=== PATIENT | male | born 1995 | race Caucasian/White ===

== ENCOUNTER 2017-04-15 21:06 | Outpatient (CLI) | payer MEDICAID | END 2017-04-15 21:07 | disposition critical access hospital (66) | LOC: EMS 21:06 | PROVIDERS: ATTEND Surgery | DX: R41.0 Disorientation, unspecified (principal) | CPT/HCPCS: A0425; A0429 ==

== ENCOUNTER 2017-04-15 21:16 | Emergency (ER) | payer MEDICAID ==
[2017-04-15 21:23] VITALS: BP 109/61
--- NOTE | 2017-04-15 21:55 | ED Physician Documentation ---
PD HPI MHE - Stated complaint Stated Complaint: SI - Chief complaint Chief Complaint: Neuro - History obtained from History obtained from: Patient - History of Present Illness Primary symptom: Aggressive behavior, Off meds Timing - onset: Chronic Similar symptoms before: Diagnosis (schizophrenia) Recently seen: Not recently seen Review of Systems Cardiac: reports: Reviewed and negative Respiratory: reports: Reviewed and negative GI: reports: Reviewed and negative Psychiatric: denies: Suicidal, Homicidal PD PAST MEDICAL HISTORY - Past Medical History Past Medical History: Yes Psych: Bipolar disorder, Schizophrenia - Past Surgical History Past Surgical History: No - Allergies Allergies/Adverse Reactions: Allergies Allergy/AdvReac Type Severity Reaction Status Date / Time No Known Drug Allergies Allergy Verified 04/15/17 21:35 - Social History Does the pt smoke?: Yes Smoking Status: Current every day smoker Does the pt drink ETOH?: Yes Does the pt have substance abuse?: Yes - Immunizations Immunizations are current?: Yes - POLST Patient has POLST: No PD ED PE NORMAL - Vitals Vital signs reviewed: Yes - General General: Alert and oriented X 3, No acute distress, Well developed/nourished - HEENT HEENT: Moist mucous membranes - Cardiac Cardiac: RRR, No murmur - Respiratory Respiratory: No respiratory distress, Clear bilaterally - Neuro Neuro: Alert and oriented X 3 PD ED PE EXPANDED - Psych Psych: Withdrawn, Poor eye contact Results - Vitals Vitals: Oxygen O2 Source Room air PD MEDICAL DECISION MAKING - ED course Complexity details: considered differential, d/w patient, d/w family ED course: patient brought in from [facility] due to odd behavior. He has a history of bipolar disorder and schizophrenia, is off medication. He was evaluated in the field by [facility] and, after her a valuation of this patient, [facility] sent a patient to ER for further valuation. [facility] arrives shortly after patient to continue her evaluation. [facility] was unable to secure a bed for this patient at appropriate psychiatric facility, and thus, after discussion with patients family, plans to discharge patient home with follow up in a few days. The patient and family are comfortable with this plan. Departure - Departure Disposition: 01 Home, Self Care Clinical Impression: Altered mental status Qualifiers: Altered mental status type: unspecified Qualified Code(s): R41.82 - Altered mental status, unspecified Condition: Stable Instructions: ED Psychosis Comments: Follow up as discussed with the mental health professional. Discharge Date/Time: 04/15/17 22:30
== END 2017-04-15 22:30 | disposition home or self-care (01) ==
LOC: ED 21:16
DX: R41.82 Altered mental status, unspecified (principal); F31.9 Bipolar disorder, unspecified; F20.9 Schizophrenia, unspecified; F17.200 Nicotine dependence, unspecified, uncomplicated
CPT/HCPCS: 99283

== ENCOUNTER 2017-04-19 11:00 | Outpatient (CLI) | payer MEDICAID | END 2017-04-19 11:01 | disposition home or self-care (01) | LOC: EMS 11:00 | PROVIDERS: ATTEND Surgery | DX: F99 Mental disorder, not otherwise specified (principal) | CPT/HCPCS: A0425; A0429 ==

== ENCOUNTER 2017-04-19 11:07 | Emergency (ER) | payer MEDICAID ==
--- NOTE | 2017-04-19 12:28 | ED Physician Documentation ---
PD HPI MHE - Stated complaint Stated Complaint: MHE - Chief complaint Chief Complaint: MHE - History obtained from History obtained from: Patient - History of Present Illness Primary symptom: Psychosis (Young man with H/O psychosis/schizophrenia kicked out of [facility]'s house d/t bizarre behavior. Brought in by [facility] for invol tx. Not on meds currently, won't say why.) Review of Systems Ten Systems: 10 systems reviewed and negative Constitutional: reports: Reviewed and negative Ears: reports: Reviewed and negative Throat: reports: Reviewed and negative Cardiac: reports: Chest pain / pressure Respiratory: reports: Reviewed and negative PD PAST MEDICAL HISTORY - Past Medical History Past Medical History: Yes Psych: Bipolar disorder, Schizophrenia - Past Surgical History Past Surgical History: No - Present Medications Home Medications: Ambulatory Orders Medication Instructions Recorded Confirmed No Known Home Medications [No 04/19/17 04/19/17 Known Home Medications] - Allergies Allergies/Adverse Reactions: Allergies Allergy/AdvReac Type Severity Reaction Status Date / Time No Known Drug Allergies Allergy Verified 04/15/17 21:35 - Social History Does the pt smoke?: Yes Smoking Status: Current every day smoker Does the pt drink ETOH?: Yes Does the pt have substance abuse?: Yes - Family History Family history: reports: Non contributory - Immunizations Immunizations are current?: Yes - POLST Patient has POLST: No PD ED PE NORMAL - Vitals Vital signs reviewed: Yes - General General: Alert and oriented X 3, No acute distress - HEENT HEENT: PERRL, EOMI - Neck Neck: Supple, no meningeal sign, No bony TTP - Cardiac Cardiac: RRR, No murmur - Respiratory Respiratory: No respiratory distress, Clear bilaterally - Abdomen Abdomen: Soft, Non tender - Back Back: No CVA TTP, No spinal TTP - Derm Derm: Normal color, Warm and dry - Extremities Extremities: No deformity, No tenderness to palpate - Neuro Neuro: Alert and oriented X 3, Normal speech - Psych Psych: Other (Poor eye contact, blunted inappropriate affect with odd laughter. ) Results - Vitals Vitals: Vital Signs - 24 hr 04/19/17 04/19/17 11:10 13:25 Temperature 36.5 C Heart Rate 80 Respiratory 18 Rate Blood Pressure 140/90 H O2 Saturation 100 Oxygen O2 Source Room air - Labs Labs: Laboratory Tests 0604/19/17 04/19/17 12:25 12:25 12:40 WBC 6.7 RBC 4.42 L Hgb 13.7 L Hct 39.7 L MCV 89.7 MCH 31.0 MCHC 34.6 RDW 12.8 Plt Count 256 MPV 7.0 L Neut # 4.2 Lymph # 1.8 [place] # 0.6 Eos # 0.1 Baso # 0.1 Absolute Nucleated RBC 0.00 Nucleated RBCs 0.0 Sodium 140 Potassium 3.6 Chloride 103 Carbon Dioxide 29 Anion Gap 8.0 BUN 18 Creatinine 1.0 Estimated GFR (MDRD) 94 Glucose 79 Calcium 9.2 Urine Opiates Screen NEGATIVE Ur Oxycodone Screen NEGATIVE Urine Methadone Screen NEGATIVE Ur Propoxyphene Screen NEGATIVE Ur Barbiturates Screen NEGATIVE Ur Tricyclics Screen NEGATIVE Ur Phencyclidine Scrn NEGATIVE Ur Amphetamine Screen NEGATIVE U Methamphetamines Scrn NEGATIVE U Benzodiazepines Scrn NEGATIVE Urine Cocaine Screen NEGATIVE U Cannabinoids Screen POSITIVE H Ethyl Alcohol < 5.0 PD MEDICAL DECISION MAKING - ED course ED course: No contraindication to medical clearance for psychiatric evaluation, [facility] and need involuntary for transfer likely to [facility] Departure - Departure Disposition: 65 Psych Hosp/Unit DC/Xfer Clinical Impression: Psychosis Qualifiers: Psychosis type: schizophrenia Schizophrenia type: disorganized schizophrenia Qualified Code(s): F20.1 - Disorganized schizophrenia Condition: Stable
[2017-04-19 12:37] LABS: BASOPHILS # (AUTO) 0.1 10^3/uL (0.0-0.1); BASOPHILS % (AUTO) 1.1 %; EOSINOPHILS # (AUTO) 0.1 10^3/uL (0.0-0.7); EOSINOPHILS % (AUTO) 1.7 %; HCT - HEMATOCRIT 39.7 % (42.0-52.0); HGB - HEMOGLOBIN 13.7 g/dL (14.0-18.0); LYMPHOCYTES # (AUTO) 1.8 10^3/uL (1.5-3.5); LYMPHOCYTES % (AUTO) 26.8 %; MEAN CORPUSCULAR HGB CONC 34.6 g/dL (32.0-36.0); MEAN CORPUSCULAR VOLUME 89.7 fL (80.0-94.0); MONOCYTES # (AUTO) 0.6 10^3/uL (0.0-1.0); MONOCYTES % (AUTO) 8.2 %; NEUTROPHILS # (AUTO) 4.2 10^3/uL (1.5-6.6); NEUTROPHILS % (AUTO) 62.2 %; RED BLOOD COUNT 4.42 10^6/uL (4.70-6.10); RED CELL DISTRIBUTION WIDTH 12.8 % (12.0-15.0); UNCORRECTED WHITE BLOOD COUNT 6.7 x10^3/uL; WHITE BLOOD COUNT 6.7 x10^3/uL (4.8-10.8)
[2017-04-19 12:48] LABS: BUN - BLOOD UREA NITROGEN 18 mg/dL (6-20); CALCIUM 9.2 mg/dL (8.5-10.3); CARBON DIOXIDE - CO2 29 mmol/L (21-32); CHLORIDE 103 mmol/L (101-111); GFR - MDRD 94 (>89); GLUCOSE 79 mg/dL (70-100); POTASSIUM 3.6 mmol/L (3.5-5.0); SODIUM 140 mmol/L (135-145)
[2017-04-19] MEDS ORDERED: LORazepam 0.5 MG TABLET PO STA (13:18)
[2017-04-19] MEDS ORDERED: LORazepam 0.5 MG TABLET ONE (13:24)
[2017-04-19 15:19] VITALS: BP 119/81
== END 2017-04-19 16:50 ==
LOC: EDUNIT# → ED 11:07
DX: F20.1 Disorganized schizophrenia (principal); F31.9 Bipolar disorder, unspecified; F17.200 Nicotine dependence, unspecified, uncomplicated
CPT/HCPCS: 36415; 80048; 80306; 80320; 85025; 99283; 99284; A9270

== ENCOUNTER 2017-10-10 15:48 | Outpatient (CLI) | payer MEDICAID | END 2017-10-10 15:49 | disposition critical access hospital (66) | LOC: EMS 15:48 | PROVIDERS: ATTEND Surgery | DX: M79.1 Myalgia (principal) | CPT/HCPCS: A0425; A0429 ==

== ENCOUNTER 2017-10-10 16:04 | Emergency (ER) | payer MEDICAID ==
[2017-10-10 16:19] VITALS: BP 134/80
--- NOTE | 2017-10-10 17:35 | ED Physician Documentation ---
History of Present Illness - Stated complaint Stated Complaint: LEFT BICEP PX - Chief complaint Chief Complaint: General - History obtained from History obtained from: Patient, EMS - History of Present Illness Timing: Today Pain level max: 3 Pain level now: 0 Improved by: nothing Worsened by: nothing - Additonal information Additional information: Patient is a 22-year-old male who presents to the emergency department with left arm pain today. States he is concerned that he was going to have a heart attack. Used marijuana, drank alcohol and then took approximately 20 pills of dextromethorphan. Had some hallucinations, now feels like he is "coming down from the high". Currently asymptomatic. No acute findings on EKG with EMS. Review of Systems Ten Systems: 10 systems reviewed and negative Constitutional: denies: Fever, Chills Ears: denies: Ear pain Nose: denies: Rhinorrhea / runny nose, Congestion Throat: denies: Sore throat Cardiac: reports: Chest pain / pressure (No chest pain or pressure, but states "I feel like I was going to have a heart attack".) Respiratory: denies: Cough GI: denies: Abdominal Pain, Nausea, Vomiting, Diarrhea Skin: denies: Rash Musculoskeletal: denies: Neck pain, Back pain Neurologic: denies: Headache PD PAST MEDICAL HISTORY - Past Medical History Past Medical History: Yes Psych: Bipolar disorder, Schizophrenia - Past Surgical History Past Surgical History: No - Present Medications Home Medications: Ambulatory Orders Medication Instructions Recorded Confirmed [place] 10/10/17 - Allergies Allergies/Adverse Reactions: Allergies Allergy/AdvReac Type Severity Reaction Status Date / Time No Known Drug Allergies Allergy Verified 04/15/17 21:35 - Social History Does the pt smoke?: Yes Smoking Status: Current every day smoker Does the pt drink ETOH?: Yes Does the pt have substance abuse?: Yes Substance Use and Type: Marijuana - Immunizations Immunizations are current?: Yes - POLST Patient has POLST: No PD ED PE NORMAL - Vitals Vital signs reviewed: Yes - General General: Alert and oriented X 3, No acute distress, Well developed/nourished - HEENT HEENT: PERRL, Moist mucous membranes - Neck Neck: Supple, no meningeal sign - Cardiac Cardiac: RRR, No murmur, Strong equal pulses - Respiratory Respiratory: No respiratory distress, Clear bilaterally - Abdomen Abdomen: Soft, Non tender, Non distended - Derm Derm: Warm and dry - Extremities Extremities: No deformity, No tenderness to palpate, Normal ROM s pain - Neuro Neuro: Alert and oriented X 3, 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, No motor deficit, No sensory deficit, Normal speech Eye Opening: Spontaneous Motor: Obeys Commands Verbal: Oriented GCS Score: 15 - Psych Psych: Normal mood, Normal affect Results - Vitals Vitals: Vital Signs - 24 hr 10/10/17 16:11 Temperature 37.4 C Heart Rate 94 Respiratory 18 Rate Blood Pressure 134/80 H O2 Saturation 98 Oxygen O2 Source Room air - EKG (time done) 1730 Rate: Rate (enter#) (96) Rhythm: NSR [place]: Normal Intervals: Normal CT QRS: Normal Ischemia: Normal ST segments PD MEDICAL DECISION MAKING - ED course Complexity details: reviewed results, re-evaluated patient, considered differential, d/w patient ED course: Patient is a 22-year-old male who presents to the emergency department with left arm pain while he was intoxicated on multiple substances earlier today. Resolved upon arrival to the emergency department. No chest pain. EKG is normal. No acute emergency medical condition at this time. Patient counseled regarding signs and symptoms for which I believe and urgent re-evaluation would be necessary. Patient with good understanding of and agreement to plan and is comfortable going home at this time This document was made in part using voice recognition software. While efforts are made to proofread this document, sound alike and grammatical errors may occur. Departure - Departure Disposition: 01 Home, Self Care Clinical Impression: Arm pain Qualifiers: Laterality: left Qualified Code(s): M79.602 - Pain in left arm Condition: Good Instructions: ED Drug Abuse General Follow-Up: Mara Montelongo ARNP [Primary Care Provider] - Comments: Your tests are normal today. Stay away from drugs and alcohol. Return if you worsen. Discharge Date/Time: 10/10/17 17:35
== END 2017-10-10 17:35 | disposition home or self-care (01) ==
LOC: EDUNIT# → ED 16:04
DX: M79.602 Pain in left arm (principal); R44.3 Hallucinations, unspecified; R07.9 Chest pain, unspecified; F17.200 Nicotine dependence, unspecified, uncomplicated
CPT/HCPCS: 93005; 99283

== ENCOUNTER 2017-10-10 23:38 | Outpatient (CLI) | payer MEDICAID | END 2017-10-10 23:39 | disposition critical access hospital (66) | LOC: EMS 23:38 | PROVIDERS: ATTEND Surgery | DX: M79.602 Pain in left arm (principal) | CPT/HCPCS: A0425; A0429 ==

== ENCOUNTER 2017-10-10 23:45 | Emergency (ER) | payer MEDICAID ==
--- NOTE | 2017-10-11 00:40 | ED Physician Documentation ---
PD HPI CHEST PAIN - Stated complaint Stated Complaint: LEFT ARM PAIN - Chief complaint Chief Complaint: Ext Problem - History obtained from History obtained from: Patient - History of Present Illness Timing - onset: Today (onset of chest discomfort and general weakness, anxiety, after taking medications recreationally earlier today, including "CCC" ( dextromethorphan), alcohol and marijuana. Seen in ED earlier today with chest discomfort. Had normal ECG and vitals. Has continued with anxiety and feeling of muscle aches and chest pressure. Here for check again. Denies any more drug use since prior ED visit.) Timing - onset during: Light activity Timing - duration: Days (1) Timing - details: Gradual onset, Still present Quality: Aching Location: Left chest Radiation: Left upper extremity Improved by: No: Rest Worsened by: Movement, Palpation. No: Inspiration Associated symptoms: Nausea, General Weakness. No: Shortness of air, Diaphoresis, Feeling faint / dizzy, Palpitations, Cough Similar symptoms before: Has not had sx before Recently seen: Emergency Dept Review of Systems Constitutional: reports: Myalgias (today). denies: Fever, Chills Nose: denies: Rhinorrhea / runny nose, Congestion Throat: denies: Sore throat Cardiac: reports: Chest pain / pressure. denies: Palpitations, Pedal edema, Calf pain Respiratory: reports: Cough. denies: Dyspnea, Wheezing GI: denies: Abdominal Pain, Abdominal Swelling, Nausea, Vomiting, Diarrhea Skin: denies: Rash, Lesions PD PAST MEDICAL HISTORY - Past Medical History Past Medical History: Yes Cardiovascular: None Respiratory: None Neuro: None Psych: Bipolar disorder, Schizophrenia - Past Surgical History Past Surgical History: No - Present Medications Home Medications: Ambulatory Orders Medication Instructions Recorded Confirmed [place] 600 mg PO BID 10/10/17 QUEtiapine [SEROquel] 300 mg PO DAILY 10/10/17 10/10/17 Naproxen 375 mg PO BID #20 tablet 10/11/17 - Allergies Allergies/Adverse Reactions: Allergies Allergy/AdvReac Type Severity Reaction Status Date / Time No Known Drug Allergies Allergy Verified 10/10/17 23:54 - Living Situation Living Arrangement: reports: At home - Social History Does the pt smoke?: Yes Smoking Status: Current every day smoker Does the pt drink ETOH?: Yes Does the pt have substance abuse?: Yes Substance Use and Type: Marijuana, Other (denies IVDU.) - Immunizations Immunizations are current?: Yes - POLST Patient has POLST: No PD ED PE NORMAL - Vitals Vital signs reviewed: Yes - General General: Alert and oriented X 3, No acute distress, Well developed/nourished - HEENT HEENT: Ears normal, Moist mucous membranes, Pharynx benign - Cardiac Cardiac: RRR, No murmur - Respiratory Respiratory: Clear bilaterally, Other (some chestwall tenderness left chest anterior without redness, rash, nor sores. ) - Abdomen Abdomen: Soft, Non tender - Male Male : Deferred - Rectal Rectal: Deferred - Back Back: No CVA TTP, No spinal TTP - Derm Derm: Normal color, Warm and dry, No rash - Extremities Extremities: No deformity, No tenderness to palpate, Normal ROM s pain, No edema , No calf tenderness / cord - Neuro Neuro: Alert and oriented X 3, No motor deficit, Normal speech Eye Opening: Spontaneous Motor: Obeys Commands Verbal: Oriented GCS Score: 15 - Psych Psych: Normal mood Results - Vitals Vitals: Vital Signs - 24 hr 10/10/17 10/11/17 10/11/17 23:52 01:15 02:45 Temperature 36.8 C Heart Rate 93 74 71 Respiratory 20 16 16 Rate Blood Pressure 133/76 H 102/61 102/56 L O2 Saturation 99 95 97 Oxygen O2 Source Room air - Labs Labs: Laboratory Tests 10/11/17 10/11/17 10/11/17 00:57 00:57 00:57 WBC 13.6 H RBC 4.86 Hgb 14.7 Hct 42.8 MCV 88.0 MCH 30.3 MCHC 34.4 RDW 13.4 Plt Count 272 MPV 7.0 L Neut # 10.8 H Lymph # 1.7 [place] # 0.9 Eos # 0.1 Baso # 0.1 Absolute Nucleated RBC 0.00 Nucleated RBC % 0.0 Sodium 138 Potassium 3.6 Chloride 101 Carbon Dioxide 25 Anion Gap 12.0 BUN 18 Creatinine 1.0 Estimated GFR (MDRD) 93 Glucose 102 H Calcium 9.6 Total Bilirubin 0.9 AST 59 H ALT 42 Alkaline Phosphatase 76 Total Creatine Kinase 2161 H* Troponin I < 0.04 Total Protein 7.5 Albumin 4.6 Globulin 2.9 Albumin/Globulin Ratio 1.6 Lipase 18 L Urine Color Urine Clarity Urine pH Ur Specific [place] Urine Protein Urine Glucose (UA) Urine Ketones Urine Occult Blood Urine Nitrite Urine Bilirubin Urine Urobilinogen Ur Leukocyte Esterase Ur Microscopic Review Urine Culture Comments Last Dose Date Last Dose Time [place] 10/11/17 10/11/17 01:45 02:08 WBC RBC Hgb Hct MCV MCH MCHC RDW Plt Count MPV Neut # Lymph # [place] # Eos # Baso # Absolute Nucleated RBC Nucleated RBC % Sodium Potassium Chloride Carbon Dioxide Anion Gap BUN Creatinine Estimated GFR (MDRD) Glucose Calcium Total Bilirubin AST ALT Alkaline Phosphatase Total Creatine Kinase Troponin I Total Protein Albumin Globulin Albumin/Globulin Ratio Lipase Urine Color YELLOW Urine Clarity CLEAR Urine pH 6.0 Ur Specific [place] 1.015 Urine Protein NEGATIVE Urine Glucose (UA) NEGATIVE Urine Ketones NEGATIVE Urine Occult Blood NEGATIVE Urine Nitrite NEGATIVE Urine Bilirubin NEGATIVE Urine Urobilinogen 0.2 (NORMAL) Ur Leukocyte Esterase NEGATIVE Ur Microscopic Review NOT INDICATED Urine Culture Comments NOT INDICATED Last Dose Date Not Reportable Last Dose Time Not Reportable [place] 0.41 - Rads (name of study) chest Radiology: Prelim report reviewed, EMP read contemporaneously (no acute process) PD MEDICAL DECISION MAKING - ED course Complexity details: reviewed results, re-evaluated patient (he is resting well with IV fluids. No meds per se for anxiety. He has elevated CK c/w some psychomotor agitation from meds today. Does not have obvious injury nor skin sites of infection. No fever. Given IV fluids to flush out renal flow. UA does not have myoglobin in it. CK is not elevated enough of concern for admission, after discussion with Hospitalist. ), considered differential, d/w patient ED course: Still doing okay in AM, after IV fluids and rest. HR and BP are okay. Minimal to no chestwall symtpoms. Departure - Departure Disposition: 01 Home, Self Care Clinical Impression: Elevated CK, Substance abuse, Psychomotor agitation Chest pain Qualifiers: Chest pain type: precordial pain Qualified Code(s): R07.2 - Precordial pain Condition: Stable Record reviewed to determine appropriate education?: Yes Instructions: ED Chest Pain NonCardiac Follow-Up: Mara Montelongo ARNP [Primary Care Provider] - Prescriptions: Naproxen 375 mg PO BID #20 tablet Comments: Continue usual medications. No recreational use of drugs/meds. Drink lots of fluids/water/juice today. Naproxen twice daily for a week to help with muscle pains. Add Tylenol as needed. You have some muscle irritation leading to some of your symptoms, and this should clear with good hydration and NSAIDs (and time ).
[2017-10-11] MEDS ORDERED: IBUPROFEN 600 MG TABLET PO STA (00:41)
[2017-10-11] MEDS ORDERED: ACETAMINOPHEN 325 MG TABLET PO STA (00:42)
[2017-10-11] MEDS ORDERED: IBUPROFEN 600 MG TABLET PO ONE (00:50)
[2017-10-11] MEDS ORDERED: ACETAMINOPHEN 325 MG TABLET PO ONE (00:50)
--- NOTE | 2017-10-11 01:05 | XRAY Preliminary Report ---
Exam: XR CHEST 2 VIEW PA/LAT IMPRESSION: 1. No acute abnormality seen in the chest. [facility] SITE ID: [id number]
[2017-10-11 01:07] LABS: BASOPHILS # (AUTO) 0.1 10^3/uL (0.0-0.1); BASOPHILS % (AUTO) 0.8 %; EOSINOPHILS # (AUTO) 0.1 10^3/uL (0.0-0.7); EOSINOPHILS % (AUTO) 0.4 %; HCT - HEMATOCRIT 42.8 % (42.0-52.0); HGB - HEMOGLOBIN 14.7 g/dL (14.0-18.0); LYMPHOCYTES # (AUTO) 1.7 10^3/uL (1.5-3.5); LYMPHOCYTES % (AUTO) 12.6 %; MEAN CORPUSCULAR HEMOGLOBIN 30.3 pg (27.0-31.0); MEAN CORPUSCULAR HGB CONC 34.4 g/dL (32.0-36.0); MONOCYTES # (AUTO) 0.9 10^3/uL (0.0-1.0); MONOCYTES % (AUTO) 6.9 %; NEUTROPHILS # (AUTO) 10.8 10^3/uL (1.5-6.6); NEUTROPHILS % (AUTO) 79.3 %; RED BLOOD COUNT 4.86 10^6/uL (4.70-6.10); RED CELL DISTRIBUTION WIDTH 13.4 % (12.0-15.0); UNCORRECTED WHITE BLOOD COUNT 13.6 x10^3/uL; WHITE BLOOD COUNT 13.6 x10^3/uL (4.8-10.8)
--- NOTE | 2017-10-11 01:08 | XRAY Report ---
EXAM: CHEST RADIOGRAPHY EXAM DATE: 10/11/2017 12:57 AM. CLINICAL HISTORY: Chest pain left. COMPARISON: 10/05/2010. TECHNIQUE: 2 views. FINDINGS: Lungs/Pleura: No alveolar consolidation or pleural effusion seen. No pneumothorax. Mediastinum: Heart and mediastinal contours are unremarkable. Other: None. IMPRESSION: 1. No acute abnormality seen in the chest. [facility] Referring Provider Line: [phone] SITE ID: [id number]
[2017-10-11 01:33] LABS: ALBUMIN/GLOBULIN RATIO 1.6 (1.0-2.2); BILIRUBIN,TOTAL 0.9 mg/dL (0.2-1.0); CALCIUM 9.6 mg/dL (8.5-10.3); POTASSIUM 3.6 mmol/L (3.5-5.0); TOTAL PROTEIN 7.5 g/dL (6.7-8.2)
[2017-10-11] MEDS ORDERED: SODIUM CHLORIDE 0.9% 1,000 ML IV ONE (01:33)
[2017-10-11 01:51] LABS: BILIRUBIN,URINE NEGATIVE (NEGATIVE)
[2017-10-11 01:52] LABS: UA CHARGE (STRIP ONLY) YES; UR CULTURE IF IND NOT INDICATED
[2017-10-11 06:19] VITALS: BP 122/71
== END 2017-10-11 06:05 | disposition home or self-care (01) ==
LOC: EDUNIT# → ED 23:45 → SUPCPDRO 23:45 → ED 10-11 06:05
DX: R07.2 Precordial pain (principal); R45.1 Restlessness and agitation; F19.10 Other psychoactive substance abuse, uncomplicated; R94.4 Abnormal results of kidney function studies; F17.200 Nicotine dependence, unspecified, uncomplicated
CPT/HCPCS: 36415; 71020; 80053; 80178; 81001; 81003; 82550; 83690; 84484; 85025; 87086; 93005; 96360; 99284

== ENCOUNTER 2017-10-11 22:02 | Outpatient (CLI) | payer MEDICAID | END 2017-10-11 22:03 | disposition critical access hospital (66) | LOC: EMS 22:02 | PROVIDERS: ATTEND Surgery | DX: R07.9 Chest pain, unspecified (principal); M79.602 Pain in left arm; R45.89 Other symptoms and signs involving emotional state | CPT/HCPCS: A0425; A0429 ==

== ENCOUNTER 2017-10-15 09:10 | Emergency (ER) | payer MEDICAID ==
--- NOTE | 2017-10-15 09:27 | ED Physician Documentation ---
PD HPI CHEST PAIN - Stated complaint Stated Complaint: CP/ARM PX - Chief complaint Chief Complaint: Cardiac - History obtained from History obtained from: Patient - History of Present Illness Timing - onset: How many days ago (5) Timing - onset during: Rest Timing - duration: Days (5) Timing - details: Gradual onset, Still present, Waxing and waning Quality: Pain Location: Left chest Radiation: Left upper extremity Worsened by: Exertion, Movement, Palpation Associated symptoms: Feeling faint / dizzy. No: Shortness of air, Diaphoresis, Nausea, Vomiting, Palpitations, Cough Similar symptoms before: Diagnosis (chest wall pain) Recently seen: Admitted - Additional information Additional information: 22-year-old schizophrenic male [facility] walked to [place] twice last week. He states that he does walk that far occasionally maybe once per month or less. He walked there which is about 10 miles and got a ride back. This is approximately 20 miles of rapid walking last week. He was seen in the emergency department 3 times in 2 days and was admitted to the hospital for observation with rhabdomyolysis. He was hydrated CPK peaked at 3600 and he left AMA. He reports that he has been kicked out of [facility] for taking dextromethorphan and he is now living with his aunt in [place]. He has aches mostly in his legs and his left arm and his chest. He does not feel well. He denies cough or congestion. Review of Systems Constitutional: denies: Fever, Chills, Myalgias Eyes: denies: Decreased vision Ears: denies: Ear pain Nose: denies: Rhinorrhea / runny nose, Congestion Throat: denies: Sore throat Cardiac: reports: Chest pain / pressure. denies: Palpitations Respiratory: denies: Dyspnea, Cough GI: denies: Abdominal Pain, Nausea, Vomiting : denies: Dysuria, Frequency Skin: denies: Rash, Laceration (s) Musculoskeletal: reports: Extremity pain. denies: Neck pain, Back pain, Extremity swelling Neurologic: denies: Generalized weakness, Focal weakness, Numbness PD PAST MEDICAL HISTORY - Past Medical History Cardiovascular: None Respiratory: None Neuro: None Endocrine/Autoimmune: None GI: None : None Psych: Schizophrenia Musculoskeletal: None - Past Surgical History Past Surgical History: No - Present Medications Home Medications: Ambulatory Orders Medication Instructions Recorded Confirmed [place] 600 mg PO BID 10/10/17 10/15/17 QUEtiapine [SEROquel] 600 mg PO BID 10/10/17 10/15/17 - Allergies Allergies/Adverse Reactions: Allergies Allergy/AdvReac Type Severity Reaction Status Date / Time No Known Drug Allergies Allergy Verified 10/12/17 18:21 - Social History Does the pt smoke?: Yes Smoking Status: Current every day smoker Does the pt drink ETOH?: Yes Does the pt have substance abuse?: Yes - Immunizations Immunizations are current?: Yes - POLST Patient has POLST: No POLST Status: Full Code PD ED PE NORMAL - Vitals Vital signs reviewed: Yes (Tachycardic) - General General: No acute distress, Well developed/nourished, Other (The patient is asleep and arouses to give history and falls back asleep. He seems a bit disinterested, but is clean and kempt. ) - HEENT HEENT: Atraumatic, PERRL, EOMI, Other (both TM's are inflamed the left more than the right. The mucous membranes are parched. ) - Neck Neck: Supple, no meningeal sign, No bony TTP - Cardiac Cardiac: No murmur, Other (tachy to 110) - Respiratory Respiratory: No respiratory distress, Clear bilaterally - Abdomen Abdomen: Soft, Non tender - Back Back: No CVA TTP, No spinal TTP - Derm Derm: Normal color, Warm and dry, No rash - Extremities Extremities: No deformity, No edema - Neuro Neuro: No motor deficit, No sensory deficit Eye Opening: Spontaneous Motor: Obeys Commands Verbal: Oriented GCS Score: 15 - Psych Psych: Normal mood, Normal affect Results - Vitals Vitals: Vital Signs - 24 hr 10/15/17 10/15/17 10/15/17 09:14 10:01 11:41 Temperature 97.9 C H Heart Rate 110 H 93 74 Respiratory 24 22 19 Rate Blood Pressure 112/77 113/51 L 110/64 Blood Pressure 118/70 [Left] Blood Pressure 122/63 [Right] O2 Saturation 95 96 99 10/15/17 10/15/17 12:12 13:21 Temperature Heart Rate 86 73 Respiratory 17 19 Rate Blood Pressure 111/67 119/69 Blood Pressure [Left] Blood Pressure [Right] O2 Saturation 97 96 Oxygen O2 Source Room air - EKG (time done) 0916 Rate: Rate (enter#) (101) Rhythm: Sinus tachycardia, LAE Compare to prior EKG: Unchanged from prior EKG (10-11-17) Computer interpretation: Agree with computer - Labs Labs: Laboratory Tests 10/15/17 10/15/17 10/15/17 10:00 10:00 10:00 WBC 6.1 RBC 5.02 Hgb 15.4 Hct 44.7 MCV 89.1 MCH 30.6 MCHC 34.3 RDW 13.5 Plt Count 246 MPV 7.4 Neut # 4.3 Lymph # 1.2 L [place] # 0.4 Eos # 0.2 Baso # 0.0 Absolute Nucleated RBC 0.00 Nucleated RBC % 0.0 Sodium 138 Potassium 3.6 Chloride 103 Carbon Dioxide 24 Anion Gap 11.0 BUN 16 Creatinine 0.8 Estimated GFR (MDRD) 121 Glucose 120 H Calcium 9.4 Total Bilirubin 0.6 AST 31 ALT 40 Alkaline Phosphatase 76 Total Creatine Kinase 419 H CK-MB (CK-2) 10.5 H Troponin I < 0.04 Total Protein 7.2 Albumin 4.3 Globulin 2.9 Albumin/Globulin Ratio 1.5 Lipase 20 L Urine Color Urine Clarity Urine pH Ur Specific [place] Urine Protein Urine Glucose (UA) Urine Ketones Urine Occult Blood Urine Nitrite Urine Bilirubin Urine Urobilinogen Ur Leukocyte Esterase Ur Microscopic Review Urine Culture Comments Urine Opiates Screen Ur Oxycodone Screen Urine Methadone Screen Ur Propoxyphene Screen Ur Barbiturates Screen Ur Tricyclics Screen Ur Phencyclidine Scrn Ur Amphetamine Screen U Methamphetamines Scrn U Benzodiazepines Scrn Urine Cocaine Screen U Cannabinoids Screen Ethyl Alcohol < 5.0 10/15/17 11:35 WBC RBC Hgb Hct MCV MCH MCHC RDW Plt Count MPV Neut # Lymph # [place] # Eos # Baso # Absolute Nucleated RBC Nucleated RBC % Sodium Potassium Chloride Carbon Dioxide Anion Gap BUN Creatinine Estimated GFR (MDRD) Glucose Calcium Total Bilirubin AST ALT Alkaline Phosphatase Total Creatine Kinase CK-MB (CK-2) Troponin I Total Protein Albumin Globulin Albumin/Globulin Ratio Lipase Urine Color YELLOW Urine Clarity CLEAR Urine pH 6.5 Ur Specific [place] 1.020 Urine Protein NEGATIVE Urine Glucose (UA) NEGATIVE Urine Ketones NEGATIVE Urine Occult Blood NEGATIVE Urine Nitrite NEGATIVE Urine Bilirubin NEGATIVE Urine Urobilinogen 0.2 (NORMAL) Ur Leukocyte Esterase NEGATIVE Ur Microscopic Review NOT INDICATED Urine Culture Comments NOT INDICATED Urine Opiates Screen NEGATIVE Ur Oxycodone Screen NEGATIVE Urine Methadone Screen NEGATIVE Ur Propoxyphene Screen NEGATIVE Ur Barbiturates Screen NEGATIVE Ur Tricyclics Screen POSITIVE H Ur Phencyclidine Scrn NEGATIVE Ur Amphetamine Screen NEGATIVE U Methamphetamines Scrn NEGATIVE U Benzodiazepines Scrn NEGATIVE Urine Cocaine Screen NEGATIVE U Cannabinoids Screen POSITIVE H Ethyl Alcohol Procedures - IVC sono (time) 0940 Bedside IVC sono: IVC measures (cm) (1.01), IVC collapsed c insp (cm) (complete) , Dehydration PD MEDICAL DECISION MAKING - ED course Complexity details: reviewed old records, reviewed results, re-evaluated patient , considered differential, d/w patient ED course: 22-year-old male with a recent admission for rhabdomyolysis is able now to provide details about how this occurred. He did have long walks from [place] to [place] twice last week.He continues to have some aches throughout his body and is expected to recover. He is administered dexamethasone 10 mg and liter of fluid. He is improved with his aches and pains. Departure - Departure Disposition: 01 Home, Self Care Clinical Impression: Acute myofascial strain Condition: Stable Instructions: ED Myofascial Pain Syndrome Follow-Up: Mara Montelongo ARNP [Primary Care Provider] - Discharge Date/Time: 10/15/17 13:22
[2017-10-15] MEDS ORDERED: DEXAMETHASONE 10 MG/ML VIAL IVP STA (09:39)
[2017-10-15] MEDS ORDERED: SODIUM CHLORIDE 0.9% 1,000 ML IV ONE ×2 (09:39→11:28)
[2017-10-15 10:06] LABS: BASOPHILS % (AUTO) 0.8 %; EOSINOPHILS # (AUTO) 0.2 10^3/uL (0.0-0.7); EOSINOPHILS % (AUTO) 3.1 %; HCT - HEMATOCRIT 44.7 % (42.0-52.0); HGB - HEMOGLOBIN 15.4 g/dL (14.0-18.0); LYMPHOCYTES # (AUTO) 1.2 10^3/uL (1.5-3.5); LYMPHOCYTES % (AUTO) 19.6 %; MEAN CORPUSCULAR HEMOGLOBIN 30.6 pg (27.0-31.0); MEAN CORPUSCULAR HGB CONC 34.3 g/dL (32.0-36.0); MEAN CORPUSCULAR VOLUME 89.1 fL (80.0-94.0); MEAN PLATELET VOLUME 7.4 fL (7.4-11.4); MONOCYTES # (AUTO) 0.4 10^3/uL (0.0-1.0); MONOCYTES % (AUTO) 5.9 %; NEUTROPHILS # (AUTO) 4.3 10^3/uL (1.5-6.6); NEUTROPHILS % (AUTO) 70.6 %; RED BLOOD COUNT 5.02 10^6/uL (4.70-6.10); RED CELL DISTRIBUTION WIDTH 13.5 % (12.0-15.0); UNCORRECTED WHITE BLOOD COUNT 6.1 x10^3/uL; WHITE BLOOD COUNT 6.1 x10^3/uL (4.8-10.8)
[2017-10-15 10:19] LABS: ALBUMIN/GLOBULIN RATIO 1.5 (1.0-2.2); BILIRUBIN,TOTAL 0.6 mg/dL (0.2-1.0); BUN - BLOOD UREA NITROGEN 16 mg/dL (6-20); CALCIUM 9.4 mg/dL (8.5-10.3); CARBON DIOXIDE - CO2 24 mmol/L (21-32); CHLORIDE 103 mmol/L (101-111); CREATININE 0.8 mg/dL (0.6-1.2); GFR - MDRD 121 (>89); GLUCOSE 120 mg/dL (70-100); LIPASE 20 U/L (22-51); POTASSIUM 3.6 mmol/L (3.5-5.0); SODIUM 138 mmol/L (135-145); TOTAL PROTEIN 7.2 g/dL (6.7-8.2)
[2017-10-15 10:22] LABS: TROPONIN I < 0.04 ng/mL (<0.49)
[2017-10-15 10:24] LABS: CREATINE KINASE MB 10.5 ng/mL (0.6-6.3)
[2017-10-15 12:21] LABS: BILIRUBIN,URINE NEGATIVE (NEGATIVE); PH,URINE 6.5 PH (5.0-7.5)
[2017-10-15 12:22] LABS: UA CHARGE (STRIP ONLY) YES; UR CULTURE IF IND NOT INDICATED
[2017-10-15 13:22] VITALS: BP 119/69
== END 2017-10-15 13:22 | disposition home or self-care (01) ==
LOC: ED 09:10
DX: M79.1 Myalgia (principal); T14.8XXA Other injury of unspecified body region, initial encounter; X58.XXXA Exposure to other specified factors, initial encounter; Y93.01 Activity, walking, marching and hiking; R07.9 Chest pain, unspecified; E86.0 Dehydration; F17.200 Nicotine dependence, unspecified, uncomplicated; F20.9 Schizophrenia, unspecified
CPT/HCPCS: 36415; 80053; 80306; 80320; 81001; 81003; 82550; 82553; 83690; 84484; 85025; 87086; 93005; 99284

== ENCOUNTER 2017-10-15 22:29 | Outpatient (CLI) | payer MEDICAID | END 2017-10-15 22:30 | disposition critical access hospital (66) | LOC: EMS 22:29 | PROVIDERS: ATTEND Surgery | DX: R10.9 Unspecified abdominal pain (principal) | CPT/HCPCS: A0425; A0429 ==

== ENCOUNTER 2017-10-15 22:43 | Emergency (ER) | payer MEDICAID ==
[2017-10-15 23:25] LABS: BILIRUBIN,URINE NEGATIVE (NEGATIVE)
[2017-10-15 23:30] LABS: UA CHARGE (STRIP ONLY) YES; UR CULTURE IF IND NOT INDICATED
--- NOTE | 2017-10-16 01:00 | ED Physician Documentation ---
History of Present Illness - Stated complaint Stated Complaint: SICK - Chief complaint Chief Complaint: Abd Pain - History obtained from History obtained from: Patient - History of Present Illness Timing: Unknown Improved by: no ameliorating factors Worsened by: no exacerbating factors - Additonal information Additional information: seventh [facility] ED visit in past week, second visit to this ED today. He was recently admitted to [facility] for rhabdomyolysis but eventually left AMA. visit earlier today revealed dramatic improvement in CPK levels, and other blood tests performed today were unremarkable. he returns c/o I just dont feel right . he does not elaborate despite prompting (I ask him what doesnt feel right, and how long have you felt this way, and he answers I just dont feel right. he does answer ROS questions, though). He says he is taking his prescribed medications as prescribed and denies recent drug use Review of Systems Constitutional: reports: Reviewed and negative Eyes: reports: Reviewed and negative Cardiac: reports: Reviewed and negative Respiratory: reports: Reviewed and negative GI: reports: Reviewed and negative : denies: Dysuria, Frequency Musculoskeletal: reports: Reviewed and negative Neurologic: reports: Reviewed and negative Psychiatric: denies: Depressed, Suicidal, Homicidal, Hallucinations, Delusions, Anxiety PD PAST MEDICAL HISTORY - Past Medical History Past Medical History: Yes Cardiovascular: None Respiratory: None Neuro: None Endocrine/Autoimmune: None GI: None : None Psych: Schizophrenia Musculoskeletal: None - Past Surgical History Past Surgical History: No - Present Medications Home Medications: Ambulatory Orders Medication Instructions Recorded Confirmed [place] 500 mg PO BID 10/10/17 10/16/17 QUEtiapine [SEROquel] 500 mg PO BID 10/10/17 10/16/17 Lorazepam [Ativan] 1 mg PO Q6HR PRN #20 tablet 10/16/17 - Allergies Allergies/Adverse Reactions: Allergies Allergy/AdvReac Type Severity Reaction Status Date / Time No Known Drug Allergies Allergy Verified 10/16/17 09:32 - Social History Does the pt smoke?: Yes Smoking Status: Current every day smoker Does the pt drink ETOH?: Yes Does the pt have substance abuse?: Yes - Immunizations Immunizations are current?: Yes - POLST Patient has POLST: No POLST Status: Full Code PD ED PE NORMAL - Vitals Vital signs reviewed: Yes - General General: Alert and oriented X 3, No acute distress, Well developed/nourished - HEENT HEENT: PERRL, EOMI, Moist mucous membranes - Neck Neck: Supple, no meningeal sign - Cardiac Cardiac: RRR, No murmur - Respiratory Respiratory: No respiratory distress, Clear bilaterally - Abdomen Abdomen: Soft, Non tender - Derm Derm: Normal color, Warm and dry - Extremities Extremities: No edema - Neuro Neuro: Alert and oriented X 3, No motor deficit, No sensory deficit Eye Opening: Spontaneous Motor: Obeys Commands Verbal: Oriented GCS Score: 15 - Psych Psych: Normal mood, Other (mildly blunted affect) Results - Vitals Vitals: Vital Signs - 24 hr 10/15/17 10/16/17 10/16/17 22:45 01:54 02:15 Temperature 36.0 C L 36.6 C Heart Rate 97 85 77 Respiratory 16 16 16 Rate Blood Pressure 122/81 H 100/55 L 116/60 O2 Saturation 98 96 100 Oxygen O2 Source Room air - Labs Labs: Laboratory Tests 10/15/17 23:05 Urine Color LT. YELLOW Urine Clarity CLEAR Urine pH 6.0 Ur Specific [place] <=1.005 Urine Protein NEGATIVE Urine Glucose (UA) NEGATIVE Urine Ketones NEGATIVE Urine Occult Blood NEGATIVE Urine Nitrite NEGATIVE Urine Bilirubin NEGATIVE Urine Urobilinogen 0.2 (NORMAL) Ur Leukocyte Esterase NEGATIVE Ur Microscopic Review NOT INDICATED Urine Culture Comments NOT INDICATED Urine Opiates Screen NEGATIVE Ur Oxycodone Screen NEGATIVE Urine Methadone Screen NEGATIVE Ur Propoxyphene Screen NEGATIVE Ur Barbiturates Screen NEGATIVE Ur Tricyclics Screen POSITIVE H Ur Phencyclidine Scrn NEGATIVE Ur Amphetamine Screen NEGATIVE U Methamphetamines Scrn NEGATIVE U Benzodiazepines Scrn NEGATIVE Urine Cocaine Screen NEGATIVE U Cannabinoids Screen NEGATIVE PD MEDICAL DECISION MAKING - ED course Complexity details: reviewed old records, reviewed results, re-evaluated patient , considered differential, d/w patient ED course: patient has vague c/o today with unremarkable exam and extensive blood work recently including earlier today that include dramatically improved cpk level and, recently, normal lithium levels. emergent testing not indicated at this time. patient was comfortable with this plan Departure - Departure Disposition: 01 Home, Self Care Clinical Impression: Malaise Condition: Good Instructions: ED Symptoms No Dx Follow-Up: [facility] [Provider Group] [facility] [Provider Group] Discharge Date/Time: 10/16/17 02:20
[2017-10-16 02:25] VITALS: BP 116/60
== END 2017-10-16 02:20 | disposition home or self-care (01) ==
LOC: EDUNIT# → ED 22:43
DX: R53.81 Other malaise (principal); F17.200 Nicotine dependence, unspecified, uncomplicated; M79.1 Myalgia; T14.8XXA Other injury of unspecified body region, initial encounter; X58.XXXA Exposure to other specified factors, initial encounter; Y93.01 Activity, walking, marching and hiking; R07.9 Chest pain, unspecified; E86.0 Dehydration; F20.9 Schizophrenia, unspecified; F41.9 Anxiety disorder, unspecified
CPT/HCPCS: 36415; 80053; 80306; 80320; 81001; 81003; 82550; 82553; 83690; 84484; 85025; 87086; 93005; 96361; 96374; 99283; 99284

== ENCOUNTER 2017-10-16 09:16 | Emergency (ER) | payer MEDICAID ==
[2017-10-16 09:32] VITALS: BP 123/70
--- NOTE | 2017-10-16 10:24 | ED Physician Documentation ---
History of Present Illness - Stated complaint Stated Complaint: LIGHTHEADED,HANDS/FEET NUMB,CP - Chief complaint Chief Complaint: General - History obtained from History obtained from: Patient, Family - History of Present Illness Timing: Today - Additonal information Additional information: 22-year-old schizophrenic male went off his medications for about 2 weeks and developed enough problems that he was kicked out of his housing at [facility]. In order for him to get back into his house and there he will have to be on his medications and see the psychiatrist. He is started back on his medications at his usual doses and he seems to be having in anxiety attack each time he takes his medications. He was seen in the emergency department yesterday by me with a diagnosis of myofascial strain. This was related to excessive walking and rhabdomyolysis that was developed and he had been admitted into the hospital. He received a dose of dexamethasone yesterday felt much improved and then last night after taking his medications he developed symptoms again of anxiety consisting of numbness to his hands pain down his left arm and pain in his chest. He has been evaluated for this 3 times in the emergency department. It does appear more clear now that he does have anxiety after taking his medications. Review of Systems Constitutional: denies: Fever, Chills, Myalgias Eyes: denies: Decreased vision Ears: denies: Ear pain Nose: denies: Congestion Throat: denies: Sore throat Cardiac: reports: Chest pain / pressure. denies: Palpitations Respiratory: denies: Dyspnea, Cough GI: denies: Abdominal Pain, Abdominal Swelling, Nausea, Vomiting : denies: Dysuria, Frequency Skin: denies: Rash Musculoskeletal: reports: Extremity pain. denies: Neck pain, Back pain Neurologic: reports: Numbness. denies: Generalized weakness, Focal weakness Psychiatric: reports: Anxiety PD PAST MEDICAL HISTORY - Past Medical History Cardiovascular: None Respiratory: None Neuro: None Endocrine/Autoimmune: None GI: None : None Psych: Schizophrenia Musculoskeletal: None - Past Surgical History Past Surgical History: No - Present Medications Home Medications: Ambulatory Orders Medication Instructions Recorded Confirmed [place] 500 mg PO BID 10/10/17 10/16/17 QUEtiapine [SEROquel] 500 mg PO BID 10/10/17 10/16/17 Lorazepam [Ativan] 1 mg PO Q6HR PRN #20 tablet 10/16/17 - Allergies Allergies/Adverse Reactions: Allergies Allergy/AdvReac Type Severity Reaction Status Date / Time No Known Drug Allergies Allergy Verified 10/16/17 09:32 - Social History Does the pt smoke?: Yes Smoking Status: Current every day smoker Does the pt drink ETOH?: Yes Does the pt have substance abuse?: Yes - Immunizations Immunizations are current?: Yes - POLST Patient has POLST: No POLST Status: Full Code PD ED PE NORMAL - Vitals Vital signs reviewed: Yes (normal ) - General General: Alert and oriented X 3, No acute distress, Well developed/nourished - HEENT HEENT: Atraumatic, PERRL, EOMI, Ears normal, Moist mucous membranes, Pharynx benign, Dentition benign - Neck Neck: Supple, no meningeal sign, No bony TTP - Cardiac Cardiac: RRR, No murmur - Respiratory Respiratory: No respiratory distress, Clear bilaterally - Abdomen Abdomen: Soft, Non tender - Back Back: No CVA TTP, No spinal TTP - Derm Derm: Normal color, Warm and dry, No rash - Extremities Extremities: No deformity, No edema - Neuro Neuro: Alert and oriented X 3, switch operator 2-12 intact, No motor deficit, No sensory deficit, Normal speech Eye Opening: Spontaneous Motor: Obeys Commands Verbal: Oriented GCS Score: 15 - Psych Psych: Normal mood, Normal affect Results - Vitals Vitals: Vital Signs - 24 hr 10/16/17 09:28 Temperature 36.4 C L Heart Rate 95 Respiratory 16 Rate Blood Pressure 123/70 O2 Saturation 98 Oxygen O2 Source Room air - EKG (time done) 0945 Rate: Rate (enter#) (87) Rhythm: NSR Ischemia: Normal ST segments Compare to prior EKG: Changed from prior EKG ([id number] rate has decreased. ) Computer interpretation: Agree with computer PD MEDICAL DECISION MAKING - ED course Complexity details: reviewed old records, reviewed results, re-evaluated patient , considered differential, d/w patient, d/w family ED course: 22-year-old schizophrenic male recently off of his medications now back on his medications appears to be having anxiety with each dose of his medications. I discussed the case with his mother and the patient and we will try to use some Ativan with his medications until he can get in to see his psychiatrist this week. Departure - Departure Disposition: 01 Home, Self Care Clinical Impression: Anxiety Condition: Stable Instructions: ED Stress React, ED Panic Attack Follow-Up: [facility] [Provider Group] Prescriptions: Lorazepam [Ativan] 1 mg PO Q6HR PRN #20 tablet PRN Reason: Anxiety Comments: Today it appears you are getting anxiety attacks related to taking her medications. For the near future take the Ativan with your medications to prevent this reaction from occurring.Follow-up with her psychiatrist as planned.
== END 2017-10-16 10:33 | disposition home or self-care (01) ==
LOC: ED 09:16
DX: F41.9 Anxiety disorder, unspecified (principal); R07.9 Chest pain, unspecified; F20.9 Schizophrenia, unspecified; F17.200 Nicotine dependence, unspecified, uncomplicated
CPT/HCPCS: 93005

== ENCOUNTER 2017-10-17 07:51 | Outpatient (CLI) | payer MEDICAID | END 2017-10-17 07:52 | disposition critical access hospital (66) | LOC: EMS 07:51 | PROVIDERS: ATTEND Surgery | DX: M79.602 Pain in left arm (principal); R20.2 Paresthesia of skin | CPT/HCPCS: A0425; A0429 ==

== ENCOUNTER 2017-10-17 08:09 | Emergency (ER) | payer MEDICAID ==
[2017-10-17 08:19] VITALS: BP 132/77
--- NOTE | 2017-10-17 08:19 | ED Physician Documentation ---
History of Present Illness - Stated complaint Stated Complaint: LEFT ARM PX - Additonal information Additional information: hx from pt 22 male to ER with near syncope states this AM he had a sharp pain in his L bicep and felt like he might pass out his pain is gone he still feels faint similar episodes last week with tingling to hands and feet as well - seen in ER and worked up and per pt no cause found states no recent fever cough NVD bloody black BM etc no recent med changes denies drugs Review of Systems Constitutional: denies: Fever, Chills Throat: denies: Sore throat Cardiac: denies: Chest pain / pressure, Palpitations Respiratory: denies: Dyspnea GI: denies: Abdominal Pain, Hematemesis, Bloody / black stool : denies: Dysuria Neurologic: reports: Near syncope. denies: Focal weakness, Numbness Endocrine: denies: Easy bruising / bleeding Immunocompromised: denies: Immunocompromised PD PAST MEDICAL HISTORY - Past Medical History Cardiovascular: None Respiratory: None Neuro: None Endocrine/Autoimmune: None GI: None : None Psych: Schizophrenia Musculoskeletal: None - Past Surgical History Past Surgical History: No - Present Medications Home Medications: Ambulatory Orders Medication Instructions Recorded Confirmed [place] 500 mg PO BID 10/10/17 10/16/17 QUEtiapine [SEROquel] 500 mg PO BID 10/10/17 10/16/17 Lorazepam [Ativan] 1 mg PO Q6HR PRN #20 tablet 10/16/17 - Allergies Allergies/Adverse Reactions: Allergies Allergy/AdvReac Type Severity Reaction Status Date / Time No Known Drug Allergies Allergy Verified 10/17/17 08:19 - Social History Does the pt smoke?: Yes Smoking Status: Current every day smoker Does the pt drink ETOH?: Yes Does the pt have substance abuse?: Yes - Immunizations Immunizations are current?: Yes - POLST Patient has POLST: No POLST Status: Full Code PD ED PE NORMAL - Vitals Vital signs reviewed: Yes - General General: Alert and oriented X 3 - HEENT HEENT: PERRL - Neck Neck: Supple, no meningeal sign - Cardiac Cardiac: RRR - Respiratory Respiratory: No respiratory distress - Abdomen Abdomen: Soft, Non tender - Derm Derm: Normal color - Extremities Extremities: No deformity - Neuro Neuro: Alert and oriented X 3, No motor deficit, No sensory deficit Results - Vitals Vitals: Vital Signs - 24 hr 10/17/17 08:14 Temperature 37.1 C Heart Rate 86 Respiratory 18 Rate Blood Pressure 132/77 H O2 Saturation 98 Oxygen O2 Source Room air - EKG (time done) 0818 Rate: Rate (enter#) Rhythm: NSR Intervals: Normal [place] QRS: Normal Ischemia: Normal ST segments - Labs Labs: Laboratory Tests 10/17/17 10/17/17 10/17/17 08:45 08:45 08:45 WBC 6.5 RBC 5.03 Hgb 15.3 Hct 45.5 MCV 90.4 MCH 30.3 MCHC 33.6 RDW 13.4 Plt Count 274 MPV 7.7 Neut # 4.2 Lymph # 1.6 [place] # 0.4 Eos # 0.2 Baso # 0.1 Absolute Nucleated RBC 0.00 Nucleated RBC % 0.0 Sodium 138 Potassium 3.7 Chloride 104 Carbon Dioxide 26 Anion Gap 8.0 BUN 14 Creatinine 0.8 Estimated GFR (MDRD) 121 Glucose 98 Calcium 9.1 Total Bilirubin 0.4 AST 25 ALT 35 Alkaline Phosphatase 77 Total Creatine Kinase Troponin I < 0.04 Total Protein 6.8 Albumin 4.1 Globulin 2.7 Albumin/Globulin Ratio 1.5 Lipase 16 L TSH Last Dose Date Last Dose Time [place] Ethyl Alcohol < 5.0 10/17/17 10/17/17 10/17/17 08:45 08:45 09:54 WBC RBC Hgb Hct MCV MCH MCHC RDW Plt Count MPV Neut # Lymph # [place] # Eos # Baso # Absolute Nucleated RBC Nucleated RBC % Sodium Potassium Chloride Carbon Dioxide Anion Gap BUN Creatinine Estimated GFR (MDRD) Glucose Calcium Total Bilirubin AST ALT Alkaline Phosphatase Total Creatine Kinase 183 Troponin I Total Protein Albumin Globulin Albumin/Globulin Ratio Lipase TSH 1.47 Last Dose Date 10/12/2017 Last Dose Time 0900 [place] 0.15 Ethyl Alcohol PD MEDICAL DECISION MAKING - ED course ED course: chart review indicates this is pts 8th ER visit this week per chart notes he is schizophrenic, has been off his meds, drinking and using marijuana and overdosing on DM was admitted for rhabdo overnight and signed out AMA is supposed to see a psychiatrist but unclear if that has actually happened yet has been kicked out of [facility] and is now living with his aunt he has a caseworker protective services and has seen SW and is established with [facility] today pt presents with somewhat vague complaints of being afraid he will pass out and tingling ext earlier but not now he did not voice suicidal or homicidal thoughts and did not appear to be psychotic he became impatient while waiting for labs and left AMA - - given stable VS and not apparently suicidal homicidal or gravely disable and able to understand that we were still waiting for lithium level etc, he seems to have the capacity to make the decision to leave he says he is taking his meds but his lithium level is lower than earlier this week and subtherapeutic so I am doubtful did not provide urine for drug screen otherwsie labs fine, nl CK, neg trop and EKG Departure - Departure Disposition: 07 Against Medical Advice Clinical Impression: Paresthesia, Near syncope Condition: Fair Discharge Date/Time: 10/17/17 11:06
[2017-10-17] MEDS ORDERED: PROPOFOL 200 MG/20 ML VIAL IVP STA (08:37)
[2017-10-17 09:00] LABS: BASOPHILS # (AUTO) 0.1 10^3/uL (0.0-0.1); BASOPHILS % (AUTO) 0.9 %; EOSINOPHILS # (AUTO) 0.2 10^3/uL (0.0-0.7); EOSINOPHILS % (AUTO) 3.3 %; HCT - HEMATOCRIT 45.5 % (42.0-52.0); HGB - HEMOGLOBIN 15.3 g/dL (14.0-18.0); LYMPHOCYTES # (AUTO) 1.6 10^3/uL (1.5-3.5); LYMPHOCYTES % (AUTO) 24.9 %; MEAN CORPUSCULAR HEMOGLOBIN 30.3 pg (27.0-31.0); MEAN CORPUSCULAR HGB CONC 33.6 g/dL (32.0-36.0); MEAN CORPUSCULAR VOLUME 90.4 fL (80.0-94.0); MEAN PLATELET VOLUME 7.7 fL (7.4-11.4); MONOCYTES # (AUTO) 0.4 10^3/uL (0.0-1.0); MONOCYTES % (AUTO) 6.2 %; NEUTROPHILS # (AUTO) 4.2 10^3/uL (1.5-6.6); NEUTROPHILS % (AUTO) 64.7 %; RED BLOOD COUNT 5.03 10^6/uL (4.70-6.10); RED CELL DISTRIBUTION WIDTH 13.4 % (12.0-15.0); UNCORRECTED WHITE BLOOD COUNT 6.5 x10^3/uL; WHITE BLOOD COUNT 6.5 x10^3/uL (4.8-10.8)
[2017-10-17 09:17] LABS: ALBUMIN/GLOBULIN RATIO 1.5 (1.0-2.2); BILIRUBIN,TOTAL 0.4 mg/dL (0.2-1.0); BUN - BLOOD UREA NITROGEN 14 mg/dL (6-20); CALCIUM 9.1 mg/dL (8.5-10.3); CARBON DIOXIDE - CO2 26 mmol/L (21-32); CHLORIDE 104 mmol/L (101-111); CREATININE 0.8 mg/dL (0.6-1.2); GFR - MDRD 121 (>89); GLUCOSE 98 mg/dL (70-100); LIPASE 16 U/L (22-51); POTASSIUM 3.7 mmol/L (3.5-5.0); SODIUM 138 mmol/L (135-145); TOTAL PROTEIN 6.8 g/dL (6.7-8.2)
== END 2017-10-17 11:06 | disposition left against medical advice (07) ==
LOC: EDUNIT# → ED 08:09
DX: R20.0 Anesthesia of skin (principal); R55 Syncope and collapse; F17.200 Nicotine dependence, unspecified, uncomplicated
CPT/HCPCS: 36415; 80053; 80178; 80320; 82550; 83690; 84443; 84484; 85025; 93005; 99282; 99283

== ENCOUNTER 2017-10-17 20:09 | Outpatient (CLI) | payer MEDICAID | END 2017-10-17 20:10 | disposition short-term general hospital (02) | LOC: EMS 20:09 | PROVIDERS: ATTEND Surgery | DX: R20.2 Paresthesia of skin (principal) | CPT/HCPCS: A0425; A0429 ==

== ENCOUNTER 2017-10-17 20:24 | Emergency (ER) | payer MEDICAID ==
--- NOTE | 2017-10-17 20:53 | ED Physician Documentation ---
History of Present Illness - Stated complaint Stated Complaint: CP, ARM PAIN - Chief complaint Chief Complaint: Ext Problem - History obtained from History obtained from: Patient, EMS - History of Present Illness Timing: Other (22-year-old gentleman brought in by ambulance because he was in [place] and had a 30 minute episode of bilateral hand and feet paresthesia which is now gone and feels like no workup is needed. He is a schizophrenic According to the chart, however he doubts this diagnosis and says he is not following up with [facility]. He is evasive when asked him if he is taking his psychiatric medications. This is his eighth or so visit this week, prior charts were reviewed, had labs this morning that were basically unremarkable.) Review of Systems Constitutional: denies: Fever, Chills Cardiac: denies: Chest pain / pressure, Palpitations Respiratory: denies: Dyspnea, Cough GI: denies: Abdominal Pain PD PAST MEDICAL HISTORY - Past Medical History Past Medical History: Yes Cardiovascular: None Respiratory: None Neuro: None Endocrine/Autoimmune: None GI: None : None Psych: Schizophrenia Musculoskeletal: None - Past Surgical History Past Surgical History: No - Present Medications Home Medications: Ambulatory Orders Medication Instructions Recorded Confirmed [place] 500 mg PO BID 10/10/17 10/17/17 QUEtiapine [SEROquel] 500 mg PO BID 10/10/17 10/17/17 Lorazepam [Ativan] 1 mg PO Q6HR PRN #20 tablet 10/16/17 10/17/17 - Allergies Allergies/Adverse Reactions: Allergies Allergy/AdvReac Type Severity Reaction Status Date / Time No Known Drug Allergies Allergy Verified 10/17/17 20:38 - Social History Does the pt smoke?: Yes Smoking Status: Current every day smoker Does the pt drink ETOH?: Yes Does the pt have substance abuse?: Yes - Immunizations Immunizations are current?: Yes - POLST Patient has POLST: No POLST Status: Full Code PD ED PE NORMAL - Vitals Vital signs reviewed: Yes - General General: Alert and oriented X 3, No acute distress - HEENT HEENT: PERRL, EOMI - Cardiac Cardiac: RRR, No murmur - Respiratory Respiratory: No respiratory distress, Clear bilaterally - Abdomen Abdomen: Normal bowel sounds, Soft, Non tender - Extremities Extremities: No edema, No calf tenderness / cord - Neuro Neuro: Alert and oriented X 3, Normal speech - Psych Psych: Other (Blunted affect, but not flat. He is cooperative. He doubts the diagnosis of schizophrenia and is evasive.) Results - Vitals Vitals: Vital Signs - 24 hr 10/17/17 20:36 Temperature 36.8 C Heart Rate 95 Respiratory 16 Rate Blood Pressure 125/78 O2 Saturation 99 Oxygen O2 Source Room air PD MEDICAL DECISION MAKING - ED course ED course: 22-year-old gentleman presents for resolved paresthesias. This has gone under extensive workup without specific findings found other than schizophrenia. I do not see in indication for involuntary alf, although he does seem decompensated and encouraged him to follow-up with [facility]. Departure - Departure Disposition: 01 Home, Self Care Clinical Impression: Paresthesia Condition: Good Record reviewed to determine appropriate education?: Yes Comments: I strongly recommend you reconsider your doubt of your diagnosis of schizophrenia and follow-up with [facility] and restart your medications.
[2017-10-17 20:55] VITALS: BP 119/72
== END 2017-10-17 20:54 | disposition home or self-care (01) ==
LOC: EDUNIT# → ED 20:24
DX: R20.0 Anesthesia of skin (principal); R55 Syncope and collapse; F17.200 Nicotine dependence, unspecified, uncomplicated
CPT/HCPCS: 36415; 80053; 80178; 80320; 82550; 83690; 84443; 84484; 85025; 93005; 99282; 99283; 99284

== ENCOUNTER 2017-10-18 02:47 | Emergency (ER) | payer MEDICAID ==
[2017-10-18] MEDS ORDERED: OLANZapine ODT 5 MG TABLET TL ONE (03:05)
--- NOTE | 2017-10-18 03:08 | ED Physician Documentation ---
PD HPI MHE - Stated complaint Stated Complaint: DETOX - Chief complaint Chief Complaint: MHE - History obtained from History obtained from: Patient - History of Present Illness Primary symptom: Psychosis, Off meds Timing - onset: How many months ago (2) Contributing factors: Off meds Similar symptoms before: Diagnosis (schizophrenia) Recently seen: Emergency Dept (This is the 10th ED visit this month.) - Additional information Additional information: 22-year-old schizophrenic male is been off of his medications for several months and has developed symptoms of anxiety. He has feelings that he is going to pass out or he has numbness to his feet and hands after taking his medications. He was prescribed Ativan to take with his medications and he has not taken any of this. He has been into the emergency department a number of times this is the 10th visit this month and it is only the . He was in the emergency department twice yesterday left AGAINST MEDICAL ADVICE and he returns early this morning stating that he feels he is okay during the middle of the day when he wakes up in the morning he feels his symptoms the most acutely. He does say he has been sleeping at night but restlessly. He does admit to stopping taking his medications. I did see this patient twice in the past week and treated him for otitis he was improved at the second visit. Review of Systems Constitutional: reports: Fatigue. denies: Fever, Myalgias Eyes: denies: Loss of vision, Decreased vision Ears: denies: Ear pain Nose: reports: Congestion Throat: denies: Sore throat Cardiac: denies: Chest pain / pressure, Palpitations Respiratory: denies: Dyspnea, Cough GI: denies: Abdominal Pain, Nausea, Vomiting : denies: Dysuria, Frequency Skin: denies: Rash Musculoskeletal: denies: Neck pain, Back pain, Extremity pain Neurologic: denies: Generalized weakness, Focal weakness, Numbness PD PAST MEDICAL HISTORY - Past Medical History Cardiovascular: None Respiratory: None Neuro: None Endocrine/Autoimmune: None GI: None : None Psych: Schizophrenia Musculoskeletal: None - Past Surgical History Past Surgical History: No - Present Medications Home Medications: Ambulatory Orders Medication Instructions Recorded Confirmed [place] 500 mg PO BID 10/10/17 10/18/17 QUEtiapine [SEROquel] 500 mg PO BID 10/10/17 10/18/17 Lorazepam [Ativan] 1 mg PO Q6HR PRN #20 tablet 10/16/17 10/18/17 OLANZapine ODT [Zyprexa Odt] 5 mg TL DAILY PM #20 tablet 10/18/17 - Allergies Allergies/Adverse Reactions: Allergies Allergy/AdvReac Type Severity Reaction Status Date / Time No Known Drug Allergies Allergy Verified 10/18/17 02:53 - Social History Does the pt smoke?: Yes Smoking Status: Current every day smoker Does the pt drink ETOH?: Yes Does the pt have substance abuse?: Yes - Immunizations Immunizations are current?: Yes - POLST Patient has POLST: No POLST Status: Full Code PD ED PE NORMAL - Vitals Vital signs reviewed: Yes (Mild hypertension) - General General: No acute distress, Well developed/nourished - HEENT HEENT: Atraumatic, PERRL, EOMI, Pharynx benign, Other (There is inflammation to the left TM the right is clear) - Neck Neck: Supple, no meningeal sign, No bony TTP, No JVD - Cardiac Cardiac: RRR, No murmur - Respiratory Respiratory: No respiratory distress, Clear bilaterally - Abdomen Abdomen: Soft, Non tender - Back Back: No CVA TTP, No spinal TTP - Derm Derm: Normal color, Warm and dry, No rash - Extremities Extremities: No deformity, No edema - Neuro Neuro: No motor deficit, No sensory deficit Eye Opening: Spontaneous Motor: Obeys Commands Verbal: Oriented GCS Score: 15 - Psych Psych: Normal mood, Normal affect Results - Vitals Vitals: Vital Signs - 24 hr 10/18/17 02:51 Temperature 37.3 C Heart Rate 85 Respiratory 18 Rate Blood Pressure 133/72 H O2 Saturation 99 Oxygen O2 Source Room air - Labs Labs: Laboratory Tests 10/18/17 10/18/17 10/18/17 03:14 03:14 03:14 WBC 15.9 H RBC 4.80 Hgb 14.6 Hct 42.5 MCV 88.6 MCH 30.3 MCHC 34.2 RDW 13.5 Plt Count 304 MPV 7.2 L Neut # 12.5 H Lymph # 2.3 [place] # 0.9 Eos # 0.1 Baso # 0.1 Absolute Nucleated RBC 0.01 Nucleated RBC % 0.0 Sodium 141 Potassium 3.3 L Chloride 105 Carbon Dioxide 26 Anion Gap 10.0 BUN 11 Creatinine 0.7 Estimated GFR (MDRD) 141 Glucose 108 H Calcium 9.3 Total Bilirubin 0.5 AST 34 ALT 37 Alkaline Phosphatase 85 Total Protein 7.5 Albumin 4.8 Globulin 2.7 Albumin/Globulin Ratio 1.8 Lipase 12 L TSH 2.18 Salicylates < 6.0 Acetaminophen < 10 L [place] Ethyl Alcohol 13.8 10/18/17 03:14 WBC RBC Hgb Hct MCV MCH MCHC RDW Plt Count MPV Neut # Lymph # [place] # Eos # Baso # Absolute Nucleated RBC Nucleated RBC % Sodium Potassium Chloride Carbon Dioxide Anion Gap BUN Creatinine Estimated GFR (MDRD) Glucose Calcium Total Bilirubin AST ALT Alkaline Phosphatase Total Protein Albumin Globulin Albumin/Globulin Ratio Lipase TSH Salicylates Acetaminophen [place] 0.06 Ethyl Alcohol PD MEDICAL DECISION MAKING - ED course Complexity details: reviewed old records, reviewed results, re-evaluated patient , considered differential, d/w patient ED course: 22-year-old schizophrenic male off of his medications has come back into the emergency department for the 10th time this month. He has left the emergency department only to return later in the day and he has been non-compliant. Today he is telling me he wants to get help with inpatient psych to get back on his medications. He is given zyprexa 5mg and he sleeps well and tells me his symptoms are resolved and he wants to go home. I did ask him about taking zyprexa and he felt this might be a good idea. When I talked about followup he was less keen. He is voluntary and he is not detained. Departure - Departure Disposition: 01 Home, Self Care Clinical Impression: Schizophrenia Qualifiers: Schizophrenia type: unspecified Qualified Code(s): F20.9 - Schizophrenia, unspecified Condition: Stable Instructions: ED Schizophrenia General Follow-Up: [facility] [Provider Group] Prescriptions: OLANZapine ODT [Zyprexa Odt] 5 mg TL DAILY PM #20 tablet
[2017-10-18 03:20] LABS: BASOPHILS # (AUTO) 0.1 10^3/uL (0.0-0.1); BASOPHILS % (AUTO) 0.6 %; EOSINOPHILS # (AUTO) 0.1 10^3/uL (0.0-0.7); EOSINOPHILS % (AUTO) 0.4 %; HCT - HEMATOCRIT 42.5 % (42.0-52.0); HGB - HEMOGLOBIN 14.6 g/dL (14.0-18.0); LYMPHOCYTES # (AUTO) 2.3 10^3/uL (1.5-3.5); LYMPHOCYTES % (AUTO) 14.5 %; MEAN CORPUSCULAR HEMOGLOBIN 30.3 pg (27.0-31.0); MEAN CORPUSCULAR HGB CONC 34.2 g/dL (32.0-36.0); MEAN CORPUSCULAR VOLUME 88.6 fL (80.0-94.0); MEAN PLATELET VOLUME 7.2 fL (7.4-11.4); MONOCYTES # (AUTO) 0.9 10^3/uL (0.0-1.0); MONOCYTES % (AUTO) 5.8 %; NEUTROPHILS # (AUTO) 12.5 10^3/uL (1.5-6.6); NEUTROPHILS % (AUTO) 78.7 %; RED CELL DISTRIBUTION WIDTH 13.5 % (12.0-15.0); UNCORRECTED WHITE BLOOD COUNT 15.9 x10^3/uL; WHITE BLOOD COUNT 15.9 x10^3/uL (4.8-10.8)
[2017-10-18 03:35] LABS: ALBUMIN/GLOBULIN RATIO 1.8 (1.0-2.2); BILIRUBIN,TOTAL 0.5 mg/dL (0.2-1.0); BUN - BLOOD UREA NITROGEN 11 mg/dL (6-20); CALCIUM 9.3 mg/dL (8.5-10.3); CARBON DIOXIDE - CO2 26 mmol/L (21-32); CHLORIDE 105 mmol/L (101-111); CREATININE 0.7 mg/dL (0.6-1.2); GFR - MDRD 141 (>89); GLUCOSE 108 mg/dL (70-100); LIPASE 12 U/L (22-51); POTASSIUM 3.3 mmol/L (3.5-5.0); SALICYLATE < 6.0 mg/dL; SODIUM 141 mmol/L (135-145); TOTAL PROTEIN 7.5 g/dL (6.7-8.2)
[2017-10-18 03:39] LABS: ACETAMINOPHEN < 10 ug/mL (10-30)
[2017-10-18 08:23] VITALS: BP 136/80
== END 2017-10-18 08:02 | disposition home or self-care (01) ==
LOC: ED 02:47
DX: F20.9 Schizophrenia, unspecified (principal); T43.596A Underdosing of other antipsychotics and neuroleptics, initial encounter; Z91.128 Patient's intentional underdosing of medication regimen for other reason; F17.200 Nicotine dependence, unspecified, uncomplicated
CPT/HCPCS: 36415; 80053; 80178; 80307; 80320; 80329; 83690; 84443; 85025; 99283; A9270

== ENCOUNTER 2017-10-23 09:38 | Outpatient (CLI) | payer MEDICAID | END 2017-10-23 09:39 | disposition critical access hospital (66) | LOC: EMS 09:38 | PROVIDERS: ATTEND Surgery | DX: R42 Dizziness and giddiness (principal); R20.0 Anesthesia of skin | CPT/HCPCS: A0425; A0429 ==

== ENCOUNTER 2017-10-23 09:48 | Emergency (ER) | payer MEDICAID ==
[2017-10-23 10:18] LABS: BASOPHILS # (AUTO) 0.1 10^3/uL (0.0-0.1); EOSINOPHILS # (AUTO) 0.2 10^3/uL (0.0-0.7); EOSINOPHILS % (AUTO) 2.6 %; HCT - HEMATOCRIT 45.5 % (42.0-52.0); HGB - HEMOGLOBIN 15.4 g/dL (14.0-18.0); LYMPHOCYTES # (AUTO) 1.6 10^3/uL (1.5-3.5); LYMPHOCYTES % (AUTO) 24.5 %; MEAN CORPUSCULAR HGB CONC 33.8 g/dL (32.0-36.0); MEAN CORPUSCULAR VOLUME 88.8 fL (80.0-94.0); MEAN PLATELET VOLUME 7.2 fL (7.4-11.4); MONOCYTES # (AUTO) 0.4 10^3/uL (0.0-1.0); MONOCYTES % (AUTO) 6.2 %; NEUTROPHILS # (AUTO) 4.3 10^3/uL (1.5-6.6); NEUTROPHILS % (AUTO) 65.7 %; NUCLEATED RED BLOOD CELLS AUTO 0.1 /100WBC; RED BLOOD COUNT 5.12 10^6/uL (4.70-6.10); RED CELL DISTRIBUTION WIDTH 13.4 % (12.0-15.0); UNCORRECTED WHITE BLOOD COUNT 6.6 x10^3/uL; WHITE BLOOD COUNT 6.6 x10^3/uL (4.8-10.8)
[2017-10-23 10:41] LABS: ALBUMIN/GLOBULIN RATIO 1.7 (1.0-2.2); BILIRUBIN,TOTAL 0.3 mg/dL (0.2-1.0); BUN - BLOOD UREA NITROGEN 13 mg/dL (6-20); CALCIUM 9.7 mg/dL (8.5-10.3); CARBON DIOXIDE - CO2 26 mmol/L (21-32); CHLORIDE 98 mmol/L (101-111); CREATININE 0.7 mg/dL (0.6-1.2); GFR - MDRD 141 (>89); GLUCOSE 107 mg/dL (70-100); LIPASE 21 U/L (22-51); POTASSIUM 3.6 mmol/L (3.5-5.0); SODIUM 135 mmol/L (135-145); TOTAL PROTEIN 7.3 g/dL (6.7-8.2)
[2017-10-23 10:45] LABS: BILIRUBIN,URINE NEGATIVE (NEGATIVE); PH,URINE 7.5 PH (5.0-7.5)
[2017-10-23 10:46] LABS: ACETAMINOPHEN < 10 ug/mL (10-30)
[2017-10-23 10:49] LABS: UA CHARGE (STRIP ONLY) YES; UR CULTURE IF IND NOT INDICATED
[2017-10-23 13:07] VITALS: BP 120/77
[2017-10-23 13:09] LABS: LAST DOSE AMOUNT 500
--- NOTE | 2017-10-23 13:49 | TELEPSYCH PHYS NOTE ---
Telepsych Note - CHIEF COMPLAINT/HX OF PRESENT ILLNESS Cheif Complaint and History of Present Illness: This evaluation was conducted via telepsychiatry with the assistance of onsite staff Chief Complaint: psychotic decompensation History of Present Illness: 21 y/o male with a h/o schizophrenia with poor medication compliance who has presented to the ED 10x in the past week with multiple somatic complaints. Patient reports that he has not been taking psych meds because of the somatic issues. Patient has also been medically admitted for rhabdo secondary to walking many miles with poor hydration. Patient does not believe he has schizophrenia and has no insight into a possible relationship between schizophrenia and ED visits. Patient is currently agreeable to inpatient psych admission, but has reportedly agreed before and changed his mind. Patient understands that if he changes his mind this time that the [facility] will be called. SI/ Self harm: denies HI/Violence: denies Access to weapons: denies Legal: denies Psychiatric History/Treatment History: 3 prior admissions Drug/Alcohol History: denies Medical History: denies Medications & Freq: Evant bid, Seroquel Allergies: NKDA Family Psych History/History of suicide: denies all Social History: [employer] Employment: disability Education: 11th didnt want to go Stressors: severe exacerbation of mental illness; medication noncompliance Strengths/supports: Mikael Villegas, on disability Mental Status Exam: Appearance and attire: ramirez becerra Attitude and behavior: guarded, minimizes issues Speech: rapid, pressure Affect and mood: anxious Association and thought processes: concrete Thought content: denies SI/HI; multiple somatic delusions Perception: denies AH/VH Sensorium, memory, and orientation: awake and alert Intellectual functioning: average Insight and judgment: poor Impression/Risk Assessment: 21 y/o male with a h/o schizophrenia with poor medication compliance who has presented to the ED 10x in the past week with multiple somatic complaints. Patient is delusional with rapid and pressured speech. His impaired judgment is interfering with necessary treatment and is putting patient at medical risk as evidence by the medical admissions. Patient is gravely disabled and has failed multiple attempts at outpatient management. Patient requires inpatient psych admission for safety and stabilization. Diagnosis: schizophrenia Treatment Recommendations: Voluntary inpatient psych. If patient wants to leave then call [facility] for involuntary admission Pharmacological: confirm and continue home meds Therapy: supportive Level of Care: inpatient - PSYCHIATRIC HX/TREATMENT HX Psychiatric: Schizophrenia - MEDICAL HX Does the pt have a hx of MRSA?: No Neurological History: None Cardiovascular: None Respiratory: None Endocrine/Autoimmune: None Gastrointestinal: None Urinary: None Musculoskeletal: None - HOME MEDICATIONS Home Meds (as last confirmed): Patient History Medication Instructions Recorded Confirmed [place] 500 mg PO BID 10/10/17 10/23/17 QUEtiapine [SEROquel] 500 mg PO BID 10/10/17 10/23/17 - ALLERGIES Allergies (as last confirmed): Allergies Allergy/AdvReac Type Severity Reaction Status Date / Time No Known Drug Allergies Allergy Verified 10/23/17 09:53 - TIME SPENT & PROVIDER LOCATION Telepsych consultation conducted via videoconferencing: Yes (1 hour) List names and roles of persons who participated in consult: Remy Larson psychiatrlin Telepsych Provider Location: [facility] Time Telepsych consult began: 01:00 Time Telepsych consult completed: 02:00
--- NOTE | 2017-10-23 17:24 | ED Physician Documentation ---
PD HPI MHE - Stated complaint Stated Complaint: DIZZY - Chief complaint Chief Complaint: General - History obtained from History obtained from: Patient - History of Present Illness Primary symptom: Psychosis, Anxiety, Off meds Timing - onset: How many weeks ago (3) Contributing factors: Off meds Similar symptoms before: Diagnosis (schizophrenia) Recently seen: Emergency Dept - Additional information Additional information: 22-year-old schizophrenic male who is been off of his medications has had 10 visits to the emergency department in the past week. He was admitted on his second visit with rhabdomyolysis. He was found to be dehydrated and had walked 10 miles twice in 1 day. He subsequently come back to the emergency department with anxiety related to taking his medications. He was administered some Ativan without improvement in the symptoms and he left the emergency department a number of times after being seen with the comment that he felt well and wanted to leave. He has not had suicidal ideation or homicidal ideation and he has had a place to stay.This morning he has taken the ambulance to the hospital with the chief complaint of numbness in his feet and legs and weakness. He attributes this to his medications. Shortly after he arrives he admits his symptoms are resolved. His mother and his brother come to the emergency department and he asks them to leave. The mother is concerned that despite the number of visits to the emergency department nothing has happened. Review of Systems Constitutional: denies: Fever Eyes: denies: Decreased vision Ears: denies: Ear pain Nose: denies: Congestion Throat: denies: Sore throat Cardiac: denies: Chest pain / pressure Respiratory: denies: Dyspnea, Cough GI: denies: Abdominal Pain, Nausea, Vomiting : denies: Dysuria, Frequency Skin: denies: Rash Musculoskeletal: denies: Neck pain, Back pain, Extremity pain Neurologic: reports: Focal weakness, Numbness. denies: Generalized weakness, Difficulty speaking, Headache, Head injury, LOC Psychiatric: reports: Hallucinations, Delusions. denies: Depressed, Suicidal, Homicidal PD PAST MEDICAL HISTORY - Past Medical History Cardiovascular: None Respiratory: None Neuro: None Endocrine/Autoimmune: None GI: None : None Psych: Schizophrenia Musculoskeletal: None - Past Surgical History Past Surgical History: No - Present Medications Home Medications: Ambulatory Orders Medication Instructions Recorded Confirmed [place] 500 mg PO BID 10/10/17 10/23/17 QUEtiapine [SEROquel] 500 mg PO BID 10/10/17 10/23/17 Lorazepam [Ativan] 1 mg PO Q6HR PRN #20 tablet 10/16/17 10/23/17 OLANZapine ODT [Zyprexa Odt] 5 mg TL DAILY PM #20 tablet 10/18/17 10/23/17 - Allergies Allergies/Adverse Reactions: Allergies Allergy/AdvReac Type Severity Reaction Status Date / Time No Known Drug Allergies Allergy Verified 10/23/17 09:53 - Social History Does the pt smoke?: Yes Smoking Status: Current every day smoker Does the pt drink ETOH?: Yes Does the pt have substance abuse?: Yes - Immunizations Immunizations are current?: Yes - POLST Patient has POLST: No POLST Status: Full Code PD ED PE NORMAL - Vitals Vital signs reviewed: Yes (tachycardic) - General General: No acute distress, Well developed/nourished - HEENT HEENT: Atraumatic, PERRL, EOMI - Neck Neck: Supple, no meningeal sign, No bony TTP - Cardiac Cardiac: RRR, No murmur - Respiratory Respiratory: No respiratory distress, Clear bilaterally - Abdomen Abdomen: Soft, Non tender - Back Back: No CVA TTP, No spinal TTP - Derm Derm: Normal color, Warm and dry, No rash - Extremities Extremities: No deformity, No edema - Neuro Neuro: Alert and oriented X 3, port surveyor 2-12 intact, No motor deficit, No sensory deficit Eye Opening: Spontaneous Motor: Obeys Commands Verbal: Oriented GCS Score: 15 - Psych Psych: Other (mood is aloof and the affect is blunted.) Results - Vitals Vitals: Vital Signs - 24 hr 10/23/17 10/23/17 09:51 13:07 Temperature 36.6 C Heart Rate 108 H 81 Respiratory 16 Rate Blood Pressure 129/78 120/77 O2 Saturation 99 Oxygen O2 Source Room air - EKG (time done) 0953 Rate: Rate (enter#) (107) Rhythm: Sinus tachycardia, LAE Compare to prior EKG: Changed from prior EKG (SPT 10-17-17 his rate has increased) Computer interpretation: Agree with computer - Labs Labs: Laboratory Tests 10/23/17 10/23/17 10/23/17 10:10 10:10 10:10 WBC 6.6 RBC 5.12 Hgb 15.4 Hct 45.5 MCV 88.8 MCH 30.0 MCHC 33.8 RDW 13.4 Plt Count 274 MPV 7.2 L Neut # 4.3 Lymph # 1.6 [place] # 0.4 Eos # 0.2 Baso # 0.1 Absolute Nucleated RBC 0.01 Nucleated RBC % 0.1 Sodium 135 Potassium 3.6 Chloride 98 L Carbon Dioxide 26 Anion Gap 11.0 BUN 13 Creatinine 0.7 Estimated GFR (MDRD) 141 Glucose 107 H Calcium 9.7 Total Bilirubin 0.3 AST 25 ALT 34 Alkaline Phosphatase 81 Troponin I < 0.04 Total Protein 7.3 Albumin 4.6 Globulin 2.7 Albumin/Globulin Ratio 1.7 Lipase 21 L TSH Urine Color Urine Clarity Urine pH Ur Specific [place] Urine Protein Urine Glucose (UA) Urine Ketones Urine Occult Blood Urine Nitrite Urine Bilirubin Urine Urobilinogen Ur Leukocyte Esterase Ur Microscopic Review Urine Culture Comments Dose Last Dose Date Last Dose Time Urine Opiates Screen Ur Oxycodone Screen Urine Methadone Screen Ur Propoxyphene Screen Acetaminophen < 10 L Ur Barbiturates Screen Ur Tricyclics Screen Ur Phencyclidine Scrn Ur Amphetamine Screen U Methamphetamines Scrn U Benzodiazepines Scrn [place] Urine Cocaine Screen U Cannabinoids Screen Ethyl Alcohol < 5.0 10/23/17 10/23/17 10/23/17 10:10 10:20 12:40 WBC RBC Hgb Hct MCV MCH MCHC RDW Plt Count MPV Neut # Lymph # [place] # Eos # Baso # Absolute Nucleated RBC Nucleated RBC % Sodium Potassium Chloride Carbon Dioxide Anion Gap BUN Creatinine Estimated GFR (MDRD) Glucose Calcium Total Bilirubin AST ALT Alkaline Phosphatase Troponin I Total Protein Albumin Globulin Albumin/Globulin Ratio Lipase TSH 2.04 Urine Color YELLOW Urine Clarity CLEAR Urine pH 7.5 Ur Specific [place] 1.015 Urine Protein NEGATIVE Urine Glucose (UA) NEGATIVE Urine Ketones NEGATIVE Urine Occult Blood NEGATIVE Urine Nitrite NEGATIVE Urine Bilirubin NEGATIVE Urine Urobilinogen 0.2 (NORMAL) Ur Leukocyte Esterase NEGATIVE Ur Microscopic Review NOT INDICATED Urine Culture Comments NOT INDICATED Dose 500 Last Dose Date 10/23/2017 Last Dose Time 0800 Urine Opiates Screen NEGATIVE Ur Oxycodone Screen NEGATIVE Urine Methadone Screen NEGATIVE Ur Propoxyphene Screen NEGATIVE Acetaminophen Ur Barbiturates Screen NEGATIVE Ur Tricyclics Screen POSITIVE H Ur Phencyclidine Scrn NEGATIVE Ur Amphetamine Screen NEGATIVE U Methamphetamines Scrn NEGATIVE U Benzodiazepines Scrn NEGATIVE [place] 0.55 Urine Cocaine Screen NEGATIVE U Cannabinoids Screen NEGATIVE Ethyl Alcohol PD MEDICAL DECISION MAKING - ED course Complexity details: reviewed old records, reviewed results, re-evaluated patient , considered differential, d/w patient, d/w family ED course: 22-year-old male with 10 visits to the emergency department of past week has schizophrenia with poor medical compliance. The patient has come in and out of the department sometimes multiple times during the day and we have made no progress on his care. He has been evaluated by the social services analyst and he has been voluntary and he has left the department prior to completion of evaluation.Today the patient is cooperative and he agrees to tele-psych evaluation. Dr. Remy post evaluates the patient and recommends admission to a psychiatric facility for medical stabilization. The patient is agreeable to this and he recommends that we call the [facility] if the patient elopes. Departure - Departure Disposition: 65 Psych Hosp/Unit DC/Xfer Clinical Impression: Schizophrenia Qualifiers: Schizophrenia type: unspecified Qualified Code(s): F20.9 - Schizophrenia, unspecified Condition: Stable
== END 2017-10-23 17:40 ==
LOC: EDUNIT# → ED 09:48
DX: F20.9 Schizophrenia, unspecified (principal); T43.596A Underdosing of other antipsychotics and neuroleptics, initial encounter; T42.4X6A Underdosing of benzodiazepines, initial encounter; Z91.128 Patient's intentional underdosing of medication regimen for other reason; F17.200 Nicotine dependence, unspecified, uncomplicated
CPT/HCPCS: 36415; 80053; 80178; 80306; 80307; 80320; 81003; 83690; 84443; 84484; 85025; 93005; 99284; 99285; Q3014; 81001; 87086

== ENCOUNTER 2017-10-29 21:04 | Outpatient (CLI) | payer MEDICAID | END 2017-10-29 21:05 | disposition critical access hospital (66) | LOC: EMS 21:04 | PROVIDERS: ATTEND Surgery | DX: T50.992A Poisoning by other drugs, medicaments and biological substances, intentional self-harm, initial encounter (principal) | CPT/HCPCS: A0425; A0429 ==

== ENCOUNTER 2017-10-29 21:11 | Emergency (ER) | payer MEDICAID ==
[2017-10-29] MEDS ORDERED: ONDANSETRON ODT 4 MG TABLET TL STA (21:17)
[2017-10-29 22:43] LABS: BASOPHILS # (AUTO) 0.1 10^3/uL (0.0-0.1); BASOPHILS % (AUTO) 0.9 %; EOSINOPHILS # (AUTO) 0.1 10^3/uL (0.0-0.7); EOSINOPHILS % (AUTO) 0.9 %; HGB - HEMOGLOBIN 14.9 g/dL (14.0-18.0); LYMPHOCYTES % (AUTO) 26.8 %; MEAN CORPUSCULAR HEMOGLOBIN 30.4 pg (27.0-31.0); MEAN CORPUSCULAR HGB CONC 33.8 g/dL (32.0-36.0); MEAN CORPUSCULAR VOLUME 90.1 fL (80.0-94.0); MEAN PLATELET VOLUME 7.2 fL (7.4-11.4); MONOCYTES # (AUTO) 0.5 10^3/uL (0.0-1.0); MONOCYTES % (AUTO) 6.1 %; NEUTROPHILS # (AUTO) 4.9 10^3/uL (1.5-6.6); NEUTROPHILS % (AUTO) 65.3 %; PLT - PLATELET COUNT 287 10^3/uL (130-450); RED CELL DISTRIBUTION WIDTH 13.5 % (12.0-15.0); WHITE BLOOD COUNT 7.4 x10^3/uL (4.8-10.8)
[2017-10-29 22:57] LABS: ACETAMINOPHEN 37 ug/mL (10-30); ALBUMIN 4.6 g/dL (3.2-5.5); ALBUMIN/GLOBULIN RATIO 1.8 (1.0-2.2); ALKALINE PHOSPHATASE 93 IU/L (42-121); ALT ALANINE AMINOTRANSFERASE 39 IU/L (10-60); AST ASPARTATE AMINOTRANSFERASE 28 IU/L (10-42); BILIRUBIN,TOTAL 0.3 mg/dL (0.2-1.0); BUN - BLOOD UREA NITROGEN 13 mg/dL (6-20); CARBON DIOXIDE - CO2 25 mmol/L (21-32); CHLORIDE 110 mmol/L (101-111); CREATININE 0.8 mg/dL (0.6-1.2); GFR - MDRD 121 (>89); GLUCOSE 105 mg/dL (70-100); LIPASE 17 U/L (22-51); SALICYLATE < 6.0 mg/dL; SODIUM 144 mmol/L (135-145); TOTAL PROTEIN 7.2 g/dL (6.7-8.2)
[2017-10-30 01:04] LABS: MUDS CUTOFF CONCENTRATIONS CUTOFF CONC BELOW:
[2017-10-30 01:32] LABS: AMPHETAMINE SCREEN,URINE NEGATIVE (NEGATIVE); BENZODIAZEPINES SCREEN, URINE NEGATIVE (NEGATIVE); COCAINE SCREEN URINE NEGATIVE (NEGATIVE); METHADONE SCREEN, URINE NEGATIVE (NEGATIVE); METHAMPHETAMINES SCREEN, URINE NEGATIVE (NEGATIVE); OPIATE SCREEN, URINE NEGATIVE (NEGATIVE); OXYCODONE SCREEN, URINE NEGATIVE (NEGATIVE); PROPOXYPHENE SCREEN, URINE NEGATIVE (NEGATIVE); TRICYCLIC ANTIDEPRESSANT,URINE POSITIVE (NEGATIVE)
[2017-10-30 03:19] VITALS: BP 104/60
--- NOTE | 2017-10-30 05:31 | ED Physician Documentation ---
PD HPI ALTERED MENTAL STATUS - Stated complaint Stated Complaint: SI/MHE - Chief complaint Chief Complaint: MHE - History obtained from History obtained from: Patient, EMS - History of Present Illness Timing - onset: Today Quality / character: Less responsive Contributing factors: Intoxicated, Substance abuse Basline status: Alert and oriented X 3 Similar symptoms before: Work up / diagnostics, Treatment Recently seen: Emergency Dept - Additional information Additional information: Patient is a 22 year old male with a history of substance abuse and multiple ER visits who is presenting to the emergency department for altered mental status. patient states that he drank some fireball and took 10-20 chlorpheniramine, acetaminophen cold pills. Patient states that he had just taken them and that he was worried that he would get too drunk/high so he called ems. Patient denied any suicidal or homicidal ideation. Review of Systems Unable to obtain: Intoxicated Constitutional: denies: Fever, Chills Eyes: denies: Decreased vision, Photophobia Ears: reports: Reviewed and negative Nose: reports: Reviewed and negative Throat: reports: Reviewed and negative Cardiac: denies: Palpitations Respiratory: denies: Cough, Wheezing GI: denies: Nausea, Vomiting Neurologic: denies: Generalized weakness, LOC Psychiatric: denies: Depressed, Suicidal, Homicidal, Hallucinations, Delusions PD PAST MEDICAL HISTORY - Past Medical History Cardiovascular: None Respiratory: None Neuro: None Endocrine/Autoimmune: None GI: None : None Psych: Schizophrenia Musculoskeletal: None - Past Surgical History Past Surgical History: No - Present Medications Home Medications: Ambulatory Orders Medication Instructions Recorded Confirmed [place] 500 mg PO BID 10/10/17 10/30/17 QUEtiapine [SEROquel] 500 mg PO BID 10/10/17 10/30/17 Lorazepam [Ativan] 1 mg PO Q6HR PRN #20 tablet 10/16/17 10/30/17 OLANZapine ODT [Zyprexa Odt] 5 mg TL DAILY PM #20 tablet 10/18/17 10/30/17 - Allergies Allergies/Adverse Reactions: Allergies Allergy/AdvReac Type Severity Reaction Status Date / Time No Known Drug Allergies Allergy Verified 10/30/17 06:59 - Social History Does the pt smoke?: Yes Smoking Status: Current every day smoker Does the pt drink ETOH?: Yes Does the pt have substance abuse?: Yes - Immunizations Immunizations are current?: Yes - POLST Patient has POLST: No POLST Status: Full Code PD ED PE NORMAL - General General: Alert and oriented X 3, No acute distress, Well developed/nourished - HEENT HEENT: Atraumatic, Moist mucous membranes, Pharynx benign - Neck Neck: Supple, no meningeal sign, No JVD - Cardiac Cardiac: RRR, No murmur - Respiratory Respiratory: No respiratory distress, Clear bilaterally - Abdomen Abdomen: Soft, Non tender, Non distended - Derm Derm: Normal color, Warm and dry, No rash - Extremities Extremities: No deformity, No edema, No calf tenderness / cord - Neuro Neuro: No motor deficit, No sensory deficit, Normal speech Eye Opening: Spontaneous Motor: Obeys Commands Verbal: Oriented GCS Score: 15 Results - Vitals Vitals: Vital Signs - 24 hr 10/29/17 10/30/17 10/30/17 23:11 00:52 02:12 Temperature 37.1 C Heart Rate 83 100 88 Respiratory 15 16 16 Rate Blood Pressure 101/54 L 110/50 L 100/49 L O2 Saturation 93 94 94 10/30/17 03:19 Temperature Heart Rate 90 Respiratory 16 Rate Blood Pressure 104/60 O2 Saturation 95 Oxygen O2 Source Room air - EKG (time done) 2342 Rate: Rate (enter#) (80) Rhythm: NSR [place]: Normal Intervals: Normal NC QRS: Normal Ischemia: Normal ST segments - Labs Labs: Laboratory Tests 10/29/17 10/29/17 10/29/17 22:28 22:35 23:50 WBC 7.4 RBC 4.90 Hgb 14.9 Hct 44.1 MCV 90.1 MCH 30.4 MCHC 33.8 RDW 13.5 Plt Count 287 MPV 7.2 L Neut # 4.9 Lymph # 2.0 [place] # 0.5 Eos # 0.1 Baso # 0.1 Absolute Nucleated RBC 0.00 Nucleated RBC % 0.1 Sodium 144 Potassium 3.2 L Chloride 110 Carbon Dioxide 25 Anion Gap 9.0 BUN 13 Creatinine 0.8 Estimated GFR (MDRD) 121 Glucose 105 H Calcium 9.0 Total Bilirubin 0.3 AST 28 ALT 39 Alkaline Phosphatase 93 Total Protein 7.2 Albumin 4.6 Globulin 2.6 Albumin/Globulin Ratio 1.8 Lipase 17 L Salicylates < 6.0 Urine Opiates Screen NEGATIVE Ur Oxycodone Screen NEGATIVE Urine Methadone Screen NEGATIVE Ur Propoxyphene Screen NEGATIVE Acetaminophen 37 H Ur Barbiturates Screen NEGATIVE Ur Tricyclics Screen POSITIVE H Ur Phencyclidine Scrn NEGATIVE Ur Amphetamine Screen NEGATIVE U Methamphetamines Scrn NEGATIVE U Benzodiazepines Scrn NEGATIVE Urine Cocaine Screen NEGATIVE U Cannabinoids Screen NEGATIVE Ethyl Alcohol 114.3 10/30/17 10/30/17 01:09 03:13 WBC RBC Hgb Hct MCV MCH MCHC RDW Plt Count MPV Neut # Lymph # [place] # Eos # Baso # Absolute Nucleated RBC Nucleated RBC % Sodium Potassium Chloride Carbon Dioxide Anion Gap BUN Creatinine Estimated GFR (MDRD) Glucose Calcium Total Bilirubin AST ALT Alkaline Phosphatase Total Protein Albumin Globulin Albumin/Globulin Ratio Lipase Salicylates Urine Opiates Screen Ur Oxycodone Screen Urine Methadone Screen Ur Propoxyphene Screen Acetaminophen 62 H* 54 H* Ur Barbiturates Screen Ur Tricyclics Screen Ur Phencyclidine Scrn Ur Amphetamine Screen U Methamphetamines Scrn U Benzodiazepines Scrn Urine Cocaine Screen U Cannabinoids Screen Ethyl Alcohol 53.8 PD MEDICAL DECISION MAKING - ED course Complexity details: reviewed old records, reviewed results, re-evaluated patient , considered differential, d/w patient, d/w mortgage consultant ED course: Patient was seen and examined at bedside. labs were drawn and patient was placed on a monitor. poison control was called and recommended tylenol level and repeat 4 hour level as well as ekg. patient was placed on a monitor. patient's original tylenol level was 38. Patient's acetaminophen levels were trended and remained under the treatable level on the nomogram. Patient's ekg showed no acute abnormalities. Patient was awake, alert and oriented at discharge. Patient was able to attend to conversation and ambulate without difficulty. Patient required no further work up and was stable for discharge with outpatient follow up. Departure - Departure Disposition: 01 Home, Self Care Clinical Impression: Accidental overdose Condition: Good Instructions: ED Overdose Accidental Follow-Up: primary,care provider [Other] - Within 3 Days Comments: Your symptoms today were caused by the overdose of alcohol and over the counter medications. You need to be careful because it can lead to fci disability and . You should follow up with your doctor for routine care. You may return to the emergency department at any time for new, worsening or uncontrollable symptoms. Discharge Date/Time: 10/30/17 05:49
== END 2017-10-30 05:49 | disposition home or self-care (01) ==
LOC: EDUNIT# → ED 21:11
DX: T50.991A Poisoning by other drugs, medicaments and biological substances, accidental (unintentional), initial encounter (principal); R41.82 Altered mental status, unspecified; R11.0 Nausea; R42 Dizziness and giddiness; T50.992A Poisoning by other drugs, medicaments and biological substances, intentional self-harm, initial encounter; F19.90 Other psychoactive substance use, unspecified, uncomplicated; F20.9 Schizophrenia, unspecified; F17.200 Nicotine dependence, unspecified, uncomplicated
CPT/HCPCS: 36415; 80053; 80178; 80306; 80307; 80320; 80329; 83690; 85025; 93005; 99283; 99284; Q0162

== ENCOUNTER 2017-10-30 06:15 | Outpatient (CLI) | payer MEDICAID | END 2017-10-30 06:16 | disposition EMS.NT | LOC: EMS 06:15 | PROVIDERS: ATTEND Surgery | DX: F99 Mental disorder, not otherwise specified (principal) ==

== ENCOUNTER 2017-10-30 06:26 | Emergency (ER) | payer MEDICAID ==
--- NOTE | 2017-10-30 08:28 | ED Physician Documentation ---
History of Present Illness - Stated complaint Stated Complaint: NAUSEA,DIZZY - Chief complaint Chief Complaint: General - Additonal information Additional information: hx from pt 22 male with schizophrenia numerous ER visits over last months for mental health and was placed for in mental health 10/23 has apparently subsequently been released and presented last night for intentional OD on coricidin (chlorpheniramine, apap) - states took 30 pills at 10 PM with intent to get high, also drank EtOH and smoked THC had serial non toxic apap levels left the ER then called 911 from the waiting room when nurse went to to bring him back he could not be found now he is back again when I went to the room to see him he was not there now he is back again he says he feels dizzy and unsteady and sleepy denies any falls no pain no recent fever cough NVD denies other meds drugs denies SI denies HI denies hallucinations states taking his meds pt requesting readmit to - korina advised and will meet with pt pt states it is OK to update his family that he is in ER and reason and plan to obs here for a while - MARIA FERNANDA ReddKorina says she will notify them of his being in the ER Review of Systems Constitutional: denies: Fever Ears: denies: Ear pain Throat: denies: Sore throat Cardiac: denies: Chest pain / pressure Respiratory: reports: Cough. denies: Dyspnea GI: denies: Abdominal Pain Neurologic: reports: Other (dizzy). denies: Headache, Head injury PD PAST MEDICAL HISTORY - Past Medical History Cardiovascular: None Respiratory: None Neuro: None Endocrine/Autoimmune: None GI: None : None Psych: Schizophrenia Musculoskeletal: None - Past Surgical History Past Surgical History: No - Present Medications Home Medications: Ambulatory Orders Medication Instructions Recorded Confirmed [place] 500 mg PO BID 10/10/17 10/30/17 QUEtiapine [SEROquel] 500 mg PO BID 10/10/17 10/30/17 Lorazepam [Ativan] 1 mg PO Q6HR PRN #20 tablet 10/16/17 10/30/17 OLANZapine ODT [Zyprexa Odt] 5 mg TL DAILY PM #20 tablet 10/18/17 10/30/17 - Allergies Allergies/Adverse Reactions: Allergies Allergy/AdvReac Type Severity Reaction Status Date / Time No Known Drug Allergies Allergy Verified 10/30/17 06:59 - Social History Does the pt smoke?: Yes Smoking Status: Current every day smoker Does the pt drink ETOH?: Yes Does the pt have substance abuse?: Yes - Immunizations Immunizations are current?: Yes - POLST Patient has POLST: No POLST Status: Full Code PD ED PE NORMAL - Vitals Vital signs reviewed: Yes - General General: Alert and oriented X 3, Other (sleepy) - HEENT HEENT: PERRL, EOMI - Neck Neck: Supple, no meningeal sign - Cardiac Cardiac: RRR - Respiratory Respiratory: No respiratory distress, Clear bilaterally - Abdomen Abdomen: Soft, Non tender - Neuro Neuro: Alert and oriented X 3, apiculturist 2-12 intact, No motor deficit, No sensory deficit, Normal speech, Other (little sleepy) Results - Vitals Vitals: Vital Signs - 24 hr 10/30/17 06:56 Temperature 36.4 C L Heart Rate 82 Respiratory 16 Rate Blood Pressure 127/74 O2 Saturation 99 Oxygen O2 Source Room air - Labs Labs: Laboratory Tests 10/30/17 10/30/17 10/30/17 08:47 08:47 09:47 WBC 6.1 RBC 4.77 Hgb 14.6 Hct 42.7 MCV 89.6 MCH 30.6 MCHC 34.1 RDW 13.6 Plt Count 244 MPV 7.1 L Neut # 3.8 Lymph # 1.5 [place] # 0.6 Eos # 0.1 Baso # 0.1 Absolute Nucleated RBC 0.01 Nucleated RBC % 0.1 Sodium 141 Potassium 3.6 Chloride 105 Carbon Dioxide 26 Anion Gap 10.0 BUN 12 Creatinine 0.8 Estimated GFR (MDRD) 121 Glucose 81 Calcium 9.2 Total Bilirubin 0.3 AST 28 ALT 40 Alkaline Phosphatase 87 Total Protein 7.0 Albumin 4.5 Globulin 2.5 Albumin/Globulin Ratio 1.8 Lipase 22 Salicylates < 6.0 Acetaminophen 20 [place] 0.15 Ethyl Alcohol < 5.0 PD MEDICAL DECISION MAKING - ED course ED course: pt slept and then felt better we tried to contact his mother with his authorization but got no answer MARIA FERNANDA met with pt and tried to place him in detox but he was declined he also did not meet criteria to be readmitted to [facility] MARIA FERNANDA offered him a cab back to [employer] or [employer] but he declined he is up walking ambulatory eating and feeling better Departure - Departure Disposition: Home, Self Care Clinical Impression: Recreational drug use, Intentional overdose of drug in tablet form Condition: Good Comments: Do not misuse medications - could cause serious harm
[2017-10-30 08:57] LABS: BASOPHILS # (AUTO) 0.1 10^3/uL (0.0-0.1); EOSINOPHILS # (AUTO) 0.1 10^3/uL (0.0-0.7); EOSINOPHILS % (AUTO) 1.7 %; HGB - HEMOGLOBIN 14.6 g/dL (14.0-18.0); LYMPHOCYTES # (AUTO) 1.5 10^3/uL (1.5-3.5); LYMPHOCYTES % (AUTO) 25.2 %; MEAN CORPUSCULAR HEMOGLOBIN 30.6 pg (27.0-31.0); MEAN CORPUSCULAR HGB CONC 34.1 g/dL (32.0-36.0); MEAN CORPUSCULAR VOLUME 89.6 fL (80.0-94.0); MEAN PLATELET VOLUME 7.1 fL (7.4-11.4); MONOCYTES # (AUTO) 0.6 10^3/uL (0.0-1.0); MONOCYTES % (AUTO) 9.6 %; NEUTROPHILS # (AUTO) 3.8 10^3/uL (1.5-6.6); NEUTROPHILS % (AUTO) 62.5 %; PLT - PLATELET COUNT 244 10^3/uL (130-450); RED BLOOD COUNT 4.77 10^6/uL (4.70-6.10); RED CELL DISTRIBUTION WIDTH 13.6 % (12.0-15.0); WHITE BLOOD COUNT 6.1 x10^3/uL (4.8-10.8)
[2017-10-30 09:22] LABS: ACETAMINOPHEN 20 ug/mL (10-30); ALBUMIN 4.5 g/dL (3.2-5.5); ALBUMIN/GLOBULIN RATIO 1.8 (1.0-2.2); ALKALINE PHOSPHATASE 87 IU/L (42-121); ALT ALANINE AMINOTRANSFERASE 40 IU/L (10-60); AST ASPARTATE AMINOTRANSFERASE 28 IU/L (10-42); BILIRUBIN,TOTAL 0.3 mg/dL (0.2-1.0); BUN - BLOOD UREA NITROGEN 12 mg/dL (6-20); CALCIUM 9.2 mg/dL (8.5-10.3); CARBON DIOXIDE - CO2 26 mmol/L (21-32); CHLORIDE 105 mmol/L (101-111); CREATININE 0.8 mg/dL (0.6-1.2); GFR - MDRD 121 (>89); GLUCOSE 81 mg/dL (70-100); LIPASE 22 U/L (22-51); SALICYLATE < 6.0 mg/dL; SODIUM 141 mmol/L (135-145)
[2017-10-30 10:57] LABS: LITHIUM 0.15 mmol/L
[2017-10-30 11:27] VITALS: BP 123/87
== END 2017-10-30 11:25 | disposition home or self-care (01) ==
LOC: ED 06:26
DX: T50.992A Poisoning by other drugs, medicaments and biological substances, intentional self-harm, initial encounter (principal); F19.90 Other psychoactive substance use, unspecified, uncomplicated; F20.9 Schizophrenia, unspecified; F17.200 Nicotine dependence, unspecified, uncomplicated
CPT/HCPCS: 36415; 80053; 80178; 80307; 80320; 80329; 83690; 85025; 99283

== ENCOUNTER 2017-11-01 16:15 | Outpatient (CLI) | payer MEDICAID | END 2017-11-01 16:16 | disposition critical access hospital (66) | LOC: EMS 16:15 | PROVIDERS: ATTEND Surgery | DX: R68.89 Other general symptoms and signs (principal) | CPT/HCPCS: A0425; A0429 ==

== ENCOUNTER 2017-11-01 16:46 | Emergency (ER) | payer MEDICAID ==
[2017-11-01 16:57] VITALS: BP 100/72
== END 2017-11-01 17:00 | disposition left against medical advice (07) ==
LOC: EDUNIT# → ED 16:46
DX: Z53.21 Procedure and treatment not carried out due to patient leaving prior to being seen by health care provider (principal)
CPT/HCPCS: 80053; 80307; 80320; 80329; 83690; 85025; 99282

== ENCOUNTER 2017-11-01 21:09 | Outpatient (CLI) | payer MEDICAID | END 2017-11-01 21:10 | disposition critical access hospital (66) | LOC: EMS 21:09 | PROVIDERS: ATTEND Surgery | DX: R68.89 Other general symptoms and signs (principal) | CPT/HCPCS: A0425; A0429 ==

== ENCOUNTER 2017-11-01 21:35 | Emergency (ER) | payer MEDICAID ==
[2017-11-01 22:29] LABS: BASOPHILS # (AUTO) 0.1 10^3/uL (0.0-0.1); BASOPHILS % (AUTO) 1.2 %; EOSINOPHILS # (AUTO) 0.1 10^3/uL (0.0-0.7); EOSINOPHILS % (AUTO) 1.3 %; LYMPHOCYTES # (AUTO) 2.3 10^3/uL (1.5-3.5); LYMPHOCYTES % (AUTO) 25.6 %; MEAN CORPUSCULAR HEMOGLOBIN 30.3 pg (27.0-31.0); MEAN CORPUSCULAR HGB CONC 33.9 g/dL (32.0-36.0); MEAN CORPUSCULAR VOLUME 89.4 fL (80.0-94.0); MEAN PLATELET VOLUME 7.1 fL (7.4-11.4); MONOCYTES # (AUTO) 0.5 10^3/uL (0.0-1.0); MONOCYTES % (AUTO) 6.1 %; NEUTROPHILS # (AUTO) 5.9 10^3/uL (1.5-6.6); NEUTROPHILS % (AUTO) 65.8 %; PLT - PLATELET COUNT 293 10^3/uL (130-450); RED BLOOD COUNT 4.95 10^6/uL (4.70-6.10); RED CELL DISTRIBUTION WIDTH 13.7 % (12.0-15.0)
[2017-11-01 22:43] LABS: ALBUMIN 4.7 g/dL (3.2-5.5); ALBUMIN/GLOBULIN RATIO 1.6 (1.0-2.2); ALKALINE PHOSPHATASE 84 IU/L (42-121); ALT ALANINE AMINOTRANSFERASE 36 IU/L (10-60); AST ASPARTATE AMINOTRANSFERASE 24 IU/L (10-42); BILIRUBIN,TOTAL 0.2 mg/dL (0.2-1.0); BUN - BLOOD UREA NITROGEN 10 mg/dL (6-20); CALCIUM 8.8 mg/dL (8.5-10.3); CARBON DIOXIDE - CO2 28 mmol/L (21-32); CHLORIDE 101 mmol/L (101-111); CREATININE 0.8 mg/dL (0.6-1.2); GFR - MDRD 121 (>89); GLUCOSE 94 mg/dL (70-100); LIPASE 15 U/L (22-51); SALICYLATE < 6.0 mg/dL; SODIUM 139 mmol/L (135-145); TOTAL PROTEIN 7.6 g/dL (6.7-8.2)
[2017-11-01 22:46] LABS: ACETAMINOPHEN < 10 ug/mL (10-30)
[2017-11-01] MEDS ORDERED: POTASSIUM CHLORIDE 20 MEQ TABLET PO STA (23:04)
--- NOTE | 2017-11-01 23:09 | ED Physician Documentation ---
PD HPI MHE - Stated complaint Stated Complaint: MHE - Chief complaint Chief Complaint: MHE - History obtained from History obtained from: Patient, EMS - History of Present Illness Primary symptom: Psychosis, Off meds. No: Suicidal ideation, Suicide attempt Timing - onset: Chronic Contributing factors: Substance abuse - ETOH, Substance abuse - drugs, Off meds Similar symptoms before: Work up / diagnostics, Treatment Recently seen: Emergency Dept - Additional information Additional information: Patient is a 22 year old male with multiple emergency room visits who is presenting to the emergency department for "help" Patient states that he doesn' t know what to do and doesn't know where to get help. patient states that his eyes keep twitching and he doesnt feel right. patient denies any suicidal or homicidal ideation and is alert and oriented. Review of Systems Constitutional: denies: Fever, Chills Eyes: reports: Decreased vision, Irritation Ears: reports: Reviewed and negative Nose: reports: Reviewed and negative Throat: reports: Reviewed and negative Cardiac: denies: Chest pain / pressure, Palpitations Respiratory: denies: Dyspnea, Cough, Wheezing : reports: Reviewed and negative Skin: denies: Rash, Lesions Musculoskeletal: reports: Reviewed and negative Neurologic: denies: Confused, Altered mental status Psychiatric: reports: Delusions. denies: Depressed, Suicidal, Homicidal Endocrine: reports: Reviewed and negative PD PAST MEDICAL HISTORY - Past Medical History Cardiovascular: None Respiratory: None Neuro: None Endocrine/Autoimmune: None GI: None : None Psych: Schizophrenia Musculoskeletal: None - Past Surgical History Past Surgical History: No - Present Medications Home Medications: Ambulatory Orders Medication Instructions Recorded Confirmed No Known Home Medications [No 11/01/17 11/01/17 Known Home Medications] - Allergies Allergies/Adverse Reactions: Allergies Allergy/AdvReac Type Severity Reaction Status Date / Time No Known Drug Allergies Allergy Verified 10/30/17 06:59 - Social History Does the pt smoke?: Yes Smoking Status: Current every day smoker Does the pt drink ETOH?: Yes Does the pt have substance abuse?: Yes - Immunizations Immunizations are current?: Yes - POLST Patient has POLST: No POLST Status: Full Code PD ED PE NORMAL - Vitals Vital signs reviewed: Yes - General General: Alert and oriented X 3, No acute distress, Well developed/nourished - HEENT HEENT: Atraumatic, PERRL, Pharynx benign - Neck Neck: Supple, no meningeal sign, No JVD - Cardiac Cardiac: RRR, No murmur - Respiratory Respiratory: No respiratory distress - Abdomen Abdomen: Soft, Non tender, Non distended - Derm Derm: Normal color, Warm and dry, No rash - Neuro Neuro: Alert and oriented X 3, automated cutting machine operator 2-12 intact, No motor deficit, No sensory deficit, Normal speech Eye Opening: Spontaneous Motor: Obeys Commands Verbal: Oriented GCS Score: 15 PD ED PE EXPANDED - Psych Psych: Delusions. No: Suicidal, Homicidal, Anxious, Agitated, Combative Results - Vitals Vitals: Vital Signs - 24 hr 11/01/17 11/02/17 21:38 01:29 Temperature 37.5 C 37 C Heart Rate 94 84 Respiratory 18 20 Rate Blood Pressure 126/80 126/71 O2 Saturation 99 98 Oxygen O2 Source Room air - Labs Labs: Laboratory Tests 11/01/17 11/01/17 11/01/17 22:22 22:22 22:22 WBC 9.0 RBC 4.95 Hgb 15.0 Hct 44.3 MCV 89.4 MCH 30.3 MCHC 33.9 RDW 13.7 Plt Count 293 MPV 7.1 L Neut # 5.9 Lymph # 2.3 [place] # 0.5 Eos # 0.1 Baso # 0.1 Absolute Nucleated RBC 0.00 Nucleated RBC % 0.0 Sodium 139 Potassium 3.1 L Chloride 101 Carbon Dioxide 28 Anion Gap 10.0 BUN 10 Creatinine 0.8 Estimated GFR (MDRD) 121 Glucose 94 Calcium 8.8 Total Bilirubin 0.2 AST 24 ALT 36 Alkaline Phosphatase 84 Total Protein 7.6 Albumin 4.7 Globulin 2.9 Albumin/Globulin Ratio 1.6 Lipase 15 L TSH 2.63 Salicylates < 6.0 Urine Opiates Screen Ur Oxycodone Screen Urine Methadone Screen Ur Propoxyphene Screen Acetaminophen < 10 L Ur Barbiturates Screen Ur Tricyclics Screen Ur Phencyclidine Scrn Ur Amphetamine Screen U Methamphetamines Scrn U Benzodiazepines Scrn Urine Cocaine Screen U Cannabinoids Screen Ethyl Alcohol 29.5 11/02/17 00:05 WBC RBC Hgb Hct MCV MCH MCHC RDW Plt Count MPV Neut # Lymph # [place] # Eos # Baso # Absolute Nucleated RBC Nucleated RBC % Sodium Potassium Chloride Carbon Dioxide Anion Gap BUN Creatinine Estimated GFR (MDRD) Glucose Calcium Total Bilirubin AST ALT Alkaline Phosphatase Total Protein Albumin Globulin Albumin/Globulin Ratio Lipase TSH Salicylates Urine Opiates Screen NEGATIVE Ur Oxycodone Screen NEGATIVE Urine Methadone Screen NEGATIVE Ur Propoxyphene Screen NEGATIVE Acetaminophen Ur Barbiturates Screen NEGATIVE Ur Tricyclics Screen NEGATIVE Ur Phencyclidine Scrn NEGATIVE Ur Amphetamine Screen NEGATIVE U Methamphetamines Scrn NEGATIVE U Benzodiazepines Scrn NEGATIVE Urine Cocaine Screen NEGATIVE U Cannabinoids Screen POSITIVE H Ethyl Alcohol PD MEDICAL DECISION MAKING - ED course Complexity details: reviewed old records, reviewed results, re-evaluated patient , considered differential, d/w patient ED course: Patient was seen and examined at bedside. labs were drawn and urine was collected. patient's potassium was replaced. While awaiting social work patient stated that he wanted to go and that he would call his doctor. Patient was awake alert and oriented. Patient was able to leave the emergency department against medical advice. Departure - Departure Disposition: Against Medical Advice Clinical Impression: Psychomotor agitation Condition: Stable Discharge Date/Time: 11/02/17 01:30
[2017-11-02 00:07] LABS: MUDS CUTOFF CONCENTRATIONS CUTOFF CONC BELOW:
[2017-11-02 00:24] LABS: AMPHETAMINE SCREEN,URINE NEGATIVE (NEGATIVE); BENZODIAZEPINES SCREEN, URINE NEGATIVE (NEGATIVE); COCAINE SCREEN URINE NEGATIVE (NEGATIVE); METHADONE SCREEN, URINE NEGATIVE (NEGATIVE); METHAMPHETAMINES SCREEN, URINE NEGATIVE (NEGATIVE); OPIATE SCREEN, URINE NEGATIVE (NEGATIVE); OXYCODONE SCREEN, URINE NEGATIVE (NEGATIVE); PROPOXYPHENE SCREEN, URINE NEGATIVE (NEGATIVE); TRICYCLIC ANTIDEPRESSANT,URINE NEGATIVE (NEGATIVE)
[2017-11-02 01:30] VITALS: BP 126/71
== END 2017-11-02 01:30 | disposition left against medical advice (07) ==
LOC: EDUNIT# → ED 21:35
DX: F43.8 Other reactions to severe stress (principal); F17.200 Nicotine dependence, unspecified, uncomplicated; F10.10 Alcohol abuse, uncomplicated; F19.10 Other psychoactive substance abuse, uncomplicated
CPT/HCPCS: 36415; 80053; 80306; 80307; 80320; 80329; 83690; 84443; 85025; 99282; 99283; A9270

== ENCOUNTER 2017-12-06 13:02 | Outpatient (CLI) | payer MEDICAID | END 2017-12-06 13:03 | disposition EMS.NT | LOC: EMS 13:02 | PROVIDERS: ATTEND Surgery | DX: R42 Dizziness and giddiness (principal); Z72.89 Other problems related to lifestyle ==

== ENCOUNTER 2017-12-20 16:46 | Outpatient (CLI) | payer MEDICAID | END 2017-12-20 16:47 | disposition critical access hospital (66) | LOC: EMS 16:46 | PROVIDERS: ATTEND Surgery | DX: R42 Dizziness and giddiness (principal); M79.605 Pain in left leg; M79.604 Pain in right leg | CPT/HCPCS: A0425; A0429 ==

== ENCOUNTER 2017-12-20 17:28 | Emergency (ER) | payer MEDICAID ==
[2017-12-20 18:10] LABS: MUDS CUTOFF CONCENTRATIONS CUTOFF CONC BELOW:
[2017-12-20 18:13] LABS: BILIRUBIN,URINE NEGATIVE (NEGATIVE); GLUCOSE, URINE (UA) NEGATIVE (NEGATIVE); KETONES,URINE (UA) NEGATIVE (NEGATIVE); LEUKOCYTE ESTERASE, URINE NEGATIVE (NEGATIVE); NITRITE,URINE NEGATIVE (NEGATIVE); OCCULT BLOOD,URINE NEGATIVE (NEGATIVE); PROTEIN,URINE NEGATIVE (NEGATIVE); UROBILINOGEN,URINE 0.2 (NORMAL) E.U./dL (NORMAL)
[2017-12-20 18:14] LABS: CLARITY,URINE CLEAR (CLEAR)
[2017-12-20 18:28] LABS: ALBUMIN 4.2 g/dL (3.2-5.5); ALBUMIN/GLOBULIN RATIO 1.4 (1.0-2.2); ALKALINE PHOSPHATASE 74 IU/L (42-121); ALT ALANINE AMINOTRANSFERASE 31 IU/L (10-60); AST ASPARTATE AMINOTRANSFERASE 30 IU/L (10-42); BILIRUBIN,TOTAL 0.5 mg/dL (0.2-1.0); BUN - BLOOD UREA NITROGEN 19 mg/dL (6-20); CALCIUM 9.3 mg/dL (8.5-10.3); CARBON DIOXIDE - CO2 26 mmol/L (21-32); CHLORIDE 100 mmol/L (101-111); CREATININE 0.9 mg/dL (0.6-1.2); GFR - MDRD 106 (>89); GLUCOSE 96 mg/dL (70-100); SALICYLATE < 6.0 mg/dL; SODIUM 138 mmol/L (135-145); TOTAL PROTEIN 7.1 g/dL (6.7-8.2)
[2017-12-20 18:29] LABS: ACETAMINOPHEN < 10 ug/mL (10-30); LIPASE < 10 U/L (22-51)
[2017-12-20 18:33] LABS: AMPHETAMINE SCREEN,URINE NEGATIVE (NEGATIVE); BENZODIAZEPINES SCREEN, URINE NEGATIVE (NEGATIVE); COCAINE SCREEN URINE NEGATIVE (NEGATIVE); METHADONE SCREEN, URINE NEGATIVE (NEGATIVE); METHAMPHETAMINES SCREEN, URINE NEGATIVE (NEGATIVE); OPIATE SCREEN, URINE NEGATIVE (NEGATIVE); OXYCODONE SCREEN, URINE NEGATIVE (NEGATIVE); PROPOXYPHENE SCREEN, URINE NEGATIVE (NEGATIVE); TRICYCLIC ANTIDEPRESSANT,URINE POSITIVE (NEGATIVE)
--- NOTE | 2017-12-20 19:02 | ED Physician Documentation ---
PD HPI OVERDOSE - Stated complaint Stated Complaint: LEG PAIN - Chief complaint Chief Complaint: MHE - History obtained from History obtained from: Patient - History of Present Illness Timing - onset: Today Subtance(s) ingested: Single (took 5 tablets of Seroquel 100 mg to "get high" and soon after got feeling dizzy and had leg pains/muscle cramping feeling. Called EMS.) Associated symptoms: Altered mental status, Other (muslce cramps) Contributing factors: Substance abuse. No: Suicidal Similar symptoms before: Has not had sx before Review of Systems Constitutional: denies: Fever, Chills Nose: denies: Rhinorrhea / runny nose, Congestion Throat: denies: Sore throat Respiratory: denies: Cough GI: denies: Abdominal Pain, Vomiting, Diarrhea Neurologic: reports: Altered mental status. denies: Focal weakness, Numbness, Headache, Head injury Psychiatric: denies: Depressed, Suicidal PD PAST MEDICAL HISTORY - Past Medical History Cardiovascular: None Respiratory: None Neuro: None Endocrine/Autoimmune: None GI: None : None Psych: Schizophrenia Musculoskeletal: None - Past Surgical History Past Surgical History: No - Present Medications Home Medications: Ambulatory Orders Medication Instructions Recorded Confirmed No Known Home Medications [No 11/01/17 11/01/17 Known Home Medications] - Allergies Allergies/Adverse Reactions: Allergies Allergy/AdvReac Type Severity Reaction Status Date / Time No Known Drug Allergies Allergy Verified 12/20/17 17:28 - Social History Does the pt smoke?: Yes Smoking Status: Current every day smoker Does the pt drink ETOH?: Yes Does the pt have substance abuse?: Yes - Immunizations Immunizations are current?: Yes - POLST Patient has POLST: No POLST Status: Full Code PD ED PE NORMAL - Vitals Vital signs reviewed: Yes - General General: Well developed/nourished. No: Alert and oriented X 3 (sleepy but rousable. Seems restless. ) - HEENT HEENT: Pharynx benign - Neck Neck: Supple, no meningeal sign, No adenopathy - Cardiac Cardiac: RRR, No murmur - Respiratory Respiratory: No respiratory distress - Abdomen Abdomen: Soft, Non tender - Derm Derm: Normal color, Warm and dry - Extremities Extremities: No deformity, No tenderness to palpate, Normal ROM s pain - Neuro Neuro: special procedures nurse 2-12 intact, No motor deficit, No sensory deficit, Normal speech Eye Opening: Spontaneous Motor: Obeys Commands Verbal: Oriented GCS Score: 15 - Psych Psych: Normal mood. No: Normal affect (restless and some anxious) Results - Vitals Vitals: Oxygen O2 Source Room air - Labs Labs: Laboratory Tests 12/20/17 12/20/17 12/20/17 17:48 17:48 18:07 Sodium 138 Potassium 3.3 L Chloride 100 L Carbon Dioxide 26 Anion Gap 12.0 BUN 19 Creatinine 0.9 Estimated GFR (MDRD) 106 Glucose 96 Calcium 9.3 Total Bilirubin 0.5 AST 30 ALT 31 Alkaline Phosphatase 74 Total Protein 7.1 Albumin 4.2 Globulin 2.9 Albumin/Globulin Ratio 1.4 Lipase < 10 L Urine Color YELLOW Urine Clarity CLEAR Urine pH 7.0 Ur Specific [place] 1.010 Urine Protein NEGATIVE Urine Glucose (UA) NEGATIVE Urine Ketones NEGATIVE Urine Occult Blood NEGATIVE Urine Nitrite NEGATIVE Urine Bilirubin NEGATIVE Urine Urobilinogen 0.2 (NORMAL) Ur Leukocyte Esterase NEGATIVE Ur Microscopic Review NOT INDICATED Urine Culture Comments NOT INDICATED Salicylates < 6.0 Urine Opiates Screen NEGATIVE Ur Oxycodone Screen NEGATIVE Urine Methadone Screen NEGATIVE Ur Propoxyphene Screen NEGATIVE Acetaminophen < 10 L Ur Barbiturates Screen NEGATIVE Ur Tricyclics Screen POSITIVE H Ur Phencyclidine Scrn NEGATIVE Ur Amphetamine Screen NEGATIVE U Methamphetamines Scrn NEGATIVE U Benzodiazepines Scrn NEGATIVE Urine Cocaine Screen NEGATIVE U Cannabinoids Screen NEGATIVE Ethyl Alcohol < 5.0 PD MEDICAL DECISION MAKING - ED course Complexity details: considered differential (took overdose of Seroquel to get high and I think he got some akithesia from it, with muscle cramps. Seemed improved with Benadryl. Slept awhile and then awake enough to get taxi. He denies suicidal intent. ), d/w patient Departure - Departure Disposition: 01 Home, Self Care Clinical Impression: Altered mental status Qualifiers: Altered mental status type: delirium Qualified Code(s): R41.0 - Disorientation , unspecified Overdose Qualifiers: Encounter type: initial encounter Injury intent: accidental or unintentional Qualified Code(s): T50.901A - Poisoning by unspecified drugs, medicaments and biological substances, accidental (unintentional), initial encounter Condition: Stable Record reviewed to determine appropriate education?: Yes Instructions: ED Overdose Accidental Comments: Drink lots of fluids. Do not take on prescribed medications or drugs. Avoid excess medications. This should wear off over the next day or 2 more completely. He will feel a little bit lightheaded and sleepy still for another day or 2. Recheck if not completely normal feeling over 2-3 days. Discharge Date/Time: 12/20/17 21:49
[2017-12-20] MEDS ORDERED: diphenhydrAMINE INJ 50 MG/ML VIAL IVP STA (19:19)
[2017-12-20] MEDS ORDERED: KETOROLAC 60 MG/2 ML VIAL IVP STA (19:19)
[2017-12-20] MEDS ORDERED: SODIUM CHLORIDE 0.9% 1,000 ML IV ONE (19:19)
[2017-12-20 20:50] VITALS: BP 148/89
== END 2017-12-20 21:49 | disposition home or self-care (01) ==
LOC: ED 17:28
DX: R41.0 Disorientation, unspecified (principal); T43.591A Poisoning by other antipsychotics and neuroleptics, accidental (unintentional), initial encounter; F20.9 Schizophrenia, unspecified; F17.200 Nicotine dependence, unspecified, uncomplicated; F19.10 Other psychoactive substance abuse, uncomplicated
CPT/HCPCS: 36415; 80053; 80306; 80307; 80320; 80329; 81001; 81003; 83690; 87086; 93005; 96374; 96375; 99284

== ENCOUNTER 2018-02-13 19:25 | Emergency (ER) | payer MEDICAID ==
[2018-02-13 19:31] VITALS: BP 123/75
[2018-02-13] MEDS ORDERED: SODIUM CHLORIDE 0.9% 1,000 ML IV ONE (20:53)
[2018-02-13 21:09] LABS: BASOPHILS # (AUTO) 0.1 10^3/uL (0.0-0.1); BASOPHILS % (AUTO) 1.5 %; EOSINOPHILS # (AUTO) 0.1 10^3/uL (0.0-0.7); EOSINOPHILS % (AUTO) 1.5 %; HGB - HEMOGLOBIN 14.6 g/dL (14.0-18.0); LYMPHOCYTES # (AUTO) 2.2 10^3/uL (1.5-3.5); LYMPHOCYTES % (AUTO) 30.4 %; MEAN CORPUSCULAR HEMOGLOBIN 29.2 pg (27.0-31.0); MEAN CORPUSCULAR HGB CONC 33.4 g/dL (32.0-36.0); MEAN CORPUSCULAR VOLUME 87.6 fL (80.0-94.0); MEAN PLATELET VOLUME 7.1 fL (7.4-11.4); MONOCYTES # (AUTO) 0.5 10^3/uL (0.0-1.0); MONOCYTES % (AUTO) 6.6 %; NEUTROPHILS # (AUTO) 4.3 10^3/uL (1.5-6.6); PLT - PLATELET COUNT 294 10^3/uL (130-450); RED BLOOD COUNT 5.01 10^6/uL (4.70-6.10); RED CELL DISTRIBUTION WIDTH 13.2 % (12.0-15.0); WHITE BLOOD COUNT 7.2 x10^3/uL (4.8-10.8)
--- NOTE | 2018-02-13 21:20 | ED Physician Documentation ---
PD HPI ALTERED MENTAL STATUS - Stated complaint Stated Complaint: CONFUSION - Chief complaint Chief Complaint: Neuro - History obtained from History obtained from: Patient - History of Present Illness Timing - onset: Unknown Timing - duration: Other (unknown) Timing - details: Other (unknown) - Additional information Additional information: Patient is a 22-year-old male who presents to the emergency department with apparent altered mental status. He does not want to answer questions. States he just wants to go to sleep. States that he took something but is mumbling and difficult to understand. Review of Systems Unable to obtain: AMS, Confused, Uncooperative PD PAST MEDICAL HISTORY - Past Medical History Cardiovascular: None Respiratory: None Neuro: None Endocrine/Autoimmune: None GI: None : None Psych: Schizophrenia Musculoskeletal: None - Past Surgical History Past Surgical History: No - Present Medications Home Medications: Ambulatory Orders Medication Instructions Recorded Confirmed Peabody Carbonate [Peabody 02/13/18 Carbonate] QUEtiapine [SEROquel] 02/13/18 - Allergies Allergies/Adverse Reactions: Allergies Allergy/AdvReac Type Severity Reaction Status Date / Time No Known Drug Allergies Allergy Verified 12/20/17 17:28 - Social History Does the pt smoke?: Yes Smoking Status: Current every day smoker Does the pt drink ETOH?: Yes Does the pt have substance abuse?: Yes - Immunizations Immunizations are current?: Yes - POLST Patient has POLST: No POLST Status: Full Code PD ED PE NORMAL - Vitals Vital signs reviewed: Yes - General General: No acute distress, Well developed/nourished, Other (alert, but wants to sleep) - HEENT HEENT: PERRL, Moist mucous membranes - Neck Neck: Supple, no meningeal sign - Cardiac Cardiac: RRR - Respiratory Respiratory: No respiratory distress, Clear bilaterally - Abdomen Abdomen: Soft, Non tender, Non distended - Back Back: No spinal TTP - Derm Derm: Warm and dry - Extremities Extremities: No deformity - Neuro Neuro: No motor deficit, No sensory deficit Eye Opening: Spontaneous Motor: Localizes to Pain Verbal: Confused GCS Score: 13 Results - Vitals Vitals: Oxygen O2 Source Room air - Labs Labs: Laboratory Tests 02/13/18 02/13/18 02/13/18 21:04 21:04 21:04 WBC 7.2 RBC 5.01 Hgb 14.6 Hct 43.9 MCV 87.6 MCH 29.2 MCHC 33.4 RDW 13.2 Plt Count 294 MPV 7.1 L Neut # 4.3 Lymph # 2.2 [place] # 0.5 Eos # 0.1 Baso # 0.1 Absolute Nucleated RBC 0.00 Nucleated RBC % 0.1 Sodium 140 Potassium 3.5 Chloride 106 Carbon Dioxide 25 Anion Gap 9.0 BUN 14 Creatinine 0.8 Estimated GFR (MDRD) 121 Glucose 110 H POC Whole Bld Glucose Calcium 9.0 Total Bilirubin 0.2 AST 22 ALT 23 Alkaline Phosphatase 77 Total Protein 7.0 Albumin 4.5 Globulin 2.5 Albumin/Globulin Ratio 1.8 Lipase 129 H TSH 0.27 L Urine Color Urine Clarity Urine pH Ur Specific Moore Urine Protein Urine Glucose (UA) Urine Ketones Urine Occult Blood Urine Nitrite Urine Bilirubin Urine Urobilinogen Ur Leukocyte Esterase Ur Microscopic Review Urine Culture Comments Salicylates < 6.0 Urine Opiates Screen Ur Oxycodone Screen Urine Methadone Screen Ur Propoxyphene Screen Acetaminophen 42 H* Ur Barbiturates Screen Ur Tricyclics Screen Ur Phencyclidine Scrn Ur Amphetamine Screen U Methamphetamines Scrn U Benzodiazepines Scrn Urine Cocaine Screen U Cannabinoids Screen Ethyl Alcohol 181.6 02/13/18 02/13/18 21:15 21:30 WBC RBC Hgb Hct MCV MCH MCHC RDW Plt Count MPV Neut # Lymph # [place] # Eos # Baso # Absolute Nucleated RBC Nucleated RBC % Sodium Potassium Chloride Carbon Dioxide Anion Gap BUN Creatinine Estimated GFR (MDRD) Glucose POC Whole Bld Glucose 101 H Calcium Total Bilirubin AST ALT Alkaline Phosphatase Total Protein Albumin Globulin Albumin/Globulin Ratio Lipase TSH Urine Color YELLOW Urine Clarity CLEAR Urine pH 5.5 Ur Specific Moore 1.025 Urine Protein NEGATIVE Urine Glucose (UA) NEGATIVE Urine Ketones NEGATIVE Urine Occult Blood NEGATIVE Urine Nitrite NEGATIVE Urine Bilirubin NEGATIVE Urine Urobilinogen 0.2 (NORMAL) Ur Leukocyte Esterase NEGATIVE Ur Microscopic Review NOT INDICATED Urine Culture Comments NOT INDICATED Salicylates Urine Opiates Screen NEGATIVE Ur Oxycodone Screen NEGATIVE Urine Methadone Screen NEGATIVE Ur Propoxyphene Screen NEGATIVE Acetaminophen Ur Barbiturates Screen NEGATIVE Ur Tricyclics Screen NEGATIVE Ur Phencyclidine Scrn NEGATIVE Ur Amphetamine Screen NEGATIVE U Methamphetamines Scrn NEGATIVE U Benzodiazepines Scrn NEGATIVE Urine Cocaine Screen NEGATIVE U Cannabinoids Screen POSITIVE H Ethyl Alcohol PD MEDICAL DECISION MAKING - ED course Complexity details: reviewed results, re-evaluated patient, considered differential, d/w patient ED course: Patient is a 22-year-old male who presents to the emergency room with altered mental status. Appears to be a combination of alcohol intoxication and recreational drug use. These substances began to wear off in the emergency department. He was awake, alert and oriented 3 and ambulating with a steady gait. He does not want to stay for any further evaluation in the emergency department. We will have him follow-up with his doctor. Patient counseled regarding signs and symptoms for which I believe and urgent re-evaluation would be necessary. Patient with good understanding of and agreement to plan and is comfortable going home at this time This document was made in part using voice recognition software. While efforts are made to proofread this document, sound alike and grammatical errors may occur. Departure - Departure Disposition: 01 Home, Self Care Clinical Impression: Recreational drug use Alcohol intoxication Qualifiers: Complication of substance-induced condition: uncomplicated Qualified Code(s): F10.920 - Alcohol use, unspecified with intoxication, uncomplicated Condition: Good Instructions: ED Drug Abuse General, ED Alcohol Intoxication Follow-Up: your,doctor in 1 week [Other] Comments: Return if you worsen. Discharge Date/Time: 02/13/18 21:58
[2018-02-13 21:25] LABS: ACETAMINOPHEN 42 ug/mL (10-30); ALBUMIN 4.5 g/dL (3.2-5.5); ALBUMIN/GLOBULIN RATIO 1.8 (1.0-2.2); ALKALINE PHOSPHATASE 77 IU/L (42-121); ALT ALANINE AMINOTRANSFERASE 23 IU/L (10-60); AST ASPARTATE AMINOTRANSFERASE 22 IU/L (10-42); BILIRUBIN,TOTAL 0.2 mg/dL (0.2-1.0); BUN - BLOOD UREA NITROGEN 14 mg/dL (6-20); CARBON DIOXIDE - CO2 25 mmol/L (21-32); CHLORIDE 106 mmol/L (101-111); CREATININE 0.8 mg/dL (0.6-1.2); GFR - MDRD 121 (>89); GLUCOSE 110 mg/dL (70-100); LIPASE 129 U/L (22-51); SALICYLATE < 6.0 mg/dL; SODIUM 140 mmol/L (135-145)
[2018-02-13 21:34] LABS: MUDS CUTOFF CONCENTRATIONS CUTOFF CONC BELOW:
[2018-02-13 21:35] LABS: BILIRUBIN,URINE NEGATIVE (NEGATIVE); GLUCOSE, URINE (UA) NEGATIVE (NEGATIVE); KETONES,URINE (UA) NEGATIVE (NEGATIVE); LEUKOCYTE ESTERASE, URINE NEGATIVE (NEGATIVE); NITRITE,URINE NEGATIVE (NEGATIVE); OCCULT BLOOD,URINE NEGATIVE (NEGATIVE); PH,URINE 5.5 PH (5.0-7.5); PROTEIN,URINE NEGATIVE (NEGATIVE); UROBILINOGEN,URINE 0.2 (NORMAL) E.U./dL (NORMAL)
[2018-02-13 21:39] LABS: CLARITY,URINE CLEAR (CLEAR)
[2018-02-13 21:47] LABS: AMPHETAMINE SCREEN,URINE NEGATIVE (NEGATIVE); BENZODIAZEPINES SCREEN, URINE NEGATIVE (NEGATIVE); COCAINE SCREEN URINE NEGATIVE (NEGATIVE); METHADONE SCREEN, URINE NEGATIVE (NEGATIVE); METHAMPHETAMINES SCREEN, URINE NEGATIVE (NEGATIVE); OPIATE SCREEN, URINE NEGATIVE (NEGATIVE); OXYCODONE SCREEN, URINE NEGATIVE (NEGATIVE); PROPOXYPHENE SCREEN, URINE NEGATIVE (NEGATIVE); TRICYCLIC ANTIDEPRESSANT,URINE NEGATIVE (NEGATIVE)
== END 2018-02-13 21:58 | disposition home or self-care (01) ==
LOC: ED 19:25
DX: F19.90 Other psychoactive substance use, unspecified, uncomplicated (principal); F10.920 Alcohol use, unspecified with intoxication, uncomplicated; F17.200 Nicotine dependence, unspecified, uncomplicated
CPT/HCPCS: 36415; 80053; 80306; 80307; 80320; 80329; 81001; 81003; 83690; 84443; 85025; 87086; 99283

== ENCOUNTER 2018-03-19 09:18 | Emergency (ER) | payer MEDICAID ==
[2018-03-19 09:27] VITALS: BP 111/83
--- NOTE | 2018-03-19 09:41 | ED Physician Documentation ---
History of Present Illness - Stated complaint Stated Complaint: LAC ON CHEST - Chief complaint Chief Complaint: Wound - History obtained from History obtained from: Patient - History of Present Illness Timing: How many days ago (2) Pain level max: 0 Pain level now: 0 Improved by: nothing Worsened by: nothing - Additonal information Additional information: Patient is a 22-year-old male who states he was shaving his chest with a razor that he found in the shower and well cut his left nipple a few days ago. Concerned that now it may be becoming infected and that he may have contracted a disease from the razor. This was a facial shaving razor, not a straight edge razor or razor blade. td UTD Review of Systems Constitutional: denies: Fever, Chills GI: denies: Vomiting Skin: denies: Rash Musculoskeletal: denies: Neck pain, Back pain Neurologic: denies: Headache PD PAST MEDICAL HISTORY - Past Medical History Cardiovascular: None Respiratory: None Endocrine/Autoimmune: None GI: None : None Psych: Schizophrenia Musculoskeletal: None - Past Surgical History Past Surgical History: No - Present Medications Home Medications: Ambulatory Orders Medication Instructions Recorded Confirmed Sulfamethox/Trimeth 800/160 1 each PO BID #14 tablet 03/19/18 [Bactrim Ds 800/160] - Allergies Allergies/Adverse Reactions: Allergies Allergy/AdvReac Type Severity Reaction Status Date / Time No Known Drug Allergies Allergy Verified 12/20/17 17:28 - Social History Does the pt smoke?: Yes Smoking Status: Current every day smoker Does the pt drink ETOH?: Yes Does the pt have substance abuse?: Yes - Immunizations Immunizations are current?: Yes - POLST Patient has POLST: No POLST Status: Full Code PD ED PE NORMAL - Vitals Vital signs reviewed: Yes - General General: Alert and oriented X 3, No acute distress - HEENT HEENT: Moist mucous membranes - Neck Neck: Supple, no meningeal sign - Cardiac Cardiac: RRR, Strong equal pulses - Respiratory Respiratory: No respiratory distress, Clear bilaterally - Derm Derm: Warm and dry, Other (Small 1 x 1 cm indurated area posterior to the left nipple. No induration. Mild erythema.) - Neuro Neuro: Alert and oriented X 3 Results - Vitals Vitals: Vital Signs - 24 hr 03/19/18 09:21 Temperature 36.5 C Heart Rate 91 Respiratory 16 Rate Blood Pressure 111/83 H O2 Saturation 99 Oxygen O2 Source Room air PD MEDICAL DECISION MAKING - ED course Complexity details: considered differential, d/w patient ED course: Patient has what appears to be a small amount of cellulitis to the the left nipple with a possible early abscess. He refuses any intervention at this time. Refuses antibiotics here. We will discharge him on antibiotics. He was informed to follow-up with his doctor for further testing regarding potential infectious disease exposure such as HIV, hepatitis panel. Patient counseled regarding signs and symptoms for which I believe and urgent re-evaluation would be necessary. Patient with good understanding of and agreement to plan and is comfortable going home at this time This document was made in part using voice recognition software. While efforts are made to proofread this document, sound alike and grammatical errors may occur. Departure - Departure Disposition: 01 Home, Self Care Clinical Impression: Cellulitis Qualifiers: Site of cellulitis: trunk Site of cellulitis of trunk: chest wall Qualified Code(s): L03.313 - Cellulitis of chest wall Condition: Good Instructions: ED Infec Skin Cellulitis Follow-Up: your,doctor in 3 days for wound check [Other] Prescriptions: Sulfamethox/Trimeth 800/160 [Bactrim Ds 800/160] 1 each PO BID #14 tablet Comments: Take all antibiotics until gone. You need to follow-up with your doctor in 3 days for a wound check. Return here sooner if you worsen Discharge Date/Time: 03/19/18 09:44
== END 2018-03-19 09:44 | disposition home or self-care (01) ==
LOC: ED 09:18
DX: L03.313 Cellulitis of chest wall (principal); F17.200 Nicotine dependence, unspecified, uncomplicated
CPT/HCPCS: 99283

== ENCOUNTER 2018-04-22 16:53 | Outpatient (CLI) | payer MEDICAID | END 2018-04-22 16:54 | disposition critical access hospital (66) | LOC: EMS 16:53 | PROVIDERS: ATTEND Surgery | DX: M25.511 Pain in right shoulder (principal); S01.112A Laceration without foreign body of left eyelid and periocular area, initial encounter; S01.111A Laceration without foreign body of right eyelid and periocular area, initial encounter; M54.2 Cervicalgia; Y04.2XXA Assault by strike against or bumped into by another person, initial encounter; Y92.832 Beach as the place of occurrence of the external cause | CPT/HCPCS: A0425; A0427 ==

== ENCOUNTER 2018-04-22 17:26 | Emergency (ER) | END 2018-04-22 19:53 | disposition home or self-care (01) ==

== ENCOUNTER 2018-07-01 19:31 | Outpatient (CLI) | payer MEDICAID | END 2018-07-01 19:32 | disposition critical access hospital (66) | LOC: EMS 19:31 | PROVIDERS: ATTEND Surgery | DX: R69 Illness, unspecified (principal) | CPT/HCPCS: A0425; A0429; A0999 ==

== ENCOUNTER 2018-07-01 19:49 | Emergency (ER) | payer MEDICAID ==
[2018-07-01 19:55] VITALS: BP 116/71
--- NOTE | 2018-07-01 20:08 | ED Physician Documentation ---
PD HPI MHE - Stated complaint Stated Complaint: LETHARGIC - Chief complaint Chief Complaint: MHE - History obtained from History obtained from: Patient, EMS - History of Present Illness Primary symptom: Other (He was feeling dizzy/lightheaded at [facility]. Now feels better. Declines any current complaints or wanting any evaluation or workup. When I ask him if he's used drugs/alcohol today, "I don't think so?") Review of Systems Cardiac: denies: Chest pain / pressure, Palpitations Respiratory: denies: Dyspnea, Cough GI: denies: Abdominal Pain, Vomiting, Diarrhea PD PAST MEDICAL HISTORY - Past Medical History Cardiovascular: None Respiratory: None Endocrine/Autoimmune: None GI: None : None Psych: Schizophrenia Musculoskeletal: None - Past Surgical History Past Surgical History: No - Present Medications Home Medications: Ambulatory Orders Medication Instructions Recorded Confirmed No Known Home Medications [No 07/01/18 07/01/18 Known Home Medications] - Allergies Allergies/Adverse Reactions: Allergies Allergy/AdvReac Type Severity Reaction Status Date / Time No Known Drug Allergies Allergy Verified 07/01/18 19:53 - Social History Does the pt smoke?: Yes Smoking Status: Current every day smoker Does the pt drink ETOH?: Yes Does the pt have substance abuse?: Yes - Family History Family history: reports: Non contributory - Immunizations Immunizations are current?: Yes - POLST Patient has POLST: No POLST Status: Full Code PD ED PE NORMAL - Vitals Vital signs reviewed: Yes - General General: Alert and oriented X 3, No acute distress, Other (poor eye contact) - HEENT HEENT: PERRL, EOMI - Neck Neck: Supple, no meningeal sign, No bony TTP - Cardiac Cardiac: RRR, No murmur - Respiratory Respiratory: No respiratory distress, Clear bilaterally - Abdomen Abdomen: Non tender - Neuro Neuro: Alert and oriented X 3, Normal speech Results - Vitals Vitals: Vital Signs - 24 hr 07/01/18 19:50 Temperature 37.0 C Heart Rate 73 Respiratory 16 Rate Blood Pressure 116/71 O2 Saturation 98 Oxygen O2 Source Room air PD MEDICAL DECISION MAKING - ED course ED course: He has no specific complaints at this point and does not want any evaluation. He is cogent to make this decision and is encouraged to return anytime if he is feeling worse. - Sepsis Event Vital Signs: Vital Signs - 24 hr 07/01/18 19:50 Temperature 37.0 C Heart Rate 73 Respiratory 16 Rate Blood Pressure 116/71 O2 Saturation 98 Oxygen O2 Source Room air Departure - Departure Disposition: 01 Home, Self Care Clinical Impression: No complaints, Dizziness Condition: Stable Record reviewed to determine appropriate education?: Yes Instructions: ED Dizziness UK[facility] Comments: Return anytime as needed. Followup with your primary doctor as soon as possible.
== END 2018-07-01 20:10 | disposition home or self-care (01) ==
LOC: EDUNIT# → ED 19:49
DX: R42 Dizziness and giddiness (principal); F17.200 Nicotine dependence, unspecified, uncomplicated
CPT/HCPCS: 80053; 80306; 80307; 80320; 80329; 83690; 99282; 99283

== ENCOUNTER 2018-07-03 22:56 | Emergency (ER) | payer MEDICAID ==
[2018-07-03 23:22] VITALS: BP 124/77
--- NOTE | 2018-07-03 23:39 | ED Physician Documentation ---
History of Present Illness - Stated complaint Stated Complaint: LEGS HURT - Chief complaint Chief Complaint: General - History obtained from History obtained from: Patient - History of Present Illness Timing: Today - Additonal information Additional information: odd behavior on H+P; hyperkinetic, poor eye contact, answers some questions normally and, at other times, answers with high-pitched cartoonish voice ( although his answers remain intelligible). Frequently talking to himself. He cannot provide an explanation as to why he came to the emergency department except that his right arm hurts. He can provide no time of onset, exacerbating factors, or ameliorating factors. He also says "I feel sick", but cannot elaborate on this even when prompted. He tells me he drank a bottle of robitussin this evening with the intention being "to get high" (per patient; asked for further clarification, he says he did not take the robutissin because of feeling "sick"). PD PAST MEDICAL HISTORY - Past Medical History Cardiovascular: None Respiratory: None Endocrine/Autoimmune: None GI: None : None Psych: Schizophrenia Musculoskeletal: None - Past Surgical History Past Surgical History: No - Present Medications Home Medications: Ambulatory Orders Medication Instructions Recorded Confirmed No Known Home Medications [No 07/01/18 07/01/18 Known Home Medications] - Allergies Allergies/Adverse Reactions: Allergies Allergy/AdvReac Type Severity Reaction Status Date / Time No Known Drug Allergies Allergy Verified 07/04/18 00:30 - Social History Does the pt smoke?: Yes Smoking Status: Current every day smoker Does the pt drink ETOH?: Yes Does the pt have substance abuse?: Yes - Immunizations Immunizations are current?: Yes - POLST Patient has POLST: No POLST Status: Full Code Results - Vitals Vitals: Oxygen O2 Source Room air PD MEDICAL DECISION MAKING - ED course Complexity details: reviewed old records, considered differential, d/w patient ED course: Despite his odd behavior and hyperkinetic activity, he is cooperative, follows commands (sometimes needs repeat prompting, such as staying seated on the stretcher, but will quickly comply when reminded to do so), and answers questions (also sometimes needs to be asked for clarification due to vague answers). When alone in the room, he frequently talks to himself, laughs inappropriately, walks around room and into hallway. This is likely due to the robitussin overdose he admits to, although there could also be an underlying mental illness as well. He does not describe nor evidence imminent threat/ danger to self or others and he declines offer for SW evaluation. Given 1mg ativan PO to help with the psychomotor agitation. - Sepsis Event Vital Signs: Oxygen O2 Source Room air Departure - Departure Disposition: 01 Home, Self Care Clinical Impression: Psychomotor agitation Dextromethorphan overdose Qualifiers: Encounter type: subsequent encounter Injury intent: accidental or unintentional Qualified Code(s): T48.3X1D - Poisoning by antitussives, accidental (unintentional), subsequent encounter Condition: Good Instructions: ED Overdose Intentional Follow-Up: [facility] [Provider Group] [facility] [Provider Group] Discharge Date/Time: 07/04/18 00:02
[2018-07-03] MEDS ORDERED: LORazepam 0.5 MG TABLET PO STA (23:54)
== END 2018-07-04 00:02 | disposition home or self-care (01) ==
LOC: ED 22:56
DX: R45.1 Restlessness and agitation (principal); T48.3X1A Poisoning by antitussives, accidental (unintentional), initial encounter
CPT/HCPCS: 99282; 99283; A9270

== ENCOUNTER 2018-07-04 00:17 | Emergency (ER) | payer MEDICAID ==
--- NOTE | 2018-07-04 01:29 | ED Physician Documentation ---
History of Present Illness - Stated complaint Stated Complaint: NOT FEELING WELL - Chief complaint Chief Complaint: Ext Problem - History obtained from History obtained from: Patient - History of Present Illness Timing: Last night Pain level now: 0 - Additonal information Additional information: patient was T+R from this ED less than 20 minutes ago, went to waiting room and checked back in at the front end software developer for ED evaluation. Please see note from the previous visit. Patient admits to intentional overdose of robitussin "to get high" (per patient) , took one bottle a few hours ago. Denies SI. As he has done on my previous encounters with him, he cannot provide a reason for this visit. Also presented to ED 07/01/18; ED note indicates he had no c/o by the time of ED MD evaluation and was discharged per patient's request. Review of Systems Eyes: denies: Decreased vision Cardiac: reports: Reviewed and negative Respiratory: reports: Reviewed and negative GI: reports: Reviewed and negative Musculoskeletal: denies: Extremity pain (c/o RUE pain previous visit but now denies any extremity pain) Neurologic: denies: Generalized weakness, Focal weakness, Numbness, Headache PD PAST MEDICAL HISTORY - Past Medical History Cardiovascular: None Respiratory: None Endocrine/Autoimmune: None GI: None : None Psych: Schizophrenia Musculoskeletal: None - Past Surgical History Past Surgical History: No - Present Medications Home Medications: Ambulatory Orders Medication Instructions Recorded Confirmed No Known Home Medications [No 07/01/18 07/01/18 Known Home Medications] - Allergies Allergies/Adverse Reactions: Allergies Allergy/AdvReac Type Severity Reaction Status Date / Time No Known Drug Allergies Allergy Verified 07/04/18 00:30 - Social History Does the pt smoke?: Yes Smoking Status: Current every day smoker Does the pt drink ETOH?: Yes Does the pt have substance abuse?: Yes - Immunizations Immunizations are current?: Yes - POLST Patient has POLST: No POLST Status: Full Code PD ED PE NORMAL - Vitals Vital signs reviewed: Yes - General General: Alert and oriented X 3, Well developed/nourished, Other (odd behavior; hyperkinetic, poor eye contact, laughs/smile inappropriately at times. sometimes answers questions with high-pitched cartoonish voice. 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 I offered another dose of ativan which he declines. He requests d/c. - Sepsis Event Vital Signs: Vital Signs - 24 hr 07/04/18 03:25 Temperature 37 C Heart Rate 71 Respiratory 12 Rate Blood Pressure 132/73 H O2 Saturation 96 Oxygen O2 Source Room air Departure - Departure Disposition: 01 Home, Self Care Clinical Impression: Dextromethorphan overdose Qualifiers: Encounter type: subsequent encounter Injury intent: accidental or unintentional Qualified Code(s): T48.3X1D - Poisoning by antitussives, accidental (unintentional), subsequent encounter Condition: Good Instructions: ED Overdose Intentional Follow-Up: [facility] [Provider Group] [facility] [Provider Group] Comments: The effects of the robitussin will gradually wear off over the next several hours. Please DO NOT TAKE ANY MORE ROBITUSSIN. Discharge Date/Time: 07/04/18 03:33
[2018-07-04 03:25] VITALS: BP 132/73
== END 2018-07-04 03:33 | disposition home or self-care (01) ==
LOC: ED 00:17
DX: T48.3X Poisoning by, adverse effect of and underdosing of antitussives (principal)
CPT/HCPCS: 99283

== ENCOUNTER 2018-10-27 13:24 | Outpatient (CLI) | payer MEDICAID | END 2018-10-27 13:25 | disposition critical access hospital (66) | LOC: EMS 13:24 | PROVIDERS: ATTEND Surgery | DX: R40.0 Somnolence (principal) | CPT/HCPCS: A0425; A0429 ==

== ENCOUNTER 2018-10-27 13:30 | Emergency (ER) | payer MEDICAID ==
[2018-10-27 13:42] VITALS: BP 106/58
--- NOTE | 2018-10-27 14:03 | ED Physician Documentation ---
PD HPI MHE - Stated complaint Stated Complaint: MHE - Chief complaint Chief Complaint: MHE - History obtained from History obtained from: Patient, EMS - History of Present Illness Primary symptom: Other (hallucinations) Timing - onset: Chronic Pain level max: 0 Pain level now: 0 Contributing factors: Substance abuse - ETOH Recently seen: Emergency Dept (several times for same) - Additional information Additional information: 23-year-old male has been drinking alcohol today, ambulance was called because he said he had hallucinations. This is a chronic ongoing issue for him. He denies any suicidal or homicidal ideation. States he is not supposed to be on any medications at this time at home. Has not followed up with his counselor and psychiatrist recently. Review of Systems Constitutional: denies: Fever, Chills Cardiac: denies: Chest pain / pressure Respiratory: denies: Cough GI: denies: Vomiting, Constipation Skin: denies: Rash Musculoskeletal: denies: Neck pain, Back pain Neurologic: denies: Headache PD PAST MEDICAL HISTORY - Past Medical History Cardiovascular: None Respiratory: None Endocrine/Autoimmune: None GI: None : None Psych: Schizophrenia Musculoskeletal: None - Past Surgical History Past Surgical History: No - Present Medications Home Medications: Ambulatory Orders Medication Instructions Recorded Confirmed No Known Home Medications 07/01/18 07/01/18 - Allergies Allergies/Adverse Reactions: Allergies Allergy/AdvReac Type Severity Reaction Status Date / Time No Known Drug Allergies Allergy Verified 10/27/18 13:38 - Social History Does the pt smoke?: Yes Smoking Status: Current every day smoker Does the pt drink ETOH?: Yes Does the pt have substance abuse?: No - Immunizations Immunizations are current?: Yes - POLST Patient has POLST: No POLST Status: Full Code PD ED PE NORMAL - Vitals Vital signs reviewed: Yes - General General: Alert and oriented X 3, No acute distress, Well developed/nourished - HEENT HEENT: PERRL, Moist mucous membranes - Neck Neck: Supple, no meningeal sign - Cardiac Cardiac: RRR, Strong equal pulses - Respiratory Respiratory: No respiratory distress, Clear bilaterally - Abdomen Abdomen: Soft, Non tender, Non distended - Derm Derm: Warm and dry - Extremities Extremities: No edema, No calf tenderness / cord - Neuro Neuro: Alert and oriented X 3 - Psych Psych: Normal mood, Normal affect Results - Vitals Vitals: Vital Signs - 24 hr 10/27/18 13:40 Temperature 36.2 C L Heart Rate 99 Respiratory 14 Rate Blood Pressure 106/58 L O2 Saturation 99 Oxygen O2 Source Room air - Labs Labs: Laboratory Tests 10/27/18 10/27/18 13:57 13:57 WBC 6.6 RBC 4.62 L Hgb 14.3 Hct 41.0 L MCV 88.6 MCH 31.0 MCHC 34.9 RDW 13.5 Plt Count 296 MPV 7.2 L Neut # (Auto) 3.8 Lymph # (Auto) 1.9 [place] # (Auto) 0.5 Eos # (Auto) 0.2 Baso # (Auto) 0.1 Absolute Nucleated RBC 0.00 Nucleated RBC % 0.0 Sodium 140 Potassium 3.4 L Chloride 106 Carbon Dioxide 24 Anion Gap 10.0 BUN 17 Creatinine 0.9 Estimated GFR (MDRD) 105 Glucose 100 Calcium 8.5 Total Bilirubin 0.3 AST 54 H ALT 30 Alkaline Phosphatase 71 Total Protein 7.4 Albumin 4.3 Globulin 3.1 Albumin/Globulin Ratio 1.4 Lipase 26 Salicylates < 6.0 Acetaminophen < 10 L Ethyl Alcohol 106.2 PD MEDICAL DECISION MAKING - ED course Complexity details: reviewed results, re-evaluated patient, considered differential, d/w patient ED course: 23-year-old male, clear and coherent with me in the emergency department. He states that he is no longer hearing the voices as the alcohol is worn off. He states he wants to go home at this time. He has not suicidal or homicidal. No criteria for involuntary detainment at this time. Patient counseled regarding signs and symptoms for which I believe and urgent re-evaluation would be nii ruggiero. Patient with good understanding of and agreement to plan and is comfortable going home at this time This document was made in part using voice recognition software. While efforts are made to proofread this document, sound alike and grammatical errors may occur. Departure - Departure Disposition: 01 Home, Self Care Clinical Impression: Alcohol intoxication Qualifiers: Complication of substance-induced condition: uncomplicated Qualified Code(s): F10.920 - Alcohol use, unspecified with intoxication, uncomplicated Condition: Good Instructions: ED Alcohol Intoxication Follow-Up: your,doctor in 1 week [Other] Comments: You need to stop using alcohol. Return if you worsen
[2018-10-27 14:04] LABS: BASOPHILS # (AUTO) 0.1 10^3/uL (0.0-0.1); BASOPHILS % (AUTO) 1.4 %; EOSINOPHILS # (AUTO) 0.2 10^3/uL (0.0-0.7); HGB - HEMOGLOBIN 14.3 g/dL (14.0-18.0); LYMPHOCYTES # (AUTO) 1.9 10^3/uL (1.5-3.5); LYMPHOCYTES % (AUTO) 29.7 %; MEAN CORPUSCULAR HGB CONC 34.9 g/dL (32.0-36.0); MEAN CORPUSCULAR VOLUME 88.6 fL (80.0-94.0); MEAN PLATELET VOLUME 7.2 fL (7.4-11.4); MONOCYTES # (AUTO) 0.5 10^3/uL (0.0-1.0); MONOCYTES % (AUTO) 7.6 %; NEUTROPHILS # (AUTO) 3.8 10^3/uL (1.5-6.6); NEUTROPHILS % (AUTO) 58.3 %; PLT - PLATELET COUNT 296 10^3/uL (130-450); RED BLOOD COUNT 4.62 10^6/uL (4.70-6.10); RED CELL DISTRIBUTION WIDTH 13.5 % (12.0-15.0); WHITE BLOOD COUNT 6.6 x10^3/uL (4.8-10.8)
[2018-10-27 14:17] LABS: ACETAMINOPHEN < 10 ug/mL (10-30); ALBUMIN 4.3 g/dL (3.2-5.5); ALBUMIN/GLOBULIN RATIO 1.4 (1.0-2.2); ALKALINE PHOSPHATASE 71 IU/L (42-121); ALT ALANINE AMINOTRANSFERASE 30 IU/L (10-60); AST ASPARTATE AMINOTRANSFERASE 54 IU/L (10-42); BILIRUBIN,TOTAL 0.3 mg/dL (0.2-1.0); BUN - BLOOD UREA NITROGEN 17 mg/dL (6-20); CALCIUM 8.5 mg/dL (8.5-10.3); CARBON DIOXIDE - CO2 24 mmol/L (21-32); CHLORIDE 106 mmol/L (101-111); CREATININE 0.9 mg/dL (0.6-1.2); GFR - MDRD 105 (>89); GLUCOSE 100 mg/dL (70-100); LIPASE 26 U/L (22-51); SALICYLATE < 6.0 mg/dL; SODIUM 140 mmol/L (135-145); TOTAL PROTEIN 7.4 g/dL (6.7-8.2)
== END 2018-10-27 14:29 | disposition home or self-care (01) ==
LOC: ED 13:30
DX: F10.129 Alcohol abuse with intoxication, unspecified (principal); F20.9 Schizophrenia, unspecified; F17.200 Nicotine dependence, unspecified, uncomplicated
CPT/HCPCS: 36415; 80053; 80307; 80320; 80329; 83690; 85025; 99283

== ENCOUNTER 2019-09-29 19:19 | Outpatient (CLI) | payer SELFPAY | END 2019-09-29 19:20 | disposition critical access hospital (66) | LOC: EMS 19:19 | PROVIDERS: ATTEND Surgery | DX: R07.9 Chest pain, unspecified (principal) | CPT/HCPCS: A0425; A0428 ==

== ENCOUNTER 2019-09-29 19:33 | Emergency (ER) | payer MEDICAID ==
--- NOTE | 2019-09-29 19:52 | ED Physician Documentation ---
History of Present Illness - Stated complaint Stated Complaint: LEFT ARM PAIN/CP - Chief complaint Chief Complaint: Cardiac - Additonal information Additional information: This is a 24-year-old male with a history of schizoaffective disorder, who reportedly is not on medications currently who is brought in home with chest pain. He states that around 30 minutes ago he was lying on the couch in his room when he began having pain which was "right in my heart" and rating towards his left shoulder. He was worried he can have a heart attack or seizure, so EMS was called and brought him here. Patient denies any shortness of breath, states that his chest pain resolved completely after around 20 minutes. He denies ever having any heart problems in the past. No leg swelling, no hemoptysis, no cough. Review of Systems Constitutional: denies: Fever Cardiac: reports: Chest pain / pressure Respiratory: denies: Dyspnea PD PAST MEDICAL HISTORY - Past Medical History Cardiovascular: None Respiratory: None Endocrine/Autoimmune: None GI: None : None Psych: Schizophrenia Musculoskeletal: None - Past Surgical History Past Surgical History: No - Present Medications Home Medications: Ambulatory Orders Medication Instructions Recorded Confirmed No Known Home Medications 07/01/18 07/01/18 - Allergies Allergies/Adverse Reactions: Allergies Allergy/AdvReac Type Severity Reaction Status Date / Time No Known Drug Allergies Allergy Verified 10/27/18 13:38 - Social History Does the pt smoke?: Yes Smoking Status: Current every day smoker Does the pt drink ETOH?: Yes Does the pt have substance abuse?: No - Immunizations Immunizations are current?: Yes - POLST Patient has POLST: No POLST Status: Full Code PD ED PE NORMAL - Vitals Vital signs reviewed: Yes - General General: Alert and oriented X 3, No acute distress - HEENT HEENT: PERRL - Neck Neck: Supple, no meningeal sign - Cardiac Cardiac: RRR, No murmur - Respiratory Respiratory: Clear bilaterally - Abdomen Abdomen: Soft, Non tender, Non distended - Derm Derm: Warm and dry - Extremities Extremities: No deformity - Neuro Neuro: Alert and oriented X 3 - Psych Psych: Other (Somewhat flat affect, Generally cooperative with questioning, but interrupts me early on in the interview task "you guys going to help me and because I am concerned that this place may not be really professional. When I ask him what his concern is, he shrugs and says "never mind." His eyes flit around the room at times, though he denies auditory or visual hallucinations.) Results - Vitals Vitals: Vital Signs - 24 hr 09/29/19 09/29/19 19:35 21:09 Temperature 36.1 C L Heart Rate 89 87 Respiratory 16 18 Rate Blood Pressure 127/80 118/79 O2 Saturation 98 100 Oxygen O2 Source Room air - EKG (time done) 19:44 Other comments: Other comments (Rate 87, rhythm sinus, there is less than [address] elevation in V2 and V3, within normal limits for age. There are no ST depressions or abnormal T wave inversions, intervals within normal limits.) - Rads (name of study) CXR Radiology: Other (No acute cardiopulmonary process) PD MEDICAL DECISION MAKING - ED course Complexity details: considered differential (ACS, dysrhythmia, pneumonia, thorax, anxiety.) ED course: On arrival patient is well-appearing, vital signs within normal limits, physical exam is unremarkable. His symptoms of chest pain have completely resolved at this time. He is low risk for ACS, and his EKG shows no signs of ischemia or dysrhythmia. The fact that his symptoms really resolved makes pulmonary embolism highly unlikely, and additionally his oxygen saturations normal as is his heart rate and he has no signs of DVT. Chest x-ray shows no acute cardiopulmonary process. On repeat evaluation he continues to be symptom-free. I reviewed the results of our studies with him and he would like to go home. He does have a slightly Flat/odd affect, but this is baseline on chart review, and he does not appear gravely disabled or a danger to himself or others at this time. He was discharged home with return precautions and recommendation for primary care follow-up. Departure - Departure Disposition: 01 Home, Self Care Clinical Impression: Chest pain Qualifiers: Chest pain type: unspecified Qualified Code(s): R07.9 - Chest pain, unspecified Condition: Good Instructions: ED Chest Pain Atypical Unkn Cause Comments: You were seen today for chest pain. I am glad your chest pain is now better. We do not see signs of obvious problem with your heart or lungs on your or EKG your chest x-ray. If you develop new or worsening symptoms you may return to the emergency department, otherwise please follow-up with your primary care provider.
--- NOTE | 2019-09-29 20:34 | XRAY Report ---
Reason: chest pain Procedure Date: 09/29/2019 Accession Number: [id number] / [id number] Procedure: XR - Chest 1 View X-Ray CPT Code: 60290 Final Report FULL RESULT: EXAM: CHEST RADIOGRAPHY EXAM DATE: 09/29/2019 08:11 PM. CLINICAL HISTORY: Chest pain. COMPARISON: [facility] RT 04/22/2018 5:58 PM CHEST 2 VIEW PA/LAT 10/11/2017 12:45 AM. TECHNIQUE: 1 view. FINDINGS: Lungs/Pleura: Midl left basilar atelcatsis.no focal opacities evident. No pleural effusion. No pneumothorax. Mediastinum: Within exam limitations, the cardiomediastinal contour is normal. Other: None. IMPRESSION: No acute cardiopulmonary process. RADIA
[2019-09-29 21:11] VITALS: BP 118/79
== END 2019-09-29 21:33 | disposition home or self-care (01) ==
LOC: EDUNIT# → EDBD → ED 19:33
DX: R07.9 Chest pain, unspecified (principal); F25.9 Schizoaffective disorder, unspecified; F17.200 Nicotine dependence, unspecified, uncomplicated
CPT/HCPCS: 71045; 93005; 99284

== ENCOUNTER 2019-11-12 12:53 | Outpatient (CLI) | payer MEDICAID | END 2019-11-12 12:54 | disposition critical access hospital (66) | LOC: EMS 12:53 | PROVIDERS: ATTEND Surgery | DX: F41.9 Anxiety disorder, unspecified (principal) | CPT/HCPCS: A0425; A0429 ==

== ENCOUNTER 2019-11-12 13:18 | Emergency (ER) | payer MEDICAID ==
[2019-11-12 13:34] VITALS: BP 125/77
--- NOTE | 2019-11-12 14:07 | ED Physician Documentation ---
History of Present Illness - Stated complaint Stated Complaint: LIGHTHEADED - Chief complaint Chief Complaint: MHE - Additonal information Additional information: This is a 24-year-old male with a history of schizoaffective disorder presents with concerns of increasing auditory hallunications He states that this is been worse last week, he states that he has been taking his medications but is unable to say which medications he has been taking. Talking to him more it sounds like he is not regularly on medications and has not followed up with an outpatient mental health provider. He denies drug or alcohol use. He in triage complained of some lightheadedness, on my exam denies this. No chest pain or shortness of breath. He states that at times he may be seeing some mild visual hallucinations, but his biggest issue is that he is hearing voices. He does not given me details on what the voices are saying but denies thoughts of self-harm or homicidal ideation. No fever. No palpitations. Review of Systems Constitutional: denies: Fever Cardiac: denies: Chest pain / pressure Respiratory: denies: Dyspnea GI: denies: Abdominal Pain : denies: Dysuria PD PAST MEDICAL HISTORY - Past Medical History Past Medical History: Yes Cardiovascular: None Respiratory: None Neuro: None Endocrine/Autoimmune: None GI: None : None HEENT: None Psych: Schizophrenia Musculoskeletal: None Derm: None - Past Surgical History Past Surgical History: No - Present Medications Home Medications: Ambulatory Orders Medication Instructions Recorded Confirmed No Known Home Medications 07/01/18 07/01/18 - Allergies Allergies/Adverse Reactions: Allergies Allergy/AdvReac Type Severity Reaction Status Date / Time No Known Drug Allergies Allergy Verified 11/12/19 13:30 - Social History Does the pt smoke?: Yes Smoking Status: Current every day smoker Does the pt drink ETOH?: Yes Does the pt have substance abuse?: No - Immunizations Immunizations are current?: Yes - POLST Patient has POLST: No POLST Status: Full Code PD ED PE NORMAL - General General: Alert and oriented X 3 - HEENT HEENT: Atraumatic - Cardiac Cardiac: RRR - Respiratory Respiratory: No respiratory distress, Clear bilaterally - Abdomen Abdomen: Soft, Non tender, Non distended - Neuro Neuro: Alert and oriented X 3, Other (Moving all extremities, no focal deficit) - Psych Psych: Other (Alert, interactive, flat affect. No SI or HI. Endorses auditory hallucinations. Linear thought process, though guarded with some questions.) Results - Vitals Vitals: Oxygen O2 Source Room air - Labs Labs: Laboratory Tests 11/12/19 11/12/19 11/12/19 13:48 14:30 14:30 WBC 8.0 RBC 4.74 Hgb 14.8 Hct 43.0 MCV 90.7 MCH 31.2 H MCHC 34.4 RDW 11.3 L Plt Count 280 MPV 9.6 Neut # (Auto) 5.3 Lymph # (Auto) 2.0 [place] # (Auto) 0.4 Eos # (Auto) 0.1 Baso # (Auto) 0.1 Absolute Nucleated RBC 0.00 Nucleated RBC % 0.0 Sodium 141 Potassium 3.6 Chloride 102 Carbon Dioxide 29 Anion Gap 10.0 BUN 9 Creatinine 0.9 Estimated GFR (MDRD) 104 Glucose 90 Calcium 9.0 Total Bilirubin 0.4 AST 16 ALT 19 Alkaline Phosphatase 70 Total Protein 6.9 Albumin 4.4 Globulin 2.5 Albumin/Globulin Ratio 1.8 Lipase 24 TSH Urine Color YELLOW Urine Clarity CLEAR Urine pH 6.5 Ur Specific [place] 1.020 Urine Protein NEGATIVE Urine Glucose (UA) NEGATIVE Urine Ketones NEGATIVE Urine Occult Blood NEGATIVE Urine Nitrite NEGATIVE Urine Bilirubin NEGATIVE Urine Urobilinogen 0.2 (NORMAL) Ur Leukocyte Esterase NEGATIVE Ur Microscopic Review NOT INDICATED Urine Culture Comments NOT INDICATED Salicylates < 6.0 Urine Opiates Screen NEGATIVE Ur Oxycodone Screen NEGATIVE Urine Methadone Screen NEGATIVE Ur Propoxyphene Screen NEGATIVE Acetaminophen < 10 L Ur Barbiturates Screen NEGATIVE Ur Tricyclics Screen NEGATIVE Ur Phencyclidine Scrn NEGATIVE Ur Amphetamine Screen NEGATIVE U Methamphetamines Scrn NEGATIVE U Benzodiazepines Scrn NEGATIVE Urine Cocaine Screen NEGATIVE U Cannabinoids Screen POSITIVE H Ethyl Alcohol < 5.0 11/12/19 14:30 WBC RBC Hgb Hct MCV MCH MCHC RDW Plt Count MPV Neut # (Auto) Lymph # (Auto) [place] # (Auto) Eos # (Auto) Baso # (Auto) Absolute Nucleated RBC Nucleated RBC % Sodium Potassium Chloride Carbon Dioxide Anion Gap BUN Creatinine Estimated GFR (MDRD) Glucose Calcium Total Bilirubin AST ALT Alkaline Phosphatase Total Protein Albumin Globulin Albumin/Globulin Ratio Lipase TSH < 0.08 L Urine Color Urine Clarity Urine pH Ur Specific [place] Urine Protein Urine Glucose (UA) Urine Ketones Urine Occult Blood Urine Nitrite Urine Bilirubin Urine Urobilinogen Ur Leukocyte Esterase Ur Microscopic Review Urine Culture Comments Salicylates Urine Opiates Screen Ur Oxycodone Screen Urine Methadone Screen Ur Propoxyphene Screen Acetaminophen Ur Barbiturates Screen Ur Tricyclics Screen Ur Phencyclidine Scrn Ur Amphetamine Screen U Methamphetamines Scrn U Benzodiazepines Scrn Urine Cocaine Screen U Cannabinoids Screen Ethyl Alcohol PD MEDICAL DECISION MAKING - ED course ED course: Pt presents with increasing auditory hallucinations, but no SI, HI, or severe disorganization. He asks about inpatient treatment, but I do not really see indications for this at this time, and more than anything he would probably benefit from regular outpatient psychiatric care. SW was consulted and they do no feel inpatient treatment is indicated. After speaking with the patient again he is eager to go home. He continues to have no SI or HI. I have met him previously and he appears to be at his baseline. His exam and vital signs are reassuring. I reviewed return precautions, and patient was discharged home. His TSH returned low, and I called and spoke with pt's grandfather on 11/14. Ander has been at his baseline, no obvious changes in behavior, no fever, no new complaints, he has been well-appearing. I discussed the abnormal thyroid test, and his grandfather states he has no history of thyroid problems, refuses to take medications. I discussed that he needs a T4 level, and may need further follow up and work up if this is abnormal. Pt's grandfather states pt generally refuses to see a doctor except when he decides he needs to go in. He does not have a PCP who could arrange for outpatient labs. It sounds like he would be more likely to come to the ED, so they will try to bring him in for a TSH and T4 in the next day or so, and I discussed that if he is having behavior change, fever, racing heart, or appears unwell, they should call EMS to bring him in. Departure - Departure Disposition: 01 Home, Self Care Clinical Impression: Schizoaffective disorder Qualifiers: Schizoaffective disorder type: unspecified Qualified Code(s): F25.9 - Schizo affective disorder, unspecified Condition: Good Instructions: ED Schizo Affective Disorder Comments: Please follow-up with your primary care provider and establish with a mental health provider. Take your medications as prescribed. Return to the emergency department if you are having worsening symptoms especially any thoughts of hurting yourself or others. Discharge Date/Time: 11/12/19 16:03
[2019-11-12 14:37] LABS: MUDS CUTOFF CONCENTRATIONS CUTOFF CONC BELOW:
[2019-11-12 14:39] LABS: BASOPHILS # (AUTO) 0.1 10^3/uL (0.0-0.1); BASOPHILS % (AUTO) 1.3 %; EOSINOPHILS # (AUTO) 0.1 10^3/uL (0.0-0.7); EOSINOPHILS % (AUTO) 1.5 %; HGB - HEMOGLOBIN 14.8 g/dL (14.0-18.0); LYMPHOCYTES % (AUTO) 24.9 %; MEAN CORPUSCULAR HEMOGLOBIN 31.2 pg (27.0-31.0); MEAN CORPUSCULAR HGB CONC 34.4 g/dL (32.0-36.0); MEAN CORPUSCULAR VOLUME 90.7 fL (80.0-94.0); MEAN PLATELET VOLUME 9.6 fL (7.4-11.4); MONOCYTES # (AUTO) 0.4 10^3/uL (0.0-1.0); MONOCYTES % (AUTO) 5.3 %; NEUTROPHILS # (AUTO) 5.3 10^3/uL (1.5-6.6); NEUTROPHILS % (AUTO) 66.7 %; PLT - PLATELET COUNT 280 10^3/uL (130-450); RED BLOOD COUNT 4.74 10^6/uL (4.70-6.10); RED CELL DISTRIBUTION WIDTH 11.3 % (12.0-15.0)
[2019-11-12 14:41] LABS: BILIRUBIN,URINE NEGATIVE (NEGATIVE); GLUCOSE, URINE (UA) NEGATIVE (NEGATIVE); KETONES,URINE (UA) NEGATIVE (NEGATIVE); LEUKOCYTE ESTERASE, URINE NEGATIVE (NEGATIVE); NITRITE,URINE NEGATIVE (NEGATIVE); OCCULT BLOOD,URINE NEGATIVE (NEGATIVE); PH,URINE 6.5 PH (5.0-7.5); PROTEIN,URINE NEGATIVE (NEGATIVE); UROBILINOGEN,URINE 0.2 (NORMAL) E.U./dL (NORMAL)
[2019-11-12 14:44] LABS: CLARITY,URINE CLEAR (CLEAR)
[2019-11-12 14:52] LABS: AMPHETAMINE SCREEN,URINE NEGATIVE (NEGATIVE); BENZODIAZEPINES SCREEN, URINE NEGATIVE (NEGATIVE); COCAINE SCREEN URINE NEGATIVE (NEGATIVE); METHADONE SCREEN, URINE NEGATIVE (NEGATIVE); METHAMPHETAMINES SCREEN, URINE NEGATIVE (NEGATIVE); OPIATE SCREEN, URINE NEGATIVE (NEGATIVE); OXYCODONE SCREEN, URINE NEGATIVE (NEGATIVE); PROPOXYPHENE SCREEN, URINE NEGATIVE (NEGATIVE); TRICYCLIC ANTIDEPRESSANT,URINE NEGATIVE (NEGATIVE)
[2019-11-12 14:55] LABS: ACETAMINOPHEN < 10 ug/mL (10-30); ALBUMIN 4.4 g/dL (3.2-5.5); ALBUMIN/GLOBULIN RATIO 1.8 (1.0-2.2); ALKALINE PHOSPHATASE 70 IU/L (42-121); ALT ALANINE AMINOTRANSFERASE 19 IU/L (10-60); AST ASPARTATE AMINOTRANSFERASE 16 IU/L (10-42); BILIRUBIN,TOTAL 0.4 mg/dL (0.2-1.0); BUN - BLOOD UREA NITROGEN 9 mg/dL (6-20); CARBON DIOXIDE - CO2 29 mmol/L (21-32); CHLORIDE 102 mmol/L (101-111); CREATININE 0.9 mg/dL (0.6-1.2); GFR - MDRD 104 (>89); GLUCOSE 90 mg/dL (70-100); LIPASE 24 U/L (22-51); SALICYLATE < 6.0 mg/dL; SODIUM 141 mmol/L (135-145); TOTAL PROTEIN 6.9 g/dL (6.7-8.2)
== END 2019-11-12 16:03 | disposition home or self-care (01) ==
LOC: EDUNIT# → ED 13:18
DX: F25.9 Schizoaffective disorder, unspecified (principal); R42 Dizziness and giddiness; F17.200 Nicotine dependence, unspecified, uncomplicated
CPT/HCPCS: 36415; 80053; 80306; 80307; 80320; 80329; 81001; 81003; 83690; 84443; 85025; 87086; 93005; 99284

== ENCOUNTER 2019-11-15 09:46 | Emergency (ER) | payer MEDICAID ==
[2019-11-15 10:01] VITALS: BP 125/72
--- NOTE | 2019-11-15 12:22 | ED Physician Documentation ---
History of Present Illness - Stated complaint Stated Complaint: NECK PX - Chief complaint Chief Complaint: Heent - History obtained from History obtained from: Patient (This is a young man with underlying psychiatric illness who was called back by Dr. Clemens because of a low TSH obtained the other day. He does not seem to have good insight into why he is here, thinks something is wrong with his lymph nodes. He is never had thyroid problems. He denies diarrhea or weight loss. Does have a mild tremor. Denies skin changes but does have some hair thinning. He has no acute complaints.) Review of Systems Constitutional: denies: Fever, Chills, Myalgias, Weight Loss Respiratory: denies: Dyspnea, Cough GI: denies: Abdominal Pain, Nausea, Vomiting, Diarrhea PD PAST MEDICAL HISTORY - Past Medical History Cardiovascular: None Respiratory: None Neuro: None Endocrine/Autoimmune: None GI: None : None HEENT: None Psych: Schizophrenia Musculoskeletal: None Derm: None - Past Surgical History Past Surgical History: No - Present Medications Home Medications: Ambulatory Orders Medication Instructions Recorded Confirmed No Known Home Medications 07/01/18 07/01/18 - Allergies Allergies/Adverse Reactions: Allergies Allergy/AdvReac Type Severity Reaction Status Date / Time No Known Drug Allergies Allergy Verified 11/15/19 09:58 - Social History Does the pt smoke?: Yes Smoking Status: Current every day smoker Does the pt drink ETOH?: Yes Does the pt have substance abuse?: No - Immunizations Immunizations are current?: Yes - POLST Patient has POLST: No POLST Status: Full Code PD ED PE NORMAL - Vitals Vital signs reviewed: Yes - General General: Alert and oriented X 3, No acute distress - HEENT HEENT: Pharynx benign, Other (No exophthalmos) - Neck Neck: Thyroid normal - Derm Derm: Normal color, Warm and dry, No rash - Neuro Neuro: Alert and oriented X 3, Normal speech Results - Vitals Vitals: Vital Signs - 24 hr 11/15/19 09:58 Temperature 36.8 C Heart Rate 90 Respiratory 14 Rate Blood Pressure 125/72 O2 Saturation 97 Oxygen O2 Source Room air - Labs Labs: Laboratory Tests 11/15/19 11/15/19 12:25 12:25 Thyroxine (T4) 6.93 Free T3 pg/mL 3.27 PD MEDICAL DECISION MAKING - ED course ED course: Low TSH was followed up with T4 and T3 levels which were within the normal range. Departure - Departure Disposition: 01 Home, Self Care Clinical Impression: Low TSH level Condition: Good Record reviewed to determine appropriate education?: Yes Comments: The low TSH when followed up with other thyroid labs was inconsequential and not suggestive of active thyroid disease. However this may progress to hyper thyroidism, and you need routine labs checked every few months with your primary care physician.
== END 2019-11-15 13:27 | disposition home or self-care (01) ==
LOC: ED 09:46
DX: R89.1 Abnormal level of hormones in specimens from other organs, systems and tissues (principal); F20.9 Schizophrenia, unspecified; F17.200 Nicotine dependence, unspecified, uncomplicated
CPT/HCPCS: 36415; 84436; 84481

== ENCOUNTER 2019-11-24 10:59 | Emergency (ER) | payer MEDICAID ==
[2019-11-24 11:58] LABS: MUDS CUTOFF CONCENTRATIONS CUTOFF CONC BELOW:
[2019-11-24 12:01] LABS: BILIRUBIN,URINE NEGATIVE (NEGATIVE); GLUCOSE, URINE (UA) NEGATIVE (NEGATIVE); KETONES,URINE (UA) NEGATIVE (NEGATIVE); LEUKOCYTE ESTERASE, URINE NEGATIVE (NEGATIVE); NITRITE,URINE NEGATIVE (NEGATIVE); OCCULT BLOOD,URINE NEGATIVE (NEGATIVE); PROTEIN,URINE NEGATIVE (NEGATIVE); UROBILINOGEN,URINE 0.2 (NORMAL) E.U./dL (NORMAL)
[2019-11-24 12:04] LABS: CLARITY,URINE CLEAR (CLEAR)
[2019-11-24 12:11] LABS: AMPHETAMINE SCREEN,URINE NEGATIVE (NEGATIVE); BENZODIAZEPINES SCREEN, URINE NEGATIVE (NEGATIVE); COCAINE SCREEN URINE NEGATIVE (NEGATIVE); METHADONE SCREEN, URINE NEGATIVE (NEGATIVE); METHAMPHETAMINES SCREEN, URINE NEGATIVE (NEGATIVE); OPIATE SCREEN, URINE NEGATIVE (NEGATIVE); OXYCODONE SCREEN, URINE NEGATIVE (NEGATIVE); PROPOXYPHENE SCREEN, URINE NEGATIVE (NEGATIVE); TRICYCLIC ANTIDEPRESSANT,URINE NEGATIVE (NEGATIVE)
[2019-11-24 12:12] LABS: BASOPHILS # (AUTO) 0.1 10^3/uL (0.0-0.1); BASOPHILS % (AUTO) 1.2 %; EOSINOPHILS # (AUTO) 0.1 10^3/uL (0.0-0.7); EOSINOPHILS % (AUTO) 0.7 %; HGB - HEMOGLOBIN 14.6 g/dL (14.0-18.0); LYMPHOCYTES # (AUTO) 1.4 10^3/uL (1.5-3.5); LYMPHOCYTES % (AUTO) 20.6 %; MEAN CORPUSCULAR VOLUME 91.1 fL (80.0-94.0); MONOCYTES # (AUTO) 0.4 10^3/uL (0.0-1.0); MONOCYTES % (AUTO) 5.6 %; NEUTROPHILS # (AUTO) 4.9 10^3/uL (1.5-6.6); NEUTROPHILS % (AUTO) 71.6 %; PLT - PLATELET COUNT 290 10^3/uL (130-450); RED BLOOD COUNT 4.71 10^6/uL (4.70-6.10); RED CELL DISTRIBUTION WIDTH 11.5 % (12.0-15.0); WHITE BLOOD COUNT 6.8 x10^3/uL (4.8-10.8)
[2019-11-24 12:28] LABS: ACETAMINOPHEN < 10 ug/mL (10-30); ALBUMIN 4.4 g/dL (3.2-5.5); ALBUMIN/GLOBULIN RATIO 1.6 (1.0-2.2); ALKALINE PHOSPHATASE 58 IU/L (42-121); ALT ALANINE AMINOTRANSFERASE 22 IU/L (10-60); AST ASPARTATE AMINOTRANSFERASE 19 IU/L (10-42); BILIRUBIN,TOTAL 0.6 mg/dL (0.2-1.0); BUN - BLOOD UREA NITROGEN 8 mg/dL (6-20); CALCIUM 9.2 mg/dL (8.5-10.3); CARBON DIOXIDE - CO2 28 mmol/L (21-32); CHLORIDE 101 mmol/L (101-111); CREATININE 0.9 mg/dL (0.6-1.2); GFR - MDRD 104 (>89); GLUCOSE 94 mg/dL (70-100); LIPASE 25 U/L (22-51); SALICYLATE < 6.0 mg/dL; SODIUM 138 mmol/L (135-145); TOTAL PROTEIN 7.1 g/dL (6.7-8.2)
--- NOTE | 2019-11-24 12:28 | ED Physician Documentation ---
PD HPI MHE - Stated complaint Stated Complaint: MHE - Chief complaint Chief Complaint: MHE - History obtained from History obtained from: Patient - History of Present Illness Primary symptom: Psychosis, Off meds Timing - onset: How many months ago (3) Contributing factors: Off meds Similar symptoms before: Diagnosis (Schizophrenia) Recently seen: Emergency Dept - Additional information Additional information: 24-year-old male with a history of schizoaffective disorder has been off of his medications he believes they were Depakote and lithium and he states that he believes he has been off of them for more than 3 months. He does not routinely follow-up with his doctors. He pretty much goes in when he feels like it. He feels today that treatment at an inpatient facility would be helpful. He denies any suicidal ideation or homicidal ideation. He denies any current illness with the exception of a mild cough. Review of Systems Constitutional: reports: Fatigue. denies: Fever, Chills, Myalgias Eyes: denies: Decreased vision Ears: denies: Ear pain Nose: reports: Rhinorrhea / runny nose, Congestion Throat: denies: Sore throat Cardiac: denies: Chest pain / pressure, Palpitations Respiratory: reports: Cough. denies: Dyspnea GI: denies: Vomiting PD PAST MEDICAL HISTORY - Past Medical History Cardiovascular: None Respiratory: None Neuro: None Endocrine/Autoimmune: None GI: None : None HEENT: None Psych: Schizophrenia Musculoskeletal: None Derm: None - Past Surgical History Past Surgical History: No - Present Medications Home Medications: Ambulatory Orders Medication Instructions Recorded Confirmed No Known Home Medications 07/01/18 07/01/18 - Allergies Allergies/Adverse Reactions: Allergies Allergy/AdvReac Type Severity Reaction Status Date / Time No Known Drug Allergies Allergy Verified 11/15/19 09:58 - Social History Does the pt smoke?: Yes Smoking Status: Current every day smoker Does the pt drink ETOH?: Yes Does the pt have substance abuse?: No - Immunizations Immunizations are current?: Yes - POLST Patient has POLST: No POLST Status: Full Code PD ED PE NORMAL - Vitals Vital signs reviewed: Yes (normal ) - General General: No acute distress, Well developed/nourished, Other (Aloof 24-year-old male who is able to give a fair history with some disorganization.) - HEENT HEENT: Atraumatic, PERRL, EOMI, Ears normal, Moist mucous membranes, Pharynx benign, Other (There is a cerumen impaction in the left which is removed to reveal a normal-appearing TM.) - Neck Neck: Supple, no meningeal sign, No bony TTP - Cardiac Cardiac: RRR, No murmur - Respiratory Respiratory: No respiratory distress, Clear bilaterally - Abdomen Abdomen: Soft, Non tender - Back Back: No CVA TTP, No spinal TTP - Derm Derm: Normal color, Warm and dry, No rash - Extremities Extremities: No deformity, No edema, No calf tenderness / cord - Neuro Neuro: integrative medicine physician 2-12 intact, No motor deficit, No sensory deficit, Other (There is no pressured speech or flight of ideas there is disorganization of the thought.) Eye Opening: Spontaneous Motor: Obeys Commands Verbal: Oriented GCS Score: 15 - Psych Psych: Normal mood, Normal affect Results - Vitals Vitals: Vital Signs - 24 hr 11/24/19 11/24/19 11:05 15:23 Temperature 36.9 C Heart Rate 85 72 Respiratory 18 18 Rate Blood Pressure 104/66 109/81 H O2 Saturation 97 98 Oxygen O2 Source Room air - Labs Labs: Laboratory Tests 11/24/19 11/24/19 11/24/19 11:50 12:08 12:08 WBC 6.8 RBC 4.71 Hgb 14.6 Hct 42.9 MCV 91.1 MCH 31.0 MCHC 34.0 RDW 11.5 L Plt Count 290 MPV 9.0 Neut # (Auto) 4.9 Lymph # (Auto) 1.4 L [place] # (Auto) 0.4 Eos # (Auto) 0.1 Baso # (Auto) 0.1 Absolute Nucleated RBC 0.00 Nucleated RBC % 0.0 Sodium 138 Potassium 3.8 Chloride 101 Carbon Dioxide 28 Anion Gap 9.0 BUN 8 Creatinine 0.9 Estimated GFR (MDRD) 104 Glucose 94 Calcium 9.2 Total Bilirubin 0.6 AST 19 ALT 22 Alkaline Phosphatase 58 Total Protein 7.1 Albumin 4.4 Globulin 2.7 Albumin/Globulin Ratio 1.6 Lipase 25 TSH Urine Color YELLOW Urine Clarity CLEAR Urine pH 8.0 H Ur Specific [place] 1.020 Urine Protein NEGATIVE Urine Glucose (UA) NEGATIVE Urine Ketones NEGATIVE Urine Occult Blood NEGATIVE Urine Nitrite NEGATIVE Urine Bilirubin NEGATIVE Urine Urobilinogen 0.2 (NORMAL) Ur Leukocyte Esterase NEGATIVE Ur Microscopic Review NOT INDICATED Urine Culture Comments NOT INDICATED Salicylates < 6.0 Urine Opiates Screen NEGATIVE Ur Oxycodone Screen NEGATIVE Urine Methadone Screen NEGATIVE Ur Propoxyphene Screen NEGATIVE Acetaminophen < 10 L Ur Barbiturates Screen NEGATIVE Ur Tricyclics Screen NEGATIVE Ur Phencyclidine Scrn NEGATIVE Ur Amphetamine Screen NEGATIVE U Methamphetamines Scrn NEGATIVE U Benzodiazepines Scrn NEGATIVE Urine Cocaine Screen NEGATIVE U Cannabinoids Screen NEGATIVE Ethyl Alcohol < 5.0 11/24/19 12:08 WBC RBC Hgb Hct MCV MCH MCHC RDW Plt Count MPV Neut # (Auto) Lymph # (Auto) [place] # (Auto) Eos # (Auto) Baso # (Auto) Absolute Nucleated RBC Nucleated RBC % Sodium Potassium Chloride Carbon Dioxide Anion Gap BUN Creatinine Estimated GFR (MDRD) Glucose Calcium Total Bilirubin AST ALT Alkaline Phosphatase Total Protein Albumin Globulin Albumin/Globulin Ratio Lipase TSH 0.31 L Urine Color Urine Clarity Urine pH Ur Specific [place] Urine Protein Urine Glucose (UA) Urine Ketones Urine Occult Blood Urine Nitrite Urine Bilirubin Urine Urobilinogen Ur Leukocyte Esterase Ur Microscopic Review Urine Culture Comments Salicylates Urine Opiates Screen Ur Oxycodone Screen Urine Methadone Screen Ur Propoxyphene Screen Acetaminophen Ur Barbiturates Screen Ur Tricyclics Screen Ur Phencyclidine Scrn Ur Amphetamine Screen U Methamphetamines Scrn U Benzodiazepines Scrn Urine Cocaine Screen U Cannabinoids Screen Ethyl Alcohol PD MEDICAL DECISION MAKING - ED course Complexity details: reviewed results, re-evaluated patient, considered differential, d/w patient ED course: 24-year-old male with schizophrenia has been off of his medications and he is decompensating. He is hearing voices and he is not having command hallucinations and denies any homicidal or suicidal ideation. The social worker palliative care is consulted and the DCR is called and comes to the ED and makes arrangements to transfer to [facility] in [place]. Departure - Departure Disposition: 65 Psych Hosp/Unit DC/Xfer Clinical Impression: Schizoaffective disorder Qualifiers: Schizoaffective disorder type: bipolar Qualified Code(s): F25.0 - Schizoaffective disorder, bipolar type Condition: Stable
[2019-11-24 18:27] VITALS: BP 127/77
== END 2019-11-24 18:39 ==
LOC: ED 10:59
DX: F25.0 Schizoaffective disorder, bipolar type (principal); T50.906A Underdosing of unspecified drugs, medicaments and biological substances, initial encounter; Z91.128 Patient's intentional underdosing of medication regimen for other reason; H61.22 Impacted cerumen, left ear; F17.200 Nicotine dependence, unspecified, uncomplicated
CPT/HCPCS: 36415; 80053; 80306; 80307; 80320; 80329; 81001; 81003; 83690; 84443; 85025; 87086; 99283; 99285

== ENCOUNTER 2020-01-26 16:42 | Outpatient (CLI) | payer MEDICAID | END 2020-01-26 16:43 | disposition critical access hospital (66) | LOC: EMS 16:42 | PROVIDERS: ATTEND Surgery | DX: M25.579 Pain in unspecified ankle and joints of unspecified foot (principal); W10.1XXA Fall (on)(from) sidewalk curb, initial encounter; Y92.511 Restaurant or cafe as the place of occurrence of the external cause | CPT/HCPCS: A0425; A0429; A0999 ==

== ENCOUNTER 2020-01-26 17:00 | Emergency (ER) | payer MEDICAID ==
[2020-01-26] MEDS ORDERED: IBUPROFEN 600 MG TABLET PO STA (17:08)
[2020-01-26] MEDS ORDERED: ACETAMINOPHEN 325 MG TABLET PO STA (17:08)
[2020-01-26 17:12] VITALS: BP 129/71
--- NOTE | 2020-01-26 17:42 | ED Physician Documentation ---
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 No: Weakness, Numbness Similar symptoms before: Has not had sx before Review of Systems Skin: denies: Rash, Laceration (s) Neurologic: denies: Focal weakness, Numbness PD PAST MEDICAL HISTORY - Past Medical History Cardiovascular: None Respiratory: None Neuro: None Endocrine/Autoimmune: None GI: None : None HEENT: None Psych: Bipolar disorder, Schizophrenia Musculoskeletal: None Derm: None - Past Surgical History Past Surgical History: No - Present Medications Home Medications: Ambulatory Orders Medication Instructions Recorded Confirmed No Known Home Medications 07/01/18 01/26/20 - Allergies Allergies/Adverse Reactions: Allergies Allergy/AdvReac Type Severity Reaction Status Date / Time No Known Drug Allergies Allergy Verified 01/26/20 17:05 - Social History Does the pt smoke?: Yes Smoking Status: Current every day smoker Does the pt drink ETOH?: Yes Does the pt have substance abuse?: No - Immunizations Immunizations are current?: No - POLST Patient has POLST: No POLST Status: Full Code PD ED PE NORMAL - Vitals Vital signs reviewed: Yes - General General: Alert and oriented X 3 (He does seem a little fidgety but otherwise is interactive conversant and appropriate.), No acute distress, Well developed/nourished - HEENT HEENT: Atraumatic - Neck Neck: Supple, no meningeal sign, No bony TTP - Derm Derm: Normal color, Warm and dry - Extremities Extremities: Other (The right ankle she has some tenderness over the anterior lateral portion of the ankle. Achilles and medial aspect is nontender. The midfoot and toes are not tender. There is some redness of the skin and slight hyperemia consistent with rewarming from being cold. He has no signs of frostbite. The skin temperature is a little bit cool.The other foot also does not have any signs of localized frostbite.) - Neuro Neuro: Alert and oriented X 3, No motor deficit, No sensory deficit Results - Vitals Vitals: Vital Signs - 24 hr 01/26/20 17:03 Temperature 36.9 C Heart Rate 100 Respiratory 18 Rate Blood Pressure 129/71 O2 Saturation 100 Oxygen O2 Source Room air - Rads (name of study) ankle xray Radiology: Prelim report reviewed, See rad report (no fractures) PD MEDICAL DECISION MAKING - ED course Complexity details: reviewed results, considered differential (Seems clinically like ankle sprain. We can get an x-ray to ensure it.), d/w patient Departure - Departure Disposition: 01 Home, Self Care Clinical Impression: Ankle sprain Qualifiers: Encounter type: initial encounter Involved ligament of ankle: anterior talofibular ligament Laterality: right Qualified Code(s): S93.491A - Sprain of other ligament of right ankle, initial encounter Condition: Stable Record reviewed to determine appropriate education?: Yes Instructions: ED Sprain Ankle Comments: Use ankle brace when up and around to help support the ligaments for the next week or so. Discontinue when feeling better enough. Tylenol ibuprofen if needed for pains. No fracture seen on x-ray. This seems like a sprain and likely will be improving over several days and resolved over a 1-2 weeks. Discharge Date/Time: 01/26/20 18:03
--- NOTE | 2020-01-26 18:11 | XRAY Report ---
Reason: ankle twist with pain today Procedure Date: 01/26/2020 Accession Number: [id number] / [id number] Procedure: XR - Ankle 3 View RT CPT Code: Final Report FULL RESULT: EXAM: RIGHT ANKLE RADIOGRAPHY EXAM DATE: 01/26/2020 05:21 PM. CLINICAL HISTORY: Ankle twist with pain today. COMPARISON: None. TECHNIQUE: 3 views. FINDINGS: Bones: Normal. No fractures or bone lesions. Joints: Normal. No effusion. No subluxations. The ankle mortise is normally aligned. Soft Tissues: Normal. No soft tissue swelling. IMPRESSION: Negative right ankle RADIA
== END 2020-01-26 18:03 | disposition home or self-care (01) ==
LOC: EDUNIT# → ED 17:00
DX: S93.491A Sprain of other ligament of right ankle, initial encounter (principal); X50.1XXA Overexertion from prolonged static or awkward postures, initial encounter; Y93.01 Activity, walking, marching and hiking; Y92.410 Unspecified street and highway as the place of occurrence of the external cause; F20.9 Schizophrenia, unspecified; F31.9 Bipolar disorder, unspecified; F17.200 Nicotine dependence, unspecified, uncomplicated
CPT/HCPCS: 73610; 99283; 99284; A9270

== ENCOUNTER 2020-03-18 15:13 | Outpatient (CLI) | payer MEDICAID ==
--- NOTE | 2020-03-19 11:47 | XRAY Report ---
Reason: SWOLLEN RT HAND Procedure Date: 03/18/2020 Accession Number: [id number] / [id number] Procedure: XR - Hand 2 View RT CPT Code: Final Report FULL RESULT: EXAM: RIGHT HAND RADIOGRAPHY 2 VIEWS EXAM DATE: 03/18/2020. CLINICAL HISTORY: Swollen right hand. COMPARISON: Right wrist done 08/14/2008. TECHNIQUE: PA and lateral views. FINDINGS: Bones: Normal. No fractures or bone lesions. Joints: Normal. No subluxations. Soft Tissues: Mild diffuse swelling. IMPRESSION: Mild diffuse soft tissue swelling. No soft tissue gas or radiopaque foreign body evident. Otherwise normal examination. RADIA
== END 2020-03-18 15:14 | disposition home or self-care (01) ==
LOC: DI 15:13
PROVIDERS: ATTEND Registered Nurse
DX: M79.89 Other specified soft tissue disorders (principal)

== ENCOUNTER 2020-05-05 13:52 | Outpatient (CLI) | payer MEDICAID, OTHER ==
[2020-05-05 14:57] LABS: BASOPHILS # (AUTO) 0.1 10^3/uL (0.0-0.1); BASOPHILS % (AUTO) 1.2 %; EOSINOPHILS # (AUTO) 0.1 10^3/uL (0.0-0.7); EOSINOPHILS % (AUTO) 1.7 %; HGB - HEMOGLOBIN 14.3 g/dL (14.0-18.0); LYMPHOCYTES # (AUTO) 1.6 10^3/uL (1.5-3.5); LYMPHOCYTES % (AUTO) 26.6 %; MEAN CORPUSCULAR HEMOGLOBIN 30.6 pg (27.0-31.0); MEAN CORPUSCULAR HGB CONC 34.4 g/dL (32.0-36.0); MEAN CORPUSCULAR VOLUME 88.9 fL (80.0-94.0); MEAN PLATELET VOLUME 9.5 fL (7.4-11.4); MONOCYTES # (AUTO) 0.5 10^3/uL (0.0-1.0); MONOCYTES % (AUTO) 8.5 %; NEUTROPHILS # (AUTO) 3.7 10^3/uL (1.5-6.6); NEUTROPHILS % (AUTO) 61.8 %; PLT - PLATELET COUNT 293 10^3/uL (130-450); RED BLOOD COUNT 4.68 10^6/uL (4.70-6.10); RED CELL DISTRIBUTION WIDTH 12.4 % (12.0-15.0)
[2020-05-05 15:08] LABS: ALBUMIN 4.7 g/dL (3.2-5.5); ALBUMIN/GLOBULIN RATIO 1.7 (1.0-2.2); BILIRUBIN,TOTAL 0.7 mg/dL (0.2-1.0); CALCIUM 9.1 mg/dL (8.5-10.3); CREATININE 0.7 mg/dL (0.6-1.2); TOTAL PROTEIN 7.5 g/dL (6.7-8.2)
== END 2020-05-05 23:59 | disposition home or self-care (01) ==
LOC: LAB.R 13:52
PROVIDERS: ATTEND Registered Nurse
DX: F20.9 Schizophrenia, unspecified (principal)
CPT/HCPCS: 80053; 85025

== ENCOUNTER 2020-05-21 21:55 | Emergency (ER) | payer MEDICAID, OTHER ==
--- NOTE | 2020-05-21 22:41 | ED Physician Documentation ---
PD HPI CHEST PAIN - Stated complaint Stated Complaint: CP - Chief complaint Chief Complaint: Cardiac - History obtained from History obtained from: Patient, Police - History of Present Illness Timing - onset: Today Timing - details: Abrupt onset Pain level max: 2 Pain level now: 0 Quality: Pain Location: Other (points to entire chest) Associated symptoms: No: Shortness of air, Vomiting, Feeling faint / dizzy Recently seen: Not recently seen - Additional information Additional information: sent from local longterm for chest discomfort and tachycardia. he reportedly had taken coffee grounds and crushed them into a paste and ate them this evening, subsequently c/o chest pain. was noted to be tachycardic 130s prior to being sent to this ED. he says his symptoms have mostly resolved by the time of this HPI and his vital signs are stable Review of Systems Cardiac: reports: Chest pain / pressure, Palpitations. denies: Pedal edema Respiratory: denies: Dyspnea GI: reports: Reviewed and negative PD PAST MEDICAL HISTORY - Past Medical History Past Medical History: Yes Cardiovascular: None Respiratory: None Neuro: None Endocrine/Autoimmune: None GI: None : None HEENT: None Psych: Bipolar disorder, Schizophrenia, Other Musculoskeletal: None Derm: None Other Past Medical History: Psychosis - Past Surgical History Past Surgical History: No - Present Medications Home Medications: Ambulatory Orders Medication Instructions Recorded Confirmed Acetaminophen with Codeine 1 each PO Q6HR PRN 05/21/20 05/21/20 [Acetaminophen-Cod #3 Tablet] Cholecalciferol [Vitamin D3] 5,000 unit PO DAILY 05/21/20 05/21/20 LORazepam [Lorazepam] 1 mg PO BID 05/21/20 05/21/20 OLANZapine [Olanzapine] 10 mg PO DAILY 05/21/20 05/21/20 Sennosides/Docusate Sodium [Colace 1 tab PO BID 05/21/20 05/21/20 2-in-1 Tablet] - Allergies Allergies/Adverse Reactions: Allergies Allergy/AdvReac Type Severity Reaction Status Date / Time No Known Drug Allergies Allergy Verified 05/21/20 22:04 - Social History Does the pt smoke?: Yes Smoking Status: Current every day smoker Does the pt drink ETOH?: Yes Does the pt have substance abuse?: No - Immunizations Immunizations are current?: No - POLST Patient has POLST: No POLST Status: Full Code PD ED PE NORMAL - Vitals Vital signs reviewed: Yes - General General: Alert and oriented X 3, No acute distress, Well developed/nourished, Other (answers quietly, briefly, some answers are vague) - HEENT HEENT: PERRL, EOMI - Cardiac Cardiac: RRR, No murmur, No gallop, No rub - Respiratory Respiratory: No respiratory distress, Clear bilaterally Results - Vitals Vitals: Vital Signs - 24 hr 05/21/20 05/21/20 05/21/20 22:00 22:22 23:08 Temperature 37.5 C Heart Rate 86 80 79 Respiratory 24 22 18 Rate Blood Pressure 126/82 H 128/81 H 123/78 Blood Pressure 126/82 H [Left] Blood Pressure 128/81 H [Right] O2 Saturation 99 100 97 05/21/20 23:58 Temperature 36.5 C Heart Rate 73 Respiratory 18 Rate Blood Pressure 136/84 H Blood Pressure [Left] Blood Pressure [Right] O2 Saturation 98 Oxygen O2 Source Room air - EKG (time done) No standard instances Rate: Rate (enter#) (83) Rhythm: NSR [place]: Normal Intervals: Normal SC QRS: Normal Ischemia: Normal ST segments - Labs Labs: Laboratory Tests 05/21/20 05/21/20 23:30 23:30 WBC 9.1 RBC 4.59 L Hgb 13.8 L Hct 40.6 L MCV 88.5 MCH 30.1 MCHC 34.0 RDW 12.5 Plt Count 280 MPV 8.9 Neut # (Auto) 6.2 Lymph # (Auto) 1.8 [place] # (Auto) 0.9 Eos # (Auto) 0.1 Baso # (Auto) 0.1 Absolute Nucleated RBC 0.00 Nucleated RBC % 0.0 Sodium 137 Potassium 4.0 Chloride 102 Carbon Dioxide 25 Anion Gap 10.0 BUN 19 Creatinine 1.0 Estimated GFR (MDRD) 91 Glucose 101 H Calcium 9.5 PD MEDICAL DECISION MAKING - ED course Complexity details: reviewed results, re-evaluated patient, considered differential, d/w patient Departure - Departure Disposition: 01 Home, Self Care Clinical Impression: Chest pain Condition: Good Instructions: ED Chest Pain Atypical Unkn Cause Discharge Date/Time: 05/22/20 00:02
[2020-05-21 23:35] LABS: BASOPHILS # (AUTO) 0.1 10^3/uL (0.0-0.1); BASOPHILS % (AUTO) 0.9 %; EOSINOPHILS # (AUTO) 0.1 10^3/uL (0.0-0.7); EOSINOPHILS % (AUTO) 0.6 %; HGB - HEMOGLOBIN 13.8 g/dL (14.0-18.0); LYMPHOCYTES # (AUTO) 1.8 10^3/uL (1.5-3.5); LYMPHOCYTES % (AUTO) 20.3 %; MEAN CORPUSCULAR HEMOGLOBIN 30.1 pg (27.0-31.0); MEAN CORPUSCULAR VOLUME 88.5 fL (80.0-94.0); MEAN PLATELET VOLUME 8.9 fL (7.4-11.4); MONOCYTES # (AUTO) 0.9 10^3/uL (0.0-1.0); MONOCYTES % (AUTO) 9.4 %; NEUTROPHILS # (AUTO) 6.2 10^3/uL (1.5-6.6); NEUTROPHILS % (AUTO) 68.4 %; PLT - PLATELET COUNT 280 10^3/uL (130-450); RED BLOOD COUNT 4.59 10^6/uL (4.70-6.10); RED CELL DISTRIBUTION WIDTH 12.5 % (12.0-15.0); WHITE BLOOD COUNT 9.1 x10^3/uL (4.8-10.8)
[2020-05-21 23:43] LABS: CALCIUM 9.5 mg/dL (8.5-10.3)
[2020-05-22 00:01] VITALS: BP 136/84
== END 2020-05-22 00:02 | disposition home or self-care (01) ==
LOC: EDUNIT# → ED 21:55
DX: R07.9 Chest pain, unspecified (principal); F17.200 Nicotine dependence, unspecified, uncomplicated
CPT/HCPCS: 36415; 80048; 85025; 93005; 99284

== ENCOUNTER 2020-10-18 07:39 | Emergency (ER) | payer MEDICAID, OTHER ==
[2020-10-18 07:44] VITALS: BP 119/75
--- NOTE | 2020-10-18 07:48 | ED Physician Documentation ---
PD HPI HEENT - Stated complaint Stated Complaint: FACE SWELLING - Chief complaint Chief Complaint: Heent - History obtained from History obtained from: Patient - History of Present Illness Timing - onset: How many months ago (has had dental pain and swelling with some facial swelling intermittently for couple of months. Treated with abx and improved but not resolved. Having recurrent swelling the past week, with now focal area of swelling on face that is almost pointed but not draining.) Timing - details: Gradual onset, Waxing and waning Location: Tooth (right lower tooth and gum and now extended to right mandible area.) Worsens: Other (palpation and chewing) Associated symptoms: Facial swelling. No: Fever, Congestion Similar symptoms before: Diagnosis (dental infection extending to face.) Recently seen: Other (was treated when in group home. has not been on meds since released.) Review of Systems Constitutional: denies: Fever, Chills Nose: denies: Rhinorrhea / runny nose, Congestion Throat: reports: Dental pain / toothache (right lower). denies: Sore throat Respiratory: denies: Cough Neurologic: denies: Focal weakness, Numbness PD PAST MEDICAL HISTORY - Past Medical History Cardiovascular: None Respiratory: None Neuro: None Endocrine/Autoimmune: None GI: None : None HEENT: None Psych: Bipolar disorder, Schizophrenia, Other Musculoskeletal: None Derm: None - Past Surgical History Past Surgical History: No - Present Medications Home Medications: Ambulatory Orders Medication Instructions Recorded Confirmed Clindamycin [Cleocin] 300 mg PO TID 7 Days #20 capsule 10/18/20 Ibuprofen [Motrin] 600 mg PO TID PRN #25 tab 10/18/20 Mupirocin Calcium [Mupirocin] 1 applic TP TID #15 cream..g. 10/18/20 - Allergies Allergies/Adverse Reactions: Allergies Allergy/AdvReac Type Severity Reaction Status Date / Time No Known Drug Allergies Allergy Verified 10/18/20 07:41 - Social History Does the pt smoke?: Yes Smoking Status: Current every day smoker Does the pt drink ETOH?: Yes Does the pt have substance abuse?: No - Immunizations Immunizations are current?: No - POLST Patient has POLST: No POLST Status: Full Code PD ED PE NORMAL - Vitals Vital signs reviewed: Yes - General General: Alert and oriented X 3, Well developed/nourished, Other (facial swelling and appears in pain) - HEENT HEENT: Pharynx benign, Other (right mandible area with local swelling and some redness in 2 cm diameter. No fluctuance. bedside U/S showing some fluid tracking through tissue but no localized abscess per se. ). No: Dentition benign (dental caries. Has gum swelling right lower around tooth 27.) - Neck Neck: Supple, no meningeal sign, No adenopathy - Cardiac Cardiac: RRR, No murmur - Respiratory Respiratory: Clear bilaterally - Derm Derm: Normal color, Warm and dry Results - Vitals Vitals: Vital Signs - 24 hr 10/18/20 07:41 Temperature 36.1 C L Heart Rate 90 Respiratory 18 Rate Blood Pressure 119/75 O2 Saturation 98 Oxygen O2 Source Room air PD MEDICAL DECISION MAKING - ED course Complexity details: considered differential, d/w patient Departure - Departure Disposition: 01 Home, Self Care Clinical Impression: Facial infection, Dental abscess Condition: Stable Record reviewed to determine appropriate education?: Yes Instructions: ED Dental Abscess Facial Cellulitis Follow-Up: [facility] [Provider Group] Miguel Dinero DDS [Provider Admit Priv/Credential] - Prescriptions: Clindamycin [Cleocin] 300 mg PO TID 7 Days #20 capsule Ibuprofen [Motrin] 600 mg PO TID PRN #25 tab PRN Reason: Pain Mupirocin Calcium [Mupirocin] 1 applic TP TID #15 cream..g. Comments: Use warm moist towels to the area a few times a day to improve blood flow and help fight off infection. This may open and start draining on its own. I did not see a just localized area of abscess that would be amenable to drainage at this time. Clindamycin antibiotic 3 times a day as directed. Ibuprofen 3 times a day as well for inflammation and pain. To that add Tylenol as needed. Apply mupirocin antibiotic ointment to the outside wound 2 or 3 times a day as well. Follow-up with the dental clinic or oral surgeon for more definitive care of the tooth to further help clear this completely. Discharge Date/Time: 10/18/20 08:22
[2020-10-18] MEDS ORDERED: CLINDAMYCIN 150 MG CAPSULE PO STA (08:06)
[2020-10-18] MEDS ORDERED: IBUPROFEN 600 MG TABLET PO STA (08:06)
[2020-10-18] MEDS ORDERED: ACETAMINOPHEN 325 MG TABLET PO STA (08:06)
== END 2020-10-18 08:22 | disposition home or self-care (01) ==
LOC: ED 07:39
DX: K04.7 Periapical abscess without sinus (principal); F17.200 Nicotine dependence, unspecified, uncomplicated
CPT/HCPCS: 99283; 99284; A9270

== ENCOUNTER 2020-11-10 11:14 | Emergency (ER) | payer MEDICAID ==
[2020-11-10 11:44] LABS: BASOPHILS # (AUTO) 0.1 10^3/uL (0.0-0.1); BASOPHILS % (AUTO) 1.4 %; EOSINOPHILS # (AUTO) 0.1 10^3/uL (0.0-0.7); EOSINOPHILS % (AUTO) 1.7 %; HGB - HEMOGLOBIN 15.1 g/dL (14.0-18.0); LYMPHOCYTES # (AUTO) 1.7 10^3/uL (1.5-3.5); LYMPHOCYTES % (AUTO) 28.6 %; MEAN CORPUSCULAR HGB CONC 33.2 g/dL (32.0-36.0); MEAN CORPUSCULAR VOLUME 90.5 fL (80.0-94.0); MEAN PLATELET VOLUME 9.1 fL (7.4-11.4); MONOCYTES # (AUTO) 0.5 10^3/uL (0.0-1.0); MONOCYTES % (AUTO) 8.1 %; NEUTROPHILS # (AUTO) 3.5 10^3/uL (1.5-6.6); NEUTROPHILS % (AUTO) 59.9 %; PLT - PLATELET COUNT 349 10^3/uL (130-450); RED BLOOD COUNT 5.03 10^6/uL (4.70-6.10); RED CELL DISTRIBUTION WIDTH 13.2 % (12.0-15.0); WHITE BLOOD COUNT 5.8 x10^3/uL (4.8-10.8)
[2020-11-10 11:57] LABS: MUDS CUTOFF CONCENTRATIONS CUTOFF CONC BELOW:
[2020-11-10 12:01] LABS: ACETAMINOPHEN < 10 ug/mL (10-30); ALBUMIN 4.6 g/dL (3.2-5.5); ALBUMIN/GLOBULIN RATIO 1.5 (1.0-2.2); ALKALINE PHOSPHATASE 72 IU/L (42-121); ALT ALANINE AMINOTRANSFERASE 31 IU/L (10-60); AST ASPARTATE AMINOTRANSFERASE 25 IU/L (10-42); BILIRUBIN,TOTAL 0.6 mg/dL (0.2-1.0); BUN - BLOOD UREA NITROGEN 14 mg/dL (6-20); CALCIUM 9.5 mg/dL (8.5-10.3); CARBON DIOXIDE - CO2 23 mmol/L (21-32); CHLORIDE 104 mmol/L (101-111); CREATININE 0.9 mg/dL (0.6-1.2); GLUCOSE 112 mg/dL (70-100); LIPASE 34 U/L (22-51); SALICYLATE < 6.0 mg/dL; SODIUM 138 mmol/L (135-145); TOTAL PROTEIN 7.7 g/dL (6.7-8.2)
[2020-11-10 12:08] LABS: BILIRUBIN,URINE NEGATIVE (NEGATIVE); GLUCOSE, URINE (UA) NEGATIVE (NEGATIVE); KETONES,URINE (UA) NEGATIVE (NEGATIVE); LEUKOCYTE ESTERASE, URINE NEGATIVE (NEGATIVE); NITRITE,URINE NEGATIVE (NEGATIVE); OCCULT BLOOD,URINE NEGATIVE (NEGATIVE); PH,URINE 6.5 PH (5.0-7.5); PROTEIN,URINE NEGATIVE (NEGATIVE); UROBILINOGEN,URINE 0.2 (NORMAL) E.U./dL (NORMAL)
[2020-11-10 12:13] LABS: CLARITY,URINE CLEAR (CLEAR)
[2020-11-10 12:16] LABS: AMPHETAMINE SCREEN,URINE NEGATIVE (NEGATIVE); BENZODIAZEPINES SCREEN, URINE NEGATIVE (NEGATIVE); COCAINE SCREEN URINE NEGATIVE (NEGATIVE); METHADONE SCREEN, URINE NEGATIVE (NEGATIVE); METHAMPHETAMINES SCREEN, URINE NEGATIVE (NEGATIVE); OPIATE SCREEN, URINE NEGATIVE (NEGATIVE); OXYCODONE SCREEN, URINE NEGATIVE (NEGATIVE); PROPOXYPHENE SCREEN, URINE NEGATIVE (NEGATIVE); TRICYCLIC ANTIDEPRESSANT,URINE NEGATIVE (NEGATIVE)
--- NOTE | 2020-11-10 12:27 | ED Physician Documentation ---
PD HPI MHE - Stated complaint Stated Complaint: MHE - Chief complaint Chief Complaint: MHE - History obtained from History obtained from: Patient - History of Present Illness Primary symptom: Psychosis, Medical clearance Timing - onset: How many weeks ago (2-3) Contributing factors: Off meds Similar symptoms before: Diagnosis (schizophrenia) Recently seen: Not recently seen - Additional information Additional information: 25-year-old male with a history of schizophrenia has been off of his meds for more than 6 months and over the past 2 to 3 weeks he has had an increase in his visual and auditory hallucinations and he is now talking to animals on the side of the road. He has decided to come to the emergency department today for treatment and feels that he would benefit from hospitalization. He is voluntary. He denies any suicidal ideation denies any homicidal ideation he is cooperative. Review of Systems Constitutional: denies: Fever Eyes: denies: Decreased vision Ears: denies: Ear pain Nose: denies: Congestion Throat: denies: Sore throat Cardiac: denies: Chest pain / pressure, Palpitations Respiratory: denies: Dyspnea, Cough GI: denies: Abdominal Pain, Nausea, Vomiting, Constipation, Diarrhea : denies: Dysuria, Frequency Skin: denies: Rash Musculoskeletal: denies: Neck pain, Back pain, Extremity pain Neurologic: denies: Generalized weakness, Focal weakness, Numbness Psychiatric: reports: Hallucinations, Delusions PD PAST MEDICAL HISTORY - Past Medical History Past Medical History: Yes Cardiovascular: None Respiratory: None Neuro: None Endocrine/Autoimmune: None GI: None : None HEENT: None Psych: Bipolar disorder, Schizophrenia, Other Musculoskeletal: None Derm: None - Past Surgical History Past Surgical History: No - Present Medications Home Medications: Ambulatory Orders Medication Instructions Recorded Confirmed No Known Home Medications 11/10/20 11/10/20 - Allergies Allergies/Adverse Reactions: Allergies Allergy/AdvReac Type Severity Reaction Status Date / Time No Known Drug Allergies Allergy Verified 11/10/20 11:21 - Social History Does the pt smoke?: Yes Smoking Status: Current every day smoker Does the pt drink ETOH?: Yes Does the pt have substance abuse?: No - Immunizations Immunizations are current?: No - POLST Patient has POLST: No POLST Status: Full Code PD ED PE NORMAL - Vitals Vital signs reviewed: Yes (Hypertensive mild) - General General: Alert and oriented X 3, No acute distress, Well developed/nourished - HEENT HEENT: Atraumatic, PERRL, EOMI - Neck Neck: Supple, no meningeal sign, No bony TTP - Cardiac Cardiac: RRR, No murmur - Respiratory Respiratory: No respiratory distress, Clear bilaterally - Abdomen Abdomen: Normal bowel sounds, Soft, Non tender, Non distended, No organomegaly - Back Back: No CVA TTP, No spinal TTP - Derm Derm: Normal color, Warm and dry, No rash - Extremities Extremities: No deformity, No edema - Neuro Neuro: Alert and oriented X 3, court crier 2-12 intact, No motor deficit, No sensory deficit, Normal speech Eye Opening: Spontaneous Motor: Obeys Commands Verbal: Oriented GCS Score: 15 - Psych Psych: Normal mood, Normal affect Results - Vitals Vitals: Vital Signs - 24 hr 11/10/20 11/10/20 11:17 11:21 Temperature 35.8 C L 36.9 C Heart Rate 94 82 Respiratory 17 18 Rate Blood Pressure 136/80 H 131/71 H O2 Saturation 100 100 Oxygen O2 Source Room air - Labs Labs: Laboratory Tests 11/10/20 11/10/20 11/10/20 11:37 11:37 11:37 WBC 5.8 RBC 5.03 Hgb 15.1 Hct 45.5 MCV 90.5 MCH 30.0 MCHC 33.2 RDW 13.2 Plt Count 349 MPV 9.1 Neut # (Auto) 3.5 Lymph # (Auto) 1.7 [place] # (Auto) 0.5 Eos # (Auto) 0.1 Baso # (Auto) 0.1 Absolute Nucleated RBC 0.00 Nucleated RBC % 0.0 Sodium 138 Potassium 4.0 Chloride 104 Carbon Dioxide 23 Anion Gap 11.0 BUN 14 Creatinine 0.9 Estimated GFR (MDRD) 103 Glucose 112 H Calcium 9.5 Total Bilirubin 0.6 AST 25 ALT 31 Alkaline Phosphatase 72 Total Protein 7.7 Albumin 4.6 Globulin 3.1 Albumin/Globulin Ratio 1.5 Lipase 34 TSH 0.67 Urine Color Urine Clarity Urine pH Ur Specific [place] Urine Protein Urine Glucose (UA) Urine Ketones Urine Occult Blood Urine Nitrite Urine Bilirubin Urine Urobilinogen Ur Leukocyte Esterase Ur Microscopic Review Urine Culture Comments Nasal Adenovirus (PCR) Nasal B. parapertussis DNA (PCR) Nasal Coronavir 229E PCR Nasal Coronavir HKU1 PCR Nasal Coronavir NL63 PCR Nasal Coronavir OC43 PCR Nasal Enterovir/Rhinovir PCR Nasal Influenza B PCR Nasal Influenza A PCR Nasal Parainfluen 1 PCR Nasal Parainfluen 2 PCR Nasal Parainfluen 3 PCR Nasal Parainfluen 4 PCR Nasal RSV (PCR) Nasal B.pertussis DNA PCR Nasal C.pneumoniae (PCR) [place] Human Metapneumo PCR Nasal M.pneumoniae (PCR) Nasal SARS-CoV-2 (PCR) Salicylates < 6.0 Urine Opiates Screen Ur Oxycodone Screen Urine Methadone Screen Ur Propoxyphene Screen Acetaminophen < 10 L Ur Barbiturates Screen Ur Tricyclics Screen Ur Phencyclidine Scrn Ur Amphetamine Screen U Methamphetamines Scrn U Benzodiazepines Scrn Urine Cocaine Screen U Cannabinoids Screen Ethyl Alcohol < 5.0 11/10/20 11/10/20 11:50 15:58 WBC RBC Hgb Hct MCV MCH MCHC RDW Plt Count MPV Neut # (Auto) Lymph # (Auto) [place] # (Auto) Eos # (Auto) Baso # (Auto) Absolute Nucleated RBC Nucleated RBC % Sodium Potassium Chloride Carbon Dioxide Anion Gap BUN Creatinine Estimated GFR (MDRD) Glucose Calcium Total Bilirubin AST ALT Alkaline Phosphatase Total Protein Albumin Globulin Albumin/Globulin Ratio Lipase TSH Urine Color YELLOW Urine Clarity CLEAR Urine pH 6.5 Ur Specific [place] 1.020 Urine Protein NEGATIVE Urine Glucose (UA) NEGATIVE Urine Ketones NEGATIVE Urine Occult Blood NEGATIVE Urine Nitrite NEGATIVE Urine Bilirubin NEGATIVE Urine Urobilinogen 0.2 (NORMAL) Ur Leukocyte Esterase NEGATIVE Ur Microscopic Review NOT INDICATED Urine Culture Comments NOT INDICATED Nasal Adenovirus (PCR) NOT DETECTED Nasal B. parapertussis DNA (PCR) NOT DETECTED Nasal Coronavir 229E PCR NOT DETECTED Nasal Coronavir HKU1 PCR NOT DETECTED Nasal Coronavir NL63 PCR NOT DETECTED Nasal Coronavir OC43 PCR NOT DETECTED Nasal Enterovir/Rhinovir PCR NOT DETECTED Nasal Influenza B PCR NOT DETECTED Nasal Influenza A PCR NOT DETECTED Nasal Parainfluen 1 PCR NOT DETECTED Nasal Parainfluen 2 PCR NOT DETECTED Nasal Parainfluen 3 PCR NOT DETECTED Nasal Parainfluen 4 PCR NOT DETECTED Nasal RSV (PCR) NOT DETECTED Nasal B.pertussis DNA PCR NOT DETECTED Nasal C.pneumoniae (PCR) NOT DETECTED [place] Human Metapneumo PCR NOT DETECTED Nasal M.pneumoniae (PCR) NOT DETECTED Nasal SARS-CoV-2 (PCR) NOT DETECTED Salicylates Urine Opiates Screen NEGATIVE Ur Oxycodone Screen NEGATIVE Urine Methadone Screen NEGATIVE Ur Propoxyphene Screen NEGATIVE Acetaminophen Ur Barbiturates Screen NEGATIVE Ur Tricyclics Screen NEGATIVE Ur Phencyclidine Scrn NEGATIVE Ur Amphetamine Screen NEGATIVE U Methamphetamines Scrn NEGATIVE U Benzodiazepines Scrn NEGATIVE Urine Cocaine Screen NEGATIVE U Cannabinoids Screen NEGATIVE Ethyl Alcohol PD MEDICAL DECISION MAKING - ED course Complexity details: reviewed old records, reviewed results, re-evaluated patient, considered differential, d/w patient ED course: 25-year-old schizophrenic male noncompliant with medications has increased in auditory and visual hallucinations and is requesting treatment. Social work is consulted after he is medically cleared. Social work has found a crisis respite bed with a psychiatrist that will accept the patient in transfer after a negat evangelista COVID swab. Departure - Departure Disposition: 01 Home, Self Care Clinical Impression: Schizophrenia Qualifiers: Schizophrenia type: unspecified Qualified Code(s): F20.9 - Schizophrenia, unspecified Condition: Stable Instructions: ED Schizophrenia General Follow-Up: Esther Bradley ARNP, [facility] [Credentialed Staff Provider] -
[2020-11-10 16:59] LABS: C. PNEUMONIAE- RESP PCR PANEL NOT DETECTED
[2020-11-10 17:41] VITALS: BP 123/71
== END 2020-11-10 17:52 | disposition home or self-care (01) ==
LOC: ED 11:14
DX: F20.9 Schizophrenia, unspecified (principal); Z91.14 Patient's other noncompliance with medication regimen; Z20.828 Contact with and (suspected) exposure to other viral communicable diseases; F17.200 Nicotine dependence, unspecified, uncomplicated
CPT/HCPCS: 0202U; 36415; 80053; 80306; 80307; 80320; 80329; 81003; 83690; 84443; 85025; 99283; 81001; 87086

== ENCOUNTER 2020-11-12 18:29 | Emergency (ER) | payer MEDICAID | END 2020-11-12 18:31 | disposition left against medical advice (07) | LOC: ED 18:29 | DX: Z53.21 Procedure and treatment not carried out due to patient leaving prior to being seen by health care provider (principal) ==

== ENCOUNTER 2020-11-30 12:40 | Emergency (ER) | payer MEDICAID ==
--- NOTE | 2020-11-30 12:57 | ED Physician Documentation ---
PD HPI MHE - Stated complaint Stated Complaint: MHE - Chief complaint Chief Complaint: MHE - History obtained from History obtained from: Patient - Additional information Additional information: 25-year-old gentleman with schizophrenia requests inpatient stabilization for symptoms out of control including auditory and visual hallucinations. Of note he was here a couple weeks ago and was arranged to go voluntarily to a psychiatric facility but he never made it in the door because he changed his mind. Also of note there is quite a bit of local social media talk about this gentleman as he frequently walks on the shoulder of the road and has had innumerable close calls with cars. Review of Systems Ten Systems: 10 systems reviewed and negative Constitutional: reports: Reviewed and negative Cardiac: reports: Reviewed and negative Respiratory: reports: Reviewed and negative PD PAST MEDICAL HISTORY - Past Medical History Cardiovascular: None Respiratory: None Neuro: None Endocrine/Autoimmune: None GI: None : None HEENT: None Psych: Bipolar disorder, Schizophrenia, Other Musculoskeletal: None Derm: None - Past Surgical History Past Surgical History: No - Present Medications Home Medications: Ambulatory Orders Medication Instructions Recorded Confirmed No Known Home Medications 11/10/20 11/30/20 - Allergies Allergies/Adverse Reactions: Allergies Allergy/AdvReac Type Severity Reaction Status Date / Time No Known Drug Allergies Allergy Verified 11/30/20 12:43 - Social History Does the pt smoke?: Yes Smoking Status: Current every day smoker Does the pt drink ETOH?: Yes Does the pt have substance abuse?: No - Family History Family history: reports: Non contributory - Immunizations Immunizations are current?: No - POLST Patient has POLST: No POLST Status: Full Code PD ED PE NORMAL - Vitals Vital signs reviewed: Yes - General General: Alert and oriented X 3, No acute distress - HEENT HEENT: PERRL, EOMI - Neck Neck: Supple, no meningeal sign, No bony TTP - Cardiac Cardiac: RRR, No murmur - Respiratory Respiratory: No respiratory distress, Clear bilaterally - Abdomen Abdomen: Non tender - Derm Derm: Normal color, Warm and dry - Extremities Extremities: No edema, No calf tenderness / cord - Neuro Neuro: Alert and oriented X 3, Normal speech - Psych Psych: Other (Blunted affect) Results - Vitals Vitals: Vital Signs - 24 hr 11/30/20 12:43 Temperature 36.4 C L Heart Rate 90 Respiratory 18 Rate Blood Pressure 122/77 O2 Saturation 97 Oxygen O2 Source Room air - EKG (time done) 1531 Rate: Rate (enter#) (79) Rhythm: NSR [place]: Normal Intervals: Normal [place] QRS: Normal Ischemia: Normal ST segments - Labs Labs: Laboratory Tests 11/30/20 11/30/20 11/30/20 13:04 13:04 13:04 WBC 7.7 RBC 4.72 Hgb 14.3 Hct 44.2 MCV 93.6 MCH 30.3 MCHC 32.4 RDW 12.8 Plt Count 354 MPV 9.1 Neut # (Auto) 5.0 Lymph # (Auto) 1.9 [place] # (Auto) 0.5 Eos # (Auto) 0.2 Baso # (Auto) 0.1 Absolute Nucleated RBC 0.00 Nucleated RBC % 0.0 Sodium 139 Potassium 3.7 Chloride 101 Carbon Dioxide 28 Anion Gap 10.0 BUN 12 Creatinine 0.8 Estimated GFR (MDRD) 118 Glucose 91 Calcium 9.1 Total Bilirubin 0.3 AST 17 ALT 22 Alkaline Phosphatase 73 Total Protein 7.2 Albumin 4.0 Globulin 3.2 Albumin/Globulin Ratio 1.3 Lipase 25 TSH 0.20 L Urine Color Urine Clarity Urine pH Ur Specific [place] Urine Protein Urine Glucose (UA) Urine Ketones Urine Occult Blood Urine Nitrite Urine Bilirubin Urine Urobilinogen Ur Leukocyte Esterase Ur Microscopic Review Urine Culture Comments Nasal Adenovirus (PCR) Nasal B. parapertussis DNA (PCR) Nasal Coronavir 229E PCR Nasal Coronavir HKU1 PCR Nasal Coronavir NL63 PCR Nasal Coronavir OC43 PCR Nasal Enterovir/Rhinovir PCR Nasal Influenza B PCR Nasal Influenza A PCR Nasal Parainfluen 1 PCR Nasal Parainfluen 2 PCR Nasal Parainfluen 3 PCR Nasal Parainfluen 4 PCR Nasal RSV (PCR) Nasal B.pertussis DNA PCR Nasal C.pneumoniae (PCR) [place] Human Metapneumo PCR Nasal M.pneumoniae (PCR) Nasal SARS-CoV-2 (PCR) Salicylates < 6.0 Urine Opiates Screen Ur Oxycodone Screen Urine Methadone Screen Ur Propoxyphene Screen Acetaminophen < 10 L Ur Barbiturates Screen Ur Tricyclics Screen Ur Phencyclidine Scrn Ur Amphetamine Screen U Methamphetamines Scrn U Benzodiazepines Scrn Urine Cocaine Screen U Cannabinoids Screen Ethyl Alcohol < 5.0 11/30/20 11/30/20 13:33 13:40 WBC RBC Hgb Hct MCV MCH MCHC RDW Plt Count MPV Neut # (Auto) Lymph # (Auto) [place] # (Auto) Eos # (Auto) Baso # (Auto) Absolute Nucleated RBC Nucleated RBC % Sodium Potassium Chloride Carbon Dioxide Anion Gap BUN Creatinine Estimated GFR (MDRD) Glucose Calcium Total Bilirubin AST ALT Alkaline Phosphatase Total Protein Albumin Globulin Albumin/Globulin Ratio Lipase TSH Urine Color YELLOW Urine Clarity CLEAR Urine pH 5.5 Ur Specific [place] 1.015 Urine Protein NEGATIVE Urine Glucose (UA) NEGATIVE Urine Ketones NEGATIVE Urine Occult Blood NEGATIVE Urine Nitrite NEGATIVE Urine Bilirubin NEGATIVE Urine Urobilinogen 0.2 (NORMAL) Ur Leukocyte Esterase NEGATIVE Ur Microscopic Review NOT INDICATED Urine Culture Comments NOT INDICATED Nasal Adenovirus (PCR) NOT DETECTED Nasal B. parapertussis DNA (PCR) NOT DETECTED Nasal Coronavir 229E PCR NOT DETECTED Nasal Coronavir HKU1 PCR NOT DETECTED Nasal Coronavir NL63 PCR NOT DETECTED Nasal Coronavir OC43 PCR NOT DETECTED Nasal Enterovir/Rhinovir PCR NOT DETECTED Nasal Influenza B PCR NOT DETECTED Nasal Influenza A PCR NOT DETECTED Nasal Parainfluen 1 PCR NOT DETECTED Nasal Parainfluen 2 PCR NOT DETECTED Nasal Parainfluen 3 PCR NOT DETECTED Nasal Parainfluen 4 PCR NOT DETECTED Nasal RSV (PCR) NOT DETECTED Nasal B.pertussis DNA PCR NOT DETECTED Nasal C.pneumoniae (PCR) NOT DETECTED [place] Human Metapneumo PCR NOT DETECTED Nasal M.pneumoniae (PCR) NOT DETECTED Nasal SARS-CoV-2 (PCR) NOT DETECTED Salicylates Urine Opiates Screen NEGATIVE Ur Oxycodone Screen NEGATIVE Urine Methadone Screen NEGATIVE Ur Propoxyphene Screen NEGATIVE Acetaminophen Ur Barbiturates Screen NEGATIVE Ur Tricyclics Screen NEGATIVE Ur Phencyclidine Scrn NEGATIVE Ur Amphetamine Screen POSITIVE H U Methamphetamines Scrn POSITIVE H U Benzodiazepines Scrn NEGATIVE Urine Cocaine Screen NEGATIVE U Cannabinoids Screen NEGATIVE Ethyl Alcohol PD MEDICAL DECISION MAKING - ED course ED course: 25-year-old gentleman with uncontrolled psychosis, he has methamphetamine on board today which is the first time we have seen this from him. On his last visit he was referred for voluntary treatment but never made it in the door at the receiving facility. As such I think he is gravely disabled and also not a good timmy voluntary given the recent events and the DCR was consulted and detained him to telecare in [place]. He is stable for transport there for further evaluation and psychiatric treatment and cobras were completed. Departure - Departure Disposition: 65 Psych Hosp/Unit DC/Xfer Clinical Impression: Schizoaffective disorder Qualifiers: Schizoaffective disorder type: unspecified Qualified Code(s): F25.9 - Schizoaffective disorder, unspecified Condition: Stable
[2020-11-30 13:08] LABS: BASOPHILS # (AUTO) 0.1 10^3/uL (0.0-0.1); BASOPHILS % (AUTO) 1.2 %; EOSINOPHILS # (AUTO) 0.2 10^3/uL (0.0-0.7); HGB - HEMOGLOBIN 14.3 g/dL (14.0-18.0); LYMPHOCYTES # (AUTO) 1.9 10^3/uL (1.5-3.5); LYMPHOCYTES % (AUTO) 25.2 %; MEAN CORPUSCULAR HEMOGLOBIN 30.3 pg (27.0-31.0); MEAN CORPUSCULAR HGB CONC 32.4 g/dL (32.0-36.0); MEAN CORPUSCULAR VOLUME 93.6 fL (80.0-94.0); MEAN PLATELET VOLUME 9.1 fL (7.4-11.4); MONOCYTES # (AUTO) 0.5 10^3/uL (0.0-1.0); MONOCYTES % (AUTO) 6.5 %; NEUTROPHILS % (AUTO) 64.8 %; PLT - PLATELET COUNT 354 10^3/uL (130-450); RED BLOOD COUNT 4.72 10^6/uL (4.70-6.10); RED CELL DISTRIBUTION WIDTH 12.8 % (12.0-15.0); WHITE BLOOD COUNT 7.7 x10^3/uL (4.8-10.8)
[2020-11-30 13:28] LABS: ACETAMINOPHEN < 10 ug/mL (10-30); ALBUMIN/GLOBULIN RATIO 1.3 (1.0-2.2); ALKALINE PHOSPHATASE 73 IU/L (42-121); ALT ALANINE AMINOTRANSFERASE 22 IU/L (10-60); AST ASPARTATE AMINOTRANSFERASE 17 IU/L (10-42); BILIRUBIN,TOTAL 0.3 mg/dL (0.2-1.0); BUN - BLOOD UREA NITROGEN 12 mg/dL (6-20); CALCIUM 9.1 mg/dL (8.5-10.3); CARBON DIOXIDE - CO2 28 mmol/L (21-32); CHLORIDE 101 mmol/L (101-111); CREATININE 0.8 mg/dL (0.6-1.2); GLUCOSE 91 mg/dL (70-100); LIPASE 25 U/L (22-51); SALICYLATE < 6.0 mg/dL; TOTAL PROTEIN 7.2 g/dL (6.7-8.2)
[2020-11-30 13:34] LABS: MUDS CUTOFF CONCENTRATIONS CUTOFF CONC BELOW:
[2020-11-30 13:42] LABS: BILIRUBIN,URINE NEGATIVE (NEGATIVE); GLUCOSE, URINE (UA) NEGATIVE (NEGATIVE); KETONES,URINE (UA) NEGATIVE (NEGATIVE); LEUKOCYTE ESTERASE, URINE NEGATIVE (NEGATIVE); NITRITE,URINE NEGATIVE (NEGATIVE); OCCULT BLOOD,URINE NEGATIVE (NEGATIVE); PH,URINE 5.5 PH (5.0-7.5); PROTEIN,URINE NEGATIVE (NEGATIVE); UROBILINOGEN,URINE 0.2 (NORMAL) E.U./dL (NORMAL)
[2020-11-30 13:43] LABS: CLARITY,URINE CLEAR (CLEAR)
[2020-11-30 13:53] LABS: AMPHETAMINE SCREEN,URINE POSITIVE (NEGATIVE); COCAINE SCREEN URINE NEGATIVE (NEGATIVE); METHAMPHETAMINES SCREEN, URINE POSITIVE (NEGATIVE); OPIATE SCREEN, URINE NEGATIVE (NEGATIVE)
[2020-11-30 13:54] LABS: BENZODIAZEPINES SCREEN, URINE NEGATIVE (NEGATIVE); METHADONE SCREEN, URINE NEGATIVE (NEGATIVE); OXYCODONE SCREEN, URINE NEGATIVE (NEGATIVE); PROPOXYPHENE SCREEN, URINE NEGATIVE (NEGATIVE); TRICYCLIC ANTIDEPRESSANT,URINE NEGATIVE (NEGATIVE)
[2020-11-30 14:56] LABS: C. PNEUMONIAE- RESP PCR PANEL NOT DETECTED
[2020-11-30 19:22] VITALS: BP 124/70
== END 2020-11-30 20:17 ==
LOC: ED 12:40
DX: F25.9 Schizoaffective disorder, unspecified (principal); Z20.822 Contact with and (suspected) exposure to COVID-19; F17.200 Nicotine dependence, unspecified, uncomplicated
CPT/HCPCS: 0202U; 36415; 80053; 80306; 80307; 80320; 80329; 81003; 83690; 84443; 85025; 93005; 99283; 99285; 81001; 87086

== ENCOUNTER 2021-01-18 07:45 | Outpatient (CLI) | payer MEDICAID | END 2021-01-18 07:46 | disposition critical access hospital (66) | LOC: EMS 07:45 | PROVIDERS: ATTEND Emergency Medicine | DX: T49.0X1A Poisoning by local antifungal, anti-infective and anti-inflammatory drugs, accidental (unintentional), initial encounter (principal); Y92.810 Car as the place of occurrence of the external cause | CPT/HCPCS: A0425; A0429; A0999 ==

== ENCOUNTER 2021-01-18 07:48 | Emergency (ER) | payer MEDICAID ==
[2021-01-18 08:21] LABS: BASOPHILS # (AUTO) 0.1 10^3/uL (0.0-0.1); BASOPHILS % (AUTO) 0.8 %; EOSINOPHILS % (AUTO) 0.1 %; HCT - HEMATOCRIT 42.2 % (42.0-52.0); HGB - HEMOGLOBIN 14.3 g/dL (14.0-18.0); LYMPHOCYTES # (AUTO) 1.2 10^3/uL (1.5-3.5); LYMPHOCYTES % (AUTO) 14.3 %; MEAN CORPUSCULAR HGB CONC 33.9 g/dL (32.0-36.0); MEAN CORPUSCULAR VOLUME 88.5 fL (80.0-94.0); MEAN PLATELET VOLUME 8.5 fL (7.4-11.4); MONOCYTES # (AUTO) 0.6 10^3/uL (0.0-1.0); MONOCYTES % (AUTO) 7.5 %; NEUTROPHILS # (AUTO) 6.4 10^3/uL (1.5-6.6); NEUTROPHILS % (AUTO) 77.2 %; PLT - PLATELET COUNT 335 10^3/uL (130-450); RED BLOOD COUNT 4.77 10^6/uL (4.70-6.10); RED CELL DISTRIBUTION WIDTH 12.2 % (12.0-15.0); WHITE BLOOD COUNT 8.3 x10^3/uL (4.8-10.8)
[2021-01-18] MEDS ORDERED: OLANZapine ODT 5 MG TABLET TL ONE (08:29)
--- NOTE | 2021-01-18 08:29 | ED Physician Documentation ---
PD HPI MHE - Stated complaint Stated Complaint: MHE - Chief complaint Chief Complaint: Neuro - History obtained from History obtained from: Patient, Police - History of Present Illness Primary symptom: Aggressive behavior, Off meds Timing - onset: Today Contributing factors: Off meds Similar symptoms before: Diagnosis (schizophrenia) Recently seen: Admitted - Additional information Additional information: 25y/o schizophrenic male with a history of recent hospitalization has returned home to a trailer on his aunts property. He has been home for 2 days and this morning he was found in [place] with aggressive behavior banging against a business window and breaking in to someone's car and drinking their hand warpman. He indicates he was "just wanting to have some fun" He is a poor historian with tangential disorganized thought. Review of Systems Constitutional: denies: Fever Eyes: denies: Decreased vision Ears: denies: Ear pain Nose: denies: Congestion Throat: denies: Dental pain / toothache, Sore throat Cardiac: denies: Chest pain / pressure, Palpitations Respiratory: denies: Dyspnea, Cough GI: denies: Abdominal Pain, Nausea, Vomiting, Constipation, Diarrhea : denies: Dysuria, Frequency PD PAST MEDICAL HISTORY - Past Medical History Cardiovascular: None Respiratory: None Neuro: None Endocrine/Autoimmune: None GI: None : None HEENT: None Psych: Bipolar disorder, Schizophrenia, Other Musculoskeletal: None Derm: None - Past Surgical History Past Surgical History: No - Present Medications Home Medications: Ambulatory Orders Medication Instructions Recorded Confirmed No Known Home Medications 11/10/20 01/18/21 - Allergies Allergies/Adverse Reactions: Allergies Allergy/AdvReac Type Severity Reaction Status Date / Time No Known Drug Allergies Allergy Verified 01/18/21 07:59 - Social History Does the pt smoke?: Yes Smoking Status: Current every day smoker Does the pt drink ETOH?: Yes Does the pt have substance abuse?: No - Immunizations Immunizations are current?: No - POLST Patient has POLST: No POLST Status: Full Code PD ED PE NORMAL - Vitals Vital signs reviewed: Yes (tachy) - General General: Well developed/nourished, Other (25 y/o male with vigilance and scanning appears unkempt and "vacant") - HEENT HEENT: Atraumatic, PERRL, EOMI - Neck Neck: Supple, no meningeal sign, No bony TTP - Cardiac Cardiac: RRR, No murmur - Respiratory Respiratory: No respiratory distress, Clear bilaterally - Abdomen Abdomen: Soft, Non tender - Back Back: No CVA TTP, No spinal TTP - Derm Derm: Normal color, Warm and dry, No rash - Extremities Extremities: No deformity, No edema - Neuro Neuro: Alert and oriented X 3, front end developer javascript html css 2-12 intact, No motor deficit, No sensory deficit, Normal speech Eye Opening: Spontaneous Motor: Obeys Commands Verbal: Oriented GCS Score: 15 - Psych Psych: Other (mood and affect are both labile) Results - Vitals Vitals: Vital Signs - 24 hr 01/18/21 01/18/21 01/18/21 07:53 08:05 16:00 Temperature 36.3 C L Heart Rate 118 H 99 Respiratory 16 16 17 Rate Blood Pressure 124/78 120/90 H O2 Saturation 99 98 Oxygen O2 Source Room air - EKG (time done) 1159 Rate: Rate (enter#) (102) Rhythm: Sinus tachycardia, LAE Compare to prior EKG: Unchanged from prior EKG (SPT 11-30-2020 rate has increased) Computer interpretation: Agree with computer - Labs Labs: Laboratory Tests 01/18/21 01/18/21 01/18/21 08:13 08:13 08:13 WBC 8.3 RBC 4.77 Hgb 14.3 Hct 42.2 MCV 88.5 MCH 30.0 MCHC 33.9 RDW 12.2 Plt Count 335 MPV 8.5 Neut # (Auto) 6.4 Lymph # (Auto) 1.2 L [place] # (Auto) 0.6 Eos # (Auto) 0.0 Baso # (Auto) 0.1 Absolute Nucleated RBC 0.00 Nucleated RBC % 0.0 Sodium 138 Potassium 3.4 L Chloride 98 L Carbon Dioxide 26 Anion Gap 14.0 H BUN 11 Creatinine 0.9 Estimated GFR (MDRD) 103 Glucose 104 H Calcium 9.6 Total Bilirubin 0.5 AST 21 ALT 24 Alkaline Phosphatase 68 Total Protein 7.6 Albumin 4.5 Globulin 3.1 Albumin/Globulin Ratio 1.5 Lipase 21 L TSH 1.05 Urine Color Urine Clarity Urine pH Ur Specific [place] Urine Protein Urine Glucose (UA) Urine Ketones Urine Occult Blood Urine Nitrite Urine Bilirubin Urine Urobilinogen Ur Leukocyte Esterase Ur Microscopic Review Urine Culture Comments Nasal Adenovirus (PCR) Nasal B. parapertussis DNA (PCR) Nasal Coronavir 229E PCR Nasal Coronavir HKU1 PCR Nasal Coronavir NL63 PCR Nasal Coronavir OC43 PCR Nasal Enterovir/Rhinovir PCR Nasal Influenza B PCR Nasal Influenza A PCR Nasal Parainfluen 1 PCR Nasal Parainfluen 2 PCR Nasal Parainfluen 3 PCR Nasal Parainfluen 4 PCR Nasal RSV (PCR) Nasal B.pertussis DNA PCR Nasal C.pneumoniae (PCR) [place] Human Metapneumo PCR Nasal M.pneumoniae (PCR) Nasal SARS-CoV-2 (PCR) Salicylates < 6.0 Urine Opiates Screen Ur Oxycodone Screen Urine Methadone Screen Ur Propoxyphene Screen Acetaminophen < 10 L Ur Barbiturates Screen Ur Tricyclics Screen Ur Phencyclidine Scrn Ur Amphetamine Screen U Methamphetamines Scrn U Benzodiazepines Scrn Urine Cocaine Screen U Cannabinoids Screen Ethyl Alcohol 29.5 01/18/21 01/18/21 10:04 12:12 WBC RBC Hgb Hct MCV MCH MCHC RDW Plt Count MPV Neut # (Auto) Lymph # (Auto) [place] # (Auto) Eos # (Auto) Baso # (Auto) Absolute Nucleated RBC Nucleated RBC % Sodium Potassium Chloride Carbon Dioxide Anion Gap BUN Creatinine Estimated GFR (MDRD) Glucose Calcium Total Bilirubin AST ALT Alkaline Phosphatase Total Protein Albumin Globulin Albumin/Globulin Ratio Lipase TSH Urine Color YELLOW Urine Clarity CLEAR Urine pH 7.0 Ur Specific [place] 1.015 Urine Protein NEGATIVE Urine Glucose (UA) NEGATIVE Urine Ketones NEGATIVE Urine Occult Blood NEGATIVE Urine Nitrite NEGATIVE Urine Bilirubin NEGATIVE Urine Urobilinogen 0.2 (NORMAL) Ur Leukocyte Esterase NEGATIVE Ur Microscopic Review NOT INDICATED Urine Culture Comments NOT INDICATED Nasal Adenovirus (PCR) NOT DETECTED Nasal B. parapertussis DNA (PCR) NOT DETECTED Nasal Coronavir 229E PCR NOT DETECTED Nasal Coronavir HKU1 PCR NOT DETECTED Nasal Coronavir NL63 PCR NOT DETECTED Nasal Coronavir OC43 PCR NOT DETECTED Nasal Enterovir/Rhinovir PCR NOT DETECTED Nasal Influenza B PCR NOT DETECTED Nasal Influenza A PCR NOT DETECTED Nasal Parainfluen 1 PCR NOT DETECTED Nasal Parainfluen 2 PCR NOT DETECTED Nasal Parainfluen 3 PCR NOT DETECTED Nasal Parainfluen 4 PCR NOT DETECTED Nasal RSV (PCR) NOT DETECTED Nasal B.pertussis DNA PCR NOT DETECTED Nasal C.pneumoniae (PCR) NOT DETECTED [place] Human Metapneumo PCR NOT DETECTED Nasal M.pneumoniae (PCR) NOT DETECTED Nasal SARS-CoV-2 (PCR) NOT DETECTED Salicylates Urine Opiates Screen NEGATIVE Ur Oxycodone Screen NEGATIVE Urine Methadone Screen NEGATIVE Ur Propoxyphene Screen NEGATIVE Acetaminophen Ur Barbiturates Screen NEGATIVE Ur Tricyclics Screen NEGATIVE Ur Phencyclidine Scrn NEGATIVE Ur Amphetamine Screen NEGATIVE U Methamphetamines Scrn NEGATIVE U Benzodiazepines Scrn NEGATIVE Urine Cocaine Screen NEGATIVE U Cannabinoids Screen POSITIVE H Ethyl Alcohol PD MEDICAL DECISION MAKING - ED course Complexity details: reviewed old records, reviewed results, re-evaluated patient, considered differential, d/w patient ED course: 25-year-old schizophrenic male claims that he is on his medications and is acting like he is not on his medications. He has had a recent hospitalization and within 2 days he is picked up by the police in [facility] with aggressive behavior and breaking into somebody's car drinking there hand warpman and is brought to the emergency department with an affidavit. He is medically cleared here and evaluated by the DCR he is on a less restrictive and he has violated his less restrictive. He appears disorganized and decompensated. 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
[2021-01-18 08:35] LABS: ACETAMINOPHEN < 10 ug/mL (10-30); ALBUMIN 4.5 g/dL (3.2-5.5); ALBUMIN/GLOBULIN RATIO 1.5 (1.0-2.2); ALKALINE PHOSPHATASE 68 IU/L (42-121); ALT ALANINE AMINOTRANSFERASE 24 IU/L (10-60); AST ASPARTATE AMINOTRANSFERASE 21 IU/L (10-42); BILIRUBIN,TOTAL 0.5 mg/dL (0.2-1.0); BUN - BLOOD UREA NITROGEN 11 mg/dL (6-20); CALCIUM 9.6 mg/dL (8.5-10.3); CARBON DIOXIDE - CO2 26 mmol/L (21-32); CHLORIDE 98 mmol/L (101-111); CREATININE 0.9 mg/dL (0.6-1.2); ETOH - ETHANOL 29.5 mg/dL; GFR - MDRD 103 (>89); GLUCOSE 104 mg/dL (70-100); LIPASE 21 U/L (22-51); POTASSIUM 3.4 mmol/L (3.5-5.0); SALICYLATE < 6.0 mg/dL; SODIUM 138 mmol/L (135-145); TOTAL PROTEIN 7.6 g/dL (6.7-8.2)
[2021-01-18 10:06] LABS: MUDS CUTOFF CONCENTRATIONS CUTOFF CONC BELOW:
[2021-01-18 10:08] LABS: BILIRUBIN,URINE NEGATIVE (NEGATIVE); GLUCOSE, URINE (UA) NEGATIVE (NEGATIVE); KETONES,URINE (UA) NEGATIVE (NEGATIVE); LEUKOCYTE ESTERASE, URINE NEGATIVE (NEGATIVE); NITRITE,URINE NEGATIVE (NEGATIVE); OCCULT BLOOD,URINE NEGATIVE (NEGATIVE); PROTEIN,URINE NEGATIVE (NEGATIVE); UROBILINOGEN,URINE 0.2 (NORMAL) E.U./dL (NORMAL)
[2021-01-18 10:09] LABS: CLARITY,URINE CLEAR (CLEAR)
[2021-01-18 10:19] LABS: AMPHETAMINE SCREEN,URINE NEGATIVE (NEGATIVE); BARBITURATE SCREEN,UR NEGATIVE (NEGATIVE); BENZODIAZEPINES SCREEN, URINE NEGATIVE (NEGATIVE); COCAINE SCREEN URINE NEGATIVE (NEGATIVE); METHADONE SCREEN, URINE NEGATIVE (NEGATIVE); METHAMPHETAMINES SCREEN, URINE NEGATIVE (NEGATIVE); OPIATE SCREEN, URINE NEGATIVE (NEGATIVE); OXYCODONE SCREEN, URINE NEGATIVE (NEGATIVE); PROPOXYPHENE SCREEN, URINE NEGATIVE (NEGATIVE); THC CANNABINOID SCREEN, URINE POSITIVE (NEGATIVE); TRICYCLIC ANTIDEPRESSANT,URINE NEGATIVE (NEGATIVE)
[2021-01-18] MEDS ORDERED: LORazepam 1 MG TABLET PO STA (12:12)
[2021-01-18 13:08] LABS: B. PARAPERTUSSIS- RESP PCR PAN NOT DETECTED; B. PERTUSSIS- RESP PCR PANEL NOT DETECTED; C. PNEUMONIAE- RESP PCR PANEL NOT DETECTED; CORONAVIRUS 229E-RESP PCR NOT DETECTED; CORONAVIRUS HKU1-RESP PCR NOT DETECTED; CORONAVIRUS NL63-RESP PCR NOT DETECTED; CORONAVIRUS OC43-RESP PCR NOT DETECTED; HUMAN METAPNEUMOVIRUS NOT DETECTED; INFLUENZA A- RESP PCR PANEL NOT DETECTED; INFLUENZA B - RESP PCR PANEL NOT DETECTED; M. PNEUMONIAE- RESP PCR PANEL NOT DETECTED; PARAINFLUENZA VIRUS 1 NOT DETECTED; PARAINFLUENZA VIRUS 2 NOT DETECTED; PARAINFLUENZA VIRUS 3 NOT DETECTED; PARAINFLUENZA VIRUS 4 NOT DETECTED; RHINOVIRUS/ENTEROVIRUS NOT DETECTED; RSV- RESP PCR PANEL NOT DETECTED; SARS-CoV-2 -RESP PCR PANEL NOT DETECTED
[2021-01-18] MEDS ORDERED: OLANZapine ODT 5 MG TABLET TL STA (20:03)
[2021-01-18 20:12] VITALS: BP 109/59
== END 2021-01-18 20:15 ==
LOC: EDUNIT# → ED 07:48
DX: F20.1 Disorganized schizophrenia (principal); R00.0 Tachycardia, unspecified; Z20.822 Contact with and (suspected) exposure to COVID-19; F17.200 Nicotine dependence, unspecified, uncomplicated
CPT/HCPCS: 0202U; 36415; 80053; 80306; 80307; 80320; 80329; 81003; 83690; 84443; 85025; 93005; 99283; 99285; A9270; J8499; 81001; 87086

== ENCOUNTER 2021-01-28 12:04 | Outpatient (CLI) | payer MEDICAID ==
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
== END 2021-01-28 12:05 | disposition critical access hospital (66) ==
LOC: EMS 12:04
DX: M25.522 Pain in left elbow (principal)
CPT/HCPCS: A0425; A0429; A0999

== ENCOUNTER 2021-01-28 12:14 | Emergency (ER) | payer MEDICAID ==
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
[2021-01-28 12:59] VITALS: BP 115/70
--- OUTSIDE RECORDS SUMMARY | 2021-02-03 23:50 | EXTERNAL MEDICAL SUMMARY RPT | Continuity of Care Document ---
:1995 Demographics Phone Unavailable Preferred Language Unknown Marital Status Unknown Quaker Affiliation Unknown Race Unknown Ethnic Group Unknown Author Organization [place] Address [address] [place] [address] Phone Problems date description facility [id number] F[facility] Social History date description facility [id number]
== END 2021-01-28 13:00 | disposition home or self-care (01) ==
LOC: EDUNIT# → ED 12:14
DX: S50.02XA Contusion of left elbow, initial encounter (principal); V09.20XA Pedestrian injured in traffic accident involving unspecified motor vehicles, initial encounter; F17.200 Nicotine dependence, unspecified, uncomplicated
CPT/HCPCS: 99282; 99283

== ENCOUNTER 2021-03-11 23:59 | Outpatient (CLI) | payer MEDICAID | END 2021-03-12 | disposition critical access hospital (66) | LOC: EMS 23:59 | DX: R60.0 Localized edema (principal) | CPT/HCPCS: A0425; A0429; A0999 ==

== ENCOUNTER 2021-03-12 00:23 | Emergency (ER) | payer MEDICAID ==
[2021-03-12] MEDS ORDERED: DEXAMETHASONE 10 MG/ML VIAL IV STA (00:32)
[2021-03-12] MEDS ORDERED: diphenhydrAMINE INJ 50 MG/ML VIAL IVP STA (00:32)
[2021-03-12] MEDS ORDERED: FAMOTIDINE 20 MG/2 ML VIAL IVP STA (00:32)
--- OUTSIDE RECORDS SUMMARY | 2021-03-12 00:36 | EXTERNAL MEDICAL SUMMARY RPT | Continuity of Care Document ---
:1995 Demographics Phone Unavailable Preferred Language Unknown Marital Status Unknown Uatsdin Affiliation Unknown Race Unknown Ethnic Group Unknown Author Organization [place] Address [address] [place] [address] Phone Problems date description facility [id number] FACE [facility]
--- NOTE | 2021-03-12 00:40 | ED Physician Documentation ---
History of Present Illness - Stated complaint Stated Complaint: LEG INFECTION - Chief complaint Chief Complaint: Ext Problem - History obtained from History obtained from: Patient - Additonal information Additional information: Patient comes emergency department chief complaint of lower extremity pain and redness for about 1-2 hours. States he was just sitting on the curb at the convenient store when he began to notice that his left lower extremity was hurting. He pulled up his pant leg and noticed that his leg was red with "bumps". He found that the appearance was the same on the right. Patient denies fevers or chills. He has not been exposed to any new lotions, soaps, or detergents. He denies waiting in any water. Patient states that he has no history of any allergic reaction to anything. No current or new medications. Patient denies alcohol or drugs. He has not been ill with anything recently. No other complaints at this time. Review of Systems Ten Systems: 10 systems reviewed and negative Constitutional: reports: Reviewed and negative Eyes: reports: Reviewed and negative Ears: reports: Reviewed and negative Nose: reports: Reviewed and negative Throat: reports: Reviewed and negative Cardiac: reports: Reviewed and negative Respiratory: reports: Reviewed and negative GI: reports: Reviewed and negative : reports: Reviewed and negative Skin: reports: Rash Musculoskeletal: reports: Extremity pain, Extremity swelling, Reviewed and negative Neurologic: reports: Reviewed and negative Psychiatric: reports: Reviewed and negative Endocrine: reports: Reviewed and negative Immunocompromised: reports: Reviewed and negative PD PAST MEDICAL HISTORY - Past Medical History Cardiovascular: None Respiratory: None Neuro: None Endocrine/Autoimmune: None GI: None : None HEENT: None Psych: Bipolar disorder, Schizophrenia, Other Musculoskeletal: None Derm: None - Past Surgical History Past Surgical History: No - Present Medications Home Medications: Ambulatory Orders Medication Instructions Recorded Confirmed predniSONE [Deltasone] 60 mg PO DAILY 5 Days #15 tablet 03/12/21 - Allergies Allergies/Adverse Reactions: Allergies Allergy/AdvReac Type Severity Reaction Status Date / Time No Known Drug Allergies Allergy Verified 03/12/21 00:36 - Social History Does the pt smoke?: Yes Smoking Status: Current every day smoker Does the pt drink ETOH?: Yes Does the pt have substance abuse?: No - Immunizations Immunizations are current?: No - POLST Patient has POLST: No POLST Status: Full Code PD ED PE NORMAL - Vitals Vital signs reviewed: Yes - General General: Alert and oriented X 3, No acute distress, Well developed/nourished - HEENT HEENT: Atraumatic, PERRL, EOMI, Moist mucous membranes - Neck Neck: Supple, no meningeal sign - Cardiac Cardiac: RRR, No murmur - Respiratory Respiratory: No respiratory distress, Clear bilaterally - Derm Derm: Warm and dry, Other (Urticarial appearing rash, most intense just above the patient shoe line/ankles. Symmetrical bilaterally. Coalesced urticaria giving way to sharply demarcated patches with superior progression, stopping at knees.Mild involvement of feet. 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 - Psych Psych: Normal mood, Normal affect Results - Vitals Vitals: Vital Signs - 24 hr 03/12/21 03/12/21 03/12/21 00:25 01:30 01:32 Temperature 37.8 C 36.9 C 36.8 C Heart Rate 98 93 86 Respiratory 18 18 18 Rate Blood Pressure 132/82 H 133/74 H 128/72 O2 Saturation 98 99 100 Oxygen O2 Source Room air - Labs Labs: Laboratory Tests 03/12/21 00:45 WBC 13.7 H RBC 4.33 L Hgb 13.5 L Hct 40.2 L MCV 92.8 MCH 31.2 H MCHC 33.6 RDW 12.8 Plt Count 259 MPV 8.9 Neut # (Auto) 12.0 H Lymph # (Auto) 0.9 L [place] # (Auto) 0.7 Eos # (Auto) 0.1 Baso # (Auto) 0.1 Absolute Nucleated RBC 0.00 Nucleated RBC % 0.0 PD MEDICAL DECISION MAKING - ED course Complexity details: reviewed results, re-evaluated patient, considered differential, d/w patient ED course: I discussed with the patient that I do not find evidence on exam of infection, and that this appears to be more of a reaction to something, though it is unclear what. Patient did seem to have more of a pain than itching component, however, which was unusual. He was treated with IV Toradol, Decadron, Benadryl, and Pepcid in the emergency department, and worked up with CBC, which showed a WBC count of 13.7. He was found to have a temperature 100.1 upon arrival. It is possible that the patient has a viral illness that has triggered an urticarial outbreak, though the distribution of the patient's findings is still more consistent with a contact dermatitis. We have discussed management of the symptoms with prednisone and Benadryl, and we have discussed the usual indications for return. Patient stable for discharge home. Departure - Departure Disposition: Home, Self Care Clinical Impression: Contact dermatitis Qualifiers: Contact dermatitis type: allergic Contact dermatitis trigger: unspecified trigger Qualified Code(s): L23.9 - Allergic contact dermatitis, unspecified cause Condition: Stable Instructions: ED Dermatitis Contact Prescriptions: predniSONE [Deltasone] 60 mg PO DAILY 5 Days #15 tablet Comments: Your rash looks more like a reaction to something than an actual infection. It is exceedingly unusual to get the exact same pattern of rash and infection on each leg separately. However, what exactly you are reacting to is not clear. Please take the steroids on a daily basis, as directed. Please take your other medications at home as you are supposed to do. You should follow-up with your primary care physician if your rash is not resolved in the next week. Discharge Date/Time: 03/12/21 01:51
[2021-03-12] MEDS ORDERED: KETOROLAC 30 MG/ML VIAL IVP STA (00:45)
[2021-03-12 00:56] LABS: BASOPHILS # (AUTO) 0.1 10^3/uL (0.0-0.1); BASOPHILS % (AUTO) 0.4 %; EOSINOPHILS # (AUTO) 0.1 10^3/uL (0.0-0.7); EOSINOPHILS % (AUTO) 0.4 %; HCT - HEMATOCRIT 40.2 % (42.0-52.0); HGB - HEMOGLOBIN 13.5 g/dL (14.0-18.0); LYMPHOCYTES # (AUTO) 0.9 10^3/uL (1.5-3.5); LYMPHOCYTES % (AUTO) 6.3 %; MEAN CORPUSCULAR HEMOGLOBIN 31.2 pg (27.0-31.0); MEAN CORPUSCULAR HGB CONC 33.6 g/dL (32.0-36.0); MEAN CORPUSCULAR VOLUME 92.8 fL (80.0-94.0); MEAN PLATELET VOLUME 8.9 fL (7.4-11.4); MONOCYTES # (AUTO) 0.7 10^3/uL (0.0-1.0); MONOCYTES % (AUTO) 5.2 %; NEUTROPHILS % (AUTO) 87.4 %; PLT - PLATELET COUNT 259 10^3/uL (130-450); RED BLOOD COUNT 4.33 10^6/uL (4.70-6.10); RED CELL DISTRIBUTION WIDTH 12.8 % (12.0-15.0); WHITE BLOOD COUNT 13.7 x10^3/uL (4.8-10.8)
[2021-03-12 01:37] VITALS: BP 128/72
== END 2021-03-12 01:51 | disposition home or self-care (01) ==
LOC: EDUNIT# → EEVIPCON 00:23 → ED 00:23
DX: L23.9 Allergic contact dermatitis, unspecified cause (principal); F17.200 Nicotine dependence, unspecified, uncomplicated
CPT/HCPCS: 36415; 85025; 96374; 96375; 99283; 99284; J1200

== ENCOUNTER 2021-03-31 18:15 | Outpatient (CLI) | payer MEDICAID | END 2021-03-31 18:16 | disposition critical access hospital (66) | LOC: EMS 18:15 | DX: S89.92XA Unspecified injury of left lower leg, initial encounter (principal); W19.XXXA Unspecified fall, initial encounter; Y93.39 Activity, other involving climbing, rappelling and jumping off | CPT/HCPCS: A0425; A0429; A0999 ==

== ENCOUNTER 2021-03-31 18:59 | Emergency (ER) | payer MEDICAID ==
[2021-03-31 19:03] VITALS: BP 118/71
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
--- OUTSIDE RECORDS SUMMARY | 2021-03-31 19:12 | EXTERNAL MEDICAL SUMMARY RPT | Continuity of Care Document ---
:1995 Demographics Phone Unavailable Preferred Language Unknown Marital Status Unknown Religion Affiliation Unknown Race Unknown Ethnic Group Unknown Author Organization [facility] [address] [place] [address] Phone Allergies Encounters Medications Problems date description facility [id number] FACE PAIN [facility] [employer] Results
== END 2021-03-31 19:04 | disposition left against medical advice (07) ==
LOC: ED 18:59
DX: Z53.21 Procedure and treatment not carried out due to patient leaving prior to being seen by health care provider (principal)

== ENCOUNTER 2021-04-09 01:10 | Emergency (ER) | payer MEDICAID ==
--- OUTSIDE RECORDS SUMMARY | 2021-04-09 01:13 | EXTERNAL MEDICAL SUMMARY RPT | Continuity of Care Document ---
:1995 Demographics Phone Unavailable Preferred Language Unknown Marital Status Unknown Sikh Affiliation Unknown Race Unknown Ethnic Group Unknown Author Organization [place] Address [address] [place] [phone] Phone Allergies Encounters Medications Problems Results
--- OUTSIDE RECORDS SUMMARY | 2021-04-09 01:20 | EXTERNAL MEDICAL SUMMARY RPT | Continuity of Care Document ---
:1995 Demographics Phone Unavailable Preferred Language Unknown Marital Status Unknown Amish Affiliation Unknown Race Unknown Ethnic Group Unknown Author Organization [place] Address [address] [place] [phone] Phone Allergies Encounters Medications Problems Results
--- NOTE | 2021-04-09 01:26 | ED Physician Documentation ---
PD HPI NVD - Stated complaint Stated Complaint: NAUSEA - Chief complaint Chief Complaint: Abd Pain - History obtained from History obtained from: Patient - History of Present Illness Timing - onset: Unknown Timing - duration: Days Timing - details: Gradual onset Similar symptoms before: Has not had sx before Recently seen: Not recently seen - Additonal information Additional information: patient says I just dont feel good, Im head sick and belly sick. he is a vague historian, and cannot provide details no explanation as to what he means by head head sick or belly sick. He provides a different HPI to me than he did the triage nurse. He cannot provide me any sort of timeframe regarding his symptoms, either. Many of his answers are I dont know. on my HPI, he denies nausea and vomiting. Review of Systems Unable to obtain: Other (limited ROS and questionable reliability due to odd affect and many answers of I dont know to straightforward questions) Constitutional: denies: Fever Cardiac: denies: Chest pain / pressure Respiratory: denies: Dyspnea GI: denies: Abdominal Pain, Nausea, Vomiting PD PAST MEDICAL HISTORY - Past Medical History Cardiovascular: None Respiratory: None Neuro: None Endocrine/Autoimmune: None GI: None : None HEENT: None Psych: Bipolar disorder, Schizophrenia, Other Musculoskeletal: None Derm: None - Past Surgical History Past Surgical History: No - Present Medications Home Medications: Ambulatory Orders Medication Instructions Recorded Confirmed Aripiprazole [Abilify Maintena] 300 mg IM ONCE 04/09/21 04/09/21 - Allergies Allergies/Adverse Reactions: Allergies Allergy/AdvReac Type Severity Reaction Status Date / Time No Known Drug Allergies Allergy Verified 04/09/21 01:20 - Social History Does the pt smoke?: Yes Smoking Status: Current every day smoker Does the pt drink ETOH?: Yes Does the pt have substance abuse?: No - Immunizations Immunizations are current?: No - POLST Patient has POLST: No POLST Status: Full Code PD ED PE NORMAL - Vitals Vital signs reviewed: Yes - General General: Alert and oriented X 3, No acute distress, Well developed/nourished - HEENT HEENT: Moist mucous membranes - Neck Neck: Supple, no meningeal sign - Cardiac Cardiac: RRR, No murmur, No gallop, No rub - Respiratory Respiratory: No respiratory distress, Clear bilaterally - Abdomen Abdomen: Soft, Non distended, Other (mild, diffuse TTP without rebound or guarding) - Derm Derm: Normal color, Warm and dry, No rash - Neuro Neuro: Alert and oriented X 3 PD ED PE EXPANDED - Psych Psych: Withdrawn, Other (odd, withdrawn affect. appears anxious at times) Results - Vitals Vitals: Vital Signs - 24 hr 04/09/21 04/09/21 04/09/21 01:17 01:22 02:53 Temperature 36.4 C L 36.4 C L Heart Rate 96 103 H 94 Respiratory 16 16 18 Rate Blood Pressure 129/79 132/87 H 132/70 H O2 Saturation 98 100 100 04/09/21 03:40 Temperature 36.2 C L Heart Rate 72 Respiratory 16 Rate Blood Pressure 132/83 H O2 Saturation 100 Oxygen O2 Source Room air - Labs Labs: Laboratory Tests 04/09/21 04/09/21 04/09/21 02:00 02:00 02:00 WBC 8.8 RBC 4.97 Hgb 15.2 Hct 45.4 MCV 91.3 MCH 30.6 MCHC 33.5 RDW 12.4 Plt Count 340 MPV 9.0 Neut # (Auto) 4.5 Lymph # (Auto) 3.1 [place] # (Auto) 0.8 Eos # (Auto) 0.3 Baso # (Auto) 0.1 Absolute Nucleated RBC 0.00 Nucleated RBC % 0.0 Sodium 139 Potassium 3.6 Chloride 102 Carbon Dioxide 28 Anion Gap 9.0 BUN 7 Creatinine 1.0 Estimated GFR (MDRD) 91 Glucose 89 Calcium 8.8 Total Bilirubin 0.5 AST 14 ALT 23 Alkaline Phosphatase 72 Total Protein 7.0 Albumin 4.1 Globulin 2.9 Albumin/Globulin Ratio 1.4 Lipase 21 L Urine Color YELLOW Urine Clarity CLEAR Urine pH 6.0 Ur Specific [place] 1.025 Urine Protein NEGATIVE Urine Glucose (UA) NEGATIVE Urine Ketones NEGATIVE Urine Occult Blood NEGATIVE Urine Nitrite NEGATIVE Urine Bilirubin NEGATIVE Urine Urobilinogen 0.2 (NORMAL) Ur Leukocyte Esterase NEGATIVE Ur Microscopic Review NOT INDICATED Urine Culture Comments NOT INDICATED - Rads (name of study) CT A/P with IV contrast Radiology: Prelim report reviewed, See rad report PD MEDICAL DECISION MAKING - ED course Complexity details: reviewed results, re-evaluated patient, considered differential, d/w patient ED course: patient has an odd and withdrawn affect. His HPI is inconsistent from the triage nurses HPI to mine. Many of his answers to me are I dont know. On exam, he has mild diffuse tenderness to palpation of his abdomen. Given his our affect an unreliable HPI, in light of obvious although mild abdominal tenderness, a work up was undertaken to include blood test and a CT scan of his abdomen and pelvis with IV contrast. The blood tests are unremarkable. The CT is suggestive of ileitis with potential component of early partial small bowel obstruction. I reviewed these results with him, but he appeared very much disinterested in discussing these results and politely but emphatically and repeatedly insisted on being discharged right away. I encouraged him to return if he worsens in anyway, or if new signs or symptoms develop such as fever. I also instructed him to follow up with his primary care physician, next available appointment, for reevaluation, even if he is feeling well. Again, he seemed disinterested in this and was essentially focused on being immediately discharged. As I printed out his discharge instructions, he was already in the hallway again asking to be discharged immediately. The nurse discontinue the IV and he was discharged in no apparent distress. Departure - Departure Disposition: 01 Home, Self Care Clinical Impression: Abdominal pain, Ileitis Condition: Good Instructions: ED Inflam Bowel Disease Crohn Follow-Up: Juliane Dennis PA-C [Provider Admit Priv/Credential] - Within 1 week Comments: Your CT scan shows mild inflammation of your small intestine; this might be due to inflammatory bowel disease such as Crohn's disease, but this diagnosis can only be made with further testing. As your blood tests are normal and you are feeling well, you can follow up with your doctor for further testing but please return to the emergency department if your symptoms worsen in any way. Discharge Date/Time: 04/09/21 03:40
[2021-04-09] MEDS ORDERED: SODIUM CHLORIDE 0.9% 1,000 ML IV STA (01:40)
[2021-04-09] MEDS ORDERED: IOVERSOL 320 100 ML VIAL IVP ONE ×2 (01:42→02:26)
[2021-04-09 02:08] LABS: BASOPHILS # (AUTO) 0.1 10^3/uL (0.0-0.1); BASOPHILS % (AUTO) 1.3 %; EOSINOPHILS # (AUTO) 0.3 10^3/uL (0.0-0.7); EOSINOPHILS % (AUTO) 3.1 %; HCT - HEMATOCRIT 45.4 % (42.0-52.0); HGB - HEMOGLOBIN 15.2 g/dL (14.0-18.0); LYMPHOCYTES # (AUTO) 3.1 10^3/uL (1.5-3.5); LYMPHOCYTES % (AUTO) 34.9 %; MEAN CORPUSCULAR HEMOGLOBIN 30.6 pg (27.0-31.0); MEAN CORPUSCULAR HGB CONC 33.5 g/dL (32.0-36.0); MEAN CORPUSCULAR VOLUME 91.3 fL (80.0-94.0); MONOCYTES # (AUTO) 0.8 10^3/uL (0.0-1.0); MONOCYTES % (AUTO) 8.8 %; NEUTROPHILS # (AUTO) 4.5 10^3/uL (1.5-6.6); NEUTROPHILS % (AUTO) 51.6 %; PLT - PLATELET COUNT 340 10^3/uL (130-450); RED BLOOD COUNT 4.97 10^6/uL (4.70-6.10); RED CELL DISTRIBUTION WIDTH 12.4 % (12.0-15.0); WHITE BLOOD COUNT 8.8 x10^3/uL (4.8-10.8)
[2021-04-09 02:11] LABS: BILIRUBIN,URINE NEGATIVE (NEGATIVE); GLUCOSE, URINE (UA) NEGATIVE (NEGATIVE); KETONES,URINE (UA) NEGATIVE (NEGATIVE); LEUKOCYTE ESTERASE, URINE NEGATIVE (NEGATIVE); NITRITE,URINE NEGATIVE (NEGATIVE); OCCULT BLOOD,URINE NEGATIVE (NEGATIVE); PROTEIN,URINE NEGATIVE (NEGATIVE); UROBILINOGEN,URINE 0.2 (NORMAL) E.U./dL (NORMAL)
[2021-04-09 02:12] LABS: CLARITY,URINE CLEAR (CLEAR)
[2021-04-09 02:21] LABS: ALBUMIN 4.1 g/dL (3.2-5.5); ALBUMIN/GLOBULIN RATIO 1.4 (1.0-2.2); BILIRUBIN,TOTAL 0.5 mg/dL (0.2-1.0); CALCIUM 8.8 mg/dL (8.5-10.3); POTASSIUM 3.6 mmol/L (3.5-5.0)
[2021-04-09 03:54] VITALS: BP 132/83
--- NOTE | 2021-04-09 08:17 | CT Report ---
PROCEDURE: Abdomen/Pelvis W INDICATIONS: abd. pain, tenderness CONTRAST: IV CONTRAST: Optiray 320 ml: 100 PO CONTRAST: *NO PO CONTRAST TECHNIQUE: After the administration of intravenous contrast, 5 mm thick sections acquired from the diaphragms to the symphysis. 5 mm thick coronal and sagittal reformats were acquired. For radiation dose reducti on, the following was used: automated exposure control, adjustment of mA and/or kV according to nikita ent size. COMPARISON: None. FINDINGS: Image quality: There are respiratory motion artifacts. ABDOMEN: Lung bases: Lung bases are clear. Heart size is normal. Solid organs: Liver and spleen are normal in size and enhancement. Gallbladder is normal. Biliary system is non dilated. Pancreas enhances normally. No adrenal nodules. Kidneys demonstrate normal size and enhancement, without hydronephrosis. Peritoneum and bowel: Fluid-filled small intestine is normal in caliber. There is inspissated fecal material within the terminal ileum. No bowel wall thickening. Appendix is normal. Moderate amount sto ol in colon. No free fluid or air. Nodes and vessels: No retroperitoneal or mesenteric adenopathy by size criteria. Aorta and inferior vena cava are normal in size. Miscellaneous: No ventral hernias. PELVIS: Genitourinary: Bladder wall thickness is normal. Miscellaneous: No inguinal hernias or adenopathy. Bones: No suspicious bony lesions. No vertebral body compression fractures. IMPRESSION: 1.Fluid-filled small intestine is normal in caliber. There is fecal material within the distal ileum. No bowel wall thickening. Small amount of inspissated fecal material within the terminal ileum sugge sts mild degree of partial small bowel obstruction. The CT findings are nonspecific. Differential bob gnoses include infectious enteritis and inflammatory bowel disease. Recommend clinical correlation. 2. Appendix is normal. No significant discrepancy with the preliminary interpretation. Reviewed by: Nathan French MD on 04/09/2021 8:16 AM PDT Approved by: Nathan French MD on 04/09/2021 8:16 AM PDT Station ID: [id number]
== END 2021-04-09 03:40 | disposition home or self-care (01) ==
LOC: ED 01:10
DX: K52.9 Noninfective gastroenteritis and colitis, unspecified (principal); F17.200 Nicotine dependence, unspecified, uncomplicated
CPT/HCPCS: 36415; 74177; 80053; 81003; 83690; 85025; 96360; 99283; 99284; Q9967; 81001; 87086

== ENCOUNTER 2021-04-11 11:38 | Outpatient (CLI) | payer MEDICAID | END 2021-04-11 11:39 | disposition critical access hospital (66) | LOC: EMS 11:38 | DX: R42 Dizziness and giddiness (principal) | CPT/HCPCS: A0425; A0429; A0999 ==

== ENCOUNTER 2021-04-11 11:48 | Emergency (ER) | payer MEDICAID ==
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
[2021-04-11 12:38] VITALS: BP 115/74
--- OUTSIDE RECORDS SUMMARY | 2021-04-11 12:42 | EXTERNAL MEDICAL SUMMARY RPT | Continuity of Care Document ---
:1995 Demographics Phone Unavailable Preferred Language Unknown Marital Status Unknown Mormon Affiliation Unknown Race Unknown Ethnic Group Unknown Author Organization [place] Address [address] [place] [phone] Phone Allergies Encounters Medications Problems Results
== END 2021-04-11 12:36 | disposition home or self-care (01) ==
LOC: EDUNIT# → ED 11:48
DX: E86.0 Dehydration (principal); Z59.0 Homelessness; F17.200 Nicotine dependence, unspecified, uncomplicated
CPT/HCPCS: 99283; 99284

== ENCOUNTER 2021-04-11 14:54 | Outpatient (CLI) | payer MEDICAID | END 2021-04-11 14:55 | disposition critical access hospital (66) | LOC: EMS 14:54 | DX: R07.9 Chest pain, unspecified (principal) | CPT/HCPCS: A0425; A0429; A0999 ==

== ENCOUNTER 2021-04-11 15:13 | Emergency (ER) | payer MEDICAID ==
--- OUTSIDE RECORDS SUMMARY | 2021-04-11 15:22 | EXTERNAL MEDICAL SUMMARY RPT | Continuity of Care Document ---
:1995 Demographics Phone Unavailable Preferred Language Unknown Marital Status Unknown Worship Affiliation Unknown Race Unknown Ethnic Group Unknown Author Organization [place] Address [address] [phone] Phone Allergies Encounters Medications Problems Results
[2021-04-11 15:26] VITALS: BP 122/77
--- NOTE | 2021-04-11 16:16 | ED Physician Documentation ---
History of Present Illness - Stated complaint Stated Complaint: CHEST PAIN - Chief complaint Chief Complaint: General - Additonal information Additional information: 25-year-old male returns to the emergency department after being seen recently this morning requesting a sandwich as well as a ride to his home in [place]. He was seen by my colleague Dr. Gama earlier. He denies any has chest pain shortness of air abdominal pain. He initially told the ER nurse that he simply wanted to sleep. When I speak with him he is asking for a sandwich and a ride to his home. He denies any other acute medical needs at this time. Review of Systems Constitutional: denies: Fever, Chills Ears: reports: Reviewed and negative Nose: reports: Reviewed and negative Throat: reports: Reviewed and negative Cardiac: reports: Reviewed and negative Respiratory: reports: Dyspnea GI: reports: Reviewed and negative : reports: Reviewed and negative PD PAST MEDICAL HISTORY - Past Medical History Cardiovascular: None Respiratory: None Neuro: None Endocrine/Autoimmune: None GI: None : None HEENT: None Psych: Bipolar disorder, Schizophrenia, Other Musculoskeletal: None Derm: None - Past Surgical History Past Surgical History: No - Present Medications Home Medications: Ambulatory Orders Medication Instructions Recorded Confirmed Aripiprazole [Abilify Maintena] 300 mg IM ONCE 04/09/21 04/09/21 - Allergies Allergies/Adverse Reactions: Allergies Allergy/AdvReac Type Severity Reaction Status Date / Time No Known Drug Allergies Allergy Verified 04/11/21 15:26 - Social History Does the pt smoke?: Yes Smoking Status: Current every day smoker Does the pt drink ETOH?: Yes Does the pt have substance abuse?: No - Immunizations Immunizations are current?: No - POLST Patient has POLST: No POLST Status: Full Code PD ED PE NORMAL - General General: Alert and oriented X 3, No acute distress, Other (Ritesh appearance dirty clothing) - HEENT HEENT: PERRL - Neck Neck: Supple, no meningeal sign, No adenopathy - Cardiac Cardiac: RRR, No murmur - Respiratory Respiratory: No respiratory distress, Clear bilaterally - Abdomen Abdomen: Non tender - Derm Derm: Normal color, Warm and dry, No rash - Extremities Extremities: No deformity, No tenderness to palpate, Normal ROM s pain - Neuro Neuro: Alert and oriented X 3, site engineer 2-12 intact Eye Opening: Spontaneous Motor: Obeys Commands - Psych Psych: Normal mood Results - Vitals Vitals: Vital Signs - 24 hr 04/11/21 15:14 Temperature 36.2 C L Heart Rate 116 H Respiratory 16 Rate Blood Pressure 122/77 O2 Saturation 99 Oxygen O2 Source Room air PD MEDICAL DECISION MAKING - ED course Complexity details: reviewed results, re-evaluated patient, d/w patient ED course: This is a well-appearing though marginally homed 25-year-old male that does have a mental health disorder who is requesting a sandwich a place to sleep and transportation back to his home. At this time there does not appear to be acute medical need. He will be discharged from the emergency department. Emergent return precautions were discussed verbally. Departure - Departure Disposition: 01 Home, Self Care Clinical Impression: Homeless single person Condition: Stable Record reviewed to determine appropriate education?: Yes Comments: Jesus I wish you well in your journey. The emergency department is unable to provide you a ride back to your house. You can take the public transportation and buses which are free of charge.
== END 2021-04-11 16:21 | disposition home or self-care (01) ==
LOC: EDUNIT# → ED 15:13
DX: E86.0 Dehydration (principal); Z59.0 Homelessness; F17.200 Nicotine dependence, unspecified, uncomplicated

== ENCOUNTER 2021-04-13 18:49 | Emergency (ER) | payer MEDICAID ==
--- OUTSIDE RECORDS SUMMARY | 2021-04-13 18:53 | EXTERNAL MEDICAL SUMMARY RPT | Continuity of Care Document ---
:1995 Demographics Phone Unavailable Preferred Language Unknown Marital Status Unknown Congregation Affiliation Unknown Race Unknown Ethnic Group Unknown Author Organization [place] Address [address] [phone] Phone Allergies Encounters Medications Problems Results
[2021-04-13 18:59] VITALS: BP 124/80
--- OUTSIDE RECORDS SUMMARY | 2021-04-13 19:12 | EXTERNAL MEDICAL SUMMARY RPT | Continuity of Care Document ---
:1995 Demographics Phone Unavailable Preferred Language Unknown Marital Status Unknown Adventism Affiliation Unknown Race Unknown Ethnic Group Unknown Author Organization [place] Address [address] [phone] Phone Allergies Encounters Medications Problems Results
[2021-04-13 19:47] LABS: BILIRUBIN,URINE NEGATIVE (NEGATIVE); GLUCOSE, URINE (UA) NEGATIVE (NEGATIVE); KETONES,URINE (UA) NEGATIVE (NEGATIVE); LEUKOCYTE ESTERASE, URINE NEGATIVE (NEGATIVE); MUDS CUTOFF CONCENTRATIONS CUTOFF CONC BELOW:; NITRITE,URINE NEGATIVE (NEGATIVE); OCCULT BLOOD,URINE NEGATIVE (NEGATIVE); PH,URINE 5.5 PH (5.0-7.5); PROTEIN,URINE NEGATIVE (NEGATIVE); UROBILINOGEN,URINE 0.2 (NORMAL) E.U./dL (NORMAL)
[2021-04-13 19:48] LABS: CLARITY,URINE CLEAR (CLEAR)
[2021-04-13 19:58] LABS: AMPHETAMINE SCREEN,URINE POSITIVE (NEGATIVE); BARBITURATE SCREEN,UR NEGATIVE (NEGATIVE); BENZODIAZEPINES SCREEN, URINE NEGATIVE (NEGATIVE); COCAINE SCREEN URINE NEGATIVE (NEGATIVE); METHADONE SCREEN, URINE NEGATIVE (NEGATIVE); METHAMPHETAMINES SCREEN, URINE POSITIVE (NEGATIVE); OPIATE SCREEN, URINE NEGATIVE (NEGATIVE); OXYCODONE SCREEN, URINE NEGATIVE (NEGATIVE); PROPOXYPHENE SCREEN, URINE NEGATIVE (NEGATIVE); THC CANNABINOID SCREEN, URINE NEGATIVE (NEGATIVE); TRICYCLIC ANTIDEPRESSANT,URINE NEGATIVE (NEGATIVE)
--- NOTE | 2021-04-13 20:03 | ED Physician Documentation ---
History of Present Illness - Stated complaint Stated Complaint: MHE - Chief complaint Chief Complaint: MHE - Additonal information Additional information: 25-year-old male who is well-known to this emergency department comes to the ER requesting to be checked into a psychiatric hospital because he has schizophrenia. However he is also indicated to the nursing staff that he would like a sandwich juice and some place to sleep. The time of my exam he is alert and very well-appearing. He reports that he has schizophrenia but does not have thoughts of self-harm or harm to others. He states that he has an appointment tomorrow in the morning with the [facility] counselor and wonders if he should keep that appointment. I asked if he felt safe for discharge home and he said that he did and that he knows that he needs to see the counselor in the morning and he was thankful that we were able to give him juice and a sandwich. Review of Systems Constitutional: denies: Fever, Chills Eyes: reports: Reviewed and negative Ears: reports: Reviewed and negative Nose: reports: Reviewed and negative Cardiac: reports: Reviewed and negative Respiratory: reports: Reviewed and negative GI: reports: Reviewed and negative : reports: Reviewed and negative Skin: reports: Reviewed and negative Musculoskeletal: reports: Reviewed and negative Neurologic: reports: Reviewed and negative Psychiatric: reports: Hallucinations, Delusions. denies: Depressed, Suicidal, Homicidal Endocrine: reports: Reviewed and negative PD PAST MEDICAL HISTORY - Past Medical History Past Medical History: Yes Cardiovascular: None Respiratory: None Neuro: None Endocrine/Autoimmune: None GI: None : None HEENT: None Psych: Bipolar disorder, Schizophrenia, Other Musculoskeletal: None Derm: None - Past Surgical History Past Surgical History: No - Present Medications Home Medications: Ambulatory Orders Medication Instructions Recorded Confirmed Aripiprazole [Abilify Maintena] 300 mg IM ONCE 04/09/21 04/09/21 - Allergies Allergies/Adverse Reactions: Allergies Allergy/AdvReac Type Severity Reaction Status Date / Time No Known Drug Allergies Allergy Verified 04/13/21 19:00 - Social History Does the pt smoke?: Yes Smoking Status: Current every day smoker Does the pt drink ETOH?: Yes Does the pt have substance abuse?: No - Immunizations Immunizations are current?: No - POLST Patient has POLST: No POLST Status: Full Code PD ED PE EXPANDED - General General: Alert, No acute distress, Well developed/nourished - Cardiac Cardiac: Regular Rate, Radial strong equal, Pedal strong equal, Cap refill < 2 sec - Respiratory Respiratory: Clear to ausultation panda. No: Distress, Labored - Abdomen Abdomen: Normal Bowel sounds. No: Tender to palpation - Psych Psych: Normal, Other (Well-appearing, answers Questions fluidly. Denies thoughts of self-harm or harm to others. States that he sometimes sees visions but does not feel that they are threatening to him). No: Poor eye contact Results - Vitals Vitals: Vital Signs - 24 hr 04/13/21 04/13/21 18:54 18:59 Temperature 36.4 C L 36.5 C Heart Rate 88 88 Respiratory 20 20 Rate Blood Pressure 124/80 124/80 O2 Saturation 97 97 Oxygen O2 Source Room air - Labs Labs: Laboratory Tests 04/13/21 19:40 Urine Color YELLOW Urine Clarity CLEAR Urine pH 5.5 Ur Specific [place] >=1.030 H Urine Protein NEGATIVE Urine Glucose (UA) NEGATIVE Urine Ketones NEGATIVE Urine Occult Blood NEGATIVE Urine Nitrite NEGATIVE Urine Bilirubin NEGATIVE Urine Urobilinogen 0.2 (NORMAL) Ur Leukocyte Esterase NEGATIVE Ur Microscopic Review NOT INDICATED Urine Culture Comments NOT INDICATED Urine Opiates Screen NEGATIVE Ur Oxycodone Screen NEGATIVE Urine Methadone Screen NEGATIVE Ur Propoxyphene Screen NEGATIVE Ur Barbiturates Screen NEGATIVE Ur Tricyclics Screen NEGATIVE Ur Phencyclidine Scrn NEGATIVE Ur Amphetamine Screen POSITIVE H U Methamphetamines Scrn POSITIVE H U Benzodiazepines Scrn NEGATIVE Urine Cocaine Screen NEGATIVE U Cannabinoids Screen NEGATIVE PD MEDICAL DECISION MAKING - ED course Complexity details: d/w patient ED course: 25-year-old male who has a history of schizophrenia comes to the ER initially requesting to be placed in a psychiatric facility. He denies thoughts of harm to himself or to others. He then requested a sandwich and something to drink. At the time that I spoke with him he said that he was feeling well and that he has an appointment with [facility] tomorrow and he wonders if he should just keep that appointment. I asked if he felt safe for discharge home and he said yes. At this time no emergent medical condition appears to be present And he does not represent a danger to himself or others, therefore he will be discharged Departure - Departure Disposition: 01 Home, Self Care Clinical Impression: Schizophrenia Qualifiers: Schizophrenia type: other Qualified Code(s): F20.89 - Other schizophrenia; F20.8 - Other schizophrenia Comments: Jesus you are safe for discharge home. Do not miss the appointment with [facility] tomorrow. If at any point you have thoughts of self-harm, or harm to others or if you are feel that your hallucinations are threatening you may return to the emergency department.
[2021-04-13 20:39] LABS: CORONAVIRUS 229E-RESP PCR NOT DETECTED; CORONAVIRUS HKU1-RESP PCR NOT DETECTED; CORONAVIRUS NL63-RESP PCR NOT DETECTED; CORONAVIRUS OC43-RESP PCR NOT DETECTED; HUMAN METAPNEUMOVIRUS NOT DETECTED; INFLUENZA A- RESP PCR PANEL NOT DETECTED; INFLUENZA B - RESP PCR PANEL NOT DETECTED; PARAINFLUENZA VIRUS 1 NOT DETECTED; RHINOVIRUS/ENTEROVIRUS NOT DETECTED; SARS-CoV-2 -RESP PCR PANEL NOT DETECTED
[2021-04-13 20:40] LABS: B. PARAPERTUSSIS- RESP PCR PAN NOT DETECTED; B. PERTUSSIS- RESP PCR PANEL NOT DETECTED; C. PNEUMONIAE- RESP PCR PANEL NOT DETECTED; M. PNEUMONIAE- RESP PCR PANEL NOT DETECTED; PARAINFLUENZA VIRUS 2 NOT DETECTED; PARAINFLUENZA VIRUS 3 NOT DETECTED; PARAINFLUENZA VIRUS 4 NOT DETECTED; RSV- RESP PCR PANEL NOT DETECTED
== END 2021-04-13 20:10 | disposition home or self-care (01) ==
LOC: ED 18:49
DX: F20.89 Other schizophrenia (principal); Z20.822 Contact with and (suspected) exposure to COVID-19; F17.200 Nicotine dependence, unspecified, uncomplicated
CPT/HCPCS: 0202U; 80306; 81003; 99281; 99283; 80053; 80307; 80320; 80329; 81001; 83690; 84443; 85025; 87086

== ENCOUNTER 2021-04-18 15:33 | Outpatient (CLI) | payer MEDICAID | END 2021-04-18 15:34 | disposition critical access hospital (66) | LOC: EMS 15:33 | DX: R42 Dizziness and giddiness (principal); R44.1 Visual hallucinations | CPT/HCPCS: A0425; A0429; A0999 ==

== ENCOUNTER 2021-04-18 15:58 | Emergency (ER) | payer MEDICAID ==
--- NOTE | 2021-04-18 16:10 | ED Physician Documentation ---
PD HPI MHE - Stated complaint Stated Complaint: DIZZY/MHE - History obtained from History obtained from: Patient, EMS - History of Present Illness Pain level max: 0 Pain level now: 0 - Additional information Additional information: Patient is a 25-year-old male who presents to the emergency department stating that he would like to be "checked into a mental institution". He states that he has schizophrenia and has been hearing voices and having hallucinations. He states that the voices do not say anything directly to him. They are not command hallucinations. He states that the visual hallucinations are animals on the side of the road. He is on once a month Abilify currently. Last injection was March 23. He has not suicidal or homicidal. Nothing makes it better or worse. Review of Systems Constitutional: denies: Fever, Chills Respiratory: denies: Cough GI: denies: Vomiting, Diarrhea : denies: Dysuria Skin: denies: Rash Musculoskeletal: denies: Neck pain, Back pain Neurologic: denies: Headache PD PAST MEDICAL HISTORY - Past Medical History Cardiovascular: None Respiratory: None Neuro: None Endocrine/Autoimmune: None GI: None : None HEENT: None Psych: Bipolar disorder, Schizophrenia, Other Musculoskeletal: None Derm: None - Past Surgical History Past Surgical History: No - Present Medications Home Medications: Ambulatory Orders Medication Instructions Recorded Confirmed Aripiprazole [Abilify Maintena] 300 mg IM ONCE 04/09/21 04/09/21 - Allergies Allergies/Adverse Reactions: Allergies Allergy/AdvReac Type Severity Reaction Status Date / Time No Known Drug Allergies Allergy Verified 04/18/21 16:08 - Social History Does the pt smoke?: Yes Smoking Status: Current every day smoker Does the pt drink ETOH?: Yes Does the pt have substance abuse?: No - Immunizations Immunizations are current?: No - POLST Patient has POLST: No POLST Status: Full Code PD ED PE NORMAL - Vitals Vital signs reviewed: Yes - General General: Alert and oriented X 3, No acute distress, Well developed/nourished - HEENT HEENT: PERRL, Moist mucous membranes - Neck Neck: Supple, no meningeal sign - Cardiac Cardiac: RRR, Strong equal pulses - Respiratory Respiratory: No respiratory distress, Clear bilaterally - Abdomen Abdomen: Soft, Non tender, Non distended - Derm Derm: Warm and dry - Extremities Extremities: No edema, No calf tenderness / cord - Neuro Neuro: Alert and oriented X 3 - Psych Psych: Normal mood, Normal affect Results - Vitals Vitals: Vital Signs - 24 hr 04/18/21 16:08 Temperature 37.2 C Heart Rate 84 Respiratory 20 Rate Blood Pressure 114/78 O2 Saturation 99 Oxygen O2 Source Room air - Labs Labs: Laboratory Tests 04/18/21 04/18/21 04/18/21 16:15 16:15 16:15 WBC 8.8 RBC 4.91 Hgb 15.2 Hct 45.1 MCV 91.9 MCH 31.0 MCHC 33.7 RDW 12.3 Plt Count 313 MPV 9.1 Neut # (Auto) 6.4 Lymph # (Auto) 1.5 [place] # (Auto) 0.7 Eos # (Auto) 0.1 Baso # (Auto) 0.1 Absolute Nucleated RBC 0.00 Nucleated RBC % 0.0 Sodium 141 Potassium 3.8 Chloride 103 Carbon Dioxide 31 Anion Gap 7.0 BUN 11 Creatinine 1.0 Estimated GFR (MDRD) 91 Glucose 84 Calcium 9.2 Total Bilirubin 0.5 AST 18 ALT 24 Alkaline Phosphatase 64 Total Protein 7.6 Albumin 4.6 Globulin 3.0 Albumin/Globulin Ratio 1.5 Lipase 23 TSH 0.30 L Urine Color Urine Clarity Urine pH Ur Specific [place] Urine Protein Urine Glucose (UA) Urine Ketones Urine Occult Blood Urine Nitrite Urine Bilirubin Urine Urobilinogen Ur Leukocyte Esterase Urine RBC Urine WBC Ur Squamous Epith Cells Urine Bacteria Urine Mucus Urine Sperm Ur Microscopic Review Urine Culture Comments Salicylates < 6.0 Urine Opiates Screen Ur Oxycodone Screen Urine Methadone Screen Ur Propoxyphene Screen Acetaminophen < 10 L Ur Barbiturates Screen Ur Tricyclics Screen Ur Phencyclidine Scrn Ur Amphetamine Screen U Methamphetamines Scrn U Benzodiazepines Scrn Urine Cocaine Screen U Cannabinoids Screen Ethyl Alcohol < 5.0 04/18/21 16:21 WBC RBC Hgb Hct MCV MCH MCHC RDW Plt Count MPV Neut # (Auto) Lymph # (Auto) [place] # (Auto) Eos # (Auto) Baso # (Auto) Absolute Nucleated RBC Nucleated RBC % Sodium Potassium Chloride Carbon Dioxide Anion Gap BUN Creatinine Estimated GFR (MDRD) Glucose Calcium Total Bilirubin AST ALT Alkaline Phosphatase Total Protein Albumin Globulin Albumin/Globulin Ratio Lipase TSH Urine Color YELLOW Urine Clarity CLEAR Urine pH 6.0 Ur Specific [place] >=1.030 H Urine Protein 30 H Urine Glucose (UA) NEGATIVE Urine Ketones TRACE Urine Occult Blood NEGATIVE Urine Nitrite NEGATIVE Urine Bilirubin NEGATIVE Urine Urobilinogen 1 (NORMAL) Ur Leukocyte Esterase NEGATIVE Urine RBC 0-5 Urine WBC 0-3 Ur Squamous Epith Cells NONE SEEN Urine Bacteria None Seen Urine Mucus Marked Strands Urine Sperm PRESENT Ur Microscopic Review INDICATED Urine Culture Comments NOT INDICATED Salicylates Urine Opiates Screen NEGATIVE Ur Oxycodone Screen NEGATIVE Urine Methadone Screen NEGATIVE Ur Propoxyphene Screen NEGATIVE Acetaminophen Ur Barbiturates Screen NEGATIVE Ur Tricyclics Screen NEGATIVE Ur Phencyclidine Scrn NEGATIVE Ur Amphetamine Screen POSITIVE H U Methamphetamines Scrn POSITIVE H U Benzodiazepines Scrn NEGATIVE Urine Cocaine Screen NEGATIVE U Cannabinoids Screen POSITIVE H Ethyl Alcohol PD MEDICAL DECISION MAKING - ED course Complexity details: reviewed results, re-evaluated patient, considered differential, d/w patient ED course: Patient is at his normal mental baseline. Social work was consulted. No indication for admission at this time. Patient states that he feels comfortable going home and following up with his mental health counselor. Patient states he would like to be discharged at this time. Patient counseled regarding signs and symptoms for which I believe and urgent re-evaluation would be necessary. Patient with good understanding of and agreement to plan and is comfortable goi ng home at this time This document was made in part using voice recognition software. While efforts are made to proofread this document, sound alike and grammatical errors may occur. Departure - Departure Disposition: 01 Home, Self Care Clinical Impression: Schizophrenia Qualifiers: Schizophrenia type: unspecified Qualified Code(s): F20.9 - Schizophrenia, unspecified Condition: Good Instructions: ED Schizophrenia General Follow-Up: your,doctor on Tuesday [Other] Comments: Follow-up with your doctor for further care. Return if you worsen. Discharge Date/Time: 04/18/21 16:42
[2021-04-18 16:11] VITALS: BP 114/78
[2021-04-18 16:23] LABS: BASOPHILS # (AUTO) 0.1 10^3/uL (0.0-0.1); BASOPHILS % (AUTO) 0.9 %; EOSINOPHILS # (AUTO) 0.1 10^3/uL (0.0-0.7); HCT - HEMATOCRIT 45.1 % (42.0-52.0); HGB - HEMOGLOBIN 15.2 g/dL (14.0-18.0); LYMPHOCYTES # (AUTO) 1.5 10^3/uL (1.5-3.5); LYMPHOCYTES % (AUTO) 16.7 %; MEAN CORPUSCULAR HGB CONC 33.7 g/dL (32.0-36.0); MEAN CORPUSCULAR VOLUME 91.9 fL (80.0-94.0); MEAN PLATELET VOLUME 9.1 fL (7.4-11.4); MONOCYTES # (AUTO) 0.7 10^3/uL (0.0-1.0); MONOCYTES % (AUTO) 7.9 %; NEUTROPHILS # (AUTO) 6.4 10^3/uL (1.5-6.6); NEUTROPHILS % (AUTO) 73.3 %; PLT - PLATELET COUNT 313 10^3/uL (130-450); RED BLOOD COUNT 4.91 10^6/uL (4.70-6.10); RED CELL DISTRIBUTION WIDTH 12.3 % (12.0-15.0); WHITE BLOOD COUNT 8.8 x10^3/uL (4.8-10.8)
[2021-04-18 16:30] LABS: MUDS CUTOFF CONCENTRATIONS CUTOFF CONC BELOW:
[2021-04-18 16:33] LABS: BILIRUBIN,URINE NEGATIVE (NEGATIVE); GLUCOSE, URINE (UA) NEGATIVE (NEGATIVE); KETONES,URINE (UA) TRACE mg/dL (NEGATIVE); LEUKOCYTE ESTERASE, URINE NEGATIVE (NEGATIVE); NITRITE,URINE NEGATIVE (NEGATIVE); OCCULT BLOOD,URINE NEGATIVE (NEGATIVE); PROTEIN,URINE 30 mg/dL (NEGATIVE); UROBILINOGEN,URINE 1 (NORMAL) E.U./dL (NORMAL)
[2021-04-18 16:36] LABS: ACETAMINOPHEN < 10 ug/mL (10-30); ALBUMIN 4.6 g/dL (3.2-5.5); ALBUMIN/GLOBULIN RATIO 1.5 (1.0-2.2); ALKALINE PHOSPHATASE 64 IU/L (42-121); ALT ALANINE AMINOTRANSFERASE 24 IU/L (10-60); AST ASPARTATE AMINOTRANSFERASE 18 IU/L (10-42); BILIRUBIN,TOTAL 0.5 mg/dL (0.2-1.0); BUN - BLOOD UREA NITROGEN 11 mg/dL (6-20); CALCIUM 9.2 mg/dL (8.5-10.3); CARBON DIOXIDE - CO2 31 mmol/L (21-32); CHLORIDE 103 mmol/L (101-111); ETOH - ETHANOL < 5.0 mg/dL; GFR - MDRD 91 (>89); GLUCOSE 84 mg/dL (70-100); LIPASE 23 U/L (22-51); POTASSIUM 3.8 mmol/L (3.5-5.0); SALICYLATE < 6.0 mg/dL; SODIUM 141 mmol/L (135-145); TOTAL PROTEIN 7.6 g/dL (6.7-8.2)
[2021-04-18 16:47] LABS: CLARITY,URINE CLEAR (CLEAR)
[2021-04-18 16:48] LABS: BACTERIA,URINE None Seen /HPF (None Seen); MUCUS,URINE Marked Strands; RBC,URINE 0-5 /HPF (0-5); SPERM,URINE PRESENT; SQUAMOUS EPITHELIAL CELL,UR NONE SEEN (<= Few); WBC,URINE 0-3 /HPF (0-3)
[2021-04-18 16:49] LABS: AMPHETAMINE SCREEN,URINE POSITIVE (NEGATIVE); BARBITURATE SCREEN,UR NEGATIVE (NEGATIVE); BENZODIAZEPINES SCREEN, URINE NEGATIVE (NEGATIVE); COCAINE SCREEN URINE NEGATIVE (NEGATIVE); METHADONE SCREEN, URINE NEGATIVE (NEGATIVE); METHAMPHETAMINES SCREEN, URINE POSITIVE (NEGATIVE); OPIATE SCREEN, URINE NEGATIVE (NEGATIVE); THC CANNABINOID SCREEN, URINE POSITIVE (NEGATIVE); TRICYCLIC ANTIDEPRESSANT,URINE NEGATIVE (NEGATIVE)
[2021-04-18 16:50] LABS: OXYCODONE SCREEN, URINE NEGATIVE (NEGATIVE); PROPOXYPHENE SCREEN, URINE NEGATIVE (NEGATIVE)
== END 2021-04-18 16:42 | disposition home or self-care (01) ==
LOC: EDUNIT# → ED 15:58
DX: F20.9 Schizophrenia, unspecified (principal); F17.200 Nicotine dependence, unspecified, uncomplicated
CPT/HCPCS: 36415; 80053; 80306; 80307; 80320; 80329; 81001; 81003; 83690; 84443; 85025; 87086; 93005; 99283

== ENCOUNTER 2021-05-02 13:05 | Outpatient (CLI) | payer MEDICAID | END 2021-05-02 13:06 | disposition critical access hospital (66) | LOC: EMS 13:05 | DX: R10.10 Upper abdominal pain, unspecified (principal) | CPT/HCPCS: A0425; A0429 ==

== ENCOUNTER 2021-05-02 13:16 | Emergency (ER) | payer MEDICAID ==
[2021-05-02 13:22] VITALS: BP 124/77
[2021-05-02 13:50] LABS: BASOPHILS # (AUTO) 0.1 10^3/uL (0.0-0.1); EOSINOPHILS % (AUTO) 0.3 %; HCT - HEMATOCRIT 43.9 % (42.0-52.0); HGB - HEMOGLOBIN 14.9 g/dL (14.0-18.0); LYMPHOCYTES # (AUTO) 1.1 10^3/uL (1.5-3.5); LYMPHOCYTES % (AUTO) 11.1 %; MEAN CORPUSCULAR HEMOGLOBIN 30.5 pg (27.0-31.0); MEAN CORPUSCULAR HGB CONC 33.9 g/dL (32.0-36.0); MEAN PLATELET VOLUME 9.1 fL (7.4-11.4); MONOCYTES # (AUTO) 0.5 10^3/uL (0.0-1.0); MONOCYTES % (AUTO) 4.5 %; NEUTROPHILS # (AUTO) 8.3 10^3/uL (1.5-6.6); NEUTROPHILS % (AUTO) 82.8 %; PLT - PLATELET COUNT 381 10^3/uL (130-450); RED BLOOD COUNT 4.88 10^6/uL (4.70-6.10); RED CELL DISTRIBUTION WIDTH 11.9 % (12.0-15.0)
[2021-05-02 13:55] LABS: BILIRUBIN,URINE NEGATIVE (NEGATIVE); GLUCOSE, URINE (UA) NEGATIVE (NEGATIVE); KETONES,URINE (UA) NEGATIVE (NEGATIVE); LEUKOCYTE ESTERASE, URINE NEGATIVE (NEGATIVE); NITRITE,URINE NEGATIVE (NEGATIVE); OCCULT BLOOD,URINE NEGATIVE (NEGATIVE); PROTEIN,URINE NEGATIVE (NEGATIVE); UROBILINOGEN,URINE 0.2 (NORMAL) E.U./dL (NORMAL)
[2021-05-02 14:03] LABS: CLARITY,URINE CLEAR (CLEAR)
[2021-05-02 14:27] LABS: ALBUMIN 4.5 g/dL (3.2-5.5); ALBUMIN/GLOBULIN RATIO 1.5 (1.0-2.2); BILIRUBIN,TOTAL 0.5 mg/dL (0.2-1.0); CALCIUM 9.5 mg/dL (8.5-10.3); CREATININE 0.8 mg/dL (0.6-1.2); POTASSIUM 3.5 mmol/L (3.5-5.0); TOTAL PROTEIN 7.6 g/dL (6.7-8.2)
== END 2021-05-02 14:09 | disposition left against medical advice (07) ==
LOC: EDUNIT# → ED 13:16
DX: Z53.21 Procedure and treatment not carried out due to patient leaving prior to being seen by health care provider (principal)
CPT/HCPCS: 36415; 80053; 81001; 81003; 83690; 85025; 87086

== ENCOUNTER 2021-05-02 20:22 | Emergency (ER) | payer MEDICAID ==
[2021-05-02 20:37] VITALS: BP 125/84
--- NOTE | 2021-05-02 21:07 | ED Physician Documentation ---
PD HPI MHE - Stated complaint Stated Complaint: MHE - Chief complaint Chief Complaint: MHE - History obtained from History obtained from: Patient - History of Present Illness Primary symptom: Psychosis (he states he feels anxious and hearing voices and feels he may need hospitalization. States he is not on current medications.) Timing - onset: Today Contributing factors: Substance abuse - drugs, Out of meds. No: Substance abuse - ETOH Similar symptoms before: Diagnosis (schizophrenia and substance abuse) Review of Systems Constitutional: denies: Fever, Chills Nose: denies: Rhinorrhea / runny nose, Congestion Throat: denies: Sore throat Respiratory: denies: Cough GI: denies: Vomiting, Diarrhea Neurologic: denies: Generalized weakness, Headache Psychiatric: reports: Hallucinations (hearing voices; not having any command voices. No direction of hurting himself nor others.), Anxiety. denies: Depressed, Suicidal PD PAST MEDICAL HISTORY - Past Medical History Cardiovascular: None Respiratory: None Neuro: None Endocrine/Autoimmune: None GI: None : None HEENT: None Psych: Bipolar disorder, Schizophrenia, Other Musculoskeletal: None Derm: None - Past Surgical History Past Surgical History: No - Present Medications Home Medications: Ambulatory Orders Medication Instructions Recorded Confirmed Aripiprazole [Abilify Maintena] 300 mg IM ONCE 04/09/21 04/09/21 - Allergies Allergies/Adverse Reactions: Allergies Allergy/AdvReac Type Severity Reaction Status Date / Time No Known Drug Allergies Allergy Verified 05/02/21 20:38 - Social History Does the pt smoke?: Yes Smoking Status: Current every day smoker Does the pt drink ETOH?: Yes Does the pt have substance abuse?: No - Immunizations Immunizations are current?: No - POLST Patient has POLST: No POLST Status: Full Code PD ED PE NORMAL - Vitals Vital signs reviewed: Yes - General General: Alert and oriented X 3, No acute distress, Well developed/nourished - Neck Neck: Supple, no meningeal sign - Cardiac Cardiac: RRR, No murmur - Respiratory Respiratory: Clear bilaterally - Derm Derm: Normal color, Warm and dry - Neuro Neuro: Alert and oriented X 3, No motor deficit, Normal speech, Other (normal gait) Results - Vitals Vitals: Oxygen O2 Source Room air PD MEDICAL DECISION MAKING - ED course Complexity details: reviewed old records, considered differential (discussed with patient that we would want to get some labs and may need to wait for SW in the morning. He says he is feeling okay enough and would rather to go home and come back. if needed. He denies suicidal ideation. Has good plan of going home and resting. I offered PO med here, but he declined), d/w patient Departure - Departure Disposition: Home, Self Care Clinical Impression: Schizoaffective disorder Condition: Stable Record reviewed to determine appropriate education?: Yes Instructions: ED Schizo Affective Disorder Comments: Stay well-hydrated tonight. Continue usual medications. Return if you are feeling more symptoms. Otherwise follow-up with your counselor this coming week and have your monthly shot Tuesday as planned. Discharge Date/Time: 05/02/21 21:38
== END 2021-05-02 21:38 | disposition home or self-care (01) ==
LOC: ED 20:22
DX: F25.9 Schizoaffective disorder, unspecified (principal); F17.200 Nicotine dependence, unspecified, uncomplicated
CPT/HCPCS: 36415; 80053; 81001; 81003; 83690; 85025; 87086; 99281; 99283

== ENCOUNTER 2021-05-08 11:07 | Outpatient (CLI) | payer MEDICAID | END 2021-05-08 23:59 | disposition critical access hospital (66) | LOC: EMS 11:07 | DX: R52 Pain, unspecified (principal) | CPT/HCPCS: A0425; A0429 ==

== ENCOUNTER 2021-05-08 11:38 | Emergency (ER) | payer MEDICAID ==
[2021-05-08 11:49] VITALS: BP 111/57
--- NOTE | 2021-05-08 12:26 | ED Physician Documentation ---
History of Present Illness - Stated complaint Stated Complaint: FEELING ILL - Chief complaint Chief Complaint: General - History obtained from History obtained from: Patient - Additonal information Additional information: 26-year-old gentleman with schizophrenia, episodic methamphetamine and alcohol use presents with generalized feeling ill. States that he has been having the visual hallucinations which are not scary to him, they have been going on for a couple of weeks. He says he has been taking his medications. He denies SI or HI. Admits to drinking today. States that he would like to "check himself in." States that he has been "trying to check himself in for several weeks." Review of Systems Ten Systems: 10 systems reviewed and negative Throat: reports: Reviewed and negative Cardiac: reports: Reviewed and negative PD PAST MEDICAL HISTORY - Past Medical History Past Medical History: Yes Cardiovascular: None Respiratory: None Neuro: None Endocrine/Autoimmune: None GI: None : None HEENT: None Psych: Bipolar disorder, Schizophrenia, Other Musculoskeletal: None Derm: None - Past Surgical History Past Surgical History: No - Present Medications Home Medications: Ambulatory Orders Medication Instructions Recorded Confirmed Aripiprazole [Abilify Maintena] 300 mg IM ONCE 04/09/21 04/09/21 - Allergies Allergies/Adverse Reactions: Allergies Allergy/AdvReac Type Severity Reaction Status Date / Time No Known Drug Allergies Allergy Verified 05/02/21 20:38 - Social History Does the pt smoke?: Yes Smoking Status: Current every day smoker Does the pt drink ETOH?: Yes Does the pt have substance abuse?: No - Family History Family history: reports: Non contributory - Immunizations Immunizations are current?: No - POLST Patient has POLST: No POLST Status: Full Code PD ED PE NORMAL - Vitals Vital signs reviewed: Yes - General General: Alert and oriented X 3, No acute distress - HEENT HEENT: PERRL, EOMI - Neck Neck: Supple, no meningeal sign, No bony TTP - Cardiac Cardiac: RRR, No murmur - Respiratory Respiratory: No respiratory distress, Clear bilaterally - Abdomen Abdomen: Normal bowel sounds, Soft, Non tender - Back Back: No CVA TTP, No spinal TTP - Derm Derm: Normal color, Warm and dry - Extremities Extremities: No edema, No calf tenderness / cord - Neuro Neuro: Alert and oriented X 3, Normal speech Results - Vitals Vitals: Vital Signs - 24 hr 05/08/21 11:46 Temperature 36.6 C Heart Rate 113 H Respiratory 16 Rate Blood Pressure 111/57 L O2 Saturation 99 Oxygen O2 Source Room air PD MEDICAL DECISION MAKING - ED course ED course: Patient asked to see the director social and she was at the bedside to explore hospitalization Given his complaints there is no emergency medical condition present However patient changed his mind and left without discharge instructions. Departure - Departure Disposition: 01 Home, Self Care Clinical Impression: Schizophrenia Condition: Stable
[2021-05-08 12:58] LABS: BASOPHILS # (AUTO) 0.1 10^3/uL (0.0-0.1); BASOPHILS % (AUTO) 0.8 %; EOSINOPHILS % (AUTO) 0.1 %; HCT - HEMATOCRIT 42.7 % (42.0-52.0); HGB - HEMOGLOBIN 14.7 g/dL (14.0-18.0); LYMPHOCYTES % (AUTO) 13.4 %; MEAN CORPUSCULAR HEMOGLOBIN 30.6 pg (27.0-31.0); MEAN CORPUSCULAR HGB CONC 34.4 g/dL (32.0-36.0); MONOCYTES # (AUTO) 0.5 10^3/uL (0.0-1.0); MONOCYTES % (AUTO) 6.3 %; NEUTROPHILS # (AUTO) 5.8 10^3/uL (1.5-6.6); NEUTROPHILS % (AUTO) 79.1 %; PLT - PLATELET COUNT 327 10^3/uL (130-450); WHITE BLOOD COUNT 7.3 x10^3/uL (4.8-10.8)
[2021-05-08 13:15] LABS: ACETAMINOPHEN < 10 ug/mL (10-30); ALBUMIN 4.4 g/dL (3.2-5.5); ALBUMIN/GLOBULIN RATIO 1.5 (1.0-2.2); ALKALINE PHOSPHATASE 55 IU/L (42-121); ALT ALANINE AMINOTRANSFERASE 20 IU/L (10-60); AST ASPARTATE AMINOTRANSFERASE 16 IU/L (10-42); BILIRUBIN,TOTAL 0.5 mg/dL (0.2-1.0); BUN - BLOOD UREA NITROGEN 9 mg/dL (6-20); CALCIUM 9.2 mg/dL (8.5-10.3); CARBON DIOXIDE - CO2 23 mmol/L (21-32); CHLORIDE 104 mmol/L (101-111); CREATININE 0.8 mg/dL (0.6-1.2); ETOH - ETHANOL 53.9 mg/dL; GFR - MDRD 117 (>89); GLUCOSE 94 mg/dL (70-100); LIPASE 24 U/L (22-51); POTASSIUM 3.3 mmol/L (3.5-5.0); SALICYLATE < 6.0 mg/dL; SODIUM 137 mmol/L (135-145); TOTAL PROTEIN 7.3 g/dL (6.7-8.2)
== END 2021-05-08 12:54 | disposition home or self-care (01) ==
LOC: EDUNIT# → ED 11:38
DX: F20.9 Schizophrenia, unspecified (principal); F17.200 Nicotine dependence, unspecified, uncomplicated
CPT/HCPCS: 36415; 80053; 80307; 80320; 80329; 83690; 84443; 85025; 99283; 99284

== ENCOUNTER 2021-07-05 10:32 | Outpatient (CLI) | payer MEDICAID | END 2021-07-05 10:33 | disposition critical access hospital (66) | LOC: EMS 10:32 | DX: R42 Dizziness and giddiness (principal) | CPT/HCPCS: A0425; A0429 ==

== ENCOUNTER 2021-07-05 10:38 | Emergency (ER) | payer MEDICAID ==
[2021-07-05 10:42] VITALS: BP 127/79
== END 2021-07-05 10:40 | disposition left against medical advice (07) ==
LOC: EDUNIT# → ED 10:38
DX: Z53.21 Procedure and treatment not carried out due to patient leaving prior to being seen by health care provider (principal)

== ENCOUNTER 2021-08-26 19:23 | Outpatient (CLI) | payer MEDICAID | END 2021-08-26 19:24 | disposition critical access hospital (66) | LOC: EMS 19:23 | DX: R52 Pain, unspecified (principal) | CPT/HCPCS: A0425; A0429 ==

== ENCOUNTER 2021-08-26 19:44 | Emergency (ER) | payer MEDICAID ==
--- NOTE | 2021-08-26 19:51 | ED Physician Documentation ---
History of Present Illness - Stated complaint Stated Complaint: ABD PX - Chief complaint Chief Complaint: Abd Pain - History obtained from History obtained from: Patient, EMS - Additonal information Additional information: Patient comes emergency department chief complaint of nausea and abdominal cramps after using meth. No vomiting or diarrhea. No fevers or chills. No cough, shortness of breath, or chest pain. No dysuria or back pain. No other complaints at this time. Review of Systems Ten Systems: 10 systems reviewed and negative Constitutional: reports: Reviewed and negative Eyes: reports: Reviewed and negative Ears: reports: Reviewed and negative Nose: reports: Reviewed and negative Throat: reports: Reviewed and negative Cardiac: reports: Reviewed and negative Respiratory: reports: Reviewed and negative GI: reports: Abdominal Pain, Nausea : reports: Reviewed and negative Skin: reports: Reviewed and negative Musculoskeletal: reports: Reviewed and negative Neurologic: reports: Reviewed and negative Psychiatric: reports: Reviewed and negative Endocrine: reports: Reviewed and negative Immunocompromised: reports: Reviewed and negative PD PAST MEDICAL HISTORY - Past Medical History Cardiovascular: None Respiratory: None Neuro: None Endocrine/Autoimmune: None GI: None : None HEENT: None Psych: Bipolar disorder, Schizophrenia, Other Musculoskeletal: None Derm: None - Past Surgical History Past Surgical History: No - Present Medications Home Medications: Ambulatory Orders Medication Instructions Recorded Confirmed Aripiprazole [Abilifjewel Maintena] 300 mg IM ONCE 04/09/21 04/09/21 - Allergies Allergies/Adverse Reactions: Allergies Allergy/AdvReac Type Severity Reaction Status Date / Time No Known Drug Allergies Allergy Verified 08/26/21 19:52 - Social History Does the pt smoke?: Yes Smoking Status: Current every day smoker Does the pt drink ETOH?: Yes Does the pt have substance abuse?: No - Immunizations Immunizations are current?: No - POLST Patient has POLST: No POLST Status: Full Code PD ED PE NORMAL - Vitals Vital signs reviewed: Yes - General General: Alert and oriented X 3, No acute distress, Other (Disheveled male no apparent distress) - HEENT HEENT: Atraumatic, PERRL, EOMI, Moist mucous membranes - Neck Neck: Supple, no meningeal sign - Cardiac Cardiac: RRR, No murmur - Respiratory Respiratory: No respiratory distress, Clear bilaterally - Abdomen Abdomen: Soft, Non tender, Non distended - Derm Derm: Warm and dry - Extremities Extremities: No deformity - Neuro Neuro: Alert and oriented X 3 - Psych Psych: Normal mood, Normal affect Results - Vitals Vitals: Oxygen O2 Source Room air PD MEDICAL DECISION MAKING - ED course Complexity details: considered differential, d/w patient ED course: Patient was treated with ODT Zofran. He also requested some juice and was given this. [place] he was stable for discharge home. We have discussed the usual indications for return. Departure - Departure Disposition: 01 Home, Self Care Clinical Impression: Methamphetamine abuse, Nausea Condition: Stable Instructions: Abuse Meth Abuse and Addiction, ED Nausea Vomiting Discharge Date/Time: 08/26/21 20:56
[2021-08-26 19:52] VITALS: BP 124/82
[2021-08-26] MEDS: ONDANSETRON ODT 4 MG TABLET TL STA (19:53)
== END 2021-08-26 20:56 | disposition home or self-care (01) ==
LOC: EDUNIT# → ED 19:44
DX: F15.10 Other stimulant abuse, uncomplicated (principal); R11.0 Nausea; F17.200 Nicotine dependence, unspecified, uncomplicated
CPT/HCPCS: 99283; Q0162

== ENCOUNTER 2021-10-01 19:04 | Outpatient (CLI) | payer MEDICAID | END 2021-10-01 19:05 | disposition critical access hospital (66) | LOC: EMS 19:04 | DX: R68.84 Jaw pain (principal); R46.89 Other symptoms and signs involving appearance and behavior | CPT/HCPCS: A0425; A0429 ==

== ENCOUNTER 2022-04-13 17:05 | Emergency (ER) | payer OTHER, MEDICAID ==
[2022-04-13] MEDS ORDERED: OLANZapine ODT 5 MG TABLET TL ONE (17:11)
--- NOTE | 2022-04-13 17:12 | ED Physician Documentation ---
History of Present Illness - Stated complaint Stated Complaint: FIT FOR CONFINEMENT - Additonal information Additional information: 26-year-old male was brought into the emergency department under confinement by [facility]. They are requesting fit for confinement. This patient was arrested today. He reports that he is seeing thing/"heads." He denies auditory hallucinations. He denies command hallucinations and does not wish to harm himself or anybody else. He reports to this provider that his schizophrenia is acting up and he needs help. Patient has been seen multiple times in the ER for methamphetamine abuse. He denies any recent use. Last seen in this ER on 05 April after using meth Review of Systems Constitutional: denies: Fever, Chills Ears: reports: Loss of hearing Nose: reports: Reviewed and negative Throat: reports: Reviewed and negative Cardiac: reports: Reviewed and negative Respiratory: reports: Reviewed and negative GI: reports: Reviewed and negative PD PAST MEDICAL HISTORY - Past Medical History Cardiovascular: None Respiratory: None Neuro: None Endocrine/Autoimmune: None GI: None : None HEENT: None Psych: Bipolar disorder, Schizophrenia, Other Musculoskeletal: None Derm: None - Past Surgical History Past Surgical History: No - Present Medications Home Medications: Ambulatory Orders Medication Instructions Recorded Confirmed Aripiprazole [Abilify Maintena] 300 mg IM ONCE 04/09/21 04/13/22 - Allergies Allergies/Adverse Reactions: Allergies Allergy/AdvReac Type Severity Reaction Status Date / Time No Known Drug Allergies Allergy Verified 04/05/22 03:12 - Social History Does the pt smoke?: Yes Smoking Status: Current every day smoker Does the pt drink ETOH?: Yes Does the pt have substance abuse?: Yes - Immunizations Immunizations are current?: No - POLST Patient has POLST: No POLST Status: Full Code PD ED PE NORMAL - General General: Alert and oriented X 3, No acute distress, Well developed/nourished, Other (Appears well. Well-groomed. Good hygiene) - HEENT HEENT: Atraumatic, Moist mucous membranes - Neck Neck: Supple, no meningeal sign, No adenopathy - Cardiac Cardiac: RRR, No murmur - Respiratory Respiratory: No respiratory distress, Clear bilaterally - Abdomen Abdomen: Normal bowel sounds, Soft, Non tender - Back Back: No CVA TTP, No spinal TTP - Derm Derm: Normal color, No rash - Extremities Extremities: No deformity, No tenderness to palpate - Neuro Neuro: Alert and oriented X 3, store receiver 2-12 intact Eye Opening: Spontaneous Motor: Obeys Commands Verbal: Oriented GCS Score: 15 Results - Vitals Vitals: Oxygen O2 Source Room air PD MEDICAL DECISION MAKING - ED course Complexity details: reviewed old records, d/w patient ED course: 26-year-old male was brought to the emergency department via [facility] officers and corrections for a fit for confinement. He was arrested today. He does have a longstanding history of methamphetamine use as well as schizophrenia. He reports that he missed his injection of Abilify today. He endorses visual hallucinations that include heads. He is however not having any command hallucinations thoughts of harm to self or others. His vital signs here were unremarkable. He appears well with normal vital signs. He was given a one-time dose of Zyprexa and is medically cleared to return to shelter. A phone message was left with the shelter medical review specialist Toya Perkins. Departure - Departure Clinical Impression: Visual hallucinations, History of methamphetamine use, Personal history of schizophrenia Condition: Stable Record reviewed to determine appropriate education?: Yes Comments: Ander you are medically cleared to return to confinement. You were seen for visual hallucinations which is common in people to have schizophrenia as well as a history of methamphetamine use your vital signs here are normal. You were given a one-time dose of Zyprexa which is an antipsychotic. The shelter may continue to give you your usual medications.
[2022-04-13 17:18] VITALS: BP 108/73
== END 2022-04-13 17:24 | disposition home or self-care (01) ==
LOC: EDUNIT# → ED 17:05
DX: F20.9 Schizophrenia, unspecified (principal); F31.9 Bipolar disorder, unspecified; F17.200 Nicotine dependence, unspecified, uncomplicated
CPT/HCPCS: 99283; A9270

== ENCOUNTER 2022-04-20 14:58 | Emergency (ER) | payer MEDICAID ==
[2022-04-20 15:03] VITALS: BP 130/76
--- NOTE | 2022-04-20 15:32 | ED Physician Documentation ---
PD HPI ALTERED MENTAL STATUS - Stated complaint Stated Complaint: DIZZY - Chief complaint Chief Complaint: General - History obtained from History obtained from: Patient - History of Present Illness Timing - onset: Today Timing - duration: Hours (used meth this morning and is feeling anxious, racing thoughts, increased heart rate.) Timing - details: Gradual onset, Still present Quality / character: Agitated Associated symptoms: No: Fever, Headache, Dyspnea, Cough, NVD Contributing factors: Substance abuse (meth) Basline status: Alert and oriented X 3, Ambulatory Review of Systems Constitutional: denies: Fever Nose: denies: Rhinorrhea / runny nose, Congestion Throat: denies: Sore throat Respiratory: denies: Cough GI: denies: Vomiting, Diarrhea Skin: denies: Abrasion (s), Laceration (s) Neurologic: denies: Focal weakness, Near syncope, Headache, Head injury Psychiatric: reports: Anxiety. denies: Suicidal Immunocompromised: denies: Immunocompromised PD PAST MEDICAL HISTORY - Past Medical History Cardiovascular: None Respiratory: None Neuro: None Endocrine/Autoimmune: None GI: None : None HEENT: None Psych: Bipolar disorder, Schizophrenia, Other Musculoskeletal: None Derm: None - Past Surgical History Past Surgical History: No - Present Medications Home Medications: Ambulatory Orders Medication Instructions Recorded Confirmed Aripiprazole [Abilify Maintena] 300 mg IM ONCE 04/09/21 04/13/22 QUEtiapine [SEROquel] 50 mg PO QPM #10 tablet 04/20/22 - Allergies Allergies/Adverse Reactions: Allergies Allergy/AdvReac Type Severity Reaction Status Date / Time No Known Drug Allergies Allergy Verified 04/20/22 15:03 - Living Situation Living Situation: reports: Alone Living Arrangement: reports: correction - Social History Does the pt smoke?: Yes Smoking Status: Current every day smoker Does the pt drink ETOH?: Yes Does the pt have substance abuse?: Yes Substance Use and Type: Marijuana, Meth - Immunizations Immunizations are current?: No - POLST Patient has POLST: No POLST Status: Full Code PD ED PE NORMAL - Vitals Vital signs reviewed: Yes - General General: Alert and oriented X 3, No acute distress, Well developed/nourished - Cardiac Cardiac: No murmur. No: RRR (regular but tachycardic mild) - Respiratory Respiratory: Clear bilaterally - Abdomen Abdomen: Soft, Non tender - Derm Derm: Normal color, Warm and dry - Neuro Neuro: Alert and oriented X 3, No motor deficit, No sensory deficit Eye Opening: Spontaneous Motor: Obeys Commands Verbal: Oriented GCS Score: 15 - Psych Psych: No: Normal affect (somewhat anxious but polite and conversant in normal tone. ) Results - Vitals Vitals: Vital Signs - 24 hr 04/20/22 15:00 Temperature 36.8 C Heart Rate 101 H Respiratory 14 Rate Blood Pressure 130/76 O2 Saturation 99 Oxygen O2 Source Room air PD MEDICAL DECISION MAKING - ED course Complexity details: considered differential (meth use and asking for meds to help with jittery, unfocused mind racing side effects. Gave PO here. I was offering Rx to take daily as baseline psychosis anyway, but he left prior to getting discharge script. ), d/w patient Departure - Departure Disposition: 01 Home, Self Care Clinical Impression: Methamphetamine use Psychosis Qualifiers: Psychosis type: unspecified psychosis type Qualified Code(s): F29 - Unspecified psychosis not due to a substance or known physiological condition Condition: Stable Record reviewed to determine appropriate education?: Yes Instructions: ED Drug Abuse General Prescriptions: QUEtiapine [SEROquel] 50 mg PO QPM #10 tablet Comments: Stop using methamphetamine. I can prescribe medication to use nightly or twice daily over the next several days to week to help with your symptoms. Seroquel 50 mg q. p.m. Return as needed. Discharge Date/Time: 04/20/22 15:56
[2022-04-20] MEDS ORDERED: OLANZapine ODT 5 MG TABLET TL ONE (15:38)
[2022-04-20] MEDS ORDERED: LORazepam 1 MG TABLET PO STA (15:38)
== END 2022-04-20 15:56 | disposition home or self-care (01) ==
LOC: ED 14:58
DX: F15.988 Other stimulant use, unspecified with other stimulant-induced disorder (principal); F29 Unspecified psychosis not due to a substance or known physiological condition; F17.200 Nicotine dependence, unspecified, uncomplicated
CPT/HCPCS: 99282; A9270; J8499

== ENCOUNTER 2022-05-10 12:08 | Outpatient (CLI) | payer MEDICAID | END 2022-05-10 12:09 | disposition critical access hospital (66) | LOC: EMS 12:08 | DX: R44.3 Hallucinations, unspecified (principal) | CPT/HCPCS: A0425; A0429; A0999 ==

== ENCOUNTER 2022-05-23 08:08 | Emergency (ER) | payer MEDICAID ==
[2022-05-23 08:18] VITALS: BP 132/82
--- NOTE | 2022-05-23 08:22 | ED Physician Documentation ---
PD HPI MHE - Stated complaint Stated Complaint: MHE - Chief complaint Chief Complaint: MHE - History obtained from History obtained from: Patient - History of Present Illness Primary symptom: Psychosis (he feels his psychosis is increased.). No: Off meds Similar symptoms before: Diagnosis (schizophrenia and substance use.) PD PAST MEDICAL HISTORY - Past Medical History Cardiovascular: None Respiratory: None Neuro: None Endocrine/Autoimmune: None GI: None : None HEENT: None Psych: Bipolar disorder, Schizophrenia, Other Musculoskeletal: None Derm: None - Past Surgical History Past Surgical History: No - Present Medications Home Medications: Ambulatory Orders Medication Instructions Recorded Confirmed Aripiprazole [Abilify Maintena] 300 mg IM ONCE 04/09/21 05/23/22 QUEtiapine [SEROquel] 50 mg PO QPM #10 tablet 04/20/22 05/23/22 - Allergies Allergies/Adverse Reactions: Allergies Allergy/AdvReac Type Severity Reaction Status Date / Time No Known Drug Allergies Allergy Verified 05/10/22 12:30 - Social History Does the pt smoke?: Yes Smoking Status: Current every day smoker Does the pt drink ETOH?: Yes Does the pt have substance abuse?: Yes - Immunizations Immunizations are current?: No - POLST Patient has POLST: No POLST Status: Full Code PD ED PE NORMAL - Vitals Vital signs reviewed: Yes - General General: Alert and oriented X 3, No acute distress, Well developed/nourished - Derm Derm: Normal color, Warm and dry - Neuro Neuro: Alert and oriented X 3, No motor deficit, Normal speech Eye Opening: Spontaneous - Psych Psych: Other ( ) Results - Vitals Vitals: Vital Signs - 24 hr 05/23/22 08:15 Temperature 36.8 C Heart Rate 104 H Respiratory 17 Rate Blood Pressure 132/82 H O2 Saturation 100 Oxygen O2 Source Room air PD MEDICAL DECISION MAKING - ED course Complexity details: considered differential (Patient with history of schizophrenia and frequent ER visits for symptoms. I had a very brief interac tion as I just started to talk with him and he stated he changed his mind and was feeling okay and wanted to leave.), d/w patient Departure - Departure Disposition: ED Elope Clinical Impression: Affective psychosis Condition: Stable Record reviewed to determine appropriate education?: Yes Discharge Date/Time: 05/23/22 08:21
== END 2022-05-23 08:21 | disposition left against medical advice (07) ==
LOC: ED 08:08
DX: F39 Unspecified mood [affective] disorder (principal); F17.200 Nicotine dependence, unspecified, uncomplicated
CPT/HCPCS: 99281

== ENCOUNTER 2022-08-08 15:34 | Outpatient (CLI) | payer MEDICAID | END 2022-08-08 15:35 | disposition critical access hospital (66) | LOC: EMS 15:34 | DX: R42 Dizziness and giddiness (principal); R45.1 Restlessness and agitation | CPT/HCPCS: A0425; A0429; A0999 ==

== ENCOUNTER 2022-08-10 14:27 | Outpatient (CLI) | payer MEDICAID | END 2022-08-10 14:28 | disposition critical access hospital (66) | LOC: EMS 14:27 | DX: R42 Dizziness and giddiness (principal) | CPT/HCPCS: A0425; A0429 ==

== ENCOUNTER 2022-08-10 14:46 | Emergency (ER) | payer MEDICAID | END 2022-08-10 15:07 | disposition left against medical advice (07) | LOC: EDUNIT# → ED 14:46 | DX: Z53.21 Procedure and treatment not carried out due to patient leaving prior to being seen by health care provider (principal) ==

== ENCOUNTER 2022-08-14 07:57 | Outpatient (CLI) | payer MEDICAID | END 2022-08-14 07:58 | disposition critical access hospital (66) | LOC: EMS 07:57 | DX: R41.82 Altered mental status, unspecified (principal) | CPT/HCPCS: A0425; A0429; A0999 ==

== ENCOUNTER 2022-09-25 07:28 | Emergency (ER) | payer MEDICAID ==
--- NOTE | 2022-09-25 07:29 | ED Physician Documentation ---
PD HPI HEENT - Stated complaint Stated Complaint: DIZZY - History obtained from History obtained from: Patient, EMS - History of Present Illness Timing - onset: Today (The patient states he was feeling lightheaded and some nausea and called the ambulance for help. He states this is resolved now on arrival to the ER and feels he does not need help anymore.) Timing - details: Now resolved Associated symptoms: No: Fever, Headache, Cough Recently seen: Emergency Dept (similar visits to ER episodically with quick resolution of symptoms.) Review of Systems Unable to obtain: Other (he was not here long enough for history giving ROS.) PD PAST MEDICAL HISTORY - Past Medical History Cardiovascular: None Respiratory: None Neuro: None Endocrine/Autoimmune: None GI: None : None HEENT: None Psych: Bipolar disorder, Schizophrenia, Other Musculoskeletal: None Derm: None - Past Surgical History Past Surgical History: No - Present Medications Home Medications: Ambulatory Orders Medication Instructions Recorded Confirmed Aripiprazole [Abilify Maintena] 300 mg IM ONCE 04/09/21 05/23/22 QUEtiapine [SEROquel] 50 mg PO QPM #10 tablet 04/20/22 05/23/22 - Allergies Allergies/Adverse Reactions: Allergies Allergy/AdvReac Type Severity Reaction Status Date / Time No Known Drug Allergies Allergy Verified 09/25/22 07:34 - Living Situation Living Situation: reports: Alone Living Arrangement: reports: [facility] - Social History Does the pt smoke?: Yes Smoking Status: Current every day smoker Does the pt drink ETOH?: Yes Does the pt have substance abuse?: Yes Substance Use and Type: Marijuana, Meth - Immunizations Immunizations are current?: No - POLST Patient has POLST: No POLST Status: Full Code PD ED PE NORMAL - Vitals Vital signs reviewed: Yes - General General: Alert and oriented X 3, No acute distress, Well developed/nourished - HEENT HEENT: PERRL - Derm Derm: Normal color, Warm and dry - Neuro Neuro: Alert and oriented X 3, No motor deficit, Normal speech, Other (ambulatory without ataxia. ) Results - Vitals Vitals: Vital Signs - 24 hr 09/25/22 07:32 Temperature 36.5 C Heart Rate 97 Respiratory 14 Rate Blood Pressure 118/74 O2 Saturation 100 Oxygen O2 Source Room air PD MEDICAL DECISION MAKING - ED course Complexity details: considered differential (Patient known to the department with history of substance abuse, particularly meth, and episodic visits to the ER for dizziness or nausea. He states he is feeling better now just at arrival and would like to be discharged.), d/w patient Departure - Departure Disposition: 01 Home, Self Care Clinical Impression: Dizziness of unknown etiology Condition: Stable Record reviewed to determine appropriate education?: Yes Instructions: ED Dizziness UKO Comments: Return to the ER if you feel that you need to any particular treatments for your symptoms. Discharge Date/Time: 09/25/22 07:36
[2022-09-25 07:36] VITALS: BP 118/74
== END 2022-09-25 07:36 | disposition home or self-care (01) ==
LOC: EDUNIT# → ED 07:28
DX: R42 Dizziness and giddiness (principal); F17.200 Nicotine dependence, unspecified, uncomplicated
CPT/HCPCS: 99281; 99283

== ENCOUNTER 2022-10-15 03:52 | Outpatient (CLI) | payer MEDICAID | END 2022-10-15 03:53 | disposition critical access hospital (66) | LOC: EMS 03:52 | DX: R45.1 Restlessness and agitation (principal); R46.89 Other symptoms and signs involving appearance and behavior | CPT/HCPCS: A0425; A0429; A0999 ==

== ENCOUNTER 2022-10-15 04:13 | Emergency (ER) | payer MEDICAID ==
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
[2022-10-15 04:19] VITALS: BP 110/78
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
== END 2022-10-15 08:11 | disposition home or self-care (01) ==
LOC: EDUNIT# → ED 04:13
DX: F19.129 Other psychoactive substance abuse with intoxication, unspecified (principal)
CPT/HCPCS: 80053; 80320; 82550; 83690; 84443; 85025; 99281; 99284

== ENCOUNTER 2022-12-28 14:40 | Outpatient (CLI) | payer MEDICAID | END 2022-12-28 14:41 | disposition left against medical advice (07) | LOC: EMS 14:40 | DX: R46.89 Other symptoms and signs involving appearance and behavior (principal) ==

== ENCOUNTER 2023-01-19 19:11 | Outpatient (CLI) | payer MEDICAID | END 2023-01-19 19:12 | disposition critical access hospital (66) | LOC: EMS 19:11 | DX: Z04.6 Encounter for general psychiatric examination, requested by authority (principal); R46.2 Strange and inexplicable behavior; Z78.1 Physical restraint status | CPT/HCPCS: A0425; A0429; A0999 ==

== ENCOUNTER 2023-01-19 19:27 | Emergency (ER) | payer MEDICAID ==
[2023-01-19 19:42] VITALS: BP 144/67
--- NOTE | 2023-01-19 23:12 | ED Physician Documentation ---
ED Addendum - Addendum Addendum: [place] [facility]. They state that they are going to bring the patient back to the emergency department.
== END 2023-01-19 20:24 | disposition left against medical advice (07) ==
LOC: EDUNIT# → EDBD → ED 19:27
DX: Z53.21 Procedure and treatment not carried out due to patient leaving prior to being seen by health care provider (principal)

== ENCOUNTER 2023-03-25 08:08 | Outpatient (CLI) | payer MEDICAID | END 2023-03-25 08:09 | disposition critical access hospital (66) | LOC: EMS 08:08 | DX: M79.672 Pain in left foot (principal); M79.671 Pain in right foot; R20.2 Paresthesia of skin | CPT/HCPCS: A0425; A0429; A0999 ==

== ENCOUNTER 2023-03-25 08:28 | Emergency (ER) | payer MEDICAID, OTHER ==
[2023-03-25 08:37] VITALS: BP 119/78
--- NOTE | 2023-03-25 08:40 | ED Physician Documentation ---
PD HPI LOWER EXT INJURY - Stated complaint Stated Complaint: BILAT FEET PX - Chief complaint Chief Complaint: Ext Problem - History obtained from History obtained from: EMS - Additional information Additional information: The patient came to the ED via EMS ostensibly for bilateral foot pain. However, as soon as he got here, prior to my being able to see him, he stated he wanted a pair of socks and then wanted to leave. The patient was given a pair of socks and immediately eloped from the emergency department. There was no physician evaluation done in any capacity, secondary to the patient leaving immediately upon arrival. PD PAST MEDICAL HISTORY - Past Medical History Cardiovascular: None Respiratory: None Neuro: None Endocrine/Autoimmune: None GI: None : None HEENT: None Psych: Bipolar disorder, Schizophrenia, Other Musculoskeletal: None Derm: None - Past Surgical History Past Surgical History: No - Present Medications Home Medications: Ambulatory Orders Medication Instructions Recorded Confirmed Aripiprazole [Abilify Maintena] 300 mg IM ONCE 04/09/21 05/23/22 QUEtiapine [SEROquel] 50 mg PO QPM #10 tablet 04/20/22 05/23/22 - Allergies Allergies/Adverse Reactions: Allergies Allergy/AdvReac Type Severity Reaction Status Date / Time No Known Drug Allergies Allergy Verified 03/25/23 08:34 - Social History Does the pt smoke?: Yes Smoking Status: Current every day smoker Does the pt drink ETOH?: Yes Does the pt have substance abuse?: Yes - Immunizations Immunizations are current?: No - POLST Patient has POLST: No POLST Status: Full Code Results - Vitals Vitals: Vital Signs - 24 hr 03/25/23 08:31 Temperature 36.5 C Heart Rate 92 Respiratory 20 Rate Blood Pressure 119/78 O2 Saturation 100 Oxygen O2 Source Room air Departure - Departure Disposition: ED Left Without Being Seen
== END 2023-03-25 08:35 | disposition left against medical advice (07) ==
LOC: EDUNIT# → ED 08:28
DX: M79.672 Pain in left foot (principal); M79.671 Pain in right foot; Z53.21 Procedure and treatment not carried out due to patient leaving prior to being seen by health care provider

== ENCOUNTER 2023-03-29 13:55 | Outpatient (CLI) | payer MEDICAID | END 2023-03-29 23:59 | disposition critical access hospital (66) | LOC: EMS 13:55 | DX: R40.4 Transient alteration of awareness (principal); R09.02 Hypoxemia; R00.0 Tachycardia, unspecified; T40.411A Poisoning by fentanyl or fentanyl analogs, accidental (unintentional), initial encounter | CPT/HCPCS: A0425; A0427; A0999 ==

== ENCOUNTER 2023-03-29 14:17 | Emergency (ER) | payer MEDICAID ==
--- NOTE | 2023-03-29 14:20 | ED Physician Documentation ---
PD HPI ALTERED MENTAL STATUS - Stated complaint Stated Complaint: POSS OD - History obtained from History obtained from: Patient, EMS (Patient they did give on route several doses with Some slight improvement. he is awake and alert on arrival here.) - History of Present Illness Contributing factors: Substance abuse PD PAST MEDICAL HISTORY - Past Medical History Cardiovascular: None Respiratory: None Neuro: None Endocrine/Autoimmune: None GI: None : None HEENT: None Psych: Bipolar disorder, Schizophrenia, Other Musculoskeletal: None Derm: None - Past Surgical History Past Surgical History: No - Present Medications Home Medications: Ambulatory Orders Medication Instructions Recorded Confirmed Aripiprazole [Abilify Maintena] 300 mg IM ONCE 04/09/21 05/23/22 QUEtiapine [SEROquel] 50 mg PO QPM #10 tablet 04/20/22 05/23/22 - Allergies Allergies/Adverse Reactions: Allergies Allergy/AdvReac Type Severity Reaction Status Date / Time No Known Drug Allergies Allergy Verified 03/25/23 08:34 - Social History Does the pt smoke?: Yes Smoking Status: Current every day smoker Does the pt drink ETOH?: Yes Does the pt have substance abuse?: Yes - Immunizations Immunizations are current?: No - POLST Patient has POLST: No POLST Status: Full Code PD ED PE NORMAL - General General: No acute distress, Other (awake, conversant and ambulatory without ataxia. ) - Derm Derm: Normal color, Warm and dry Results - Vitals Vitals: Oxygen O2 Source Room air PD Medical Decision Making - ED course Complexity details: d/w patient ED course: The patient was brought by EMS with report of altered level of consciousness found in public. He was given Narcan on route with some slight improvement. On arrival here the patient is awake and conversant. He requests to be leaving the ER. He was pleasant and conversant. He generally does look a little bedraggled. He allowed the nurse to take out his IV. He then politely got up and left through the main exit without any problems. He declined any further evaluation assessment or medications. His typical drug abuse is using methamphetamines. It is possible he may have had some opiates. He did not want to wait long enough for a Narcan prepack. Departure - Departure Disposition: ED Elope Clinical Impression: Altered mental status Qualifiers: Altered mental status type: transient alteration of awareness Qualified Code(s): R40.4 - Transient alteration of awareness Condition: Stable Record reviewed to determine appropriate education?: Yes
== END 2023-03-29 14:24 | disposition left against medical advice (07) ==
LOC: EDUNIT# → ED 14:17
DX: R41.82 Altered mental status, unspecified (principal); F17.200 Nicotine dependence, unspecified, uncomplicated
CPT/HCPCS: 99283

== ENCOUNTER 2023-04-01 16:16 | Emergency (ER) | payer MEDICAID ==
[2023-04-01 16:26] LABS: MUDS CUTOFF CONCENTRATIONS CUTOFF CONC BELOW:
[2023-04-01 16:32] LABS: BILIRUBIN,URINE NEGATIVE (NEGATIVE); CLARITY,URINE CLEAR (CLEAR); GLUCOSE, URINE (UA) NEGATIVE (NEGATIVE); KETONES,URINE (UA) NEGATIVE (NEGATIVE); LEUKOCYTE ESTERASE, URINE NEGATIVE (NEGATIVE); NITRITE,URINE NEGATIVE (NEGATIVE); OCCULT BLOOD,URINE NEGATIVE (NEGATIVE); PH,URINE 5.5 PH (5.0-7.5); PROTEIN,URINE NEGATIVE (NEGATIVE); UROBILINOGEN,URINE 0.2 (NORMAL) E.U./dL (NORMAL)
--- NOTE | 2023-04-01 16:33 | ED Physician Documentation ---
History of Present Illness - Stated complaint Stated Complaint: MHE - Additonal information Additional information: 27-year-old male was brought to the emergency department by [place] [employer] after his least restrictive order had been rescinded by the state. He was in violation for drug use and failure to follow-up with his psychiatry/mental health. Patient is well-known to the emergency department. Often seen here for mental health evaluations as well as known methamphetamine use. He did come to this emergency department on 29 March after overdosing on suspected opioids. This improved after receiving Narcan he left the emergency department shortly thereaf ter. I am in possession of the court order rescinding his LRO. The patient appears to be in his usual baseline health. He is hypermotor and hyperverbal. He denies drug use. He has poor hygiene. He does want to be discharged from the emergency department and does not desire to be here Patient's [facility] hospice social worker and therapist Nedra Lynn Has come to the emergency department. She is the individual that had his LR0 rescinded. She is quite adamant that the patient remain in the custody of the emergency department pending formal DCR detainment Pt will be signed out to my night time colleague Dr. lopez to f/u on any acute overniht events and hopeful DCR placement Review of Systems Constitutional: denies: Fever, Chills Respiratory: reports: Reviewed and negative GI: reports: Reviewed and negative Skin: reports: Reviewed and negative Musculoskeletal: reports: Reviewed and negative Psychiatric: reports: Other (Methamphetamine use) PD PAST MEDICAL HISTORY - Past Medical History Cardiovascular: None Respiratory: None Neuro: None Endocrine/Autoimmune: None GI: None : None HEENT: None Psych: Bipolar disorder, Schizophrenia, Other Musculoskeletal: None Derm: None - Past Surgical History Past Surgical History: No - Present Medications Home Medications: Ambulatory Orders Medication Instructions Recorded Confirmed Aripiprazole [Abilify Maintena] 300 mg IM ONCE 04/09/21 05/23/22 QUEtiapine [SEROquel] 50 mg PO QPM #10 tablet 04/20/22 05/23/22 - Allergies Allergies/Adverse Reactions: Allergies Allergy/AdvReac Type Severity Reaction Status Date / Time No Known Drug Allergies Allergy Verified 04/01/23 16:24 - Social History Does the pt smoke?: Yes Smoking Status: Current every day smoker Does the pt drink ETOH?: Yes Does the pt have substance abuse?: Yes - Immunizations Immunizations are current?: No - POLST Patient has POLST: No POLST Status: Full Code PD ED PE NORMAL - General General: Alert and oriented X 3, No acute distress, Well developed/nourished (Disheveled poor hygiene) - Cardiac Cardiac: RRR, No murmur, Strong equal pulses - Respiratory Respiratory: No respiratory distress, Clear bilaterally - Back Back: No CVA TTP - Derm Derm: Normal color, Warm and dry, No rash - Neuro Neuro: Alert and oriented X 3, 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 Eye Opening: Spontaneous Motor: Obeys Commands Verbal: Oriented GCS Score: 15 - Psych Psych: Other (No SI or HI.) Results - Vitals Vitals: Vital Signs - 24 hr 04/01/23 16:19 Temperature 37.1 C Heart Rate 112 H Respiratory 18 Rate Blood Pressure 122/76 O2 Saturation 97 Oxygen O2 Source Room air - Labs Labs: Laboratory Tests 04/01/23 04/01/23 04/01/23 16:19 16:20 16:27 WBC 12.4 H RBC 4.83 Hgb 14.4 Hct 43.6 MCV 90.3 MCH 29.8 MCHC 33.0 RDW 12.7 Plt Count 364 MPV 8.6 Neut # (Auto) 10.3 H Lymph # (Auto) 1.3 L [place] # (Auto) 0.8 Eos # (Auto) 0.0 Baso # (Auto) 0.1 Absolute Nucleated RBC 0.00 Nucleated RBC % 0.0 Sodium Potassium Chloride Carbon Dioxide Anion Gap BUN Creatinine Estimated GFR (MDRD) Glucose Calcium Magnesium Total Bilirubin AST ALT Alkaline Phosphatase Total Creatine Kinase Total Protein Albumin Globulin Albumin/Globulin Ratio Lipase TSH Urine Color YELLOW Urine Clarity CLEAR Urine pH 5.5 Ur Specific [place] 1.025 Urine Protein NEGATIVE Urine Glucose (UA) NEGATIVE Urine Ketones NEGATIVE Urine Occult Blood NEGATIVE Urine Nitrite NEGATIVE Urine Bilirubin NEGATIVE Urine Urobilinogen 0.2 (NORMAL) Ur Leukocyte Esterase NEGATIVE Ur Microscopic Review NOT INDICATED Urine Culture Comments NOT INDICATED Salicylates Urine Opiates Screen NEGATIVE Ur Oxycodone Screen NEGATIVE Urine Methadone Screen NEGATIVE Ur Propoxyphene Screen NEGATIVE Acetaminophen Ur Barbiturates Screen NEGATIVE Ur Tricyclics Screen NEGATIVE Ur Phencyclidine Scrn NEGATIVE Ur Amphetamine Screen POSITIVE H U Methamphetamines Scrn POSITIVE H U Benzodiazepines Scrn NEGATIVE Urine Cocaine Screen NEGATIVE U Cannabinoids Screen NEGATIVE Ethyl Alcohol SARS-CoV-2 (PCR) NOT DETECTED 04/01/23 04/01/23 16:27 16:27 WBC RBC Hgb Hct MCV MCH MCHC RDW Plt Count MPV Neut # (Auto) Lymph # (Auto) [place] # (Auto) Eos # (Auto) Baso # (Auto) Absolute Nucleated RBC Nucleated RBC % Sodium 138 Potassium 3.3 L Chloride 98 L Carbon Dioxide 29 Anion Gap 11.0 BUN 14 Creatinine 0.8 Estimated GFR (MDRD) 116 Glucose 78 Calcium 8.9 Magnesium 1.9 Total Bilirubin 0.4 AST 21 ALT 30 Alkaline Phosphatase 67 Total Creatine Kinase 314 H Total Protein 7.9 Albumin 4.4 Globulin 3.5 Albumin/Globulin Ratio 1.3 Lipase 24 TSH 0.94 Urine Color Urine Clarity Urine pH Ur Specific [place] Urine Protein Urine Glucose (UA) Urine Ketones Urine Occult Blood Urine Nitrite Urine Bilirubin Urine Urobilinogen Ur Leukocyte Esterase Ur Microscopic Review Urine Culture Comments Salicylates < 6.0 Urine Opiates Screen Ur Oxycodone Screen Urine Methadone Screen Ur Propoxyphene Screen Acetaminophen < 10 L Ur Barbiturates Screen Ur Tricyclics Screen Ur Phencyclidine Scrn Ur Amphetamine Screen U Methamphetamines Scrn U Benzodiazepines Scrn Urine Cocaine Screen U Cannabinoids Screen Ethyl Alcohol < 5.0 SARS-CoV-2 (PCR) PD Medical Decision Making - ED course Complexity details: reviewed results, re-evaluated patient, considered differential, d/w patient ED course: 27-year-old male was brought to the emergency By [place] [employer] after his mental health therapist Katja rescinded his LR O for failure to follow-up and comply with court mandated restrictions as well as drug use. Patient is well-known to the emergency department and has a longstanding mental health history complicated by methamphetamine use. On presentation here today he appears to be at his usual baseline health though disheveled and with poor hygiene. I did obtain the routine mental health screening labs. He is again positive for amphetamines methamphetamines which is not new. White count is mildly elevated at 12.4. Given lack of fever this may be a stress marginalization. Because the patient has had an LRO rescinded he will be mandated to remain in the emergency department until DCR can formally detained him. Up to this point the patient has been compliant with medical staff. He is requesting some Ativan for anxiolysis which I have ordered, however pt is medically cleared to be seen by DCR 1814: DCR at bedside. Kirsten indicates that pt will be formally detained. Because his LRO has been rescinded if pt should try to elope and can not be redirected by verbal mean, he would necessitate chemical or physical restraint 1819: The patient eloped and ran from the emergency department while talking with the DCR. Staff did not have the ability to restrain the patient to prevent him from leaving. [facility] were immediately contacted to return pt to the ED when found 1899: Patient has been return to the emergency department by concerned citizen in [place]. He is not able to cooperate or be redirected and remains an elopement risk, therefore he is in seclusion. Departure - Departure Disposition: [facility] Hosp/Unit DC/Xfer Clinical Impression: Methamphetamine use
[2023-04-01 16:35] LABS: BASOPHILS # (AUTO) 0.1 10^3/uL (0.0-0.1); BASOPHILS % (AUTO) 0.4 %; EOSINOPHILS % (AUTO) 0.2 %; HCT - HEMATOCRIT 43.6 % (42.0-52.0); HGB - HEMOGLOBIN 14.4 g/dL (14.0-18.0); LYMPHOCYTES # (AUTO) 1.3 10^3/uL (1.5-3.5); LYMPHOCYTES % (AUTO) 10.1 %; MEAN CORPUSCULAR HEMOGLOBIN 29.8 pg (27.0-31.0); MEAN CORPUSCULAR VOLUME 90.3 fL (80.0-94.0); MEAN PLATELET VOLUME 8.6 fL (7.4-11.4); MONOCYTES # (AUTO) 0.8 10^3/uL (0.0-1.0); MONOCYTES % (AUTO) 6.8 %; NEUTROPHILS # (AUTO) 10.3 10^3/uL (1.5-6.6); NEUTROPHILS % (AUTO) 82.3 %; PLT - PLATELET COUNT 364 10^3/uL (130-450); RED BLOOD COUNT 4.83 10^6/uL (4.70-6.10); RED CELL DISTRIBUTION WIDTH 12.7 % (12.0-15.0); WHITE BLOOD COUNT 12.4 x10^3/uL (4.8-10.8)
[2023-04-01 16:45] LABS: AMPHETAMINE SCREEN,URINE POSITIVE (NEGATIVE); BARBITURATE SCREEN,UR NEGATIVE (NEGATIVE); BENZODIAZEPINES SCREEN, URINE NEGATIVE (NEGATIVE); COCAINE SCREEN URINE NEGATIVE (NEGATIVE); METHADONE SCREEN, URINE NEGATIVE (NEGATIVE); METHAMPHETAMINES SCREEN, URINE POSITIVE (NEGATIVE); OPIATE SCREEN, URINE NEGATIVE (NEGATIVE); OXYCODONE SCREEN, URINE NEGATIVE (NEGATIVE); PROPOXYPHENE SCREEN, URINE NEGATIVE (NEGATIVE); THC CANNABINOID SCREEN, URINE NEGATIVE (NEGATIVE); TRICYCLIC ANTIDEPRESSANT,URINE NEGATIVE (NEGATIVE)
[2023-04-01 16:59] LABS: ACETAMINOPHEN < 10 ug/mL (10-30); ALBUMIN 4.4 g/dL (3.2-5.5); ALBUMIN/GLOBULIN RATIO 1.3 (1.0-2.2); ALKALINE PHOSPHATASE 67 IU/L (42-121); ALT ALANINE AMINOTRANSFERASE 30 IU/L (10-60); AST ASPARTATE AMINOTRANSFERASE 21 IU/L (10-42); BILIRUBIN,TOTAL 0.4 mg/dL (0.2-1.0); BUN - BLOOD UREA NITROGEN 14 mg/dL (6-20); CALCIUM 8.9 mg/dL (8.5-10.3); CARBON DIOXIDE - CO2 29 mmol/L (21-32); CHLORIDE 98 mmol/L (101-111); CK- CREATINE KINASE 314 IU/L (22-269); CREATININE 0.8 mg/dL (0.6-1.2); ETOH - ETHANOL < 5.0 mg/dL; GFR - MDRD 116 (>89); GLUCOSE 78 mg/dL (70-100); LIPASE 24 U/L (22-51); MAGNESIUM 1.9 mg/dL (1.7-2.8); POTASSIUM 3.3 mmol/L (3.5-5.0); SALICYLATE < 6.0 mg/dL; SODIUM 138 mmol/L (135-145); TOTAL PROTEIN 7.9 g/dL (6.7-8.2)
[2023-04-01] MEDS ORDERED: LORazepam 1 MG TABLET PO STA (17:12)
[2023-04-01] MEDS ORDERED: OLANZapine ODT 5 MG TABLET TL STA (17:52)
--- NOTE | 2023-04-01 19:11 | ED Physician Documentation ---
Restraint [id number] - Immediate Situation Face to Face Evaluation Date: 04/01/23 Face to Face Evaluation Time: 19:08 Restraint Classification: Violent, seclusion Restraint Type: Seclusion - Patient's Reaction & Behaviors Safety: Physically safe Verbal: Asking for information Harm: Potential harm to self Physical: Beating on the door/wall (Patient is pacing in the room. He is asking when he can be discharged) Other: Attempting removal of medically necessary device(s) (Pacing within the seclusion room.) - Behavioral Condition Attitude: Other Behavior: Uncooperative Orientation: Person, Place, Time Mood: Anxious - Evaluation Review of Systems: see ED note Pertinent History/Illicit Drugs/Medications/Results: Patient is methamphetamine/amphetamine positive. - Plan Need to Continue or Terminate Violent or Chemical Restraint: Will continue to monitor. Patient has demonstrated he is a significant elopement risk. He has been formally detained by DCR.
--- NOTE | 2023-04-01 22:48 | ED Physician Documentation ---
Restraint [id number] - Immediate Situation Face to Face Evaluation Date: 04/01/23 Face to Face Evaluation Time: 22:46 Restraint Classification: Violent, seclusion Restraint Type: Seclusion - Patient's Reaction & Behaviors Safety: Unable to Follow Commands Harm: Potential harm to self Other: Resting quietly - Behavioral Condition Attitude: Guarded Behavior: Uncooperative Orientation: Non-responsive Mood: Labile - Evaluation Review of Systems: see ED note Pertinent History/Illicit Drugs/Medications/Results: Patient is methamphetamine/amphetamine positive. - Plan Need to Continue or Terminate Violent or Chemical Restraint: continue
--- NOTE | 2023-04-01 22:54 | ED Physician Documentation ---
ED Addendum - Addendum Addendum: 04/01/23 22:53 DCR, Kirsten called and states that she requires an EKG for this patient. EKG was obtained. 04/02/23 00:37 Patient is accepted to [facility]. [facility] forms completed. Patient is scheduled to arrive there around 11-12 tomorrow. Results - Vitals Vitals: Vital Signs - 24 hr 04/01/23 16:19 Temperature 37.1 C Heart Rate 112 H Respiratory 18 Rate Blood Pressure 122/76 O2 Saturation 97 Oxygen O2 Source Room air - EKG (time done) 7 EKG releavant findings:: EKG personally interpreted by author of this note. Relevant findings are: Rate: Rate (enter#) (68) Rhythm: NSR [place]: Normal Intervals: Normal AR QRS: Normal, LVH Ischemia: ST elevation c/w repol - Labs Labs: Laboratory Tests 04/01/23 04/01/23 04/01/23 16:19 16:20 16:27 WBC 12.4 H RBC 4.83 Hgb 14.4 Hct 43.6 MCV 90.3 MCH 29.8 MCHC 33.0 RDW 12.7 Plt Count 364 MPV 8.6 Neut # (Auto) 10.3 H Lymph # (Auto) 1.3 L [place] # (Auto) 0.8 Eos # (Auto) 0.0 Baso # (Auto) 0.1 Absolute Nucleated RBC 0.00 Nucleated RBC % 0.0 Sodium Potassium Chloride Carbon Dioxide Anion Gap BUN Creatinine Estimated GFR (MDRD) Glucose Calcium Magnesium Total Bilirubin AST ALT Alkaline Phosphatase Total Creatine Kinase Total Protein Albumin Globulin Albumin/Globulin Ratio Lipase TSH Urine Color YELLOW Urine Clarity CLEAR Urine pH 5.5 Ur Specific [place] 1.025 Urine Protein NEGATIVE Urine Glucose (UA) NEGATIVE Urine Ketones NEGATIVE Urine Occult Blood NEGATIVE Urine Nitrite NEGATIVE Urine Bilirubin NEGATIVE Urine Urobilinogen 0.2 (NORMAL) Ur Leukocyte Esterase NEGATIVE Ur Microscopic Review NOT INDICATED Urine Culture Comments NOT INDICATED Salicylates Urine Opiates Screen NEGATIVE Ur Oxycodone Screen NEGATIVE Urine Methadone Screen NEGATIVE Ur Propoxyphene Screen NEGATIVE Acetaminophen Ur Barbiturates Screen NEGATIVE Ur Tricyclics Screen NEGATIVE Ur Phencyclidine Scrn NEGATIVE Ur Amphetamine Screen POSITIVE H U Methamphetamines Scrn POSITIVE H U Benzodiazepines Scrn NEGATIVE Urine Cocaine Screen NEGATIVE U Cannabinoids Screen NEGATIVE Ethyl Alcohol SARS-CoV-2 (PCR) NOT DETECTED 04/01/23 04/01/23 16:27 16:27 WBC RBC Hgb Hct MCV MCH MCHC RDW Plt Count MPV Neut # (Auto) Lymph # (Auto) [place] # (Auto) Eos # (Auto) Baso # (Auto) Absolute Nucleated RBC Nucleated RBC % Sodium 138 Potassium 3.3 L Chloride 98 L Carbon Dioxide 29 Anion Gap 11.0 BUN 14 Creatinine 0.8 Estimated GFR (MDRD) 116 Glucose 78 Calcium 8.9 Magnesium 1.9 Total Bilirubin 0.4 AST 21 ALT 30 Alkaline Phosphatase 67 Total Creatine Kinase 314 H Total Protein 7.9 Albumin 4.4 Globulin 3.5 Albumin/Globulin Ratio 1.3 Lipase 24 TSH 0.94 Urine Color Urine Clarity Urine pH Ur Specific [place] Urine Protein Urine Glucose (UA) Urine Ketones Urine Occult Blood Urine Nitrite Urine Bilirubin Urine Urobilinogen Ur Leukocyte Esterase Ur Microscopic Review Urine Culture Comments Salicylates < 6.0 Urine Opiates Screen Ur Oxycodone Screen Urine Methadone Screen Ur Propoxyphene Screen Acetaminophen < 10 L Ur Barbiturates Screen Ur Tricyclics Screen Ur Phencyclidine Scrn Ur Amphetamine Screen U Methamphetamines Scrn U Benzodiazepines Scrn Urine Cocaine Screen U Cannabinoids Screen Ethyl Alcohol < 5.0 SARS-CoV-2 (PCR) Departure - Departure Disposition: [facility] H[facility]/Unit DC/Xfer Clinical Impression: Methamphetamine use, Polysubstance abuse Condition: Stable
--- NOTE | 2023-04-02 06:07 | ED Physician Documentation ---
Restraint [id number] - Immediate Situation Face to Face Evaluation Date: 04/02/23 Face to Face Evaluation Time: 03:15 Restraint Classification: Violent, seclusion Restraint Type: Seclusion - Patient's Reaction & Behaviors Safety: Physically safe Harm: Potential harm to self Other: Resting quietly - Behavioral Condition Attitude: Indifferent Behavior: Withdrawn Orientation: Non-responsive Mood: Labile - Evaluation Review of Systems: see ED note Pertinent History/Illicit Drugs/Medications/Results: Patient is methamphetamine/amphetamine positive. - Plan Need to Continue or Terminate Violent or Chemical Restraint: continue
--- NOTE | 2023-04-02 07:34 | ED Physician Documentation ---
Restraint [id number]-dl-[id number] - Immediate Situation Face to Face Evaluation Date: 04/02/23 Face to Face Evaluation Time: 07:31 Restraint Classification: Violent, seclusion Restraint Type: Seclusion - Patient's Reaction & Behaviors Safety: Compliant Other: Resting quietly (he is sleeping at this time and allowed to remain that way. ) - Behavioral Condition Attitude: Other (sleepng) Behavior: Cooperative Orientation: Person, Place Mood: Content - Evaluation Review of Systems: see ED note Pertinent History/Illicit Drugs/Medications/Results: Patient is methamphetamine/amphetamine positive. - Plan Need to Continue or Terminate Violent or Chemical Restraint: he is still elopement risk. Being detained and ETD 11 am this morning. Can remain in seclusion until transferred.
[2023-04-02 08:41] VITALS: BP 114/67
--- NOTE | 2023-04-02 10:17 | ED Physician Documentation ---
ED Addendum - Addendum Addendum: 04/02/23 10:16 The patient remains sleeping for a portion of the morning. He was offered breakfast and ate. He has remained cooperative. Plan is for transfer with ambulance pickup in about an hour. Disposition: Transfer to acute psychiatric facility. Diagnoses: 1. Poor self-care and grave disability 2. Ongoing substance abuse 3. Schizoaffective symptoms
== END 2023-04-02 11:21 ==
LOC: ED 16:16
DX: F15.90 Other stimulant use, unspecified, uncomplicated (principal); F19.10 Other psychoactive substance abuse, uncomplicated; F20.9 Schizophrenia, unspecified; F31.9 Bipolar disorder, unspecified; F17.200 Nicotine dependence, unspecified, uncomplicated; Z20.822 Contact with and (suspected) exposure to COVID-19
CPT/HCPCS: 36415; 80053; 80306; 80307; 80320; 80329; 81003; 82550; 83690; 83735; 84443; 85025; 87635; 93005; 99285; A9270; J8499; 81001; 87086

== ENCOUNTER 2023-05-12 14:13 | Emergency (ER) | payer OTHER, MEDICAID ==
--- NOTE | 2023-05-12 14:20 | ED Physician Documentation ---
PD HPI MHE - Stated complaint Stated Complaint: FIT - History obtained from History obtained from: Patient, Police - History of Present Illness Primary symptom: Psychosis, Aggressive behavior, Other (seen by DCR at [facility] and determined to be not incompliance with his LRO, which was subsequently revoked. Patient brought here for med labs/clearance with intent for involuntary hospitalization. Patient with historically high elopement rate.) Similar symptoms before: Diagnosis (schizoaffective disorder, meth/substance abuse.) Review of Systems Constitutional: denies: Fever, Chills Nose: denies: Rhinorrhea / runny nose, Congestion Throat: denies: Sore throat Respiratory: denies: Cough Neurologic: denies: Headache, Head injury PD PAST MEDICAL HISTORY - Past Medical History Cardiovascular: None Respiratory: None Neuro: None Endocrine/Autoimmune: None GI: None : None HEENT: None Psych: Bipolar disorder, Schizophrenia, Other Musculoskeletal: None Derm: None - Past Surgical History Past Surgical History: No - Present Medications Home Medications: Ambulatory Orders Medication Instructions Recorded Confirmed Aripiprazole [Abilify Maintena] 300 mg IM ONCE 04/09/21 05/23/22 QUEtiapine [SEROquel] 50 mg PO QPM #10 tablet 04/20/22 05/23/22 - Allergies Allergies/Adverse Reactions: Allergies Allergy/AdvReac Type Severity Reaction Status Date / Time No Known Drug Allergies Allergy Verified 04/01/23 16:24 - Social History Does the pt smoke?: Yes Smoking Status: Current every day smoker Does the pt drink ETOH?: Yes Does the pt have substance abuse?: Yes - Immunizations Immunizations are current?: No - POLST Patient has POLST: No POLST Status: Full Code PD ED PE NORMAL - Vitals Vital signs reviewed: Yes - General General: Alert and oriented X 3, Well developed/nourished - Neck Neck: Supple, no meningeal sign, No adenopathy - Cardiac Cardiac: RRR, No murmur - Respiratory Respiratory: Clear bilaterally - Derm Derm: Normal color, Warm and dry - Neuro Neuro: No motor deficit, Normal speech. No: Alert and oriented X 3 (person and place. not sure of time. ) Results - Vitals Vitals: Vital Signs - 24 hr 05/12/23 14:25 Temperature 36.5 C Heart Rate 96 Respiratory 18 Rate Blood Pressure 104/74 O2 Saturation 100 Oxygen O2 Source Room air - Labs Labs: Laboratory Tests 05/12/23 05/12/23 05/12/23 14:41 14:41 14:41 WBC 6.5 RBC 4.55 L Hgb 13.7 L Hct 40.7 L MCV 89.5 MCH 30.1 MCHC 33.7 RDW 12.0 Plt Count 309 MPV 8.7 Neut # (Auto) 4.3 Lymph # (Auto) 1.7 [place] # (Auto) 0.4 Eos # (Auto) 0.1 Baso # (Auto) 0.1 Absolute Nucleated RBC 0.00 Nucleated RBC % 0.0 Sodium 140 Potassium 3.8 Chloride 105 Carbon Dioxide 31 Anion Gap 4.0 L BUN 11 Creatinine 0.7 Estimated GFR (MDRD) 134 Glucose 129 H Calcium 8.9 Magnesium 2.0 Total Bilirubin 0.4 AST 15 ALT 15 Alkaline Phosphatase 60 Total Creatine Kinase 87 Total Protein 6.7 Albumin 3.7 Globulin 3.0 Albumin/Globulin Ratio 1.2 Lipase 29 TSH 0.10 L Salicylates < 6.0 Acetaminophen < 10 L Ethyl Alcohol < 5.0 PD Medical Decision Making - ED course Complexity details: considered differential, d/w patient ED course: Patient is brought in by quality officer from [facility] with SERINA forms and a revocation of LR oh by the DCR's every. Intention is for medical and lab evaluation and placement in voluntarily. The patient says he is does not have any particular complaints. He has been in group home for a day or 2. He did ask for cigarette but declined nicotine patch. He asked for juice instead. The patient is well-known to the emergency department and typically will attempt eloping very commonly. Without knowledge and also his being involuntary under an SERINA, it was opted to place the patient in the seclusion room. I advised the patient of our reasoning for it and he said he was okay with that. He was cooperative into the room. The corrections officers did remove his shackles in cuffs and stated they were leaving as he is no longer under arrest. Departure - Departure Disposition: [facility]/Unit DC/Xfer Clinical Impression: Schizoaffective disorder, Substance abuse Condition: Stable Record reviewed to determine appropriate education?: Yes
[2023-05-12 14:46] LABS: BASOPHILS # (AUTO) 0.1 10^3/uL (0.0-0.1); BASOPHILS % (AUTO) 1.2 %; EOSINOPHILS # (AUTO) 0.1 10^3/uL (0.0-0.7); EOSINOPHILS % (AUTO) 1.1 %; HCT - HEMATOCRIT 40.7 % (42.0-52.0); HGB - HEMOGLOBIN 13.7 g/dL (14.0-18.0); LYMPHOCYTES # (AUTO) 1.7 10^3/uL (1.5-3.5); LYMPHOCYTES % (AUTO) 25.5 %; MEAN CORPUSCULAR HEMOGLOBIN 30.1 pg (27.0-31.0); MEAN CORPUSCULAR HGB CONC 33.7 g/dL (32.0-36.0); MEAN CORPUSCULAR VOLUME 89.5 fL (80.0-94.0); MEAN PLATELET VOLUME 8.7 fL (7.4-11.4); MONOCYTES # (AUTO) 0.4 10^3/uL (0.0-1.0); MONOCYTES % (AUTO) 5.7 %; NEUTROPHILS # (AUTO) 4.3 10^3/uL (1.5-6.6); NEUTROPHILS % (AUTO) 66.2 %; PLT - PLATELET COUNT 309 10^3/uL (130-450); RED BLOOD COUNT 4.55 10^6/uL (4.70-6.10); WHITE BLOOD COUNT 6.5 x10^3/uL (4.8-10.8)
[2023-05-12 15:05] LABS: ACETAMINOPHEN < 10 ug/mL (10-30); ALBUMIN 3.7 g/dL (3.2-5.5); ALBUMIN/GLOBULIN RATIO 1.2 (1.0-2.2); ALKALINE PHOSPHATASE 60 IU/L (42-121); ALT ALANINE AMINOTRANSFERASE 15 IU/L (10-60); AST ASPARTATE AMINOTRANSFERASE 15 IU/L (10-42); BILIRUBIN,TOTAL 0.4 mg/dL (0.2-1.0); BUN - BLOOD UREA NITROGEN 11 mg/dL (6-20); CALCIUM 8.9 mg/dL (8.5-10.3); CARBON DIOXIDE - CO2 31 mmol/L (21-32); CHLORIDE 105 mmol/L (101-111); CK- CREATINE KINASE 87 IU/L (22-269); CREATININE 0.7 mg/dL (0.6-1.2); ETOH - ETHANOL < 5.0 mg/dL; GFR - MDRD 134 (>89); GLUCOSE 129 mg/dL (70-100); LIPASE 29 U/L (22-51); POTASSIUM 3.8 mmol/L (3.5-5.0); SALICYLATE < 6.0 mg/dL; SODIUM 140 mmol/L (135-145); TOTAL PROTEIN 6.7 g/dL (6.7-8.2)
--- NOTE | 2023-05-12 16:19 | ED Physician Documentation ---
Restraint [id number] - Immediate Situation Face to Face Evaluation Date: 05/12/23 Face to Face Evaluation Time: 16:17 Restraint Classification: Violent, seclusion Restraint Type: Seclusion - Patient's Reaction & Behaviors Safety: Non-compliant Verbal: Asking for information Other: Resting quietly - Behavioral Condition Attitude: Guarded Behavior: Withdrawn Orientation: Person, Place Mood: Other (flat) - Evaluation Review of Systems: see ED note Pertinent History/Illicit Drugs/Medications/Results: Refer to the ER history and physical. The restraint order was done at the time of my initial ED note and so I inadvertently did not do a separate [id number] until now. - Plan Need to Continue or Terminate Violent or Chemical Restraint: Patient has a high elopement risk and is involuntarily detained. He has a flat affect at this point but seems to be following direction for now.
[2023-05-12 17:32] LABS: MUDS CUTOFF CONCENTRATIONS CUTOFF CONC BELOW:
[2023-05-12 17:34] LABS: BILIRUBIN,URINE NEGATIVE (NEGATIVE); GLUCOSE, URINE (UA) NEGATIVE (NEGATIVE); KETONES,URINE (UA) NEGATIVE (NEGATIVE); LEUKOCYTE ESTERASE, URINE NEGATIVE (NEGATIVE); NITRITE,URINE NEGATIVE (NEGATIVE); OCCULT BLOOD,URINE NEGATIVE (NEGATIVE); PH,URINE 6.5 PH (5.0-7.5); PROTEIN,URINE NEGATIVE (NEGATIVE); UROBILINOGEN,URINE 0.2 (NORMAL) E.U./dL (NORMAL)
[2023-05-12 17:36] LABS: CLARITY,URINE CLEAR (CLEAR)
[2023-05-12 17:49] LABS: AMPHETAMINE SCREEN,URINE POSITIVE (NEGATIVE); BARBITURATE SCREEN,UR NEGATIVE (NEGATIVE); BENZODIAZEPINES SCREEN, URINE NEGATIVE (NEGATIVE); COCAINE SCREEN URINE NEGATIVE (NEGATIVE); METHADONE SCREEN, URINE NEGATIVE (NEGATIVE); METHAMPHETAMINES SCREEN, URINE POSITIVE (NEGATIVE); OPIATE SCREEN, URINE NEGATIVE (NEGATIVE); OXYCODONE SCREEN, URINE NEGATIVE (NEGATIVE); PROPOXYPHENE SCREEN, URINE NEGATIVE (NEGATIVE); THC CANNABINOID SCREEN, URINE NEGATIVE (NEGATIVE); TRICYCLIC ANTIDEPRESSANT,URINE NEGATIVE (NEGATIVE)
--- NOTE | 2023-05-12 18:08 | ED Physician Documentation ---
Restraint Vjgb-[id number] - Immediate Situation Face to Face Evaluation Date: 05/12/23 Face to Face Evaluation Time: 18:06 Restraint Classification: Violent, seclusion Restraint Type: Seclusion - Patient's Reaction & Behaviors Safety: Non-compliant Other: Resting quietly - Behavioral Condition Attitude: Guarded Behavior: Cooperative Orientation: Person, Place Mood: Other (flat) - Evaluation Review of Systems: see ED note Pertinent History/Illicit Drugs/Medications/Results: Refer to the ER history and physical. The restraint order was done at the time of my initial ED note and so I inadvertently did not do a separate [id number] until now. - Plan Need to Continue or Terminate Violent or Chemical Restraint: DCR is coming in to see the patient and working on placement. Still feel the patient is currently and historically elopement risk. He is comfortable in this setting and actually talking with the patient he states the less noisy environment is comfortable.
--- NOTE | 2023-05-12 22:22 | ED Physician Documentation ---
Restraint [id number] - Immediate Situation Face to Face Evaluation Date: 05/12/23 Face to Face Evaluation Time: 22:20 Restraint Classification: Violent, seclusion Restraint Type: Seclusion - Patient's Reaction & Behaviors Safety: Physically safe Verbal: Asking for information (sleeping) Harm: Potential harm to self Other: Resting quietly - Behavioral Condition Attitude: Other (sleeping) Behavior: Other (sleeping) Orientation: Person (sleeping) Mood: Other (sleepng) - Evaluation Review of Systems: see ED note Pertinent History/Illicit Drugs/Medications/Results: Refer to the ER history and physical. The restraint order was done at the time of my initial ED note and so I inadvertently did not do a separate [id number] until now. - Plan Need to Continue or Terminate Violent or Chemical Restraint: terminate seclusion, sleeping quietly
[2023-05-13 06:09] VITALS: BP 105/69
--- NOTE | 2023-05-13 08:17 | ED Physician Documentation ---
ED Addendum - Addendum Addendum: 05/13/23 08:15 On change of shift, the report is the patient was accepted to a psychiatric facility with the pickup time expected at 740. The patient had been calm and cooperative overnight and therefore he was still kept in the seclusion room but the door was open the past few hours, so not restrained. Shortly after change of shift, nursing noted the patient was not in the room. Search of the department did not find him. We had not heard the doors open but apparently he eloped out the ambulance bay door. [employer] office has been notified. His transport ambulance is just arriving. They are able to wait a short time to see if he is found promptly.
== END 2023-05-13 08:46 ==
LOC: ED 14:13
DX: Z02.79 Encounter for issue of other medical certificate (principal); F17.200 Nicotine dependence, unspecified, uncomplicated; F25.9 Schizoaffective disorder, unspecified; F19.10 Other psychoactive substance abuse, uncomplicated; F32.A Depression, unspecified; R45.851 Suicidal ideations
CPT/HCPCS: 36415; 80053; 80306; 80307; 80320; 80329; 81001; 81003; 82550; 83690; 83735; 84439; 84443; 84480; 85025; 87086; 93005; 99283; 99285

== ENCOUNTER 2023-06-25 20:25 | Outpatient (CLI) | payer MEDICAID | END 2023-06-25 20:26 | disposition other institution (70) | LOC: EMS 20:25 | DX: Z00.8 Encounter for other general examination (principal) | CPT/HCPCS: A0425; A0429; A0999 ==

== ENCOUNTER 2023-06-25 20:30 | Emergency (ER) | payer MEDICAID ==
--- NOTE | 2023-06-25 20:33 | ED Physician Documentation ---
History of Present Illness - Stated complaint Stated Complaint: AMS - History obtained from History obtained from: Patient, EMS - Additonal information Additional information: BIBA from snf. Patient is awake and alert but uncooperative with my attempt to gather HPI/ROS from him. He answers few of my questions, and when he responds it is mostly cursing at me and saying he wants to leave. Patient is well known to [facility] ED due to frequent visits (over 70 ED visits to [facility] on [facility] records (date back to 2012). His ED visits typically are for mental tara-related issues. EMS reports that patient has been in snf past 2 days, today became increasingly belligerent, yelling out with increasing frequency. Due to this behavior, he being sent to [facility] ED at this time for DCR evaluation by court order Review of Systems Unable to obtain: AMS, Uncooperative PD PAST MEDICAL HISTORY - Past Medical History Cardiovascular: None Respiratory: None Neuro: None Endocrine/Autoimmune: None GI: None : None HEENT: None Psych: Bipolar disorder, Schizophrenia, Other Musculoskeletal: None Derm: None - Past Surgical History Past Surgical History: No - Present Medications Home Medications: Ambulatory Orders Medication Instructions Recorded Confirmed Aripiprazole [Abilify Maintena] 300 mg IM ONCE 04/09/21 06/25/23 QUEtiapine [SEROquel] 50 mg PO QPM #10 tablet 04/20/22 06/25/23 - Allergies Allergies/Adverse Reactions: Allergies Allergy/AdvReac Type Severity Reaction Status Date / Time No Known Drug Allergies Allergy Verified 06/25/23 20:49 - Social History Does the pt smoke?: Yes Smoking Status: Current every day smoker Does the pt drink ETOH?: Yes Does the pt have substance abuse?: Yes - Immunizations Immunizations are current?: No - POLST Patient has POLST: No POLST Status: Full Code PD ED PE NORMAL - Vitals Vital signs reviewed: Yes - General General: No acute distress, Well developed/nourished, Other (awake, alert. poor eye contact, cursing at me and ED RN, repeatedly demanding to be allowed to go home) - HEENT HEENT: Atraumatic, PERRL, EOMI - Cardiac Cardiac: RRR, No murmur - Respiratory Respiratory: No respiratory distress, Clear bilaterally - Abdomen Abdomen: Soft, Non tender PD ED PE EXPANDED - Psych Psych: Other (orientation: accurately gives name, says he is "in the hospital" when I ask which one, he says "[facility]", asked year he says 2023, then 2013) Results - Vitals Vitals: Vital Signs - 24 hr 06/25/23 06/25/23 06/25/23 20:30 21:40 21:55 Temperature 36.3 C L 36.9 C Heart Rate 100 62 101 H Respiratory 20 16 16 Rate Blood Pressure 140/90 H 107/71 111/59 L O2 Saturation 100 99 95 06/25/23 06/25/23 06/25/23 22:10 22:25 22:42 Temperature 37.0 C Heart Rate 70 58 L 53 L Respiratory 14 16 16 Rate Blood Pressure 108/62 106/80 106/80 O2 Saturation 98 98 98 06/25/23 06/25/23 06/25/23 22:55 23:25 23:30 Temperature Heart Rate 55 L 50 L 49 L Respiratory 16 14 16 Rate Blood Pressure 100/68 104/73 114/86 H O2 Saturation 99 99 99 06/26/23 06/26/23 06/26/23 00:30 00:45 00:55 Temperature 37.0 C Heart Rate 58 L 60 52 L Respiratory 20 18 16 Rate Blood Pressure 104/51 L 104/51 L 115/73 O2 Saturation 96 98 99 06/26/23 06/26/23 06/26/23 01:22 01:40 01:55 Temperature 37.0 C Heart Rate 50 L 58 L 72 Respiratory 16 14 16 Rate Blood Pressure 115/73 115/65 115/75 O2 Saturation 99 96 98 06/26/23 06/26/23 06/26/23 02:10 02:25 03:10 Temperature 36.8 C Heart Rate 55 L 56 L 58 L Respiratory 16 14 16 Rate Blood Pressure 104/77 109/84 H 111/74 O2 Saturation 98 99 100 06/26/23 06/26/23 06/26/23 03:19 04:10 04:35 Temperature 36.8 C Heart Rate 58 L 56 L 51 L Respiratory 16 16 14 Rate Blood Pressure 111/74 112/82 H 106/84 H O2 Saturation 99 99 98 06/26/23 06/26/23 06/26/23 05:05 05:20 05:35 Temperature 36.8 C Heart Rate 55 L 58 L 55 L Respiratory 16 16 16 Rate Blood Pressure 110/75 105/80 105/80 O2 Saturation 97 98 98 06/26/23 06/26/23 06/26/23 05:40 05:55 06:05 Temperature 36.7 C Heart Rate 57 L 57 L 58 L Respiratory 14 16 14 Rate Blood Pressure 108/74 103/76 103/76 O2 Saturation 99 100 100 06/26/23 06/26/23 06/26/23 06:35 07:05 07:07 Temperature 36.3 C L 36.3 C L Heart Rate 62 94 94 Respiratory 16 16 16 Rate Blood Pressure 105/76 109/78 109/78 O2 Saturation 100 95 95 06/26/23 08:00 Temperature 36.6 C Heart Rate 64 Respiratory 16 Rate Blood Pressure 111/72 O2 Saturation 100 Oxygen O2 Source Room air - Labs Labs: Laboratory Tests 06/25/23 06/25/23 06/25/23 07:50 20:45 20:45 WBC 7.8 RBC 4.59 L Hgb 13.5 L Hct 40.7 L MCV 88.7 MCH 29.4 MCHC 33.2 RDW 12.2 Plt Count 332 MPV 8.9 Neut # (Auto) 4.6 Lymph # (Auto) 2.4 [place] # (Auto) 0.5 Eos # (Auto) 0.2 Baso # (Auto) 0.1 Absolute Nucleated RBC 0.00 Nucleated RBC % 0.0 Sodium 139 Potassium 3.5 Chloride 107 Carbon Dioxide 27 Anion Gap 5.0 L BUN 13 Creatinine 0.6 Estimated GFR (MDRD) 160 Glucose 95 Calcium 9.2 Magnesium 1.7 Total Bilirubin 0.2 AST 14 ALT 12 Alkaline Phosphatase 67 Total Creatine Kinase 171 Total Protein 6.5 Albumin 3.9 Globulin 2.6 Albumin/Globulin Ratio 1.5 Lipase 28 TSH 0.26 L Urine Color YELLOW Urine Clarity CLEAR Urine pH 6.0 Ur Specific [place] >=1.030 H Urine Protein NEGATIVE Urine Glucose (UA) NEGATIVE Urine Ketones NEGATIVE Urine Occult Blood NEGATIVE Urine Nitrite NEGATIVE Urine Bilirubin NEGATIVE Urine Urobilinogen 0.2 (NORMAL) Ur Leukocyte Esterase NEGATIVE Ur Microscopic Review NOT INDICATED Urine Culture Comments NOT INDICATED Salicylates < 1.5 Urine Opiates Screen Ur Oxycodone Screen Urine Methadone Screen Ur Propoxyphene Screen Acetaminophen < 0 L Ur Barbiturates Screen Ur Tricyclics Screen Ur Phencyclidine Scrn Ur Amphetamine Screen U Methamphetamines Scrn U Benzodiazepines Scrn Urine Cocaine Screen U Cannabinoids Screen Ethyl Alcohol < 10.0 SARS-CoV-2 (PCR) 06/25/23 06/26/23 21:10 07:50 WBC RBC Hgb Hct MCV MCH MCHC RDW Plt Count MPV Neut # (Auto) Lymph # (Auto) [place] # (Auto) Eos # (Auto) Baso # (Auto) Absolute Nucleated RBC Nucleated RBC % Sodium Potassium Chloride Carbon Dioxide Anion Gap BUN Creatinine Estimated GFR (MDRD) Glucose Calcium Magnesium Total Bilirubin AST ALT Alkaline Phosphatase Total Creatine Kinase Total Protein Albumin Globulin Albumin/Globulin Ratio Lipase TSH Urine Color Urine Clarity Urine pH Ur Specific [place] Urine Protein Urine Glucose (UA) Urine Ketones Urine Occult Blood Urine Nitrite Urine Bilirubin Urine Urobilinogen Ur Leukocyte Esterase Ur Microscopic Review Urine Culture Comments Salicylates Urine Opiates Screen NEGATIVE Ur Oxycodone Screen NEGATIVE Urine Methadone Screen NEGATIVE Ur Propoxyphene Screen NEGATIVE Acetaminophen Ur Barbiturates Screen NEGATIVE Ur Tricyclics Screen NEGATIVE Ur Phencyclidine Scrn NEGATIVE Ur Amphetamine Screen POSITIVE H U Methamphetamines Scrn POSITIVE H U Benzodiazepines Scrn NEGATIVE Urine Cocaine Screen NEGATIVE U Cannabinoids Screen NEGATIVE Ethyl Alcohol SARS-CoV-2 (PCR) NOT DETECTED PD Medical Decision Making - ED course Complexity details: reviewed old records, reviewed results, re-evaluated patient, considered differential, d/w patient ED course: Brought to ED from snf for court-ordered DCR. Patient required four-point restraints on arrival to ED due to angry, belligerent behavior. No concerning findings on blood tests. Patient refusing to provide urine sample. DCR was consulted but will not evaluate the patient until a urine drug screen is obtained and the patient has been out of restraints for at least 4 hours. During my shift, the patient gradually improved in mentation with gradually decreasing belligerence. At the end of my shift, care of the patient is turned over to the oncoming ED physician (Dr. Shaw) pending DCR evaluation.
[2023-06-25 20:50] LABS: BASOPHILS # (AUTO) 0.1 10^3/uL (0.0-0.1); BASOPHILS % (AUTO) 1.3 %; EOSINOPHILS # (AUTO) 0.2 10^3/uL (0.0-0.7); EOSINOPHILS % (AUTO) 3.1 %; HCT - HEMATOCRIT 40.7 % (42.0-52.0); HGB - HEMOGLOBIN 13.5 g/dL (14.0-18.0); LYMPHOCYTES # (AUTO) 2.4 10^3/uL (1.5-3.5); LYMPHOCYTES % (AUTO) 30.5 %; MEAN CORPUSCULAR HEMOGLOBIN 29.4 pg (27.0-31.0); MEAN CORPUSCULAR HGB CONC 33.2 g/dL (32.0-36.0); MEAN CORPUSCULAR VOLUME 88.7 fL (80.0-94.0); MEAN PLATELET VOLUME 8.9 fL (7.4-11.4); MONOCYTES # (AUTO) 0.5 10^3/uL (0.0-1.0); MONOCYTES % (AUTO) 6.8 %; NEUTROPHILS # (AUTO) 4.6 10^3/uL (1.5-6.6); PLT - PLATELET COUNT 332 10^3/uL (130-450); RED BLOOD COUNT 4.59 10^6/uL (4.70-6.10); RED CELL DISTRIBUTION WIDTH 12.2 % (12.0-15.0); WHITE BLOOD COUNT 7.8 x10^3/uL (4.8-10.8)
--- NOTE | 2023-06-25 20:53 | ED Physician Documentation ---
Restraint Upvz-[id number]-[id number] - Immediate Situation Face to Face Evaluation Date: 06/25/23 Face to Face Evaluation Time: 20:51 Restraint Classification: Violent, physical Restraint Type: Locked extremity - Patient's Reaction & Behaviors Safety: Non-compliant Verbal: Demanding, Swearing Harm: Potential harm to self, Potential harm to others Physical: Aggressive behavior - Behavioral Condition Attitude: Indifferent Behavior: Belligerent Orientation: Non-responsive (accurately provide name, location is "[facility]", year is "2023...or, 2013... [explitive] something, whatever") Mood: Angry - Evaluation System status changes from initial ED note: none Pertinent History/Illicit Drugs/Medications/Results: see H+P - Plan Need to Continue or Terminate Violent or Chemical Restraint: Needs to exhibit behaviors and conversation/language consistent with ability for rational thought and reassurance of patient and staff safety
[2023-06-25 21:07] LABS: ALBUMIN 3.9 g/dL (3.2-5.5); ALBUMIN/GLOBULIN RATIO 1.5 (1.0-2.2); ALKALINE PHOSPHATASE 67 IU/L (42-121); ALT ALANINE AMINOTRANSFERASE 12 IU/L (10-60); AST ASPARTATE AMINOTRANSFERASE 14 IU/L (10-42); BILIRUBIN,TOTAL 0.2 mg/dL (0.2-1.0); BUN - BLOOD UREA NITROGEN 13 mg/dL (6-20); CALCIUM 9.2 mg/dL (8.5-10.3); CARBON DIOXIDE - CO2 27 mmol/L (21-32); CHLORIDE 107 mmol/L (101-111); CK- CREATINE KINASE 171 IU/L (30-223); CREATININE 0.6 mg/dL (0.6-1.3); ETOH - ETHANOL < 10.0 mg/dL; GFR - MDRD 160 (>89); GLUCOSE 95 mg/dL (74-104); LIPASE 28 U/L (11-82); MAGNESIUM 1.7 mg/dL (1.7-2.3); POTASSIUM 3.5 mmol/L (3.5-4.5); SODIUM 139 mmol/L (135-145); TOTAL PROTEIN 6.5 g/dL (6.4-8.9)
[2023-06-25 21:11] LABS: ACETAMINOPHEN < 0 ug/mL (10-30); SALICYLATE < 1.5 mg/dL
[2023-06-25 21:18] LABS: THYROID STIMULATING HORMONE 0.26 uIU/mL (0.34-5.60)
--- NOTE | 2023-06-26 00:28 | ED Physician Documentation ---
Restraint Ajyd-[id number] - Immediate Situation Face to Face Evaluation Date: 06/26/23 Face to Face Evaluation Time: 00:24 Restraint Classification: Violent, physical Restraint Type: Locked extremity - Patient's Reaction & Behaviors Safety: Non-compliant Verbal: Demanding, Screaming/Yelling, Swearing Harm: Potential harm to others Physical: Aggressive behavior, Fighting restraints - Behavioral Condition Attitude: Other (angry, yelling, cursing ) Behavior: Belligerent, Agitated Orientation: Non-responsive (does not answer any of my questions; yelling and cursing at me and ED RN) Mood: Angry - Evaluation System status changes from initial ED note: none Pertinent History/Illicit Drugs/Medications/Results: see H+P - Plan Need to Continue or Terminate Violent or Chemical Restraint: Needs to exhibit behavior and engage in conversation that is consistent with rational thought and reason.
--- NOTE | 2023-06-26 04:18 | ED Physician Documentation ---
Restraint [id number] - Immediate Situation Face to Face Evaluation Date: 06/26/23 Face to Face Evaluation Time: 04:16 Restraint Classification: Violent, physical Restraint Type: Locked extremity - Patient's Reaction & Behaviors Safety: Non-compliant, Unable to Follow Commands Verbal: Demanding, Screaming/Yelling, Swearing Harm: Potential harm to self, Potential harm to others Physical: Aggressive behavior, Fighting restraints Other: Attempting removal of medically necessary device(s) - Behavioral Condition Attitude: Indifferent Behavior: Belligerent, Agitated Orientation: Non-responsive (does not answer my questions including orientation questions) Mood: Labile, Angry - Evaluation System status changes from initial ED note: none (note that he is not answering ROS questions) Pertinent History/Illicit Drugs/Medications/Results: see H+P - Plan Need to Continue or Terminate Violent or Chemical Restraint: exhibit behavior/engage in conversation indicative of orientation x 3 and calm, cooperative behaviors/mentation
[2023-06-26 07:55] LABS: MUDS CUTOFF CONCENTRATIONS CUTOFF CONC BELOW:
[2023-06-26 07:57] LABS: BILIRUBIN,URINE NEGATIVE (NEGATIVE); GLUCOSE, URINE (UA) NEGATIVE (NEGATIVE); KETONES,URINE (UA) NEGATIVE (NEGATIVE); LEUKOCYTE ESTERASE, URINE NEGATIVE (NEGATIVE); NITRITE,URINE NEGATIVE (NEGATIVE); OCCULT BLOOD,URINE NEGATIVE (NEGATIVE); PROTEIN,URINE NEGATIVE (NEGATIVE); UROBILINOGEN,URINE 0.2 (NORMAL) E.U./dL (NORMAL)
[2023-06-26 07:58] LABS: CLARITY,URINE CLEAR (CLEAR)
[2023-06-26] MEDS ORDERED: QUEtiapine 25 MG TABLET PO STA (08:06)
[2023-06-26] MEDS ORDERED: OLANZapine ODT 5 MG TABLET TL STA (08:06)
[2023-06-26 08:07] LABS: AMPHETAMINE SCREEN,URINE POSITIVE (NEGATIVE); BARBITURATE SCREEN,UR NEGATIVE (NEGATIVE); BENZODIAZEPINES SCREEN, URINE NEGATIVE (NEGATIVE); COCAINE SCREEN URINE NEGATIVE (NEGATIVE); METHADONE SCREEN, URINE NEGATIVE (NEGATIVE); METHAMPHETAMINES SCREEN, URINE POSITIVE (NEGATIVE); OPIATE SCREEN, URINE NEGATIVE (NEGATIVE); OXYCODONE SCREEN, URINE NEGATIVE (NEGATIVE); PROPOXYPHENE SCREEN, URINE NEGATIVE (NEGATIVE); THC CANNABINOID SCREEN, URINE NEGATIVE (NEGATIVE); TRICYCLIC ANTIDEPRESSANT,URINE NEGATIVE (NEGATIVE)
--- NOTE | 2023-06-26 08:10 | ED Physician Documentation ---
Restraint Yivv-nx-[id number] - Immediate Situation Face to Face Evaluation Date: 06/26/23 Face to Face Evaluation Time: 08:07 Restraint Classification: Violent, physical, chemical Restraint Type: Locked extremity - Patient's Reaction & Behaviors Safety: Non-compliant Harm: Potential harm to others Physical: Aggressive behavior Other: Disruption of therapy - Behavioral Condition Attitude: Guarded Behavior: Agitated Orientation: Person, Place Mood: Angry - Evaluation System status changes from initial ED note: The patient seems a bit more oriented and conversant than it seems on initial presentation but is still quite agitated and uncooperative. Pertinent History/Illicit Drugs/Medications/Results: see H+P - Plan Need to Continue or Terminate Violent or Chemical Restraint: The patient is evaluated. He is able to answer questions. He seems a bit angry or agitated. I asked if I could listen to his heart and lungs and he said "do not touch me". He asked for food. I asked if he had been on his medications at the alf and he said no. I asked if he would be willing to take his usual medications which is quetiapine and has had Zyprexa in the past as well. He takes Abilify 2 but we do not have that on stock. Stool study was willing to except his usual medications. We will give him his oral medication at the usual doses. We will give it some time to see at the effect on that and see if he is less agitated we we can feel safe for removing the restraints. At this point I would renew them for now as he still does not seem safe toward's per se.
--- NOTE | 2023-06-26 13:18 | ED Physician Documentation ---
ED Addendum - Addendum Addendum: 06/26/23 13:17 The patient has been interactive and cooperative now for a while. He has been out of restraints for about 3 hours at this point. The DCR will evaluate the patient for placement. The patient did well earlier with some olanzapine for which she was in agreement for taking. He states this can be helpful for him. I ordered it regularly to be given dose twice daily. If he is to be here this evening. He also typically will use quetiapine at night and that can be ordered if needed.
[2023-06-26] MEDS ORDERED: OLANZapine ODT 5 MG TABLET TL SCH ×2 (14:00→21:00)
[2023-06-26 15:45] VITALS: BP 95/57; O2SAT 97
--- NOTE | 2023-06-26 16:49 | ED Physician Documentation ---
ED Addendum - Addendum Addendum: 06/26/23 16:49 Notified that there are no beds available anywhere in the region for him and the DCR is doing a "walk away." He is stable and cooperative right now. Will redispatch tomorrow.
--- NOTE | 2023-06-26 18:01 | ED Physician Documentation ---
ED Addendum - Addendum Addendum: 06/26/23 17:59 The DCR did walk away as there was no facilities accepting him at this time. The patient was anxious to leave and at this point we do not have grounds to detain him involuntarily based on the DCR walkway. He is not harmful to himself or others. He the patient eloped from the department in actually calm condition. The DCR and said we should redispatch them tomorrow assuming the patient is brought back to the ER.
[2023-06-26] MEDS ORDERED: QUEtiapine 25 MG TABLET PO SCH (21:00)
== END 2023-06-26 17:23 | disposition left against medical advice (07) ==
LOC: EDUNIT# → ED 20:30
DX: F25.9 Schizoaffective disorder, unspecified (principal); F19.10 Other psychoactive substance abuse, uncomplicated; Z74.1 Need for assistance with personal care; Z78.1 Physical restraint status; F17.200 Nicotine dependence, unspecified, uncomplicated; Z20.822 Contact with and (suspected) exposure to COVID-19; Z75.1 Person awaiting admission to adequate facility elsewhere
CPT/HCPCS: 36415; 80053; 80306; 80307; 80320; 80329; 81003; 82550; 83690; 83735; 84443; 85025; 87635; 93005; 99284; 99285; A9270; 81001; 87086

== ENCOUNTER 2023-08-06 14:29 | Outpatient (CLI) | payer MEDICAID | END 2023-08-06 14:30 | disposition critical access hospital (66) | LOC: EMS 14:29 | DX: R46.89 Other symptoms and signs involving appearance and behavior (principal) | CPT/HCPCS: A0425; A0429; A0999 ==

== ENCOUNTER 2023-08-06 14:52 | Emergency (ER) | payer MEDICAID ==
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
== END 2023-08-06 15:05 | disposition left against medical advice (07) ==
LOC: EDUNIT# → ED 14:52
DX: Z53.20 Procedure and treatment not carried out because of patient's decision for unspecified reasons (principal)
CPT/HCPCS: 99283

== ENCOUNTER 2023-11-18 03:02 | Outpatient (CLI) | payer MEDICAID | END 2023-11-18 23:59 | disposition critical access hospital (66) | LOC: EMS 03:02 | DX: R51.9 Headache, unspecified (principal); X31.XXXA Exposure to excessive natural cold, initial encounter; Z59.02 Unsheltered homelessness | CPT/HCPCS: A0425; A0429 ==

== ENCOUNTER 2023-11-18 03:19 | Emergency (ER) | payer MEDICAID ==
--- NOTE | 2023-11-18 03:26 | ED Physician Documentation ---
History of Present Illness - Stated complaint Stated Complaint: FEELING COLD/HOMELESS - History obtained from History obtained from: Patient, EMS - Additonal information Additional information: 28yM with pmh schizophrenia (receives regular antipsychotic injections through [facility], otherwise no daily meds) p/w chills and wet clothes after walking around outdoors in the rain for several hours tonight. He tried to check in to the [facility] at 3am but was turned away. denies other complaints. denies SI/HI/AVH. calm and cooperative. PD PAST MEDICAL HISTORY - Past Medical History Cardiovascular: None Respiratory: None Neuro: None Endocrine/Autoimmune: None GI: None : None HEENT: None Psych: Bipolar disorder, Schizophrenia, Other Musculoskeletal: None Derm: None - Past Surgical History Past Surgical History: No - Present Medications Home Medications: Ambulatory Orders Medication Instructions Recorded Confirmed Aripiprazole [Abilify Maintena] 300 mg IM ONCE 04/09/21 06/25/23 QUEtiapine [SEROquel] 50 mg PO QPM #10 tablet 04/20/22 06/25/23 - Allergies Allergies/Adverse Reactions: Allergies Allergy/AdvReac Type Severity Reaction Status Date / Time No Known Drug Allergies Allergy Verified 11/18/23 03:41 - Social History Does the pt smoke?: Yes Smoking Status: Current every day smoker Does the pt drink ETOH?: Yes Does the pt have substance abuse?: Yes - Immunizations Immunizations are current?: No - POLST Patient has POLST: No POLST Status: Full Code PD ED PE NORMAL - Vitals Vital signs reviewed: Yes - General General: Alert and oriented X 3, No acute distress, Well developed/nourished - HEENT HEENT: Atraumatic, PERRL, EOMI, Moist mucous membranes, Pharynx benign - Derm Derm: Normal color, Warm and dry - Neuro Neuro: Alert and oriented X 3 - Psych Psych: Normal mood, Normal affect Results - Vitals Vitals: Vital Signs - 24 hr 11/18/23 03:20 Temperature 36.7 C Heart Rate 114 H Respiratory 18 Rate Blood Pressure 168/97 H O2 Saturation 95 Oxygen O2 Source Room air PD Medical Decision Making - ED course ED course: 28yM with pmh schizophrenia, homelessness, p/w chills and wet clothes after walking around out in the rain tonight. Patient has no other physical or mental health complaints, and is calm and cooperative with staff. It is currently 39 degrees F and raining therefore plan is to change patient into a dry gown and allow him to rest in the ED. Patient requesting to leave at 4:15am. pcp list provided. plan to f/u with [facility] as well. Departure - Departure Disposition: 01 Home, Self Care Clinical Impression: Homeless, Cold and clammy skin Condition: Stable Comments: You were seen in the emergency department after walking around in the rain and getting cold. I am enclosing a list of primary care providers to help coordinate with social work. Please also follow up with your mental health provider at [facility] and return to the emergency department if you have any other concerns. Forms: PCP List
[2023-11-18 03:54] VITALS: BP 168/97; O2SAT 95
== END 2023-11-18 04:25 | disposition home or self-care (01) ==
LOC: EDUNIT# → ED 03:19
DX: R68.83 Chills (without fever) (principal); Z59.00 Homelessness unspecified; F17.200 Nicotine dependence, unspecified, uncomplicated
CPT/HCPCS: 99282; 99283

== ENCOUNTER 2024-01-05 15:11 | Emergency (ER) | payer OTHER, MEDICAID ==
[2024-01-05 15:26] VITALS: O2SAT 100
--- NOTE | 2024-01-05 15:36 | ED Physician Documentation ---
PD HPI SKIN - Stated complaint Stated Complaint: ALLERGIC REACTION/RASH ALL OVER - Chief complaint Chief Complaint: Allergic Rx - History obtained from History obtained from: Patient - Additional information Additional information: The patient is brought to the emergency department by police for chief complaint of generalized rash. He has been on Bactrim for the past few days for an abscess on the back of his leg, which he states is getting better after I&D. He has never had a problem with Bactrim before, but broke out in a whole body rash today. The [facility] nurse called here according to my colleague, stating that she thought he might have Mejia-Jeramy syndrome. The patient has not had any bullae. No oral lesions. He is otherwise feeling fine. He states the rash is mildly itchy. No swelling of his oropharyngeal structures. No difficulty breathing or wheezing. No nausea or vomiting. No fevers. No other complaints at this time. His last dose was this morning. The rash does not seem to be getting worse at this time but has been stable. PD PAST MEDICAL HISTORY - Past Medical History Past Medical History: Yes Cardiovascular: None Respiratory: None Neuro: None Endocrine/Autoimmune: None GI: None : None HEENT: None Psych: Bipolar disorder, Schizophrenia, Other Musculoskeletal: None Derm: None - Past Surgical History Past Surgical History: No - Present Medications Home Medications: Ambulatory Orders Medication Instructions Recorded Confirmed Aripiprazole [Abilify Maintena] 300 mg IM ONCE 04/09/21 06/25/23 QUEtiapine [SEROquel] 50 mg PO QPM #10 tablet 04/20/22 06/25/23 clindamycin HCL [Clindamycin HCl] 300 mg PO Q8H #24 cap 01/05/24 diphenhydrAMINE [Benadryl] 25 mg PO Q4-6H #16 cap 01/05/24 predniSONE [Deltasone] 60 mg PO DAILY 3 Days #9 tablet 01/05/24 - Allergies Allergies/Adverse Reactions: Allergies Allergy/AdvReac Type Severity Reaction Status Date / Time sulfamethoxazole Allergy Rash Verified 01/05/24 15:22 [From Bactrim] trimethoprim [From Bactrim] Allergy Rash Verified 01/05/24 15:22 - Social History Does the pt smoke?: Yes Smoking Status: Current every day smoker Does the pt drink ETOH?: Yes Does the pt have substance abuse?: Yes - Immunizations Immunizations are current?: No - POLST Patient has POLST: No POLST Status: Full Code PD ED PE NORMAL - Vitals Vital signs reviewed: Yes - General General: Alert and oriented X 3, No acute distress, Well developed/nourished - HEENT HEENT: Atraumatic, PERRL, EOMI, Moist mucous membranes - Neck Neck: Supple, no meningeal sign - Cardiac Cardiac: RRR, No murmur - Respiratory Respiratory: No respiratory distress, Clear bilaterally - Derm Derm: Warm and dry, Other (Whole body urticarial and maculopapular rash without bullae or other lesions.) - Extremities Extremities: No deformity, No edema - Neuro Neuro: Other (The patient is alert, cooperative, and grossly intact.) - Psych Psych: Normal mood, Normal affect Results - Vitals Vitals: Vital Signs - 24 hr 01/05/24 15:18 Temperature 38.6 C H Heart Rate 95 Respiratory 16 Rate Blood Pressure 114/72 O2 Saturation 100 Oxygen O2 Source Room air PD Medical Decision Making - ED course Complexity details: considered differential, d/w patient ED course: The patient's rash appeared consistent with A simple allergic reaction. The patient was fairly well-appearing though he did have a low-grade fever. He had no mucosal lesions and no vesicles or bullae to indicate TEN or Mejia-Jeramy. At this point in time, I did treat the patient for an allergic reaction and I have discontinued his Bactrim. I will put him on other antibiotic coverage for his abscess. I have sent a note to the [facility] to advise them of symptoms that would be can consistent with TEN or Mejia-Jeramy and should prompt him to have the patient rechecked. Departure - Departure Disposition: 01 Home, Self Care Clinical Impression: Allergic urticaria Condition: Stable Instructions: ED Allergic Reaction General Other Prescriptions: diphenhydrAMINE [Benadryl] 25 mg PO Q4-6H #16 cap clindamycin HCL [Clindamycin HCl] 300 mg PO Q8H #24 cap predniSONE [Deltasone] 60 mg PO DAILY 3 Days #9 tablet Comments: Mr. Pierson rash at this point in time appears consistent with an allergic reaction. There are no mucosal lesions, vesicles, or bullae to indicate something more serious like Mejia-Jeramy. If such lesions arise, then Mr. Pierson should be reevaluated at that time. In the meantime, he should take the new antibiotic, as well as the antiallergy medications that have been prescribed.
[2024-01-05] MEDS: diphenhydrAMINE INJ 50 MG/ML VIAL IM STA (16:03)
[2024-01-05] MEDS: ACETAMINOPHEN 325 MG TABLET PO STA (16:03)
[2024-01-05] MEDS: DEXAMETHASONE 10 MG/ML VIAL IM STA (16:03)
[2024-01-05 16:24] VITALS: BP 111/72
== END 2024-01-05 16:17 | disposition home or self-care (01) ==
LOC: EDUNIT# → ED 15:11
DX: L50.0 Allergic urticaria (principal); F17.200 Nicotine dependence, unspecified, uncomplicated
CPT/HCPCS: 96372; 99283; A9270; J1200

== ENCOUNTER 2024-06-25 09:55 | Outpatient (CLI) | payer MEDICAID | END 2024-06-25 23:59 | disposition critical access hospital (66) | LOC: EMS 09:55 | DX: L29.9 Pruritus, unspecified (principal); L21.0 Seborrhea capitis; Z59.00 Homelessness unspecified | CPT/HCPCS: A0425; A0429; A0999 ==

== ENCOUNTER 2024-06-25 10:30 | Emergency (ER) | payer MEDICAID ==
--- NOTE | 2024-06-25 15:18 | ED Physician Documentation ---
History of Present Illness - Stated complaint Stated Complaint: LICE - History obtained from History obtained from: Patient (Here for lice-see downtime charting) PD PAST MEDICAL HISTORY - Past Medical History Cardiovascular: None Respiratory: None Neuro: None Endocrine/Autoimmune: None GI: None : None HEENT: None Psych: Bipolar disorder, Schizophrenia, Other Musculoskeletal: None Derm: None - Past Surgical History Past Surgical History: No - Present Medications Home Medications: Ambulatory Orders Medication Instructions Recorded Confirmed Aripiprazole [Abilify Maintena] 300 mg IM ONCE 04/09/21 06/25/23 QUEtiapine [SEROquel] 50 mg PO QPM #10 tablet 04/20/22 06/25/23 clindamycin HCL [Clindamycin HCl] 300 mg PO Q8H #24 cap 01/05/24 diphenhydrAMINE [Benadryl] 25 mg PO Q4-6H #16 cap 01/05/24 predniSONE [Deltasone] 60 mg PO DAILY 3 Days #9 tablet 01/05/24 - Allergies Allergies/Adverse Reactions: Allergies Allergy/AdvReac Type Severity Reaction Status Date / Time sulfamethoxazole Allergy Rash Verified 01/05/24 15:22 [From Bactrim] trimethoprim [From Bactrim] Allergy Rash Verified 01/05/24 15:22 - Social History Does the pt smoke?: Yes Smoking Status: Current every day smoker Does the pt drink ETOH?: Yes Does the pt have substance abuse?: Yes - Immunizations Immunizations are current?: No - POLST Patient has POLST: No POLST Status: Full Code Results - Vitals Vitals: Oxygen O2 Source Room air Departure - Departure Disposition: Home, Self Care Clinical Impression: Pediculosis capitis Condition: Stable
[2024-06-25 16:09] VITALS: BP 130/82; O2SAT 100
== END 2024-06-25 11:00 | disposition home or self-care (01) ==
LOC: ED 10:30
DX: B85.0 Pediculosis due to Pediculus humanus capitis (principal); F17.200 Nicotine dependence, unspecified, uncomplicated
CPT/HCPCS: 99283